=== PATIENT | male | born 1940 | race Caucasian/White ===

== ENCOUNTER 2021-03-07 18:10 | Outpatient (REF) | payer MEDICARE, SELFPAY | END 2021-03-07 18:11 | disposition home or self-care (01) | LOC: HO.LNP 18:10 | PROVIDERS: Visit Provider Nurse Practitioner Family | DX: N39.0 Urinary tract infection, site not specified (principal) | CPT/HCPCS: 87086; 87088 ==

== ENCOUNTER 2021-03-18 13:36 | Outpatient (REF) | payer MEDICARE, SELFPAY ==
[2021-03-18 17:12] LABS: Hematocrit 38.5 % (42-52); Hemoglobin 11.9 g/dl (14.0-18.0); Mean Corpuscular HGB Conc 30.9 g/dl (31.0-36.0); Mean Corpuscular Hemoglobin 30.6 pg (27.0-33.0); Mean Platelet Volume 9.4 fL (9.4-12.4); Platelet Count 243 X10*3/uL (160-400); Red Blood Count 3.89 X10*6/uL (4.60-5.80); Red Cell Distribution Width 14.1 % (11.0-16.0); White Blood Count 6.2 X10*3/uL (4.8-10.8)
[2021-03-18 17:45] LABS: Estimated Average Glucose 166 mg/dL; Hemoglobin A1c % 7.4 %
[2021-03-18 17:47] LABS: Alanine Aminotransferase 11 U/L (0-40); Albumin Level 3.5 g/dL (3.5-5.0); Alkaline Phosphatase 63 U/L (39-117); Anion Gap 16 (12-20); Aspartate Amino Transferase 11 U/L (5-37); Bilirubin Direct 0.2 mg/dL (0.0-0.5); Bilirubin Total 0.6 mg/dL (0.0-1.0); Blood Urea Nitrogen 30 mg/dL (9-16); Calcium 8.7 mg/dL (8.4-10.2); Carbon Dioxide 28 mmol/L (22-29); Chloride 101 mmol/L (96-108); Cholesterol 205 mg/dL; Estimated Glomerular Filt Rate 40; Glucose Random 135 mg/dL (60-115); HDL Cholesterol 50 mg/dL; LDL Cholesterol Calculated 131 mg/dl; Sodium 141 mmol/L (135-145); Triglycerides 121 mg/dL
[2021-03-18 18:06] LABS: Thyroid Stimulating Hormone 1.28 uIU/mL (0.32-4.0)
[2021-03-18 18:30] LABS: Vitamin B12 659 pg/mL (200-900)
[2021-03-25 11:12] LABS: Vitamin D 25-OH, D2 <4 ng/mL; Vitamin D 25-OH, D3 26 ng/mL; Vitamin D 25-OH, Total 26 ng/mL (30-100)
== END 2021-03-18 13:37 | disposition home or self-care (01) ==
LOC: HO.HMGCLDS 13:36
PROVIDERS: PCP Internal Medicine; Visit Provider Internal Medicine
DX: E03.9 Hypothyroidism, unspecified (principal); E11.9 Type 2 diabetes mellitus without complications; I10 Essential (primary) hypertension
CPT/HCPCS: 36415; 80048; 80061; 80076; 82306; 82607; 82746; 83036; 84443; 85027

== ENCOUNTER 2021-05-17 17:24 | Inpatient (IN) | payer MEDICARE, SELFPAY ==
--- NOTE | ~2021-05-17 | US_ITS ---
EXAMINATION: US RETROPERITONEAL LIMITED (RENAL ONLY) CLINICAL INFORMATION: CRISTY. COMPARISON: CT abdomen and pelvis 06/13/2020 TECHNIQUE: Routine retroperitoneal ultrasound was performed. FINDINGS: RIGHT KIDNEY: 11.2 x 5.1 x 5.7 cm (SAG x AP x TRV). The kidney is normal in size, contour, and echogenicity. Renal cortical thickness is normal. No calculi or focal parenchymal lesions. No hydronephrosis. There are several anechoic cysts. The largest cyst measures 1.5 x 1.5 x 1.8 cm. LEFT KIDNEY: 11.1 x 5.5 x 5.5 cm (SAG x AP x TRV). The kidney is normal in size, contour, and echogenicity. Renal cortical thickness is normal. No calculi or focal parenchymal lesions. No hydronephrosis. There are multiple anechoic cysts, the largest measuring 2.8 x 2.0 x 1.7 cm. Incidentally noted is a distal abdominal aortic aneurysm measuring 5.7 x 5.6 cm. US/US renal BI IMPRESSION: Bilateral renal cysts. No echogenic renal calculi. Incidental finding of distal abdominal aortic aneurysm.
[2021-05-17 17:27] VITALS: BP 135/50; PULSE 71; RESP 18; TEMP 36.8; O2SAT 95; BMI 34.4
--- NOTE | 2021-05-17 18:25 | ED_ITS ---
HPI - Male Genitourinary General Chief complaint: Urogenital-Male Stated complaint: UTI Time Seen by Provider: 05/17/21 18:25 Source: patient Mode of arrival: ambulatory Limitations: no limitations History of Present Illness HPI Narrative: patient with history of ESBL Klebsiella in 03/12 in urine treated with Cipro got better , for last 2 weeks complaining of dysuria frequency burning sensation at the UA done on 05/01 for which showed ESBL Klebsiella again patient was given Levaquin comes here was still having the same symptoms. Urine culture report showed resistance to Cipro. Patient denies any fever no nausea no vomiting no chills no abdominal pain no flank pain patient does get UTI almost once a year does not have any indwelling catheter Related Data Home Medications Medication Instructions Recorded Confirmed albuterol sulfate 2 puff INHALATION Q6-8H PRN 05/17/21 05/17/21 alfuzosin 1 tab PO DAILY 05/17/21 05/17/21 apixaban [Eliquis] 1 tab PO BID 05/17/21 05/17/21 clopidogrel 1 tab PO DAILY 05/17/21 05/17/21 diltiazem HCl 1 cap PO DAILY 05/17/21 05/17/21 fluticasone propionate [Flovent 1 puff PO BID 05/17/21 05/17/21 HFA] hydrochlorothiazide 1 tab PO DAILY 05/17/21 05/17/21 metoprolol succinate 1 tab PO DAILY 05/17/21 05/17/21 Allergies Allergy/AdvReac Type Severity Reaction Status Date / Time cephalexin [Keflex] Allergy Unknown diarrhea Verified 04/06/21 16:30 Sulfa (Sulfonamide Allergy Unknown Unknown Verified 04/06/21 16:30 Antibiotics) Review of Systems Review of Systems: Yes all other systems are reviewed and are negative [facility] Past Medical History Medical History Acquired hypothyroidism COPD exacerbation Essential (primary) hypertension Surgical History History of cardiac catheterization History of nasal surgery History of tonsillectomy Family History Family History Father Myocardial infarction Mother Alzheimers disease Social History Social History Alcohol intake: never Patient Tobacco Use Status: Former Tobacco user Cigarettes Per Day: 5 Use of substances other than those prescribed or required for medical reasons: No Advance Directives: No Advance Directives Information Provided: Yes Physical Exam Vital Signs: Vital Signs: Last Vital Signs Temp 98.6 F 05/17/21 22:25 Pulse 66 05/17/21 22:25 Resp 18 05/17/21 22:25 BP 119/59 L 05/17/21 22:25 Pulse Ox 96 05/17/21 22:25 Body Mass Index 34.4 Appearance: Alert. Oriented X3. No acute distress. Eyes: PERRLA, No Nystagmus right eyelid edema ENT: Pharynx normal. Oral Mucosa moist Neck: Normal inspection. Neck supple. CVS: Normal heart rate and rhythm. Pulses normal. Respiratory: No respiratory distress. Equal air entry bilateral, no wheezing/rales/rhonchi Abdomen: Soft and nontender. Bowel sounds are present, no mass palpable, no CVA tenderness Skin: Skin warm and dry. Normal skin color. Normal skin turgor. Extremities: 3+ lower extremity edema. No calf tenderness Neuro: Oriented X 3. No motor deficit. No sensory deficit.No cerebellar signs , cranial nerves II-XII intact MDM - Male Genitourinary MDM Narrative Medical decision making narrative: patient with ESBL UTI will admit patient for IV Invanz . Awaiting for final culture Lab Data Attestation: I reviewed the patient's lab results. Result diagrams: 05/17/21 19:02 05/17/21 19:02 Labs: Lab Results 05/17/21 05/17/21 05/17/21 Range/Units 19:02 19:02 19:02 WBC 9.4 (4.8-10.8) X10*3/uL RBC 3.38 L (4.60-5.80) X10*6/uL Hgb 10.8 L (14.0-18.0) g/dl Hct 33.2 L (42-52) % MCV 98.2 H (80-98) fL MCH 32.0 (27.0-33.0) pg MCHC 32.5 (31.0-36.0) g/dl RDW 14.6 (11.0-16.0) % Plt Count 190 (160-400) X10*3/uL MPV 9.9 (9.4-12.4) fL Immature Gran % (Auto) 0.3 (0.0-0.4) % Neut % (Auto) 67.6 (45-73) % Lymph % (Auto) 17.4 L (20-40) % [place] % (Auto) 9.2 (2-11) % Eos % (Auto) 4.8 H (0-4) % Baso % (Auto) 0.7 (0-2) % Lymph # (Auto) 1.6 (1.2-4.9) X10*3/uL [place] # (Auto) 0.9 (0.1-1.2) X10*3/uL Eos # (Auto) 0.5 H (0.0-0.4) X10*3/uL Baso # (Auto) 0.1 (0.0-0.2) X10*3/uL Abs Immat Gran (auto) 0.03 (0.00-0.03) X10*3/uL Absolute Neuts (auto) 6.4 (2.0-8.3) X10*3/uL Absolute Nucleated RBC 0.000 (0.0-0.012) X10*3/uL Nucleated RBC % (auto) 0.0 (0.0-0.2) /100WBC Sodium 140 (135-145) mmol/L Potassium 4.1 (3.3-5.1) mmol/L Chloride 103 (96-108) mmol/L Carbon Dioxide 29 (22-29) mmol/L Anion Gap 12 (12-20) BUN 58 H D (9-16) mg/dL Creatinine 2.34 H (0.5-1.4) mg/dL Estim Creat Clear Calc 31.1 Estimated GFR 27 Random Glucose 118 H (60-115) mg/dL Lactic Acid 1.2 (0.5-2.0) mmol/L Calcium 9.2 (8.4-10.2) mg/dL B-Natriuretic Peptide (<100) pg/mL COVID-19 ([facility]) (Negative) COVID-19 Clin Com 05/17/21 05/17/21 Range/Units 19:06 20:03 WBC (4.8-10.8) X10*3/uL RBC (4.60-5.80) X10*6/uL Hgb (14.0-18.0) g/dl Hct (42-52) % MCV (80-98) fL MCH (27.0-33.0) pg MCHC (31.0-36.0) g/dl RDW (11.0-16.0) % Plt Count (160-400) X10*3/uL MPV (9.4-12.4) fL Immature Gran % (Auto) (0.0-0.4) % Neut % (Auto) (45-73) % Lymph % (Auto) (20-40) % [place] % (Auto) (2-11) % Eos % (Auto) (0-4) % Baso % (Auto) (0-2) % Lymph # (Auto) (1.2-4.9) X10*3/uL [place] # (Auto) (0.1-1.2) X10*3/uL Eos # (Auto) (0.0-0.4) X10*3/uL Baso # (Auto) (0.0-0.2) X10*3/uL Abs Immat Gran (auto) (0.00-0.03) X10*3/uL Absolute Neuts (auto) (2.0-8.3) X10*3/uL Absolute Nucleated RBC (0.0-0.012) X10*3/uL Nucleated RBC % (auto) (0.0-0.2) /100WBC Sodium (135-145) mmol/L Potassium (3.3-5.1) mmol/L Chloride (96-108) mmol/L Carbon Dioxide (22-29) mmol/L Anion Gap (12-20) BUN (9-16) mg/dL Creatinine (0.5-1.4) mg/dL Estim Creat Clear Calc Estimated GFR Random Glucose (60-115) mg/dL Lactic Acid (0.5-2.0) mmol/L Calcium (8.4-10.2) mg/dL B-Natriuretic Peptide 103 H (<100) pg/mL COVID-19 ([facility]) Negative (Negative) COVID-19 Clin Com See Note Discharge Plan Discharge Clinical Impression: UTI (urinary tract infection) Qualifiers: Urinary tract infection type: acute cystitis Hematuria presence: without he maturia Qualified Code(s): N30.00 - Acute cystitis without hematuria Patient Disposition: Admitted As Inpatient
[2021-05-17 19:09] LABS: MANUAL DIFF FLAG NO
[2021-05-17 19:10] LABS: Basophils Absolute Auto 0.1 X10*3/uL (0.0-0.2); Basophils Percent Auto 0.7 % (0-2); Eosinophils Absolute Auto 0.5 X10*3/uL (0.0-0.4); Eosinophils Percent Auto 4.8 % (0-4); Hematocrit 33.2 % (42-52); Hemoglobin 10.8 g/dl (14.0-18.0); Imm Gran Abs Auto 0.03 X10*3/uL (0.00-0.03); Imm Gran Pct Auto 0.3 % (0.0-0.4); Lymphocytes Absolute Auto 1.6 X10*3/uL (1.2-4.9); Lymphocytes Percent Auto 17.4 % (20-40); Mean Corpuscular HGB Conc 32.5 g/dl (31.0-36.0); Mean Corpuscular Volume 98.2 fL (80-98); Mean Platelet Volume 9.9 fL (9.4-12.4); Monocytes Absolute Auto 0.9 X10*3/uL (0.1-1.2); Monocytes Percent Auto 9.2 % (2-11); Neutrophils Absolute Auto 6.4 X10*3/uL (2.0-8.3); Neutrophils Percent Auto 67.6 % (45-73); Platelet Count 190 X10*3/uL (160-400); Red Blood Count 3.38 X10*6/uL (4.60-5.80); Red Cell Distribution Width 14.6 % (11.0-16.0); White Blood Count 9.4 X10*3/uL (4.8-10.8)
[2021-05-17 19:38] LABS: Lactic Acid 1.2 mmol/L (0.5-2.0)
[2021-05-17 19:40] LABS: Anion Gap 12 (12-20); Blood Urea Nitrogen 58 mg/dL (9-16); Calcium 9.2 mg/dL (8.4-10.2); Carbon Dioxide 29 mmol/L (22-29); Chloride 103 mmol/L (96-108); Creatinine Clr Calc Pharmacy 31.1; Estimated Glomerular Filt Rate 27; Glucose Random 118 mg/dL (60-115); Potassium 4.1 mmol/L (3.3-5.1); Sodium 140 mmol/L (135-145)
[2021-05-17 19:46] LABS: B Type Natriuretic Peptide 103 pg/mL (<100)
[2021-05-17] MEDS: Ertapenem Sodium 1 GM in 0.9 % Sodium Chloride 50 ML IV (20:01)
[2021-05-17 20:05] VITALS: BP 119/47; PULSE 62; RESP 18; TEMP 36.3; O2SAT 96
[2021-05-17] MEDS: Nicotine 14 MG PATCH.TD24 TRANSDERMA (20:09)
[2021-05-17 20:32] LABS: COVID-19 Test Negative (Negative); IDNOW Serial# 9DD0AD1C
[2021-05-17 21:09] VITALS: BP 112/48; PULSE 57; RESP 16; TEMP 36.4; O2SAT 94
[2021-05-17 22:25] VITALS: BP 119/59; PULSE 66; RESP 18; TEMP 37; O2SAT 96
--- NOTE | 2021-05-17 23:02 | PM.IMHP ---
History of Present Illness Date of Service: 05/17/21 Chief Complaint: Dysuria 80-year-old male with a past medical history of hypertension, diabetes, CAD status post stent, paroxysmal AFib on Eliquis, CKD, chronic back pain, COPD, history of PE, abdominal aortic aneurysm , history of prostate cancer status post radiotherapy, history of cystoscopy, history of ESBL UTI -recurrent;presented to the hospital the chief complaint of frequency urgency dysuria. Patient reported that over the past 3 weeks he has been having noted any symptoms; and history of UTI in February; reported that went to the urgent care and was given oral antibiotics, initially Bactrim followed by levofloxacin; with no significant improvement and continued to have the symptoms. Decided to come to the ER for possible IV antibiotics Patient reported that in the past he was given oral ciprofloxacin with improvement. Denies any chest pain palpitations lightheadedness dizziness. Denies any flank pain. Denies any nausea vomiting diarrhea. Review of all other systems is negative except mentioned above ER course: Per ER team patient being treated with ertapenem given prior history of ESBL UTI. On labs also noted to have mild Kris on CKD. [facility] Medical History Acquired hypothyroidism COPD exacerbation Essential (primary) hypertension Family History Father Myocardial infarction Mother Alzheimers disease Surgical History History of cardiac catheterization History of nasal surgery History of tonsillectomy Social History Household Members: Significant Other Housing: House Alcohol intake: never Patient Tobacco Use Status: Former Tobacco user Quit Date: january Cigarettes Per Day: 5 Years Smoked: 60 Use of substances other than those prescribed or required for medical reasons: No Currently Displaying Signs/Symptoms of Drug Intoxication Withdrawal: No Have you been hit, kicked, punched, or otherwise hurt by someone within the past year? If so, by whom?: No Do you feel safe in your current relationship?: Yes Is there a partner from a previous relationship who is making you feel unsafe now?: No Are you made to feel afraid or neglected: No Advance Directives: No Advance Directives Information Provided: Yes Do you have thoughts of harming others: None Do you have a plan to hurt others: No Plan Recently lost weight without trying: No Eating poorly because of decreased appetite: No Nutrition Risks: No Nutritional Risk Poor oral hygiene: No service: No Current occupational status: retired Meds Allergies Allergy/AdvReac Type Severity Reaction Status Date / Time cephalexin [Keflex] Allergy Unknown diarrhea Verified 04/06/21 16:30 Sulfa (Sulfonamide Allergy Unknown Unknown Verified 04/06/21 16:30 Antibiotics) Active Medications: Current Medications Generic Name Dose Route Start Last Admin Trade Name Freq PRN Reason Stop Dose Admin Acetaminophen 650 mg 05/17/21 22:09 Acetaminophen 325 Mg Tablet PO Q6H PRN Pain, Mild (Pain Scale 1-3) Apixaban 5 mg 05/18/21 09:00 Apixaban 5 Mg Tablet PO BID [facility] Clopidogrel Bisulfate 75 mg 05/18/21 09:00 Clopidogrel Bisulfate 75 Mg Tablet PO DAILY [facility] Diltiazem HCl 300 mg 05/18/21 09:00 Diltiazem Hcl Cd 300 Mg Cap.Er.24h PO DAILY [facility] Protocol Insulin Human Lispro 0 unit 05/18/21 07:30 Insulin Lispro 100 Unit/Ml 3 Ml Vial SUBCUT QIDACHS [facility] Protocol Metoprolol Succinate 50 mg 05/18/21 09:00 Metoprolol Succinate Er 50 Mg Tab.Er.24h PO DAILY [facility] Protocol Senna 17.2 mg 05/17/21 22:09 Sennosides 8.6 Mg Tablet PO BEDTIME PRN Constipation Sodium Chloride 3 ml 05/18/21 00:00 0.9 % Sodium Chloride Flush 3 M[facility] Tamsulosin HCl 0.4 mg 05/18/21 09:00 Tamsulosin Hcl 0.4 Mg Capsule PO DAILY [facility] Home Medications Medication Instructions Recorded Confirmed Last Taken Type albuterol sulfate 2 puff INHALATION Q6-8H PRN 05/17/21 05/17/21 05/17/21 History alfuzosin 1 tab PO DAILY 05/17/21 05/17/21 Unknown History apixaban [Eliquis] 1 tab PO BID 05/17/21 05/17/21 Unknown History clopidogrel 1 tab PO DAILY 05/17/21 05/17/21 Unknown History diltiazem HCl 1 cap PO DAILY 05/17/21 05/17/21 Unknown History fluticasone propionate [Flovent 1 puff PO BID 05/17/21 05/17/21 Unknown History HFA] hydrochlorothiazide 1 tab PO DAILY 05/17/21 05/17/21 Unknown History metoprolol succinate 1 tab PO DAILY 05/17/21 05/17/21 Unknown History Physical Exam Vital Signs and Narrative: Vital Signs: Last Vital Signs Temp 98.6 F 05/17/21 22:25 Pulse 66 05/17/21 22:25 Resp 18 05/17/21 22:25 BP 119/59 L 05/17/21 22:25 Pulse Ox 96 05/17/21 22:25 Body Mass Index 34.4 Gen: Appears be in no acute distress HEENT: NCAT, Moist mucosa. Pulmonary: Vesicular breath sounds, fair air entry CVS: Normal S1-S2 Abdomen: BS+, Soft, Nontender ; no CVA tenderness Extremities: Warm well perfused Neuro: Alert and awake. Results Labs CBC and Chem 7: 05/18/21 06:55 05/18/21 09:54 Labs: Laboratory Results - last 24 hr 05/17/21 05/17/21 05/17/21 19:02 19:02 19:02 MCV 98.2 H MCH 32.0 MCHC 32.5 RDW 14.6 Plt Count 190 MPV 9.9 Immature Gran % (Auto) 0.3 Neut % (Auto) 67.6 Lymph % (Auto) 17.4 L [place] % (Auto) 9.2 Eos % (Auto) 4.8 H Baso % (Auto) 0.7 Lymph # (Auto) 1.6 [place] # (Auto) 0.9 Eos # (Auto) 0.5 H Baso # (Auto) 0.1 Abs Immat Gran (auto) 0.03 Absolute Neuts (auto) 6.4 Absolute Nucleated RBC 0.000 Nucleated RBC % (auto) 0.0 Anion Gap 12 Estim Creat Clear Calc 31.1 Estimated GFR 27 Random Glucose 118 H Lactic Acid 1.2 Calcium 9.2 B-Natriuretic Peptide COVID-19 ([facility]) COVID-19 Clin Com 05/17/21 05/17/21 19:06 20:03 MCV MCH MCHC RDW Plt Count MPV Immature Gran % (Auto) Neut % (Auto) Lymph % (Auto) [place] % (Auto) Eos % (Auto) Baso % (Auto) Lymph # (Auto) [place] # (Auto) Eos # (Auto) Baso # (Auto) Abs Immat Gran (auto) Absolute Neuts (auto) Absolute Nucleated RBC Nucleated RBC % (auto) Anion Gap Estim Creat Clear Calc Estimated GFR Random Glucose Lactic Acid Calcium B-Natriuretic Peptide 103 H COVID-19 ([facility]) Negative COVID-19 Clin Com See Note Assessment and Plan (1) Renal insufficiency: Status: Acute 80-year-old male with a past medical history of hypertension, diabetes, CAD status post stent, paroxysmal AFib on Eliquis, CKD, chronic back pain, COPD, history of PE, abdominal aortic aneurysm , history of prostate cancer status post radiotherapy, history of cystoscopy, history of ESBL UTI -recurrent;presented to the hospital the chief complaint of frequency urgency dysuria. noted to have UTI/ Kris on CKD. Admitted for further management. Recurrent UTI: Patient has prior history of ESBL UTI. Continue ertapenem. Id consult for input on recurrent UTI. KRIS on CKD: Gentle IV fluids. Avoid nephrotoxins. Nephrology consult. Diabetes: Insulin sliding scale. Hold home Januvia. COPD: Stable. Nebulizations p.r.n.. History of AFib/PE: Patient on Eliquis. Rate controlled. Continue home diltiazem, Metoprolol. code status: Full code Quality Stroke Does the patient have a stroke diagnosis?: No VTE Prior VTE?: No VTE Risk Level:: Medical - moderate - high VTE Device Contraindication: N/A - Device Ordered VTE Drug Contraindication: N/A - Med Ordered
[2021-05-18] VITALS (8 sets, daily range): BP systolic 137–162; BP diastolic 62–72; PULSE 57–76; RESP 15–18; TEMP 36.4–37; O2SAT 94–98
[2021-05-18] MEDS: 0.9 % Sodium Chloride 1,000 ML 75 ML IVCONT ×2 (00:57→14:13)
[2021-05-18 07:01] LABS: MANUAL DIFF FLAG NO
[2021-05-18 07:03] LABS: Basophils Absolute Auto 0.1 X10*3/uL (0.0-0.2); Basophils Percent Auto 0.8 % (0-2); Eosinophils Absolute Auto 0.6 X10*3/uL (0.0-0.4); Eosinophils Percent Auto 7.2 % (0-4); Hematocrit 35.7 % (42-52); Hemoglobin 11.2 g/dl (14.0-18.0); Imm Gran Abs Auto 0.05 X10*3/uL (0.00-0.03); Imm Gran Pct Auto 0.6 % (0.0-0.4); Lymphocytes Percent Auto 23.3 % (20-40); Mean Corpuscular HGB Conc 31.4 g/dl (31.0-36.0); Mean Corpuscular Hemoglobin 30.6 pg (27.0-33.0); Mean Corpuscular Volume 97.5 fL (80-98); Mean Platelet Volume 9.5 fL (9.4-12.4); Monocytes Absolute Auto 0.9 X10*3/uL (0.1-1.2); Monocytes Percent Auto 10.4 % (2-11); Neutrophils Percent Auto 57.7 % (45-73); Platelet Count 208 X10*3/uL (160-400); Red Blood Count 3.66 X10*6/uL (4.60-5.80); Red Cell Distribution Width 14.4 % (11.0-16.0); White Blood Count 8.7 X10*3/uL (4.8-10.8)
[2021-05-18 07:26] LABS: Anion Gap 14 (12-20); Blood Urea Nitrogen 54 mg/dL (9-16); Calcium 8.9 mg/dL (8.4-10.2); Carbon Dioxide 27 mmol/L (22-29); Chloride 105 mmol/L (96-108); Creatinine Clr Calc Pharmacy 35.1; Estimated Glomerular Filt Rate 31; Glucose Random 109 mg/dL (60-115); Potassium 4.1 mmol/L (3.3-5.1); Sodium 142 mmol/L (135-145)
[2021-05-18 07:40] LABS: Glucose, Whole Blood 111 mg/dL (60-115)
--- NOTE | 2021-05-18 09:25 | P.PNIM_ITS ---
Subjective Subjective Date of Service: 05/18/21 Interval History: seen in follow-up for UTI and KRIS. he reports feeling better today. Review of Systems Gen: no fever Resp: no sob, no cough CV: no chest, no GALEANO, no leg edema GI/: No n/v, no abd pain, No dysuriand no hematuria. Neuro: No confusion Physical Exam Vital Signs: Vital Signs: Last Vital Signs Temp 98.6 F 05/18/21 05:52 Pulse 57 05/18/21 05:52 Resp 15 05/18/21 05:52 BP 119/59 L 05/17/21 22:25 Pulse Ox 96 05/18/21 05:52 Body Mass Index 34.4 Const: Other: General: AO X 3, no acute distress Resp: CTA bilateral CVS: S1,S2,RRR GI: +BS, NT, no distention Skin: No rash Neuro: motor grossly intact Psych: appropriate affect Objective Data Current Medications Generic Name Dose Route Start Last Admin Trade Name Freq PRN Reason Stop Dose Admin Acetaminophen 650 mg 05/17/21 22:09 Acetaminophen 325 Mg Tablet PO Q6H PRN Pain, Mild (Pain Scale 1-3) Albuterol/Ipratropium 3 ml 05/17/21 23:18 Albuterol/Iprat 2.5/0.5mg 3 Ml Ampul.Neb INHALE RQ4H PRN Shortness of Breath/Wheezing Apixaban 5 mg 05/18/21 09:00 Apixaban 5 Mg Tablet PO BID [facility] Clopidogrel Bisulfate 75 mg 05/18/21 09:00 Clopidogrel Bisulfate 75 Mg Tablet PO DAILY [facility] Diltiazem HCl 300 mg 05/18/21 09:00 Diltiazem Hcl Cd 300 Mg Cap.Er.24h PO DAILY [facility] Protocol Sodium Chloride 1,000 mls @ 75 mls/hr 05/17/21 23:30 05/18/21 00:57 Ns IVCONT 75 mls/hr .[id number] [facility] Administration Ertapenem 1 gm/ Sodium 50 mls @ 100 mls/hr 05/18/21 20:00 05/18/21 00:56 Chloride IV Not Given Q24H [facility] Insulin Human Lispro 0 unit 05/18/21 07:30 05/18/21 07:53 Insulin Lispro 100 Unit/Ml 3 Ml Vial SUBCUT Not Given QIDACHS [facility] Protocol Metoprolol Succinate 50 mg 05/18/21 09:00 Metoprolol Succinate Er 50 Mg Tab.Er.24h PO DAILY [facility] Protocol Nicotine 14 mg 05/18/21 09:00 Nicotine 14 Mg Patch.Td24 TRANSDERMA DAILY [facility] Senna 17.2 mg 05/17/21 22:09 Sennosides 8.6 Mg Tablet PO BEDTIME PRN Constipation Sodium Chloride 3 ml 05/18/21 00:00 05/18/21 07:54 0.9 % Sodium Chloride Flush 3 Ml Syringe IVFLUSH Not Given QSHIFT [facility] Tamsulosin HCl 0.4 mg 05/18/21 09:00 Tamsulosin Hcl 0.4 Mg Capsule PO DAILY [facility] Labs CBC & Chem 7: 05/18/21 06:55 05/18/21 06:55 Labs: Laboratory Results - last 24 hr 05/17/21 05/17/21 05/17/21 19:02 19:02 19:02 WBC 9.4 RBC 3.38 L Hgb 10.8 L Hct 33.2 L MCV 98.2 H MCH 32.0 MCHC 32.5 RDW 14.6 Plt Count 190 MPV 9.9 Immature Gran % (Auto) 0.3 Neut % (Auto) 67.6 Lymph % (Auto) 17.4 L [place] % (Auto) 9.2 Eos % (Auto) 4.8 H Baso % (Auto) 0.7 Lymph # (Auto) 1.6 [place] # (Auto) 0.9 Eos # (Auto) 0.5 H Baso # (Auto) 0.1 Abs Immat Gran (auto) 0.03 Absolute Neuts (auto) 6.4 Absolute Nucleated RBC 0.000 Nucleated RBC % (auto) 0.0 Sodium 140 Potassium 4.1 Chloride 103 Carbon Dioxide 29 Anion Gap 12 BUN 58 H D Creatinine 2.34 H Estim Creat Clear Calc 31.1 Estimated GFR 27 POC Glucose Random Glucose 118 H Lactic Acid 1.2 Calcium 9.2 B-Natriuretic Peptide COVID-19 ([facility]) COVID-19 Clin Com 05/17/21 05/17/21 05/18/21 19:06 20:03 06:55 WBC 8.7 RBC 3.66 L Hgb 11.2 L Hct 35.7 L MCV 97.5 MCH 30.6 MCHC 31.4 RDW 14.4 Plt Count 208 MPV 9.5 Immature Gran % (Auto) 0.6 H Neut % (Auto) 57.7 Lymph % (Auto) 23.3 [place] % (Auto) 10.4 Eos % (Auto) 7.2 H Baso % (Auto) 0.8 Lymph # (Auto) 2.0 [place] # (Auto) 0.9 Eos # (Auto) 0.6 H Baso # (Auto) 0.1 Abs Immat Gran (auto) 0.05 H Absolute Neuts (auto) 5.0 Absolute Nucleated RBC 0.000 Nucleated RBC % (auto) 0.0 Sodium Potassium Chloride Carbon Dioxide Anion Gap BUN Creatinine Estim Creat Clear Calc Estimated GFR POC Glucose Random Glucose Lactic Acid Calcium B-Natriuretic Peptide 103 H COVID-19 ([facility]) Negative COVID-19 Clin Com See Note 05/18/21 05/18/21 06:55 07:21 WBC RBC Hgb Hct MCV MCH MCHC RDW Plt Count MPV Immature Gran % (Auto) Neut % (Auto) Lymph % (Auto) [place] % (Auto) Eos % (Auto) Baso % (Auto) Lymph # (Auto) [place] # (Auto) Eos # (Auto) Baso # (Auto) Abs Immat Gran (auto) Absolute Neuts (auto) Absolute Nucleated RBC Nucleated RBC % (auto) Sodium 142 Potassium 4.1 Chloride 105 Carbon Dioxide 27 Anion Gap 14 BUN 54 H Creatinine 2.07 H Estim Creat Clear Calc 35.1 Estimated GFR 31 POC Glucose 111 Random Glucose 109 Lactic Acid Calcium 8.9 B-Natriuretic Peptide COVID-19 ([facility]) COVID-19 Clin Com Quality Stroke Does the patient have a stroke diagnosis?: No VTE Prior VTE?: No VTE Risk Level:: Medical - moderate - high VTE Device Contraindication: N/A - Device Ordered VTE Drug Contraindication: N/A - Med Ordered Assessment and Plan (1) Renal insufficiency: Status: Acute Assessment and Plan: 80-year-old male with a past medical history of hypertension, diabetes, CAD status post stent, paroxysmal AFib on Eliquis, CKD 3, chronic back pain, COPD, history of PE, abdominal aortic aneurysm , history of prostate cancer status post radiotherapy, history of cystoscopy, history of ESBL UTI -recurrent;pre sented to the hospital the chief complaint of frequency urgency dysuria. noted to have UTI/ Kris on CKD. Admitted for further management. Recurrent UTI: Patient has prior history of ESBL UTI. Continue ertapenem. infectious Disease consultation for further recommendation KRIS on CKD 3, baseline creatinine 1.6 Gentle IV fluids. Avoid nephrotoxins. Nephrology consult. Repeat labs tomorrow Diabetes: Insulin sliding scale. Hold home Januvia. COPD: Stable. Nebulizations p.r.n.. History of AFib/PE: Patient on Eliquis, needs be renally adjusted to 2.5 bid. Rate controlled on diltiazem, Metoprolol. code status: Full code (2) UTI (urinary tract infection): Status: Acute
[2021-05-18] MEDS: dilTIAZem HCL CD 300 MG CAP.ER.24H PO (09:45)
[2021-05-18] MEDS: Nicotine 14 MG PATCH.TD24 TRANSDERMA (09:45)
[2021-05-18] MEDS: Metoprolol Succinate ER 50 MG TAB.ER.24H PO (09:46)
[2021-05-18] MEDS: Tamsulosin HCL 0.4 MG CAPSULE PO (09:46)
[2021-05-18] MEDS: Clopidogrel Bisulfate 75 MG TABLET PO (09:46)
[2021-05-18] MEDS: Apixaban 2.5 MG TABLET PO ×2 (09:46→21:28)
[2021-05-18 10:30] LABS: Anion Gap 15 (12-20); Blood Urea Nitrogen 52 mg/dL (9-16); Calcium 8.8 mg/dL (8.4-10.2); Carbon Dioxide 25 mmol/L (22-29); Chloride 106 mmol/L (96-108); Creatinine Clr Calc Pharmacy 35.8; Estimated Glomerular Filt Rate 32; Glucose Random 150 mg/dL (60-115); Potassium 5.1 mmol/L (3.3-5.1); Sodium 141 mmol/L (135-145)
[2021-05-18 11:07] LABS: Glucose, Whole Blood 112 mg/dL (60-115)
--- NOTE | 2021-05-18 13:41 | MHC.CM.PN ---
nurse family day care provider note electronic medical record reviewed along with case discussed with staff nurse , met with patient , patient reported he lives with his partner , he is active and independent in all adls and mobility without the use of any device [facility] he denied any financial burdens in obtaining his medications he completed his second does of the [employer] vacination on 01/22/21 he had s diabetes but does not check his poc , he has hgb-aic checked q 3 months and is is stable . he gomez s copd and a-fib and on eliquis he has no vna /no dme services in the home and does not feel he will need any he has been admitted for uti and has esbl uti,l he will continue with erapeneum discharge plan at this time home no services pcp patient to call for post hospital discharge follow up transportation family
[2021-05-18 16:18] LABS: Glucose, Whole Blood 114 mg/dL (60-115)
[2021-05-18 20:36] LABS: Glucose, Whole Blood 141 mg/dL (60-115)
[2021-05-19] VITALS (8 sets, daily range): BP systolic 134–154; BP diastolic 60–80; PULSE 55–71; RESP 16–19; TEMP 36.4–36.8; O2SAT 94–97
[2021-05-19] MEDS: 0.9 % Sodium Chloride 1,000 ML 75 ML IVCONT ×2 (03:44→14:49)
[2021-05-19 07:41] LABS: Glucose, Whole Blood 108 mg/dL (60-115)
[2021-05-19] MEDS: Clopidogrel Bisulfate 75 MG TABLET PO (09:39)
[2021-05-19] MEDS: Tamsulosin HCL 0.4 MG CAPSULE PO (09:40)
[2021-05-19] MEDS: Metoprolol Succinate ER 50 MG TAB.ER.24H PO (09:40)
[2021-05-19] MEDS: dilTIAZem HCL CD 300 MG CAP.ER.24H PO (09:45)
[2021-05-19] MEDS: Apixaban 2.5 MG TABLET PO ×2 (09:45→20:50)
[2021-05-19] MEDS: Nicotine 14 MG PATCH.TD24 TRANSDERMA (09:46)
--- NOTE | 2021-05-19 09:55 | P.CONNP_ITS ---
History of Present Illness Reason for Consult Consult date: 05/19/21 Chief Complaint Chief complaint: UTI recurrent. says know creat 2.0 for some time Review of Systems Review of Systems Gen: no fever Resp: no sob, no cough CV: no chest, no GALEANO, no leg edema GI/: No n/v, no abd pain, No dysuriand no hematuria. Neuro: No confusion Yes all other systems are reviewed and are negative [facility] Past Medical History Medical History Acquired hypothyroidism COPD exacerbation Essential (primary) hypertension Family History Family History Father Myocardial infarction Mother Alzheimers disease Surgical History Surgical History History of cardiac catheterization History of nasal surgery History of tonsillectomy Social History Social History Household Members: Significant Other Housing: House Alcohol intake: never Patient Tobacco Use Status: Former Tobacco user Quit Date: january Cigarettes Per Day: 5 Years Smoked: 60 Use of substances other than those prescribed or required for medical reasons: No Currently Displaying Signs/Symptoms of Drug Intoxication Withdrawal: No Have you been hit, kicked, punched, or otherwise hurt by someone within the past year? If so, by whom?: No Do you feel safe in your current relationship?: Yes Is there a partner from a previous relationship who is making you feel unsafe now?: No Are you made to feel afraid or neglected: No Advance Directives: No Advance Directives Information Provided: Yes Do you have thoughts of harming others: None Do you have a plan to hurt others: No Plan Recently lost weight without trying: No Eating poorly because of decreased appetite: No Nutrition Risks: No Nutritional Risk Poor oral hygiene: No service: No Current occupational status: retired Meds Allergies Allergy/AdvReac Type Severity Reaction Status Date / Time cephalexin [Keflex] Allergy Unknown diarrhea Verified 04/06/21 16:30 Sulfa (Sulfonamide Allergy Unknown Unknown Verified 04/06/21 16:30 Antibiotics) Active Medications: Current Medications Generic Name Dose Route Start Last Admin Trade Name Freq PRN Reason Stop Dose Admin Acetaminophen 650 mg 05/17/21 22:09 Acetaminophen 325 Mg Tablet PO Q6H PRN Pain, Mild (Pain Scale 1-3) Albuterol/Ipratropium 3 ml 05/17/21 23:18 Albuterol/Iprat 2.5/0.5mg 3 Ml Ampul.Neb INHALE RQ4H PRN Shortness of Breath/Wheezing Apixaban 2.5 mg 05/18/21 09:36 05/19/21 09:45 Apixaban 2.5 Mg Tablet PO 2.5 mg BID PARMJIT Administration Clopidogrel Bisulfate 75 mg 05/18/21 09:00 05/19/21 09:39 Clopidogrel Bisulfate 75 Mg Tablet PO 75 mg DAILY PARMJIT Administration Diltiazem HCl 300 mg 05/18/21 09:00 05/19/21 09:45 Diltiazem Hcl Cd 300 Mg Cap.Er.24h PO 300 mg DAILY PARMJIT Administration Protocol Sodium Chloride 1,000 mls @ 100 mls/hr 05/17/21 23:30 05/19/21 03:44 Ns IVCONT 75 mls/hr .Q10H PARMJIT Administration Meropenem 1 gm/ Sodium 100 mls @ 100 mls/hr 05/18/21 20:15 05/19/21 08:23 Chloride IV Infused Q12H PARMJIT Infusion Insulin Human Lispro 0 unit 05/18/21 07:30 05/19/21 07:20 Insulin Lispro 100 Unit/Ml 3 Ml Vial SUBCUT Not Given QIDACHS [facility] Protocol Metoprolol Succinate 50 mg 05/18/21 09:00 05/19/21 09:40 Metoprolol Succinate Er 50 Mg Tab.Er.24h PO 50 mg DAILY [facility] Administration Protocol Nicotine 14 mg 05/18/21 09:00 05/19/21 09:46 Nicotine 14 Mg Patch.Td24 TRANSDERMA 14 mg DAILY PARMJIT Administration Senna 17.2 mg 05/17/21 22:09 Sennosides 8.6 Mg Tablet PO BEDTIME PRN Constipation Sodium Chloride 3 ml 05/18/21 00:00 05/19/21 07:25 0.9 % Sodium Chloride Flush 3 Ml Syringe IVFLUSH Not Given QSHIFT PARMJIT Tamsulosin HCl 0.4 mg 05/18/21 09:00 05/19/21 09:40 Tamsulosin Hcl 0.4 Mg Capsule PO 0.4 mg DAILY PARMJIT Administration Home Medications Medication Instructions Recorded Confirmed Last Taken Type albuterol sulfate 2 puff INHALATION Q6-8H PRN 05/17/21 05/17/21 05/17/21 History alfuzosin 1 tab PO DAILY 05/17/21 05/17/21 Unknown History apixaban [Eliquis] 1 tab PO BID 05/17/21 05/17/21 Unknown History clopidogrel 1 tab PO DAILY 05/17/21 05/17/21 Unknown History diltiazem HCl 1 cap PO DAILY 05/17/21 05/17/21 Unknown History fluticasone propionate [Flovent 1 puff PO BID 05/17/21 05/17/21 Unknown History HFA] hydrochlorothiazide 1 tab PO DAILY 05/17/21 05/17/21 Unknown History metoprolol succinate 1 tab PO DAILY 05/17/21 05/17/21 Unknown History Physical Exam Vital Signs: Last Vital Signs Temp 97.6 F 05/19/21 07:14 Pulse 68 05/19/21 09:40 Resp 17 05/19/21 07:14 BP 138/70 05/19/21 09:40 Pulse Ox 96 05/19/21 07:14 Body Mass Index 34.4 Const Other: General: AO X 3, no acute distress Resp: CTA bilateral CVS: S1,S2,RRR GI: +BS, NT, no distention Skin: No rash Neuro: motor grossly intact Psych: appropriate affect Results Lab Results Result Diagrams: 05/18/21 06:55 05/18/21 09:54 Lab results: Chemistry 05/17/21 05/18/21 05/18/21 19:02 06:55 09:54 Sodium 140 142 141 Potassium 4.1 4.1 5.1 D Carbon Dioxide 29 27 25 BUN 58 H D 54 H 52 H Creatinine 2.34 H 2.07 H 2.03 H Calcium 9.2 8.9 8.8 Hematology 05/17/21 05/18/21 19:02 06:55 WBC 9.4 8.7 Hgb 10.8 L 11.2 L Plt Count 190 208 Assessment and Plan (1) Renal insufficiency: Status: Acute 80-year-old male with a past medical history of hypertension, diabetes, CAD status post stent, paroxysmal AFib on Eliquis, CKD, chronic back pain, COPD, history of PE, abdominal aortic aneurysm , history of prostate cancer status post radiotherapy, history of cystoscopy, history of ESBL UTI - recurrent;presented to the hospital the chief complaint of frequency urgency dysuria. noted to have UTI/ Kris on CKD. Admitted for further management. Recurrent UTI: Patient has prior history of ESBL UTI. Continue ertapenem. Id consult for input on recurrent UTI. KRIS on CKD: Gentle IV fluids. Avoid nephrotoxins. likely CKD from DM will start workup and f/u as OP Diabetes: Insulin sliding scale. Hold home Januvia. COPD: Stable. Nebulizations p.r.n.. History of AFib/PE: Patient on Eliquis. Rate controlled. Continue home diltiazem, Metoprolol. code status: Full code Procedures Date of Service Date of Service: 05/19/21
--- NOTE | 2021-05-19 10:14 | MHC.CLN ---
CALORIC LEVEL OF DIET DIET=DIABETIC 2000 KCAL. RECOMMEND DIABETIC 2200 KCAL, TO PROVIDE 26.2 KCAL/KG CMW.
[2021-05-19 11:39] LABS: Glucose, Whole Blood 114 mg/dL (60-115)
--- NOTE | 2021-05-19 12:35 | P.CNID_ITS ---
History of Present Illness Data of Consult Service Date: 05/19/21 Requesting physician: Justice Garcia Primary Care Provider: Colton Segura MD [facility] Reason for consult: UTI He presents with three weeks dysuria,urgency and fatigue He had Macrobid,Levaquin and Cipro with no improvement He had urine culture in February ESBL Klebsiella He has CRISTY Review of Systems Review of Systems: Yes all other systems are reviewed and are negative PMFSH Past Medical History Medical History Acquired hypothyroidism COPD exacerbation Essential (primary) hypertension Family History Family History Father Myocardial infarction Mother Alzheimers disease Family history: reviewed and not pertinent Surgical History Surgical History History of cardiac catheterization History of nasal surgery History of tonsillectomy Social History Social History Household Members: Significant Other Housing: House Alcohol intake: never Patient Tobacco Use Status: Former Tobacco user Quit Date: january Cigarettes Per Day: 5 Years Smoked: 60 Use of substances other than those prescribed or required for medical reasons: No Currently Displaying Signs/Symptoms of Drug Intoxication Withdrawal: No Have you been hit, kicked, punched, or otherwise hurt by someone within the past year? If so, by whom?: No Do you feel safe in your current relationship?: Yes Is there a partner from a previous relationship who is making you feel unsafe now?: No Are you made to feel afraid or neglected: No Advance Directives: No Advance Directives Information Provided: Yes Do you have thoughts of harming others: None Do you have a plan to hurt others: No Plan Recently lost weight without trying: No Eating poorly because of decreased appetite: No Nutrition Risks: No Nutritional Risk Poor oral hygiene: No service: No Current occupational status: retired Meds Allergies Allergy/AdvReac Type Severity Reaction Status Date / Time cephalexin [Keflex] Allergy Unknown diarrhea Verified 04/06/21 16:30 Sulfa (Sulfonamide Allergy Unknown Unknown Verified 04/06/21 16:30 Antibiotics) Active Medications: Current Medications Generic Name Dose Route Start Last Admin Trade Name Freq PRN Reason Stop Dose Admin Acetaminophen 650 mg 05/17/21 22:09 Acetaminophen 325 Mg Tablet PO Q6H PRN Pain, Mild (Pain Scale 1-3) Albuterol/Ipratropium 3 ml 05/17/21 23:18 Albuterol/Iprat 2.5/0.5mg 3 Ml Ampul.Neb INHALE RQ4H PRN Shortness of Breath/Wheezing Apixaban 2.5 mg 05/18/21 09:36 05/19/21 09:45 Apixaban 2.5 Mg Tablet PO 2.5 mg BID PARMJIT Administration Clopidogrel Bisulfate 75 mg 05/18/21 09:00 05/19/21 09:39 Clopidogrel Bisulfate 75 Mg Tablet PO 75 mg DAILY PARMJIT Administration Diltiazem HCl 300 mg 05/18/21 09:00 05/19/21 09:45 Diltiazem Hcl Cd 300 Mg Cap.Er.24h PO 300 mg DAILY PARMJIT Administration Protocol Sodium Chloride 1,000 mls @ 75 mls/hr 05/17/21 23:30 05/19/21 03:44 Ns IVCONT 75 mls/hr .[id number] PARMJIT Administration Meropenem 1 gm/ Sodium 100 mls @ 100 mls/hr 05/18/21 20:15 05/19/21 08:23 Chloride IV Infused Q12H PARMJIT Infusion Insulin Human Lispro 0 unit 05/18/21 07:30 05/19/21 11:53 Insulin Lispro 100 Unit/Ml 3 Ml Vial SUBCUT Not Given QIDACHS [facility] Protocol Metoprolol Succinate 50 mg 05/18/21 09:00 05/19/21 09:40 Metoprolol Succinate Er 50 Mg Tab.Er.24h PO 50 mg DAILY PARMJIT Administration Protocol Nicotine 14 mg 05/18/21 09:00 05/19/21 09:46 Nicotine 14 Mg Patch.Td24 TRANSDERMA 14 mg DAILY PARMJIT Administration Senna 17.2 mg 05/17/21 22:09 Sennosides 8.6 Mg Tablet PO BEDTIME PRN Constipation Sodium Chloride 3 ml 05/18/21 00:00 05/19/21 07:25 0.9 % Sodium Chloride Flush 3 Ml Syringe IVFLUSH Not Given QSHIFT PARMJIT Tamsulosin HCl 0.4 mg 05/18/21 09:00 05/19/21 09:40 Tamsulosin Hcl 0.4 Mg Capsule PO 0.4 mg DAILY PARMJIT Administration Home Medications Medication Instructions Recorded Confirmed Last Taken Type albuterol sulfate 2 puff INHALATION Q6-8H PRN 05/17/21 05/17/21 05/17/21 History alfuzosin 1 tab PO DAILY 05/17/21 05/17/21 Unknown History apixaban [Eliquis] 1 tab PO BID 05/17/21 05/17/21 Unknown History clopidogrel 1 tab PO DAILY 05/17/21 05/17/21 Unknown History diltiazem HCl 1 cap PO DAILY 05/17/21 05/17/21 Unknown History fluticasone propionate [Flovent 1 puff PO BID 05/17/21 05/17/21 Unknown History HFA] hydrochlorothiazide 1 tab PO DAILY 05/17/21 05/17/21 Unknown History metoprolol succinate 1 tab PO DAILY 05/17/21 05/17/21 Unknown History Physical Exam Vital Signs: Vital Signs: Last Vital Signs Temp 98.0 F 05/19/21 11:19 Pulse 71 05/19/21 11:19 Resp 19 05/19/21 11:19 BP 154/67 H 05/19/21 11:19 Pulse Ox 96 05/19/21 11:19 Body Mass Index 34.4 Const: General: cooperative HENMT: Head: Yes normal to inspection Mouth: Normal oral and palatal mucosa present Resp: Effort & Inspection: normal respiratory effort Cardio: Rate: regular rate Rhythm: regular rhythm GI: Palpation (GI): Soft to palpation and nontender Skin: General skin exam: no rashes or lesions noted Extrem: General: Yes normal to inspection Results Labs CBC & Chem 7: 05/18/21 06:55 05/18/21 09:54 Microbiology Microbiology Results: Microbiology 05/17/21 19:06 Blood - Venous Blood Culture - Preliminary No growth after 24 hours. 05/17/21 19:02 Blood - Venous Blood Culture - Preliminary No growth after 24 hours. Assessment and Plan (1) UTI (urinary tract infection): Qualifiers: Urinary tract infection type: acute cystitis Hematuria presence: without hematuria Qualified Code(s): N30.00 - Acute cystitis without hematuria Status: Acute He has had ESBL urine See negative blood cultures but no urine results here yet He failed po antibiotics Suggest Merem and then IV Ertapenem for 10 -14 days unless cultures dictate otherwise (rx to Keflex diarrhea) (2) Renal insufficiency: Status: Acute
--- NOTE | 2021-05-19 15:59 | HO.PM.IMPN ---
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 Neck is supple no JVD. CVS regular rate rhythm, Respiratory lungs clear to auscultation, no respiratory distress, no wheeze, no rhonchi. Gastrointestinal abdomen soft, nontender, bowel sounds audible, no guarding , no rigidity. Extremities bilateral edema with skin discoloration due to chronic stasis. Neuro nonfocal psych appropriate affect. Objective Data Current Medications Generic Name Dose Route Start Last Admin Trade Name Freq PRN Reason Stop Dose Admin Acetaminophen 650 mg 05/17/21 22:09 Acetaminophen 325 Mg Tablet PO Q6H PRN Pain, Mild (Pain Scale 1-3) Albuterol/Ipratropium 3 ml 05/17/21 23:18 Albuterol/Iprat 2.5/0.5mg 3 Ml Ampul.Neb INHALE RQ4H PRN Shortness of Breath/Wheezing Apixaban 2.5 mg 05/18/21 09:36 05/19/21 09:45 Apixaban 2.5 Mg Tablet PO 2.5 mg BID PARMJIT Administration Clopidogrel Bisulfate 75 mg 05/18/21 09:00 05/19/21 09:39 Clopidogrel Bisulfate 75 Mg Tablet PO 75 mg DAILY PARMJIT Administration Diltiazem HCl 300 mg 05/18/21 09:00 05/19/21 09:45 Diltiazem Hcl Cd 300 Mg Cap.Er.24h PO 300 mg DAILY PARMJIT Administration Protocol Sodium Chloride 1,000 mls @ 75 mls/hr 05/17/21 23:30 05/19/21 14:49 Ns IVCONT 75 mls/hr .[id number] PARMJIT Administration Meropenem 1 gm/ Sodium 100 mls @ 100 mls/hr 05/18/21 20:15 05/19/21 08:23 Chloride IV Infused Q12H [facility] Infusion Insulin Human Lispro 0 unit 05/18/21 07:30 05/19/21 11:53 Insulin Lispro 100 Unit/Ml 3 Ml Vial SUBCUT Not Given QIDACHS [facility] Protocol Metoprolol Succinate 50 mg 05/18/21 09:00 05/19/21 09:40 Metoprolol Succinate Er 50 Mg Tab.Er.24h PO 50 mg DAILY [facility] Administration Protocol Nicotine 14 mg 05/18/21 09:00 05/19/21 09:46 Nicotine 14 Mg Patch.Td24 TRANSDERMA 14 mg DAILY [facility] Administration Senna 17.2 mg 05/17/21 22:09 Sennosides 8.6 Mg Tablet PO BEDTIME PRN Constipation Sodium Chloride 3 ml 05/18/21 00:00 05/19/21 14:49 0.9 % Sodium Chloride Flush 3 Ml Syringe IVFLUSH Not Given QSHIFT [facility] Tamsulosin HCl 0.4 mg 05/18/21 09:00 05/19/21 09:40 Tamsulosin Hcl 0.4 Mg Capsule PO 0.4 mg DAILY [facility] Administration Labs CBC & Chem 7: 05/18/21 06:55 05/18/21 09:54 Labs: Laboratory Results - last 24 hr 05/18/21 05/18/21 05/19/21 16:13 20:25 07:17 POC Glucose 114 141 H 108 05/19/21 11:21 POC Glucose 114 Microbiology Microbiology Results: Microbiology 05/17/21 19:06 Blood Culture - Preliminary Blood - Venous No growth after 24 hours. 05/17/21 19:02 Blood Culture - Preliminary Blood - Venous No growth after 24 hours. Quality Stroke Does the patient have a stroke diagnosis?: No VTE Prior VTE?: No VTE Risk Level:: Medical - moderate - high VTE Device Contraindication: N/A - Device Ordered VTE Drug Contraindication: N/A - Med Ordered Assessment and Plan (1) UTI (urinary tract infection): Status: Acute (2) Renal insufficiency: Status: Acute (3) Diabetes mellitus: Status: Acute (4) Acquired hypothyroidism: Status: Acute (5) Edema eyelid: Status: Acute (6) Essential (primary) hypertension: Status: Acute Assessment and Plan: 80-year-old male with a past medical history of hypertension, diabetes, CAD status post stent, paroxysmal AFib on Eliquis, CKD 3, chronic back pain, COPD, history of PE, abdominal aortic aneurysm , history of prostate cancer status post radiotherapy, history of cystoscopy, history of ESBL UTI -recurrent;presented to the hospital the chief complaint of frequency urgency dysuria. noted to have UTI/ Kris on CKD. Admitted for further management. Recurrent UTI: Patient has prior history of ESBL UTI in 03/12. Continue meropenem, follow final blood cultures, will send urinalysis and culture case discussed with Dr. Espinoza, she recommend current antibiotic and follow final culture result with further antibiotic adjustment KRIS on CKD 3, baseline creatinine around 2, patient seen by learning and development assistant Dr. De La Cruz, he recommend gentle IV fluids, patient likely has chronic kidney disease due to diabetes follow BMP Avoid nephrotoxins. Diabetes: Insulin sliding scale. Hold home Januvia. COPD: Stable. no acute exacerbation Continue as needed updraft History of AFib/PE: Patient on Eliquis 2.5 bid. Rate controlled on diltiazem, and Metoprolol. code status: Full code
[2021-05-19 16:24] LABS: Glucose, Whole Blood 159 mg/dL (60-115)
[2021-05-19] MEDS: Insulin Lispro 100 UNIT/ML 3 ML VIAL SUBCUT (16:46)
[2021-05-19 17:05] LABS: Appearance Urine HAZY; Color Urine YELLOW; Glucose Urine UA NEG (NEG); Leukocyte Esterase Urine 2+ (NEG); Nitrite Urine NEG (NEG); UACC Culture Trigger YES; Urine Blood TRACE (NEG); Urine Ketones NEG (NEG); Urine Protein 2+ MG/DL (NEG-TRACE)
[2021-05-19 20:26] LABS: Glucose, Whole Blood 139 mg/dL (60-115)
[2021-05-20 04:00] VITALS: BP 145/72; PULSE 73; RESP 20; TEMP 36.4; O2SAT 96
[2021-05-20] MEDS: 0.9 % Sodium Chloride 1,000 ML 75 ML IVCONT (04:10)
[2021-05-20 07:18] VITALS: BP 143/71; PULSE 62; RESP 17; TEMP 36.4; O2SAT 97
[2021-05-20 07:37] LABS: Glucose, Whole Blood 91 mg/dL (60-115)
[2021-05-20] MEDS: dilTIAZem HCL CD 300 MG CAP.ER.24H PO (08:44)
[2021-05-20] MEDS: Tamsulosin HCL 0.4 MG CAPSULE PO (08:44)
[2021-05-20] MEDS: Nicotine 14 MG PATCH.TD24 TRANSDERMA (08:45)
[2021-05-20] MEDS: Apixaban 2.5 MG TABLET PO ×2 (08:45→20:53)
[2021-05-20] MEDS: Metoprolol Succinate ER 50 MG TAB.ER.24H PO (08:45)
[2021-05-20] MEDS: Clopidogrel Bisulfate 75 MG TABLET PO (08:45)
--- NOTE | 2021-05-20 09:35 | PM.PNNEP ---
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, no dizziness CVS no chest pain, no palpitation respiratory has chronic shortness of breath with exertion, no worsening symptoms GI no nausea, no vomiting Physical Exam Vital Signs: Vital Signs: Last Vital Signs Temp 97.5 F 05/20/21 07:18 Pulse 62 05/20/21 07:18 Resp 17 05/20/21 07:18 BP 143/71 H 05/20/21 07:18 Pulse Ox 97 05/20/21 07:18 Body Mass Index 34.4 Const: Other: General: AO X 3, no acute distress Resp: CTA bilateral CVS: S1,S2,RRR GI: +BS, NT, no distention Skin: No rash Neuro: motor grossly intact Psych: appropriate affect General: cooperative HENMT: Head: Yes normal to inspection Mouth: Normal oral and palatal mucosa present Resp: Effort & Inspection: normal respiratory effort Cardio: Rate: regular rate Rhythm: regular rhythm GI: Palpation (GI): Soft to palpation and nontender Skin: General skin exam: no rashes or lesions noted Extrem: General: Yes normal to inspection Objective Data Labs CBC & Chem 7: 05/18/21 06:55 05/18/21 09:54 Labs: Laboratory Results - last 24 hr 05/19/21 05/19/21 05/19/21 11:21 16:18 16:42 POC Glucose 114 159 H Urine Color YELLOW Urine Appearance HAZY Urine pH 6.0 Ur Specific Parnell 1.020 Urine Protein 2+ H Urine Glucose (UA) NEG Urine Ketones NEG Urine Blood TRACE Urine Nitrite NEG Ur Leukocyte Esterase 2+ H Urine RBC 5-9 H Urine WBC 76-150 H Ur Squamous Epith Cells NONE Urine Bacteria NONE 05/19/21 05/20/21 20:21 07:20 POC Glucose 139 H 91 Urine Color Urine Appearance Urine pH Ur Specific Parnell Urine Protein Urine Glucose (UA) Urine Ketones Urine Blood Urine Nitrite Ur Leukocyte Esterase Urine RBC Urine WBC Ur Squamous Epith Cells Urine Bacteria Microbiology Microbiology Results: Microbiology 05/19/21 Unknown Urine clean catch - Clean Catch Midstream Urine Culture - Preliminary No growth to date. 05/17/21 19:06 Blood - Venous Blood Culture - Preliminary No growth after 48 hours. 05/17/21 19:02 Blood - Venous Blood Culture - Preliminary No growth after 48 hours. Assessment & Plan Assessment and plan (1) UTI (urinary tract infection): Status: Acute (2) Renal insufficiency: Status: Acute (3) Diabetes mellitus: Status: Acute (4) Acquired hypothyroidism: Status: Acute (5) Edema eyelid: Status: Acute (6) Essential (primary) hypertension: Status: Acute Assessment and Plan: 80-year-old male with a past medical history of hypertension, diabetes, CAD status post stent, paroxysmal AFib on Eliquis, CKD 3, chronic back pain, COPD, history of PE, abdominal aortic aneurysm , history of prostate cancer status post radiotherapy, history of cystoscopy, history of ESBL UTI -recurrent;presented to the hospital the chief complaint of frequency urgency dysuria. noted to have UTI/ Kris on CKD. Admitted for further management. Recurrent UTI: Patient has prior history of ESBL UTI in 03/12. Continue meropenem, follow final blood cultures, will send urinalysis and culture case discussed with Dr. Espinoza, she recommend current antibiotic and follow final culture result with further antibiotic adjustment KRIS on CKD 3, at baseline creatinine around 2, he should be on an ARB and SGLT2i ordere renal US and urine studies we will f/u as op Avoid nephrotoxins. Diabetes: Insulin sliding scale. Hold home Januvia. COPD: Stable. no acute exacerbation Continue as needed updraft History of AFib/PE: Patient on Eliquis 2.5 bid. Rate controlled on diltiazem, and Metoprolol. code status: Full code Time Spent With Patient Time: Total time spent is greater than 50% in coordination of care (as documented) at patient's floor/unit and/or counseling patient: Procedures Date of Service Date of Service: 05/20/21 Progress Note: Quality Stroke Does the patient have a stroke diagnosis?: No
[2021-05-20 10:44] LABS: Creatinine Urine 44.98 mg/dL; Microalbum/Creatinine Ratio Ur 1100.4 ug/mg cr
[2021-05-20 10:45] LABS: Iron 69 mcg/dL (45-160); Percent Iron Saturation 28 % (15-50); Total Iron Binding Capacity 249 mcg/dL (228-428); Unsaturated Iron Binding 180 ug/dL
[2021-05-20 11:01] VITALS: BP 157/75; PULSE 68; RESP 17; TEMP 36.4; O2SAT 96
[2021-05-20 11:04] LABS: Ferritin 153 ng/mL (20-250)
[2021-05-20 11:23] LABS: Glucose, Whole Blood 102 mg/dL (60-115)
--- NOTE | 2021-05-20 11:28 | MHC.CM.PN ---
ref. made to hvna and bioscripts for 10 days of iv ertapenum via midline. expect dc in next 1-2 days. cm to cont. to follow.
--- NOTE | 2021-05-20 12:50 | HO.PM.IMPN ---
Subjective Subjective Date of Service: 05/20/21 Interval History: patient is sitting comfortably offers no acute complaints , urine is clear, no urinary urgency, or frequency. 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 Neck is supple no JVD. CVS regular rate rhythm, Respiratory lungs clear to auscultation, no respiratory distress, no wheeze, no rhonchi. Gastrointestinal abdomen soft, nontender, bowel sounds audible, no guarding , no rigidity. Extremities bilateral edema with skin discoloration due to chronic stasis. Neuro nonfocal psych appropriate affect. Objective Data Current Medications Generic Name Dose Route Start Last Admin Trade Name Freq PRN Reason Stop Dose Admin Acetaminophen 650 mg 05/17/21 22:09 Acetaminophen 325 Mg Tablet PO Q6H PRN Pain, Mild (Pain Scale 1-3) Albuterol/Ipratropium 3 ml 05/17/21 23:18 Albuterol/Iprat 2.5/0.5mg 3 Ml Ampul.Neb INHALE RQ4H PRN Shortness of Breath/Wheezing Apixaban 2.5 mg 05/18/21 09:36 05/20/21 08:45 Apixaban 2.5 Mg Tablet PO 2.5 mg BID PARMJIT Administration Clopidogrel Bisulfate 75 mg 05/18/21 09:00 05/20/21 08:45 Clopidogrel Bisulfate 75 Mg Tablet PO 75 mg DAILY PARMJIT Administration Diltiazem HCl 300 mg 05/18/21 09:00 05/20/21 08:44 Diltiazem Hcl Cd 300 Mg Cap.Er.24h PO 300 mg DAILY PARMJIT Administration Protocol Sodium Chloride 1,000 mls @ 75 mls/hr 05/17/21 23:30 05/20/21 04:10 Ns IVCONT 75 mls/hr .[id number] PARMJIT Administration Meropenem 1 gm/ Sodium 100 mls @ 100 mls/hr 05/18/21 20:15 05/20/21 08:38 Chloride IV Infused Q12H [facility] Infusion Insulin Human Lispro 0 unit 05/18/21 07:30 05/20/21 11:28 Insulin Lispro 100 Unit/Ml 3 Ml Vial SUBCUT Not Given QIDACHS [facility] Protocol Metoprolol Succinate 50 mg 05/18/21 09:00 05/20/21 08:45 Metoprolol Succinate Er 50 Mg Tab.Er.24h PO 50 mg DAILY [facility] Administration Protocol Nicotine 14 mg 05/18/21 09:00 05/20/21 08:45 Nicotine 14 Mg Patch.Td24 TRANSDERMA 14 mg DAILY [facility] Administration Senna 17.2 mg 05/17/21 22:09 Sennosides 8.6 Mg Tablet PO BEDTIME PRN Constipation Sodium Chloride 3 ml 05/18/21 00:00 05/20/21 07:28 0.9 % Sodium Chloride Flush 3 Ml Syringe IVFLUSH Not Given QSHIFT [facility] Tamsulosin HCl 0.4 mg 05/18/21 09:00 05/20/21 08:44 Tamsulosin Hcl 0.4 Mg Capsule PO 0.4 mg DAILY [facility] Administration Labs CBC & Chem 7: 05/18/21 06:55 05/18/21 09:54 Labs: Laboratory Results - last 24 hr 05/19/21 05/19/21 05/19/21 16:18 16:42 20:21 POC Glucose 159 H 139 H Iron TIBC % Saturation Unsat Iron Binding Ferritin Urine Color YELLOW Urine Appearance HAZY Urine pH 6.0 Ur Specific [place] 1.020 Urine Protein 2+ H Urine Glucose (UA) NEG Urine Ketones NEG Urine Blood TRACE Urine Nitrite NEG Ur Leukocyte Esterase 2+ H Urine RBC 5-9 H Urine WBC 76-150 H Ur Squamous Epith Cells NONE Urine Bacteria NONE Urine Creatinine Urine Microalbumin Microalb/Creat Ratio 05/20/21 05/20/21 05/20/21 07:20 09:56 09:58 POC Glucose 91 Iron 69 TIBC 249 % Saturation 28 Unsat Iron Binding 180 Ferritin 153 Urine Color Urine Appearance Urine pH Ur Specific [place] Urine Protein Urine Glucose (UA) Urine Ketones Urine Blood Urine Nitrite Ur Leukocyte Esterase Urine RBC Urine WBC Ur Squamous Epith Cells Urine Bacteria Urine Creatinine 44.98 Urine Microalbumin 495.0 Microalb/Creat Ratio 1100.4 05/20/21 11:04 POC Glucose 102 Iron TIBC % Saturation Unsat Iron Binding Ferritin Urine Color Urine Appearance Urine pH Ur Specific [place] Urine Protein Urine Glucose (UA) Urine Ketones Urine Blood Urine Nitrite Ur Leukocyte Esterase Urine RBC Urine WBC Ur Squamous Epith Cells Urine Bacteria Urine Creatinine Urine Microalbumin Microalb/Creat Ratio Microbiology Microbiology Results: Microbiology 05/19/21 Unknown Urine Culture - Preliminary Urine clean catch - Clean Catch Midstream No growth to date. 05/17/21 19:06 Blood Culture - Preliminary Blood - Venous No growth after 48 hours. 05/17/21 19:02 Blood Culture - Preliminary Blood - Venous No growth after 48 hours. Quality Stroke Does the patient have a stroke diagnosis?: No VTE Prior VTE?: No VTE Risk Level:: Medical - moderate - high VTE Device Contraindication: N/A - Device Ordered VTE Drug Contraindication: N/A - Med Ordered Assessment and Plan (1) Renal insufficiency: Status: Acute (2) UTI (urinary tract infection): Status: Acute (3) Diabetes mellitus: Status: Acute (4) Acquired hypothyroidism: Status: Acute (5) Edema eyelid: Status: Acute (6) Essential (primary) hypertension: Status: Acute Assessment and Plan: 80-year-old male with a past medical history of hypertension, diabetes, CAD status post stent, paroxysmal AFib on Eliquis, CKD 3, chronic back pain, COPD, history of PE, abdominal aortic aneurysm , history of prostate cancer status post radiotherapy, history of cystoscopy, history of ESBL UTI -recurrent;presented to the hospital the chief complaint of frequency urgency dysuria. noted to have UTI/ Kris on CKD. Admitted for further management. Recurrent UTI: Patient has prior history of ESBL UTI in 03/12, and another bout of recent UTI with Klebsiella last month. Continue meropenem, blood cultures x2 negative, urine culture showed no growth,case discussed with Dr. Espinoza, she recommend 10-14 days of IV ertapenem,will place midline for IV antibiotic treatment and possible discharge in next 24h. KRIS on CKD 3, baseline creatinine around 2, patient seen by physician coding specialist Dr. De La Cruz, renal ultrasound and urine studies sent, he recommend ARB and SGLT2i he will follow patient as out patient will DC IV fluid, patient likely has chronic kidney disease due to diabetes follow BMP,Avoid nephrotoxins. Diabetes: blood sugars stable, continue Insulin sliding scale resume home Januvia upon discharge. COPD: Stable. no acute exacerbation Continue as needed updraft History of AFib/PE: Patient on Eliquis 2.5 bid. Rate controlled on diltiazem, and Metoprolol. code status: Full code
--- NOTE | 2021-05-20 15:00 | MHC.CM.PN ---
ref. made to [facility] and [facility] for 10 days of iv ertapenum via midline. expect dc in next 1-2 days. cm to cont. to follow. pt has been accepted by both, pt's co-pay for medications will be $369.13 per wk which [facility] is requesting a prepayment. midline to be placed soon. cm to cont. to follow.
[2021-05-20 15:27] VITALS: BP 139/62; PULSE 64; RESP 15; TEMP 36.3; O2SAT 95
[2021-05-20 16:39] LABS: Glucose, Whole Blood 118 mg/dL (60-115)
[2021-05-20 19:14] VITALS: BP 150/64; PULSE 69; RESP 15; TEMP 36.5; O2SAT 95
[2021-05-20 20:42] LABS: Glucose, Whole Blood 147 mg/dL (60-115)
[2021-05-20] MEDS: 0.9 % Sodium Chloride Flush 3 ML SYRINGE IVFLUSH (20:54)
[2021-05-20 21:08] LABS: CDiff Gene PCR NEGATIVE (Negative)
[2021-05-20 23:41] VITALS: PULSE 67; RESP 18; TEMP 37; O2SAT 98
[2021-05-21 03:52] VITALS: BP 151/72; PULSE 69; RESP 18; TEMP 36.7; O2SAT 98
[2021-05-21] MEDS: 0.9 % Sodium Chloride Flush 3 ML SYRINGE IVFLUSH (07:07)
[2021-05-21 07:11] VITALS: BP 164/83; PULSE 72; RESP 17; TEMP 36.4; O2SAT 95
[2021-05-21 07:34] LABS: Glucose, Whole Blood 99 mg/dL (60-115)
[2021-05-21 07:53] LABS: Anion Gap 11 (12-20); Blood Urea Nitrogen 34 mg/dL (9-16); Calcium 8.5 mg/dL (8.4-10.2); Carbon Dioxide 27 mmol/L (22-29); Chloride 106 mmol/L (96-108); Creatinine Clr Calc Pharmacy 62.7; Estimated Glomerular Filt Rate > 60; Glucose Random 114 mg/dL (60-115); Sodium 140 mmol/L (135-145)
[2021-05-21] MEDS: Tamsulosin HCL 0.4 MG CAPSULE PO (08:16)
[2021-05-21] MEDS: Apixaban 2.5 MG TABLET PO (08:16)
[2021-05-21] MEDS: Metoprolol Succinate ER 50 MG TAB.ER.24H PO (08:16)
[2021-05-21] MEDS: Clopidogrel Bisulfate 75 MG TABLET PO (08:16)
[2021-05-21] MEDS: dilTIAZem HCL CD 300 MG CAP.ER.24H PO (08:16)
[2021-05-21] MEDS: Nicotine 14 MG PATCH.TD24 TRANSDERMA (08:17)
--- NOTE | 2021-05-21 10:21 | P.PNNP_ITS ---
Subjective Subjective Date of Service: 05/21/21 Interval history: patient is sitting comfortably offers no acute complaints , urine is clear, no urinary urgency, or frequency. 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, no dizziness CVS no chest pain, no palpitation respiratory has chronic shortness of breath with exertion, no worsening symptoms GI no nausea, no vomiting Physical Exam Vital Signs: Vital Signs: Last Vital Signs Temp 97.6 F 05/21/21 07:11 Pulse 72 05/21/21 07:11 Resp 17 05/21/21 07:11 BP 164/83 H 05/21/21 07:11 Pulse Ox 95 05/21/21 07:11 Body Mass Index 34.4 Const: Other: General: AO X 3, no acute distress Resp: CTA bilateral CVS: S1,S2,RRR GI: +BS, NT, no distention Skin: No rash Neuro: motor grossly intact Psych: appropriate affect General: cooperative HENMT: Head: Yes normal to inspection Mouth: Normal oral and palatal mucosa present Resp: Effort & Inspection: normal respiratory effort Cardio: Rate: regular rate Rhythm: regular rhythm GI: Palpation (GI): Soft to palpation and nontender Skin: General skin exam: no rashes or lesions noted Extrem: General: Yes normal to inspection Objective Data Labs CBC & Chem 7: 05/18/21 06:55 05/21/21 06:46 Labs: Laboratory Results - last 24 hr 05/20/21 05/20/21 05/20/21 09:56 09:58 11:04 Sodium Potassium Chloride Carbon Dioxide Anion Gap BUN Creatinine Estim Creat Clear Calc Estimated GFR POC Glucose 102 Random Glucose Calcium Iron 69 TIBC 249 % Saturation 28 Unsat Iron Binding 180 Ferritin 153 Urine Creatinine 44.98 Urine Microalbumin 495.0 Microalb/Creat Ratio 1100.4 C. difficile Tox B Gene 05/20/21 05/20/21 05/20/21 16:28 20:10 20:33 Sodium Potassium Chloride Carbon Dioxide Anion Gap BUN Creatinine Estim Creat Clear Calc Estimated GFR POC Glucose 118 H 147 H Random Glucose Calcium Iron TIBC % Saturation Unsat Iron Binding Ferritin Urine Creatinine Urine Microalbumin Microalb/Creat Ratio C. difficile Tox B Gene NEGATIVE 05/21/21 05/21/21 06:46 07:07 Sodium 140 Potassium 4.0 D Chloride 106 Carbon Dioxide 27 Anion Gap 11 L BUN 34 H Creatinine 1.16 Estim Creat Clear Calc 62.7 Estimated GFR > 60 POC Glucose 99 Random Glucose 114 Calcium 8.5 Iron TIBC % Saturation Unsat Iron Binding Ferritin Urine Creatinine Urine Microalbumin Microalb/Creat Ratio C. difficile Tox B Gene Microbiology Microbiology Results: Microbiology 05/19/21 Unknown Urine clean catch - Clean Catch Midstream Urine Culture - Final No growth. 05/17/21 19:06 Blood - Venous Blood Culture - Preliminary No growth after 48 hours. 05/17/21 19:02 Blood - Venous Blood Culture - Preliminary No growth after 48 hours. Assessment & Plan Assessment and plan (1) Renal insufficiency: Status: Acute (2) UTI (urinary tract infection): Status: Acute (3) Diabetes mellitus: Status: Acute (4) Acquired hypothyroidism: Status: Acute (5) Edema eyelid: Status: Acute (6) Essential (primary) hypertension: Status: Acute Assessment and Plan: 80-year-old male with a past medical history of hypertension, diabetes, CAD status post stent, paroxysmal AFib on Eliquis, CKD 3, chronic back pain, COPD, history of PE, abdominal aortic aneurysm , history of prostate cancer status post radiotherapy, history of cystoscopy, history of ESBL UTI - recurrent;presented to the hospital the chief complaint of frequency urgency dysuria. noted to have UTI/ Kris on CKD. Admitted for further management. Recurrent UTI: Patient has prior history of ESBL UTI in 03/12, and another bout o f recent UTI with Klebsiella last month. Continue meropenem, blood cultures x2 negative, urine culture showed no growth,case discussed with Dr. Espinoza, she recommend 10-14 days of IV ertapenem,will place midline for IV antibiotic treatment and possible discharge in next 24h. KRIS on CKD 3, baseline creatinine around 2, renal ultrasound Bilateral renal cysts.No echogenic renal calculi. Incidental finding of distal abdominal aortic aneurysmt, recommend ARB and SGLT2i I will follow patient as out patient 1 gram of albuminuria follow BMP,Avoid nephrotoxins. Diabetes: blood sugars stable, continue Insulin sliding scale resume home Januvia upon discharge. COPD: Stable. no acute exacerbation Continue as needed updraft History of AFib/PE: Patient on Eliquis 2.5 bid. Rate controlled on diltiazem, and Metoprolol. code status: Full code Time Spent With Patient Time: Total time spent is greater than 50% in coordination of care (as documented) at patient's floor/unit and/or counseling patient: Procedures Date of Service Date of Service: 05/21/21 Progress Note: Quality Stroke Does the patient have a stroke diagnosis?: No
[2021-05-21 11:54] VITALS: BP 153/75; PULSE 74; RESP 17; TEMP 36.9; O2SAT 97
--- NOTE | 2021-05-21 11:56 | HO.MIDLINE_ITS ---
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 Using ultrasound guidance, CEPHALIC vein access was obtained IN SINGLE ATTEMPT BY THIS RN. A SINGLE LUMEN, NON-PASV, (20G x 8CM) MIDLINE was positioned. The procedure was performed in S-272. Ultrasound was used to document vein patency and for needle entry. A formal ultrasound picture was recorded. Vascular Computer Help Desk Representative has released the line for use and it is currently dressed with a StatLock, Tegaderm, and CHG disc. Verification has been perform ed for blood return and line patency. Arm Circumference: 33.5 CM Equipment: [employer] POWERGLIDE PRO MIDLINE Catheter Type: SINGLE LUMEN, NON-PASV, (20G x 8CM) Lot #: [id number]
[2021-05-21 12:30] LABS: Glucose, Whole Blood 106 mg/dL (60-115)
--- NOTE | 2021-05-21 12:50 | MHC.CM.PN ---
PT HAD MIDLINE INSERTION, TEACH W/MARIBELL FROM [facility] AND DID WELL, PT DISCHARGING TODAY AFTER FIRST DOSE OF ERTAPENEM W/[facility], [facility], PT TO CALL FRIEND FOR TRANSPORTATION.
[2021-05-21] MEDS: Ertapenem Sodium 1 GM in 0.9 % Sodium Chloride 50 ML IV (13:31)
--- NOTE | 2021-05-21 13:41 | PC.NURSE ---
Skin assessment completed today. Edema and hemosiderin staining to BLE found. No other skin issues found. Skin dry and intact.
--- NOTE | 2021-05-23 15:56 | PM.DS ---
DS: Providers Provider Date of Service: 05/21/21 Date of admission: 05/17/21 22:09 Primary care physician: Colton Segura MD Consults: 05/17/21 18:48 Consult to Infectious Diseases Routine Consulting Provider: Ramonita Espinoza Reason for consultation: ESBL Has provider been notified: Yes 05/17/21 23:18 Consult to Nephrology Routine Consulting Provider: Herson Wilkinson Reason for consultation: CRISTY on CKD 05/17/21 23:33 Consult to Infectious Diseases Routine Consulting Provider: Ramonita Espinoza Reason for consultation: esbl uti 05/21/21 12:58 Consult to Infectious Diseases Routine Consulting Provider: Ramonita Espinoza Reason for consultation: ertapenem DS: Diagnosis Discharge Diagnosis (1) Renal insufficiency: Status: Acute (2) UTI (urinary tract infection): Status: Acute (3) Diabetes mellitus: Status: Acute (4) Acquired hypothyroidism: Status: Acute (5) Edema eyelid: Status: Acute (6) Essential (primary) hypertension: Status: Acute DS: Medications Discharge Medications Home Medications: Home Medications Medication Instructions Recorded Confirmed Flovent HFA 1 puff PO BID 05/17/21 05/17/21 albuterol sulfate 2 puff INHALATION Q6-8H PRN 05/17/21 05/17/21 alfuzosin 1 tab PO DAILY 05/17/21 05/17/21 clopidogrel 1 tab PO DAILY 05/17/21 05/17/21 diltiazem HCl 1 cap PO DAILY 05/17/21 05/17/21 hydrochlorothiazide 1 tab PO DAILY 05/17/21 05/17/21 metoprolol succinate 1 tab PO DAILY 05/17/21 05/17/21 Previous Rx's Medication Instructions Recorded apixaban [Eliquis] 2.5 mg PO BID #60 tab 05/21/21 ertapenem 1 g IV DAILY #10 ea 05/21/21 nicotine 14 mg TRANSDERMAL DAILY #28 ea 05/21/21 DS: Summary Hospital Course Hospital Course: history of presenting illness Chief Complaint: Dysuria 80-year-old male with a past medical history of hypertension, diabetes, CAD status post stent, paroxysmal AFib on Eliquis, CKD, chronic back pain, COPD, history of PE, abdominal aortic aneurysm , history of prostate cancer status post radiotherapy, history of cystoscopy, history of ESBL UTI -recurrent;presented to the hospital the chief complaint of frequency urgency dysuria. Patient reported that over the past 3 weeks he has been having noted any symptoms; and history of UTI in February; reported that went to the urgent care and was given oral antibiotics, initially Bactrim followed by levofloxacin; with no significant improvement and continued to have the symptoms. Decided to come to the ER for possible IV antibiotics Patient reported that in the past he was given oral ciprofloxacin with improvement. Denies any chest pain palpitations lightheadedness dizziness. Denies any flank pain. Denies any nausea vomiting diarrhea. Review of all other systems is negative except mentioned above hospital course 80-year-old male with a past medical history of hypertension, diabetes, CAD status post stent, paroxysmal AFib on Eliquis, CKD 3, chronic back pain, COPD, history of PE, abdominal aortic aneurysm , history of prostate cancer status post radiotherapy, history of cystoscopy, history of ESBL UTI -recurrent;presented to the hospital the chief complaint of frequency,urgency and dysuria. noted to have UTI/ Cristy on CKD. Admitted for further management. Recurrent UTI, due to prior history of ESBL UTI in 03/12, and another bout of recent UTI with Klebsiella last month patient was treated with iv meropenem, blood cultures x2 returned negative, urine culture showed no growth,case discussed with Dr. Espinoza, she recommend 10-14 days of IV ertapenem, therefore midline placed and patient is being discharged home on 10 more dose of IV ertapenem, recommend to follow BMP and LFTs in 1 week. CRISTY on CKD 3, related to diabetic nephropathy, baseline creatinine around 2, renal ultrasound showed no obstruction, patient treated with IV fluid renal function improved, patient seen by equipment operator/laborer Dr. De La Cruz, he recommend outpatient follow-up. Diabetes: blood sugars stable, continue home medications COPD no acute COPD exacerbation noted. History of AFib/PE: Patient on Eliquis 2.5 bid, Rate controlled Recommend to continue diltiazem, and Metoprolol. Time Spent with Patient Time attestation: Total time spent providing and/or coordinating discharge services: Discharge coordination time: Greater than 30 minutes Quality: Stroke Does the patient have a stroke diagnosis?: No Physical Exam Vital Signs: Vital Signs: Last Vital Signs Temp 98.4 F 05/21/21 11:54 Pulse 74 05/21/21 11:54 Resp 17 05/21/21 11:54 BP 153/75 H 05/21/21 11:54 Pulse Ox 97 05/21/21 11:54 Body Mass Index 34.4 General sitting comfortably in no acute distress, talking in full sentences. right eye significant edema of upper eyelid chronic due to generalized edema. Neck no JVD. CVS regular rate rhythm, Respiratory lungs clear to auscultation, no respiratory distress, no wheeze, no rhonchi. Gastrointestinal abdomen soft, nontender, bowel sounds audible, no guarding , no rigidity. Extremities bilateral edema with skin discoloration due to chronic stasis, no change from baseline. Neuro nonfocal psych appropriate affect. DS: Data Data Completed and Pending Completed studies during hospitalization [Text1]: Procedures Insertion of Infusion Device into Right Basilic Vein, Percutaneous Approach (05/17/21) Discharge Plan Discharge Patient Disposition: Home Health Service Discharge Diagnosis: ESBL positive UTI acute on chronic kidney disease Referrals: [facility] [Other] - 1 Day (PHARMACY FOR IV ERTAPENEM ) [facility] [Outside] - 1 Day (MANAGEMENT OF IV ABX) Colton Segura MD [Primary Care Provider] - 1 Week Discharge Medications: New Eliquis 2.5 mg Tablet 2.5 mg PO BID Qty: 60 RF: 0 nicotine 14 mg/24 hr Patch 24 Hour 14 mg transdermal DAILY Qty: 28 RF: 0 ertapenem 1 gram recon soln 1 g IV DAILY Qty: 10 RF: 0 Continued metoprolol succinate 50 mg tablet extended release 24 hr 1 tab PO DAILY RF: 0 diltiazem HCl 300 mg capsule,extended release 24 hr 1 cap PO DAILY RF: 0 clopidogrel 75 mg tablet 1 tab PO DAILY RF: 0 hydrochlorothiazide 25 mg tablet 1 tab PO DAILY RF: 0 albuterol sulfate 90 mcg/actuation HFA aerosol inhaler 2 puff inhalation Q6-8H PRN (Reason: Shortness Of Breath Or Wheezing) RF: 0 Flovent HFA 110 mcg/actuation HFA aerosol inhaler 1 puff PO BID RF: 0 alfuzosin 10 mg tablet extended release 24 hr 1 tab PO DAILY RF: 0 Discontinued Eliquis 5 mg tablet 1 tab PO BID RF: 0 Discharge Orders: Discharge Order (Routine); Ordered 05/21/21 Ordered By: Justice Garcia Diet: advance to usual diet Activity on Discharge: As tolerated Stand Alone Forms: Patient Portal Discharge page Care Plan Goals: your going home for 10 more days of IV antibiotic Ertapenem Health Concerns: recurrent UTIs, chronic kidney disease have close outpatient follow-up with PCP and Nephrology Plan of Treatment: outpatient follow-up with PCP in 1 week Assessment: as above Discharge Date/Time: 05/21/21 16:50
[2021-05-23 23:02] LABS: Kappa Light Chain, Free Serum 45.3 mg/L (3.3-19.4); Kappa/Lambda Lt Ch Free Ratio 2.19 (0.26-1.65); Lambda Light Chain, Free Serum 20.7 mg/L (5.7-26.3)
== END 2021-05-21 16:50 | disposition home health service (06) | DRG 690 ==
LOC: HO.ED 21:14 → HO.EDOVER 22:26 → HO.S3 05-18 09:36
PROVIDERS: Internal Medicine; Internal Medicine Nephrology; Admitting Provider Hospitalist; Emergency Provider Internal Medicine; PCP Internal Medicine; Visit Provider Hospitalist
DX: N39.0 Urinary tract infection, site not specified (principal); N17.9 Acute kidney failure, unspecified; I48.91 Unspecified atrial fibrillation; N28.9 Disorder of kidney and ureter, unspecified; E03.9 Hypothyroidism, unspecified; E11.22 Type 2 diabetes mellitus with diabetic chronic kidney disease; I12.9 Hypertensive chronic kidney disease with stage 1 through stage 4 chronic kidney disease, or unspecified chronic kidney disease; N18.30 Chronic kidney disease, stage 3 unspecified; I25.10 Atherosclerotic heart disease of native coronary artery without angina pectoris; Z20.822 Contact with and (suspected) exposure to COVID-19; Z95.1 Presence of aortocoronary bypass graft; Z87.891 Personal history of nicotine dependence; Z87.440 Personal history of urinary (tract) infections; Z88.2 Allergy status to sulfonamides; Z79.01 Long term (current) use of anticoagulants; Z79.02 Long term (current) use of antithrombotics/antiplatelets; Z79.899 Other long term (current) drug therapy
CPT/HCPCS: 36410; 36415; 76775; 80048; 81001; 81003; 82043; 82728; 82947; 83520; 83540; 83605; 83880; 85025; 87040; 87086; 87493; 87635; 99285; J1335; J2185

== ENCOUNTER 2021-05-28 14:44 | Outpatient (REF) | payer MEDICARE, SELFPAY ==
[2021-05-28 15:36] LABS: Alanine Aminotransferase 7 U/L (0-40); Albumin Level 3.7 g/dL (3.5-5.0); Alkaline Phosphatase 52 U/L (39-117); Anion Gap 14 (12-20); Aspartate Amino Transferase 12 U/L (5-37); Bilirubin Direct 0.2 mg/dL (0.0-0.5); Bilirubin Total 0.5 mg/dL (0.0-1.0); Blood Urea Nitrogen 37 mg/dL (9-16); Carbon Dioxide 28 mmol/L (22-29); Chloride 106 mmol/L (96-108); Estimated Glomerular Filt Rate 41; Glucose Random 121 mg/dL (60-115); Potassium 4.1 mmol/L (3.3-5.1); Sodium 144 mmol/L (135-145); Total Protein 6.4 g/dL (6.5-8.0)
== END 2021-05-28 14:45 | disposition home or self-care (01) ==
LOC: HO.HVNA 14:44
PROVIDERS: Visit Provider Internal Medicine
DX: B99.9 Unspecified infectious disease (principal)
CPT/HCPCS: 36415; 80048; 80076

== ENCOUNTER 2021-12-26 16:14 | Inpatient (IN) | payer MEDICARE, SELFPAY ==
[2021-12-26] VITALS (7 sets, daily range): BP systolic 110–125; BP diastolic 36–53; PULSE 50–64; RESP 16–22; TEMP 36.7–37.1; O2SAT 72–99; BMI 34.4
--- NOTE | ~2021-12-26 | XR_ITS ---
EXAMINATION: XR CHEST CLINICAL INFORMATION: Chest tube placement. COMPARISON: Chest x-ray of 12/26/[address] of 06/13/2020. TECHNIQUE: Frontal view of the chest was obtained. FINDINGS: An endotracheal tube is in place, terminating approximately 5.9 cm above the timo. An enteric tube courses below the diaphragm, the tip is external to the oanag-ic-wado. Multiple cardiac leads and wires project over the chest. A small tubing is noted projecting over the right lower lateral chest wall and right lung. There is no evidence of bilateral chest tubes, recommend clinical correlation. No visible pneumothorax. Increased haziness in the right lower lung zone likely reflect layering pleural effusion and associated airspace disease. Haziness at the left lung base. No evidence of changes of overt pulmonary edema. Cardiomediastinal silhouette is unchanged with cardiomegaly. Probable mild interstitial prominence. XR/XR chest 1V IMPRESSION: 1. An endotracheal tube terminates 5.9 cm above the timo. 2. A narrow caliber tubing is noted projecting over the right lower chest which likely represents a tubing external to the patient, recommend clinical correlation. Otherwise no evidence of bilateral chest tubes. No visible pneumothorax. 3. Increasing haziness in the right lower lung zone is probably related to airspace disease and layering effusion. Haziness at the left lung base. Probable mild interstitial edema. The findings were discussed with the MARIALUISA Melissa on 12/27/2021 at 8:20 PM.
--- NOTE | ~2021-12-26 | CT_ITS ---
EXAMINATION: CT CHEST WITHOUT CONTRAST CLINICAL INFORMATION: Intubated. COMPARISON: Most recent prior CT of the chest done on 06/13/2020. Most recent prior chest radiograph done on 12/27/2021. TECHNIQUE: Multidetector volumetric CT imaging of the chest was done. Axial MIP volume rendering provided. Sagittal and coronal reformatted images were obtained. This CT examination was performed using dose optimization techniques as appropriate, variously including the following: *Automated exposure control *Adjustment of mA and/or kV according to patient size (this includes techniques or standardized protocols for targeted exams where dose is matched to indication/reason for exam; i.e. extremities or head) *Use of iterative reconstruction technique DLP: 563 mGy-cm FINDINGS: PATCH FINISHER: Bibasilar airspace disease and small left-sided pleural effusions are present. The right IJ central line and tracheostomy tube and NG tube are in good positions. The tip of the NG tube however is located in the region of the fundus. LUNGS: Previously described multiple sub-5 mm lung nodules at both upper and left lower lobes are not reproduced in the current study likely related to motion related artifacts and interval development of dense airspace consolidation involving left lower lobe and also right lower lobe likely secondary to compressive atelectasis from bilateral small simple appearing pleural effusions. There is a endotracheal tube present, with its tip seen approximately 5 cm above the level of the timo. NG tube is also noted. The distal part of the tube is looped within the stomach and its tip is seen projecting in the region of the fundus. MEDIASTINUM: The heart size is within normal limits. Significant atherosclerotic disease is present within the aorta and is branches including coronary artery calcifications. The tip of the right IJ central line is seen at the distal SVC. The tip of the NG tube is below the level of the diaphragm as described above. PLEURA: Small volume bilateral simple appearing pleural effusions are noted. No evidence of any pleural-based mass or pleural thickening. AXILLA: Unremarkable. UPPER ABDOMEN: Small volume free fluid is noted around the right lobe of the liver. There is no evidence of any adrenal mass. OSSEOUS STRUCTURES: No suspicious focal lesion. CT/CT chest wo con IMPRESSION: 1. Small volume bilateral simple appearing pleural effusions are noted with bibasilar airspace disease presumably representing compressive atelectasis with or without superimposed infiltrate. 2. Previously documented, clinically known multiple bilateral sub-5 mm lung nodules seen within both upper lobes and the left lower lobe are not reproduced likely related to motion related artifacts as well as interval development of dense airspace consolidation involving left lower lobe and to a lesser extent right lower lobe. Fleischner guidelines were followed.
--- NOTE | ~2021-12-26 | XR_ITS ---
EXAMINATION: XR CHEST CLINICAL INFORMATION: Confirm line placement COMPARISON: Chest radiograph 1 hour ago TECHNIQUE: Frontal view of the chest was obtained. FINDINGS: A new right jugular line is present with its tip in the distal SVC. No pneumothorax. No other interval change. XR/XR chest 1V IMPRESSION: New right IJ line with tip in distal SVC without complication.
--- NOTE | ~2021-12-26 | XR_ITS ---
EXAMINATION: XR CHEST CLINICAL INFORMATION: Shortness of breath COMPARISON: CT chest 06/13/2020. Chest x-ray 02/13/2014 TECHNIQUE: 2 views of the chest were obtained. FINDINGS: Heart size enlarged. There is mild central pulmonary vascular prominence. No overt pulmonary edema. Small bilateral pleural effusions. XR/XR chest 2V IMPRESSION: Unremarkable examination.
--- NOTE | ~2021-12-26 | XR_ITS ---
EXAMINATION: XR CHEST CLINICAL INFORMATION: Respiratory failure COMPARISON: Chest 12/26/2021 120 intravenously TECHNIQUE: Frontal view of the chest was obtained. FINDINGS: The lungs are well-expanded and clear of acute pneumonic process. The heart size and pulmonary vascularity is normal. The endotracheal tube tip is 5 cm above the timo. Tip off Enteric tube is below the diaphragm. No gross bony abnormality seen. XR/XR chest 1V IMPRESSION: Mild cardiomegaly. No acute process seen. The lungs are expanded and clear. New endotracheal tube and enteric tube are in satisfactory position.
--- NOTE | 2021-12-26 16:51 | ECG_ITS ---
Test Reason : SOB Blood Pressure : / mmHG Vent. Rate : 059 BPM Atrial Rate : 000 BPM P-R Int : 000 ms QRS Dur : 136 ms QT Int : 410 ms P-R-T Axes : 000 267 013 degrees QTc Int : 405 ms Possibly junctional rhythm Possible Anterolateral infarct , age undetermined Abnormal ECG When compared with ECG of 26-MAR-2010 11:15, Rhythm change Referred By: Kiley Alas Electronically Signed By:OCTAVIO FLORES
--- NOTE | 2021-12-26 16:52 | ED_ITS ---
HPI - SOB/Dyspnea General Chief Complaint: Dyspnea Stated Complaint: UTI Time Seen by Provider: 12/26/21 16:30 Source: patient Mode of arrival: wheelchair Limitations: no limitations History of Present Illness HPI Narrative: 81-year-old male with history of chronic kidney disease, longstanding smoking history, COPD, AFib on Eliquis, coronary artery disease, diabetes, hypothyroidism, chronic UTI here with reports of shortness of breath over the last 3-4 months. Patient also reports bilateral lower extremity swelling, and cough. No fevers, chills or associated chest pain. Patient tells me he did not a primary care doctor as he was establishing a new one and saw mai ELAM last week for the 1st time. He was noted to be hypoxic in the office and it was recommended he go to the emergency department for further evaluation but he declines this. He was also noted to have urinary tract infection and a prescription for Macrobid was given to the patient but he tells me he did not start this medication as he felt it was unnecessary Patient tells me he is also had right eyelid swelling for greater than 6 months. He tells me he has seen his card clothier and his workup has been negative. He tells me that they feel that it is fluid related. He denies any vision changes, pain in the eye, drainage from the eye. He tells me that the swelling is the same for him with no change. Related Data Home Medications Medication Instructions Recorded Confirmed clopidogrel 75 mg tablet 1 tab PO DAILY 05/17/21 12/26/21 carvedilol 6.25 mg tablet 6.25 mg PO BID 12/24/21 12/26/21 diltiazem HCl 420 mg capsule,24 420 mg PO BEDTIME 12/24/21 12/26/21 hr,extended release (Tiadylt ER) empagliflozin 25 mg tablet 25 mg PO DAILY 12/24/21 12/26/21 (Jardiance) albuterol sulfate 90 mcg/actuation 2 puff INHALATION Q6H 12/26/21 12/26/21 aerosol inhaler Previous Rx's Medication Instructions Recorded alfuzosin 10 mg tablet,extended 10 mg PO DAILY #90 tab 06/06/21 release 24 hr hydrochlorothiazide 25 mg tablet 25 mg PO QAM #90 tab 08/27/21 apixaban 2.5 mg tablet (Eliquis) 2.5 mg PO BID #60 tab 12/18/21 Allergies Allergy/AdvReac Type Severity Reaction Status Date / Time cephalexin [Keflex] Allergy Unknown diarrhea Verified 12/24/21 16:10 Sulfa (Sulfonamide Allergy Unknown Unknown Verified 12/24/21 16:10 Antibiotics) prednisone AdvReac Severe dementia Verified 12/24/21 16:10 Review of Systems Verdana 4l Review of Systems: Yes all other systems are reviewed and Verdana 4d are negative Verdana 4l Constitutional: Verdana 4d Constitutional: Verdana 4d Verdana 4d Reports no additional constitutional complaints, Denies body ache(s), Denies chills, Denies fever(s), Denies headache(s) and Denies weakness Verdana 4l Eyes: Verdana 4d Verdana 4d Eyes: Verdana 4d Reports no additional eye complaints and Denies change in vision Verdana 4l ENT: Verdana 4d Reports system reviewed and no additional complaints, except as documented, Denies dizziness, Denies headache(s), Denies nasal congestion, Denies nasal discharge and Denies neck pain Verdana 4l Cardiovascular: Verdana 4d Cardiovascular: Verdana 4d Verdana 4d Reports no additional cardiovascular complaints, Denies chest pain, Reports leg edema and Reports dyspnea Verdana 4l Respiratory: Verdana 4d Verdana 4d Respiratory: Verdana 4d Reports no additional respiratory complaints, Reports cough and Reports dyspnea Verdana 4l Gastrointestinal: Verdana 4d Gastrointestinal: Verdana 4d Verdana 4d Reports no additional gastrointestinal complaints, Denies abdominal pain, Denies diarrhea, Denies nausea and Denies vomiting Verdana 4l Genitourinary: Verdana 4d Verdana 4d Genitourinary: Verdana 4d Denies oliguria, Denies scrotal swelling, Denies urinary frequency, Denies urinary hesitancy, Denies urinary incontinence and Denies urinary urgency Verdana 4l Musculoskeletal: Verdana 4d Musculoskeletal: Verdana 4d Verdana 4d Reports no additional musculoskeletal complaints, Denies back pain, Denies arthralgias, Denies joint swelling, Denies neck pain, Denies numbness and Denies tingling Verdana 4l Integumentary/Breasts: Verdana 4d Skin/Breast: Verdana 4d Verdana 4d Reports system reviewed and no additional complaints, except as docu and Denies rash Verdana 4l Neurologic: Verdana 4d Reports system reviewed and no additional complaints, except as documented, Denies Abnormal speech present, Denies dizziness, Denies headache(s), Denies numbness, Denies tingling and Denies weakness PMFSH Past Medical History Attestation statement: The following information was validated with the patient. Source: old records reviewed and nursing notes reviewed Medical History Abdominal aortic aneurysm Acquired hypothyroidism COPD exacerbation Diabetes mellitus Edema eyelid Essential (primary) hypertension Paroxysmal atrial fibrillation Presence of stent in coronary artery in patient with coronary artery disease Renal insufficiency Surgical History History of cardiac catheterization History of nasal surgery History of tonsillectomy Family History Family History Father Myocardial infarction Mother Alzheimers disease Social History Social History Household Members: Significant Other Housing: House Alcohol intake: current Alcohol intake frequency: does not drink Patient Tobacco Use Status: Former Tobacco user Tobacco use type: Cigarette Cigarettes Per Day: 4 Years Smoked: 60 Smoked in Last 30 Days: No e-Cigarette/Vaping Use: Never Used Use of substances other than those prescribed or required for medical reasons: No Advance Directives: No Advance Directives Information Provided: No service: No Current occupational status: retired Physical Exam Verdana 4l Vital Signs: Verdana 4d Verdana 4d Vital Signs: Verdana 4d Verdana 4Bd Last Vital Signs Verdana 4d Chimney Builder Brick New 4d Chimney Builder Brick New 4d Temp 98.7 F 12/26/21 20:00 Chimney Builder Brick New 4d Pulse 54 12/26/21 20:00 Chimney Builder Brick New 4d Resp 18 12/26/21 20:00 BP 111/53 L 12/26/21 20:00 Pulse Ox 99 12/26/21 20:00 BMI result Body Mass Index 34.4 Const: General: cooperative, healthy appearing, comfortable and no acute distress Orientation/consciousness: patient oriented x3 Limitations: no limitations HENMT: Head: Yes normal to inspection Ears: hearing grossly normal bilaterally and TM's normal bilaterally General nose exam: Normal external nose present Face and sinus: Yes normal facial exam Mouth: Normal oral and palatal mucosa present Throat: Yes posterior oropharynx normal, Yes tonsils normal and Yes uvula midline Eyes: Other: Swelling of the right upper eyelid-EOM intact, PERRLA General: appearance normal, both eyes and all related structures Pupils: Equal, round and reactive pupils present Neck: Neck: Yes normal visual inspection, Yes full ROM, Yes no lymphadenopathy and Yes JVD Chest: Chest palpation & inspection: normal inspection of the chest Resp: Other: Crackles in the bases bilaterally Mild tachypnea with speaking Cardio: Rate: regular rate Rhythm: regular rhythm Peripheral pulses: Peripheral pulses 2+ throughout GI: Inspection: Yes normal to inspection Palpation (GI): Soft to palpation and nontender Auscultation: normal bowel sounds Back/Spine/Pelvis: Thoracic/Lumbar Spine: thoracic and lumbar spine normal to inspection Skin: General skin exam: no rashes or lesions noted Neuro: General: patient oriented x3, no focal motor deficits and normal sensation to monofilament Cranial nerves: Yes Equal, round and reactive pupils present Cognition (Neuro): normal cognition Speech: No Abnormal speech present Gait exam (Neuro): Normal gait present Motor exam (neuro): 5/5 motor strength present throughout Extrem: General: Yes normal to inspection, Yes no calf tenderness and Yes edema (Bilateral pedal edema extending over the knees 2+. No erythema) Course Course Course Narrative: 81-year-old male with history of chronic kidney disease, longstanding smoking history, COPD, AFib on Eliquis, coronary artery disease, diabetes, hypothyroidism, chronic UTI here with reports of progressive shortness of breath over the last few months with lower extremity edema and cough. On arrival the patient's room air saturation is 72%. The patient has crackles throughout. He has mild tachypnea. He has 2+ pitting edema extending over the thighs. He is unsure if he has had any weight gain. He does take hydrochlorothiazide 25 mg daily. Will check labs, EKG, chest x-ray, COVID screen and UA Concern for CHF, worsening renal function 2100-review labs which show acute on chronic kidney injury with a creatinine of 2.11 (last available to review 05/28/21 1.64), elevated BNP 369, indeterminate troponin 43.1. No chest pain or EKG changes. Plan for repeat troponin. Chest x-ray shows mild central pulmonary vascular prominence with no overt edema with small bilateral pleural effusions. UA is pending. Patient's oxygen saturation has improved to low 90s on 3 L of oxygen. Clinically he appears to be in fluid overload. Will give 40 mg of IV Lasix. Will need admission. Spoke to hospitalist Dr Garcia who accepted admissiom. MDM - SOB/Dyspnea MDM Narrative Medical decision making narrative: Low concern for PE as the patient is anticoagulated on Eliquis and has been compliant with his medications. He denies any missed doses of medication Differential Diagnosis Differential diagnosis: Likely acute exacerbation of chronic obstructive airways disease, congestive heart failure, pneumonia and pulmonary embolism Medical Records Attestation: I reviewed the patient's medical records. Lab Data Attestation: I reviewed the patient's lab results. Result diagrams: 12/26/21 16:57 12/26/21 16:57 Labs: Lab Results 12/26/21 12/26/21 12/26/21 Range/Units 16:57 16:57 16:57 WBC 7.8 (4.8-10.8) X10*3/uL RBC 4.09 L (4.60-5.80) X10*6/uL Hgb 11.6 L (14.0-18.0) g/dl Hct 38.7 L (42.0-52.0) % MCV 94.6 (80.0-98.0) fL MCH 28.4 (27.0-33.0) pg MCHC 30.0 L (31.0-36.0) g/dl RDW 15.7 (11.0-16.0) % Plt Count 247 (160-400) X10*3/uL MPV 10.0 (9.4-12.4) fL Immature Gran % (Auto) 0.6 H (0.0-0.4) % Neut % (Auto) 70.5 (45-73) % Lymph % (Auto) 15.4 L (20-40) % [place] % (Auto) 10.5 (2-11) % Eos % (Auto) 2.4 (0-4) % Baso % (Auto) 0.6 (0-2) % Lymph # (Auto) 1.2 (1.2-4.9) X10*3/uL [place] # (Auto) 0.8 (0.1-1.2) X10*3/uL Eos # (Auto) 0.2 (0.0-0.4) X10*3/uL Baso # (Auto) 0.1 (0.0-0.2) X10*3/uL Abs Immat Gran (auto) 0.05 H (0.00-0.03) X10*3/uL Absolute Neuts (auto) 5.5 (2.0-8.3) x10*3/uL Absolute Nucleated RBC 0.000 (0.0-0.012) X10*3/uL Nucleated RBC % (auto) 0.0 (0.0-0.2) /100WBC PT 14.6 H (9.9-13.0) SEC INR 1.3 H (0.9-1.1) VBG pH (7.32-7.43) VBG pCO2 mmHg VBG pO2 mmHg VBG HCO3 (22-26) mmol/L VBG O2 Saturation % VBG Base Excess mmol/L Sodium 141 (135-145) mmol/L Potassium 4.0 (3.3-5.1) mmol/L Chloride 98 (96-108) mmol/L Carbon Dioxide 33 H (22-29) mmol/L Anion Gap 14 (12-20) BUN 51 H (9-16) mg/dL Creatinine 2.11 H (0.5-1.4) mg/dL Estim Creat Clear Calc 33.9 Estimated GFR 30 Random Glucose 177 H D (60-115) mg/dL Lactic Acid (0.5-2.0) mmol/L Calcium 9.0 (8.4-10.2) mg/dL Magnesium 2.0 (1.6-2.6) mg/dL Total Bilirubin 0.4 (0.0-1.0) mg/dL Direct Bilirubin 0.2 (0.0-0.5) mg/dL AST 11 (5-37) U/L ALT 6 (0-40) U/L Alkaline Phosphatase 63 D (39-117) U/L Troponin I High Sens (<3.5-35.0) ng/L B-Natriuretic Peptide (<100) pg/mL Total Protein 6.1 L (6.5-8.0) g/dL Albumin 3.5 (3.5-5.0) g/dL COVID-19 (MARCK) (Negative) COVID-19 Clin Com 12/26/21 12/26/21 12/26/21 Range/Units 16:57 17:02 17:52 WBC (4.8-10.8) X10*3/uL RBC (4.60-5.80) X10*6/uL Hgb (14.0-18.0) g/dl Hct (42.0-52.0) % MCV (80.0-98.0) fL MCH (27.0-33.0) pg MCHC (31.0-36.0) g/dl RDW (11.0-16.0) % Plt Count (160-400) X10*3/uL MPV (9.4-12.4) fL Immature Gran % (Auto) (0.0-0.4) % Neut % (Auto) (45-73) % Lymph % (Auto) (20-40) % [place] % (Auto) (2-11) % Eos % (Auto) (0-4) % Baso % (Auto) (0-2) % Lymph # (Auto) (1.2-4.9) X10*3/uL [place] # (Auto) (0.1-1.2) X10*3/uL Eos # (Auto) (0.0-0.4) X10*3/uL Baso # (Auto) (0.0-0.2) X10*3/uL Abs Immat Gran (auto) (0.00-0.03) X10*3/uL Absolute Neuts (auto) (2.0-8.3) x10*3/uL Absolute Nucleated RBC (0.0-0.012) X10*3/uL Nucleated RBC % (auto) (0.0-0.2) /100WBC PT (9.9-13.0) SEC INR (0.9-1.1) VBG pH 7.37 (7.32-7.43) VBG pCO2 65 mmHg VBG pO2 110 mmHg VBG HCO3 38 H (22-26) mmol/L VBG O2 Saturation 99.0 % VBG Base Excess 10.7 mmol/L Sodium (135-145) mmol/L Potassium (3.3-5.1) mmol/L Chloride (96-108) mmol/L Carbon Dioxide (22-29) mmol/L Anion Gap (12-20) BUN (9-16) mg/dL Creatinine (0.5-1.4) mg/dL Estim Creat Clear Calc Estimated GFR Random Glucose (60-115) mg/dL Lactic Acid 1.0 (0.5-2.0) mmol/L Calcium (8.4-10.2) mg/dL Magnesium (1.6-2.6) mg/dL Total Bilirubin (0.0-1.0) mg/dL Direct Bilirubin (0.0-0.5) mg/dL AST (5-37) U/L ALT (0-40) U/L Alkaline Phosphatase (39-117) U/L Troponin I High Sens 43.1 H (<3.5-35.0) ng/L B-Natriuretic Peptide 369 H (<100) pg/mL Total Protein (6.5-8.0) g/dL Albumin (3.5-5.0) g/dL COVID-19 (MARCK) (Negative) COVID-19 Clin Com 12/26/21 12/26/21 Range/Units 18:34 20:29 WBC (4.8-10.8) X10*3/uL RBC (4.60-5.80) X10*6/uL Hgb (14.0-18.0) g/dl Hct (42.0-52.0) % MCV (80.0-98.0) fL MCH (27.0-33.0) pg MCHC (31.0-36.0) g/dl RDW (11.0-16.0) % Plt Count (160-400) X10*3/uL MPV (9.4-12.4) fL Immature Gran % (Auto) (0.0-0.4) % Neut % (Auto) (45-73) % Lymph % (Auto) (20-40) % [place] % (Auto) (2-11) % Eos % (Auto) (0-4) % Baso % (Auto) (0-2) % Lymph # (Auto) (1.2-4.9) X10*3/uL [place] # (Auto) (0.1-1.2) X10*3/uL Eos # (Auto) (0.0-0.4) X10*3/uL Baso # (Auto) (0.0-0.2) X10*3/uL Abs Immat Gran (auto) (0.00-0.03) X10*3/uL Absolute Neuts (auto) (2.0-8.3) x10*3/uL Absolute Nucleated RBC (0.0-0.012) X10*3/uL Nucleated RBC % (auto) (0.0-0.2) /100WBC PT (9.9-13.0) SEC INR (0.9-1.1) VBG pH (7.32-7.43) VBG pCO2 mmHg VBG pO2 mmHg VBG HCO3 (22-26) mmol/L VBG O2 Saturation % VBG Base Excess mmol/L Sodium (135-145) mmol/L Potassium (3.3-5.1) mmol/L Chloride (96-108) mmol/L Carbon Dioxide (22-29) mmol/L Anion Gap (12-20) BUN (9-16) mg/dL Creatinine (0.5-1.4) mg/dL Estim Creat Clear Calc Estimated GFR Random Glucose (60-115) mg/dL Lactic Acid (0.5-2.0) mmol/L Calcium (8.4-10.2) mg/dL Magnesium (1.6-2.6) mg/dL Total Bilirubin (0.0-1.0) mg/dL Direct Bilirubin (0.0-0.5) mg/dL AST (5-37) U/L ALT (0-40) U/L Alkaline Phosphatase (39-117) U/L Troponin I High Sens 42.8 H (<3.5-35.0) ng/L B-Natriuretic Peptide (<100) pg/mL Total Protein (6.5-8.0) g/dL Albumin (3.5-5.0) g/dL COVID-19 (MARCK) Negative (Negative) COVID-19 Clin Com See Note Imaging Data Chest x-ray: Attestation: I personally reviewed and interpreted this imaging study as follows: Radiologist's impression: [place] [id number] [facility] [place] [address] XRay Report Signed Patient: Felix Syed MR#: [id number] : 1940 Acct:[id number] Age/Sex: 81 / M ADM Date: 12/26/21 Loc: [facility].ED Attending Dr: Ordering Physician: Kiley Alas NP Date of Service: 12/26/21 Procedure(s): XR chest 2V Accession Number(s): [id number] cc: Kiley Alas NP~ EXAMINATION: XR CHEST CLINICAL INFORMATION: Shortness of breath COMPARISON: CT chest 06/13/2020. Chest x-ray 02/13/2014 TECHNIQUE: 2 views of the chest were obtained. FINDINGS: Heart size enlarged. There is mild central pulmonary vascular prominence. No overt pulmonary edema. Small bilateral pleural effusions. XR/XR chest 2V IMPRESSION: Unremarkable examination. ECG Data Attestation: I personally reviewed and interpreted this ECG as follows: ECG interpretation date: 12/26/21 ECG interpretation time: 17:15 Interpretation: Junctional rhythm with a rate of 59 Discharge Plan Discharge Clinical Impression: Hypoxia, Elevated brain natriuretic peptide (BNP) level, Elevated troponin, CRISTY (acute kidney injury) Patient Disposition: Admitted As Inpatient
[2021-12-26 17:03] LABS: MANUAL DIFF FLAG NO
[2021-12-26 17:07] LABS: VBG Base Excess 10.7 mmol/L; VBG HCO3 38 mmol/L (22-26); VBG pCO2 65 mmHg; VBG pH 7.37 (7.32-7.43); VBG pO2 110 mmHg
[2021-12-26 17:17] LABS: Venous Blood Gas Refer to POC result
[2021-12-26 17:33] LABS: INTERNATIONAL NORM RATIO 1.3 (0.9-1.1); Prothrombin Time 14.6 SEC (9.9-13.0)
[2021-12-26 17:39] LABS: B Type Natriuretic Peptide 369 pg/mL (<100); Troponin-I High Sensitivity 43.1 ng/L (<3.5-35.0)
[2021-12-26 17:47] LABS: Basophils Absolute Auto 0.1 X10*3/uL (0.0-0.2); Basophils Percent Auto 0.6 % (0-2); Eosinophils Absolute Auto 0.2 X10*3/uL (0.0-0.4); Eosinophils Percent Auto 2.4 % (0-4); Hematocrit 38.7 % (42.0-52.0); Hemoglobin 11.6 g/dl (14.0-18.0); Imm Gran Abs Auto 0.05 X10*3/uL (0.00-0.03); Imm Gran Pct Auto 0.6 % (0.0-0.4); Lymphocytes Absolute Auto 1.2 X10*3/uL (1.2-4.9); Lymphocytes Percent Auto 15.4 % (20-40); Mean Corpuscular Hemoglobin 28.4 pg (27.0-33.0); Mean Corpuscular Volume 94.6 fL (80.0-98.0); Monocytes Absolute Auto 0.8 X10*3/uL (0.1-1.2); Monocytes Percent Auto 10.5 % (2-11); Neutrophils Absolute Auto 5.5 x10*3/uL (2.0-8.3); Neutrophils Percent Auto 70.5 % (45-73); Platelet Count 247 X10*3/uL (160-400); Red Blood Count 4.09 X10*6/uL (4.60-5.80); Red Cell Distribution Width 15.7 % (11.0-16.0); White Blood Count 7.8 X10*3/uL (4.8-10.8)
[2021-12-26 17:49] LABS: Alanine Aminotransferase 6 U/L (0-40); Albumin Level 3.5 g/dL (3.5-5.0); Alkaline Phosphatase 63 U/L (39-117); Anion Gap 14 (12-20); Aspartate Amino Transferase 11 U/L (5-37); Bilirubin Direct 0.2 mg/dL (0.0-0.5); Bilirubin Total 0.4 mg/dL (0.0-1.0); Blood Urea Nitrogen 51 mg/dL (9-16); Carbon Dioxide 33 mmol/L (22-29); Chloride 98 mmol/L (96-108); Creatinine Clr Calc Pharmacy 33.9; Estimated Glomerular Filt Rate 30; Glucose Random 177 mg/dL (60-115); Sodium 141 mmol/L (135-145); Total Protein 6.1 g/dL (6.5-8.0)
[2021-12-26 18:56] LABS: COVID-19 Test Negative (Negative); IDNOW Serial# 9DD0AD1C
--- NOTE | 2021-12-26 19:56 | PHA.MEDREC ---
Pharmacy Consult ? Medication Reconciliation Pharmacy has completed the medication reconciliation. Patient had many med changes in the last few months. He takes eliquis and plavix. Patient is NOT ON A RESCUE INHALER. He was prescribed flovent but never took it. He takes albuterol scheduled >8 puffs/day and reports palpitations Thanks Kalin
[2021-12-26] MEDS: Furosemide 40 MG/4 ML VIAL IVPUSH (20:33)
[2021-12-26 20:55] LABS: Troponin-I High Sensitivity 42.8 ng/L (<3.5-35.0)
--- NOTE | 2021-12-26 22:26 | P.HPHOSP_ITS ---
History of Present Illness Date of Service: 12/26/21 Chief Complaint: SOB 81-year-old male with a past medical history of hypertension, hyperlipidemia, diabetes, CAD, CHF, COPD, AFib on Eliquis, hypothyroidism, History of ESBL UTI; presented to the hospital today with a chief complaint of shortness of breath and generalized weakness. Patient reported that he has been having shortness of breath over the past 2 months; worsened over the past 2 weeks; had severe dyspnea on exertion, also mentioned he has significantly decreased excised tolerance and final shortness of breath with minimal exertion. Samy also complains of orthopnea. Denies any cough or sputum production. Complains of dysuria. Denies any nausea vomiting or diarrhea. Also mentioned that he has noticed his legs are more swollen than his baseline and increased redness noted on the right leg compared to his baseline. Denies any falls or trauma. Denies any numbness tingling or focal weakness. patient mentioned that he recently went to his PCP's office about a week ago and he was given Macrobid-reports he has not taken the Macrobid. Also mentioned that at the time he was noted to be low on oxygen and suggested to go to the ER he denied any went home to take care of some activities at home. Denies any chest pain or palpitations. Review of all other systems is negative except mentioned above ER course: Per ER team patient noted to have no significant pedal edema to 2+, crackles on the lung exam, chest x-ray showed pulmonary congestion as well as a small pleural effusions; noted to have mildly elevated proBNP, JVD. Concern for acute CHF. Patient was given IV Lasix. Also noted to have a creatinine of 2.1. ER team mentioned that patient on presentation noted to be saturating in 71% with improvement in oxygenation to mid 90s on 2 L of oxygen. Patient was not in respiratory distress. [facility] Medical History Abdominal aortic aneurysm Acquired hypothyroidism COPD exacerbation Diabetes mellitus Edema eyelid Essential (primary) hypertension Paroxysmal atrial fibrillation Presence of stent in coronary artery in patient with coronary artery disease Renal insufficiency Family History Father Myocardial infarction Mother Alzheimers disease Pertinent family history: as Mentioned above Surgical History History of cardiac catheterization History of nasal surgery History of tonsillectomy Social History Household Members: Significant Other Housing: House Alcohol intake: current Alcohol intake frequency: does not drink Patient Tobacco Use Status: Former Tobacco user Tobacco use type: Cigarette Cigarettes Per Day: 4 Years Smoked: 60 Smoked in Last 30 Days: No e-Cigarette/Vaping Use: Never Used Use of substances other than those prescribed or required for medical reasons: No Advance Directives: No Advance Directives Information Provided: No service: No Current occupational status: retired Meds Allergies Allergy/AdvReac Type Severity Reaction Status Date / Time cephalexin [Keflex] Allergy Unknown diarrhea Verified 12/24/21 16:10 Sulfa (Sulfonamide Allergy Unknown Unknown Verified 12/24/21 16:10 Antibiotics) prednisone AdvReac Severe dementia Verified 12/24/21 16:10 Active Medications: Current Medications Acetaminophen (Acetaminophen 325 Mg Tablet) 650 mg PO Q6H PRN PRN Reason: Pain, Mild (Pain Scale 1-3) Albuterol Sulfate (Albuterol Sulfate 90 Mcg 8 Gm Inhaler) 2 puff INHALE Q6H [facility] Apixaban (Apixaban 2.5 Mg Tablet) 2.5 mg PO BID PARMJIT Carvedilol (Carvedilol 6.25 Mg Tablet) 6.25 mg PO BID [facility]; Protocol Clopidogrel Bisulfate (Clopidogrel Bisulfate 75 Mg Tablet) 75 mg PO DAILY [facility] Furosemide (Furosemide 40 Mg/4 Ml Vial) 40 mg IVPUSH DAILY [facility]; Protocol Ertapenem 1 gm/ Sodium (Chloride) 50 mls @ 100 mls/hr IV ONCE ONE Stop: 12/26/21 22:50 Melatonin (Melatonin 3 Mg Tablet) 6 mg PO BEDTIME PRN PRN Reason: Insomnia Morphine Sulfate (Morphine Sulfate 4 Mg/Ml Cartridge) 1 mg IVPUSH Q4H PRN; Protocol PRN Reason: Pain, SOB Non-Formulary Medication (Alfuzosin) 10 mg PO DAILY [facility] Non-Formulary Medication (Diltiazem Hcl [Tiadylt Er]) 420 mg PO BEDTIME [facility] Pharmacy Consult (Consult Rx Perform Med Rec) 1 each MISCELLANE ONCE PRN PRN Reason: Consult order Senna (Sennosides 8.6 Mg Tablet) 17.2 mg PO BEDTIME PRN PRN Reason: Constipation Sodium Chloride (0.9 % Sodium Chloride Flush 3 Ml Syringe) 3 ml IVFLUSH QSHIFT [facility] Home Medications Medication Instructions Recorded Confirmed Last Taken Type clopidogrel 75 mg 1 tab PO DAILY 05/17/21 12/26/21 12/26/21 History tablet carvedilol 6.25 6.25 mg PO BID 12/24/21 12/26/21 12/26/21 History mg tablet diltiazem HCl 420 420 mg PO 12/24/21 12/26/21 12/25/21 History mg capsule,24 BEDTIME hr,extended release (Tiadylt ER) empagliflozin 25 25 mg PO DAILY 12/24/21 12/26/21 12/26/21 History mg tablet (Jardiance) albuterol sulfate 2 puff 12/26/21 12/26/21 12/26/21 History 90 mcg/actuation INHALATION Q6H aerosol inhaler Physical Exam Verdana 4l Vital Signs and Narrative: Verdana 4d Verdana 4d Vital Signs: Verdana 4d Verdana 4Bd Last Vital Signs Verdana 4d Recoil Spring Winder New 4d Recoil Spring Winder New 4d Temp 98.1 F 12/26/21 21:51 Recoil Spring Winder New 4d Pulse 54 12/26/21 21:51 Recoil Spring Winder New 4d Resp 16 12/26/21 21:51 BP 118/53 L 12/26/21 21:51 Pulse Ox 99 12/26/21 21:51 BMI result Body Mass Index 34.4 Gen: Appears be in no acute distress HEENT: NCAT, Moist mucosa. right eyelid swollen; patient reports chronic unchanged. Pulmonary: Slightly diminished breath sounds at the bases. CVS: Normal S1-S2 Abdomen: BS+, Soft, Nontender Extremities: Warm well perfused . 3+ pitting; right leg is, warm tender erythematous - lower 2/3 of the like. Has small open wound with serosanguineous discharge. Neuro: Alert and awake. Results Labs CBC and Chem 7: 12/26/21 16:57 12/26/21 16:57 Labs: Laboratory Results - last 24 hr 12/26/21 12/26/21 12/26/21 16:57 16:57 16:57 MCV 94.6 MCH 28.4 MCHC 30.0 L RDW 15.7 Plt Count 247 MPV 10.0 Immature Gran % (Auto) 0.6 H Neut % (Auto) 70.5 Lymph % (Auto) 15.4 L [place] % (Auto) 10.5 Eos % (Auto) 2.4 Baso % (Auto) 0.6 Lymph # (Auto) 1.2 [place] # (Auto) 0.8 Eos # (Auto) 0.2 Baso # (Auto) 0.1 Abs Immat Gran (auto) 0.05 H Absolute Neuts (auto) 5.5 Absolute Nucleated RBC 0.000 Nucleated RBC % (auto) 0.0 PT 14.6 H INR 1.3 H VBG pH VBG pCO2 VBG pO2 VBG HCO3 VBG O2 Saturation VBG Base Excess Anion Gap 14 Estim Creat Clear Calc 33.9 Estimated GFR 30 Random Glucose 177 H D Lactic Acid Calcium 9.0 Magnesium 2.0 Total Bilirubin 0.4 Direct Bilirubin 0.2 AST 11 ALT 6 Alkaline Phosphatase 63 D B-Natriuretic Peptide Total Protein 6.1 L Albumin 3.5 COVID-19 ([facility]) [employer] 12/26/21 12/26/21 12/26/21 16:57 17:02 17:52 MCV MCH MCHC RDW Plt Count MPV Immature Gran % (Auto) Neut % (Auto) Lymph % (Auto) [place] % (Auto) Eos % (Auto) Baso % (Auto) Lymph # (Auto) [place] # (Auto) Eos # (Auto) Baso # (Auto) Abs Immat Gran (auto) Absolute Neuts (auto) Absolute Nucleated RBC Nucleated RBC % (auto) PT INR VBG pH 7.37 VBG pCO2 65 VBG pO2 110 VBG HCO3 38 H VBG O2 Saturation 99.0 VBG Base Excess 10.7 Anion Gap Estim Creat Clear Calc Estimated GFR Random Glucose Lactic Acid 1.0 Calcium Magnesium Total Bilirubin Direct Bilirubin AST ALT Alkaline Phosphatase B-Natriuretic Peptide 369 H Total Protein Albumin COVID-19 ([facility]) [employer] 12/26/21 12/26/21 18:34 Unknown MCV MCH MCHC RDW Plt Count MPV Immature Gran % (Auto) Neut % (Auto) Lymph % (Auto) [place] % (Auto) Eos % (Auto) Baso % (Auto) Lymph # (Auto) [place] # (Auto) Eos # (Auto) Baso # (Auto) Abs Immat Gran (auto) Absolute Neuts (auto) Absolute Nucleated RBC Nucleated RBC % (auto) PT INR VBG pH VBG pCO2 VBG pO2 VBG HCO3 VBG O2 Saturation VBG Base Excess Anion Gap Estim Creat Clear Calc Estimated GFR Random Glucose Lactic Acid Calcium Magnesium Total Bilirubin Direct Bilirubin AST ALT Alkaline Phosphatase B-Natriuretic Peptide Total Protein Albumin COVID-19 ([facility]) Negative Cancelled COVID-19 Clin Com See Note Cancelled Imaging Radiologist's Impressions: Impressions Chest X-Ray 12/26/21 18:10 IMPRESSION: Unremarkable examination. Assessment and Plan (1) CHF (congestive heart failure): Status: Acute (2) Cellulitis: Status: Acute (3) Hypoxia: Status: Acute (4) Edema eyelid: Qualifiers: Laterality: right Qualified Code(s): H02.843 - Edema of right eye, unspecified eyelid Status: Acute (5) Renal insufficiency: Status: Acute Plan 81-year-old male with a past medical history of hypertension, hyperlipidemia, diabetes, CAD, CHF, COPD, AFib on Eliquis, hypothyroidism, History of ESBL UTI; presented to the hospital today with a chief complaint of shortness of breath and generalized weakness. Noted to be in acute CHF exacerbation. Admitted for further management. Acute hypoxic respiratory failure: In the setting of CHF. Patient being diu resed. Patient on presentation was saturating in low 70s on room air. Placed on 2 L of supplemental oxygen with improvement in oxygenation to 90s. Acute CHF exacerbation: Patient noted to have peripheral edema, JVD, crackles on lung exam, elevated proBNP. Patient not on Lasix at home. He only takes hydrochlorothiazide. Will start the patient on Lasix 40 mg daily. Daily weights and I's and O's Echocardiogram Monitor on telemetry Cardiology consult Continue home carvedilol UTI: Patient does report dysuria. UA pending. Has prior history of ESBL UTI. Empirically give 1 dose of ertapenem. Follow-up urinalysis and cultures. Right leg cellulitis: On antibiotics as mentioned above. CRISTY on CKD: Patient baseline creatinine around 1.6. On presentation creatinine is 2.1. Avoid nephrotoxins. Nephrology consult. Monitor renal function while diuresing. History of AFib: Rate controlled. Continue home diltiazem, Eliquis. History of diabetes: Insulin sliding scale History of COPD: DuoNeb standing and p.r.n.. Patient lung sounds are slightly diminished. History of Right eyelid swelling: Reports chronic. Mentions he has seen Ophthalmology as outpatient. Denies any new complaints. DVT prophylaxis: Patient on Eliquis Code status: Full code Quality Stroke Does the patient have a stroke diagnosis?: No VTE Prior VTE?: No VTE Risk Level:: Medical - moderate - high VTE Device Contraindication: Treatment Not Indicated VTE Drug Contraindication: N/A - Med Ordered
[2021-12-26] MEDS: Ertapenem Sodium 1 GM in 0.9 % Sodium Chloride 50 ML IV (22:42)
--- NOTE | 2021-12-26 22:48 | PC.NURSE ---
Patient complaining about not getting a bed and stated that the hospital shouldn't pull the same shit that they did the last time I was here and kept me in this ER. I spoke with the charge nurse about sending patient to overflow. She agreed and patient is going to overflow once antibiotics are done.
[2021-12-26 23:03] LABS: Appearance Urine HAZY; Color Urine YELLOW; Glucose Urine UA 500 MG/DL (NEG); Leukocyte Esterase Urine 1+ (NEG); Nitrite Urine NEG (NEG); Specific Gravity - Urine >= 1.030 (1.005-1.025); UACC Culture Trigger YES; Urine Blood 1+ (NEG); Urine Ketones NEG (NEG); Urine Protein 1+ MG/DL (NEG-TRACE)
[2021-12-26 23:19] LABS: Bacteria Urine 4+ /LPF; Mucus Urine TRACE /LPF
[2021-12-26 23:20] LABS: Granular Casts Urine 0-2 /LPF; WBC Clumps Urine NOTED
[2021-12-26] MEDS: 0.9 % Sodium Chloride Flush 3 ML SYRINGE IVFLUSH (23:51)
[2021-12-27] VITALS (21 sets, daily range): BP systolic 85–156; BP diastolic 30–65; PULSE 54–72; RESP 10–21; TEMP 34–37.2; O2SAT 15–100
[2021-12-27 06:15] LABS: Glucose, Whole Blood 169 mg/dL (60-115)
[2021-12-27 08:22] LABS: MANUAL DIFF FLAG NO
[2021-12-27 08:25] LABS: Basophils Absolute Auto 0.1 X10*3/uL (0.0-0.2); Basophils Percent Auto 0.7 % (0-2); Eosinophils Absolute Auto 0.2 X10*3/uL (0.0-0.4); Eosinophils Percent Auto 2.7 % (0-4); Hematocrit 41.2 % (42.0-52.0); Hemoglobin 11.9 g/dl (14.0-18.0); Imm Gran Abs Auto 0.05 X10*3/uL (0.00-0.03); Imm Gran Pct Auto 0.6 % (0.0-0.4); Lymphocytes Absolute Auto 1.3 X10*3/uL (1.2-4.9); Lymphocytes Percent Auto 15.5 % (20-40); Mean Corpuscular HGB Conc 28.9 g/dl (31.0-36.0); Mean Corpuscular Hemoglobin 28.1 pg (27.0-33.0); Mean Corpuscular Volume 97.4 fL (80.0-98.0); Mean Platelet Volume 9.5 fL (9.4-12.4); Monocytes Percent Auto 11.9 % (2-11); Neutrophils Absolute Auto 5.6 x10*3/uL (2.0-8.3); Neutrophils Percent Auto 68.6 % (45-73); Platelet Count 211 X10*3/uL (160-400); Red Blood Count 4.23 X10*6/uL (4.60-5.80); Red Cell Distribution Width 15.9 % (11.0-16.0); White Blood Count 8.1 X10*3/uL (4.8-10.8)
[2021-12-27] MEDS: dilTIAZem HCL CD 300 MG CAP.ER.24H PO (08:35)
[2021-12-27] MEDS: Insulin Lispro 100 UNIT/ML 3 ML VIAL SUBCUT (08:35)
[2021-12-27] MEDS: Tamsulosin HCL 0.4 MG CAPSULE PO (08:35)
[2021-12-27] MEDS: 0.9 % Sodium Chloride Flush 3 ML SYRINGE IVFLUSH ×2 (08:36→17:19)
[2021-12-27] MEDS: Clopidogrel Bisulfate 75 MG TABLET PO (08:36)
[2021-12-27] MEDS: Furosemide 40 MG/4 ML VIAL IVPUSH (08:36)
[2021-12-27] MEDS: Apixaban 2.5 MG TABLET PO (08:36)
[2021-12-27] MEDS: dilTIAZem HCL CD 120 MG CAP.ER.DEG PO (08:36)
[2021-12-27 08:52] LABS: Anion Gap 12 (12-20); Blood Urea Nitrogen 50 mg/dL (9-16); Calcium 8.9 mg/dL (8.4-10.2); Carbon Dioxide 35 mmol/L (22-29); Chloride 99 mmol/L (96-108); Creatinine Clr Calc Pharmacy 34.9; Estimated Glomerular Filt Rate 31; Glucose Random 160 mg/dL (60-115); Potassium 3.7 mmol/L (3.3-5.1); Sodium 142 mmol/L (135-145)
--- NOTE | 2021-12-27 08:52 | PC.NURSE ---
Pt sleeping, opens eyes breifly to name, oriented to person and place only. Pt unable to stay awake long enough for PO medication. Pt boosted in bed, BLE edema, +4 minimal pitting with tightness and redness bilaterally. Pt stopped responding to name, responsive to sternal rub only. made aware, VSS at this time. Will continue to monitor.
--- NOTE | 2021-12-27 10:40 | P.CONCA_ITS ---
History of Present Illness History of Present Illness Date of Service: 12/27/21 Chief complaint: acute CHF exacerbation Narrative: This is a cardiology consultation regarding congestive heart failure. Patient seems extremely sleepy and not able to give much of information at all. A ques tioning numerous times and he is not able to answer. Per RN, he has been this way. Per H and P, he has a history of hypertension, hyperlipidemia, diabetes, CAD, CHF, COPD, atrial fibrillation and multiple medical comorbidities. Increasing shortness of breath for the last 2 weeks or so. Legs have been much more swollen than the baseline. Subsequently, referred to the ER to be evaluated. No further information is available pertinent to cardiac. Review of Systems Verdana 4l Review of Systems: Verdana 4d Unable to obtain as patient Verdana 4d is sleepy Verdana 4d [facility] Past Medical History Medical History Abdominal aortic aneurysm Acquired hypothyroidism COPD exacerbation Diabetes mellitus Edema eyelid Essential (primary) hypertension Paroxysmal atrial fibrillation Presence of stent in coronary artery in patient with coronary artery disease Renal insufficiency Family History Family History Father Myocardial infarction Mother Alzheimers disease Surgical History Surgical History History of cardiac catheterization History of nasal surgery History of tonsillectomy Social History Social History Household Members: Significant Other Housing: House Alcohol intake: current Alcohol intake frequency: does not drink Patient Tobacco Use Status: Former Tobacco user Tobacco use type: Cigarette Cigarettes Per Day: 4 Years Smoked: 60 Smoked in Last 30 Days: No e-Cigarette/Vaping Use: Never Used Use of substances other than those prescribed or required for medical reasons: No Advance Directives: No Advance Directives Information Provided: No service: No Current occupational status: retired Meds Allergies Allergy/AdvReac Type Severity Reaction Status Date / Time cephalexin [Keflex] Allergy Unknown diarrhea Verified 12/24/21 16:10 Sulfa (Sulfonamide Allergy Unknown Unknown Verified 12/24/21 16:10 Antibiotics) prednisone AdvReac Severe dementia Verified 12/24/21 16:10 Active Medications: Current Medications Acetaminophen (Acetaminophen 325 Mg Tablet) 650 mg PO Q6H PRN PRN Reason: Pain, Mild (Pain Scale 1-3) Albuterol Sulfate (Albuterol Sulfate 90 Mcg 8 Gm Inhaler) 2 puff INHALE RQ6H [facility] Last Admin: 12/27/21 05:50 Dose: Not Given Documented by: Apixaban (Apixaban 2.5 Mg Tablet) 2.5 mg PO BID [facility] Last Admin: 12/27/21 08:36 Dose: 2.5 mg Documented by: Carvedilol (Carvedilol 6.25 Mg Tablet) 6.25 mg PO BID [facility]; Protocol Last Admin: 12/27/21 10:07 Dose: Not Given Documented by: Clopidogrel Bisulfate (Clopidogrel Bisulfate 75 Mg Tablet) 75 mg PO DAILY [facility] Last Admin: 12/27/21 08:36 Dose: 75 mg Documented by: Dextrose (Dextrose 50 % 25 Gm/50 Ml Syringe) 25 gm IVPUSH Q15M PRN; Protocol PRN Reason: per Hypoglycemia Standing Ord. Diltiazem HCl (Diltiazem Hcl Cd 300 Mg Cap.Er.24h) 300 mg PO DAILY [facility] Last Admin: 12/27/21 08:35 Dose: 300 mg Documented by: Diltiazem HCl (Diltiazem Hcl Cd 120 Mg Cap.Er.Deg) 120 mg PO DAILY [facility] Last Admin: 12/27/21 08:36 Dose: 120 mg Documented by: Furosemide (Furosemide 40 Mg/4 Ml Vial) 40 mg IVPUSH DAILY [facility]; Protocol Last Admin: 12/27/21 08:36 Dose: 40 mg Documented by: Glucose (Glucose Gel 15 Gm Gel..Gram.) 15 gm PO Q15M PRN; Protocol PRN Reason: per Hypoglycemia Standing Ord. Insulin Human Lispro (Insulin Lispro 100 Unit/Ml 3 Ml Vial) 0 unit SUBCUT QIDACHS [facility]; Protocol Last Admin: 12/27/21 08:35 Dose: 2 unit Documented by: Melatonin (Melatonin 3 Mg Tablet) 6 mg PO BEDTIME PRN PRN Reason: Insomnia Morphine Sulfate (Morphine Sulfate 4 Mg/Ml Cartridge) 1 mg IVPUSH Q4H PRN; Protocol PRN Reason: Pain, SOB Pharmacy Consult (Consult Rx Perform Med Rec) 1 each MISCELLANE ONCE PRN PRN Reason: Consult order Senna (Sennosides 8.6 Mg Tablet) 17.2 mg PO BEDTIME PRN PRN Reason: Constipation Sodium Chloride (0.9 % Sodium Chloride Flush 3 Ml Syringe) 3 ml IVFLUSH QSHIFT [facility] Last Admin: 12/27/21 08:36 Dose: 3 ml Documented by: Tamsulosin HCl (Tamsulosin Hcl 0.4 Mg Capsule) 0.4 mg PO DAILY [facility] Last Admin: 12/27/21 08:35 Dose: 0.4 mg Documented by: Home Medications Medication Instructions Recorded Confirmed Last Taken Type clopidogrel 75 mg 1 tab PO DAILY 05/17/21 12/26/21 12/26/21 History tablet carvedilol 6.25 6.25 mg PO BID 12/24/21 12/26/21 12/26/21 History mg tablet diltiazem HCl 420 420 mg PO 12/24/21 12/26/21 12/25/21 History mg capsule,24 BEDTIME hr,extended release (Tiadylt ER) empagliflozin 25 25 mg PO DAILY 12/24/21 12/26/21 12/26/21 History mg tablet (Jardiance) albuterol sulfate 2 puff 12/26/21 12/26/21 12/26/21 History 90 mcg/actuation INHALATION Q6H aerosol inhaler Physical Exam Verdana 4l Vital Signs: Verdana 4d Verdana 4d Vital Signs: Verdana 4d Verdana 4Bd Last Vital Signs Verdana 4d Bonderizer Operator New 4d Bonderizer Operator New 4d Temp 98.8 F 12/27/21 06:29 Bonderizer Operator New 4d Pulse 56 12/27/21 08:36 Bonderizer Operator New 4d Resp 17 12/27/21 06:29 BP 113/53 L 12/27/21 08:36 Pulse Ox 99 12/27/21 06:29 BMI result Body Mass Index 34.4 Const: Other: sleepy, not answering questions General: lethargic Orientation/consciousness: lethargic HENMT: Other: Unremarkable Neck: Neck: Yes normal visual inspection Chest: Chest palpation & inspection: normal inspection of the chest Resp: Other: bilateral coarse breath sounds Cardio: Other: unable to listed to heart sounds due to coarse breath sounds and patient unable to follow commands GI: Palpation (GI): Soft to palpation Back/Spine/Pelvis: Other: unremarkable Skin: Lesions: other Neuro: General: other Extrem: Other: 3-4+edema bilateral Psych: Mental Status: other Objective Labs and Meds Result diagrams: 12/27/21 08:05 12/27/21 08:05 Lab results: Laboratory Results - last 24 hr 12/26/21 12/26/21 12/26/21 16:57 16:57 16:57 WBC 7.8 RBC 4.09 L Hgb 11.6 L Hct 38.7 L MCV 94.6 MCH 28.4 MCHC 30.0 L RDW 15.7 Plt Count 247 MPV 10.0 Immature Gran % (Auto) 0.6 H Neut % (Auto) 70.5 Lymph % (Auto) 15.4 L [place] % (Auto) 10.5 Eos % (Auto) 2.4 Baso % (Auto) 0.6 Lymph # (Auto) 1.2 [place] # (Auto) 0.8 Eos # (Auto) 0.2 Baso # (Auto) 0.1 Abs Immat Gran (auto) 0.05 H Absolute Neuts (auto) 5.5 Absolute Nucleated RBC 0.000 Nucleated RBC % (auto) 0.0 PT 14.6 H INR 1.3 H VBG pH VBG pCO2 VBG pO2 VBG HCO3 VBG O2 Saturation VBG Base Excess Sodium 141 Potassium 4.0 Chloride 98 Carbon Dioxide 33 H Anion Gap 14 BUN 51 H Creatinine 2.11 H Estim Creat Clear Calc 33.9 Estimated GFR 30 POC Glucose Random Glucose 177 H D Lactic Acid Calcium 9.0 Magnesium 2.0 Total Bilirubin 0.4 Direct Bilirubin 0.2 AST 11 ALT 6 Alkaline Phosphatase 63 D Troponin I High Sens B-Natriuretic Peptide Total Protein 6.1 L Albumin 3.5 Urine Color Urine Appearance Urine pH Ur Specific [place] Urine Protein Urine Glucose (UA) Urine Ketones Urine Blood Urine Nitrite Ur Leukocyte Esterase Urine RBC Urine WBC Urine WBC Clumps Ur Squamous Epith Cells Urine Bacteria Granular Casts Urine Mucus COVID-19 ([facility]) COVID-19 Clin Com 12/26/21 12/26/21 12/26/21 16:57 17:02 17:52 WBC RBC Hgb Hct MCV MCH MCHC RDW Plt Count MPV Immature Gran % (Auto) Neut % (Auto) Lymph % (Auto) [place] % (Auto) Eos % (Auto) Baso % (Auto) Lymph # (Auto) [place] # (Auto) Eos # (Auto) Baso # (Auto) Abs Immat Gran (auto) Absolute Neuts (auto) Absolute Nucleated RBC Nucleated RBC % (auto) PT INR VBG pH 7.37 VBG pCO2 65 VBG pO2 110 VBG HCO3 38 H VBG O2 Saturation 99.0 VBG Base Excess 10.7 Sodium Potassium Chloride Carbon Dioxide Anion Gap BUN Creatinine Estim Creat Clear Calc Estimated GFR POC Glucose Random Glucose Lactic Acid 1.0 Calcium Magnesium Total Bilirubin Direct Bilirubin AST ALT Alkaline Phosphatase Troponin I High Sens 43.1 H B-Natriuretic Peptide 369 H Total Protein Albumin Urine Color Urine Appearance Urine pH Ur Specific [place] Urine Protein Urine Glucose (UA) Urine Ketones Urine Blood Urine Nitrite Ur Leukocyte Esterase Urine RBC Urine WBC Urine WBC Clumps Ur Squamous Epith Cells Urine Bacteria Granular Casts Urine Mucus COVID-19 ([facility]) COVID-19 [facility] 12/26/21 12/26/21 12/26/21 18:34 20:29 22:45 WBC RBC Hgb Hct MCV MCH MCHC RDW Plt Count MPV Immature Gran % (Auto) Neut % (Auto) Lymph % (Auto) [place] % (Auto) Eos % (Auto) Baso % (Auto) Lymph # (Auto) [place] # (Auto) Eos # (Auto) Baso # (Auto) Abs Immat Gran (auto) Absolute Neuts (auto) Absolute Nucleated RBC Nucleated RBC % (auto) PT INR VBG pH VBG pCO2 VBG pO2 VBG HCO3 VBG O2 Saturation VBG Base Excess Sodium Potassium Chloride Carbon Dioxide Anion Gap BUN Creatinine Estim Creat Clear Calc Estimated GFR POC Glucose Random Glucose Lactic Acid Calcium Magnesium Total Bilirubin Direct Bilirubin AST ALT Alkaline Phosphatase Troponin I High Sens 42.8 H B-Natriuretic Peptide Total Protein Albumin Urine Color YELLOW Urine Appearance HAZY Urine pH 5.0 Ur Specific [place] >= 1.030 H Urine Protein 1+ H Urine Glucose (UA) 500 H Urine Ketones NEG Urine Blood 1+ H Urine Nitrite NEG Ur Leukocyte Esterase 1+ H Urine RBC 1-4 Urine WBC 10-14 H Urine WBC Clumps NOTED Ur Squamous Epith Cells NONE Urine Bacteria 4+ Granular Casts 0-2 Urine Mucus TRACE COVID-19 ([facility]) Negative COVID-19 Clin Com See Note 12/26/21 12/27/21 12/27/21 Unknown 06:05 08:05 WBC 8.1 RBC 4.23 L Hgb 11.9 L Hct 41.2 L MCV 97.4 MCH 28.1 MCHC 28.9 L RDW 15.9 Plt Count 211 MPV 9.5 Immature Gran % (Auto) 0.6 H Neut % (Auto) 68.6 Lymph % (Auto) 15.5 L [place] % (Auto) 11.9 H Eos % (Auto) 2.7 Baso % (Auto) 0.7 Lymph # (Auto) 1.3 [place] # (Auto) 1.0 Eos # (Auto) 0.2 Baso # (Auto) 0.1 Abs Immat Gran (auto) 0.05 H Absolute Neuts (auto) 5.6 Absolute Nucleated RBC 0.000 Nucleated RBC % (auto) 0.0 PT INR VBG pH VBG pCO2 VBG pO2 VBG HCO3 VBG O2 Saturation VBG Base Excess Sodium Potassium Chloride Carbon Dioxide Anion Gap BUN Creatinine Estim Creat Clear Calc Estimated GFR POC Glucose 169 H Random Glucose Lactic Acid Calcium Magnesium Total Bilirubin Direct Bilirubin AST ALT Alkaline Phosphatase Troponin I High Sens B-Natriuretic Peptide Total Protein Albumin Urine Color Urine Appearance Urine pH Ur Specific [place] Urine Protein Urine Glucose (UA) Urine Ketones Urine Blood Urine Nitrite Ur Leukocyte Esterase Urine RBC Urine WBC Urine WBC Clumps Ur Squamous Epith Cells Urine Bacteria Granular Casts Urine Mucus COVID-19 ([facility]) Cancelled COVID-19 Clin Com Cancelled 12/27/21 08:05 WBC RBC Hgb Hct MCV MCH MCHC RDW Plt Count MPV Immature Gran % (Auto) Neut % (Auto) Lymph % (Auto) [place] % (Auto) Eos % (Auto) Baso % (Auto) Lymph # (Auto) [place] # (Auto) Eos # (Auto) Baso # (Auto) Abs Immat Gran (auto) Absolute Neuts (auto) Absolute Nucleated RBC Nucleated RBC % (auto) PT INR VBG pH VBG pCO2 VBG pO2 VBG HCO3 VBG O2 Saturation VBG Base Excess Sodium 142 Potassium 3.7 Chloride 99 Carbon Dioxide 35 H Anion Gap 12 BUN 50 H Creatinine 2.05 H Estim Creat Clear Calc 34.9 Estimated GFR 31 POC Glucose Random Glucose 160 H Lactic Acid Calcium 8.9 Magnesium Total Bilirubin Direct Bilirubin AST ALT Alkaline Phosphatase Troponin I High Sens B-Natriuretic Peptide Total Protein Albumin Urine Color Urine Appearance Urine pH Ur Specific [place] Urine Protein Urine Glucose (UA) Urine Ketones Urine Blood Urine Nitrite Ur Leukocyte Esterase Urine RBC Urine WBC Urine WBC Clumps Ur Squamous Epith Cells Urine Bacteria Granular Casts Urine Mucus COVID-19 ([facility]) COVID-19 Clin Com ECG Interpretation: Telemetry-monitored in ICU, sinus 60/Min. EKG on admission- junctional rhythm at 59/Min as there are no discernible P waves. As the rhythm is regular, less l ikely to be atrial fibrillation. Nonspecific interventricular conduction defect. Imaging Radiologist's impression: Impressions Chest X-Ray 12/26/21 18:10 IMPRESSION: Unremarkable examination. Assessment and Plan (1) Acute congestive heart failure: Status: Acute (2) Paroxysmal atrial fibrillation: Status: Acute (3) COPD (chronic obstructive pulmonary disease): Qualifiers: COPD type: emphysema Emphysema type: unspecified Qualified Code(s): J43.9 - Emphysema, unspecified Status: Acute (4) Acute respiratory failure: Status: Acute Plan Chest x-ray reported with mild central pulmonary vascular prominence but no overt edema. Small bilateral pleural effusions. EKG on admission possibly junctional rhythm but currently in sinus rhythm. Stable blood pressure. Labs with creatinine of 2.05. BUN is 50. High sensitivity troponins are 43 and 42. Cardiac BNP is 369. Last year, it was 103. Overall, possible acute heart failure. Unknown cardiac function and he has an echocardiogram for further assessment. He also has chronic kidney disease and that may play a role. Currently on IV diuretics and agree with the same. With regard to rate control medications, he is on diltiazem 420 mg which seems to be a fairly high dose. Also on carvedilol 6.25 b.i.d.. We could possibly stop the carvedilol and also cut back on the diltiazem dosing due to rhythm abnormalities. Will follow up with you. Procedures Date of Service Date of Service: 12/27/21
--- NOTE | 2021-12-27 11:51 | P.PNIM_ITS ---
Subjective Subjective Date of Service: 12/28/21 Interval History: patient is somnolent but easily arousable, feels better , denies chest pain, no palpitation, unable to obtain detailed review of system due to somnolence. Review of Systems Review of Systems: Yes Unobtainable due to mental status Physical Exam Verdana 4l Vital Signs: Verdana 4d Verdana 4d Vital Signs: Verdana 4d Verdana 4Bd Last Vital Signs Verdana 4d [employer] Machine Assembler New 4d [employer] Machine Assembler New 4d Temp 98.8 F 12/27/21 06:29 [employer] Machine Assembler New 4d Pulse 56 12/27/21 08:36 [employer] Machine [employer]sembler New 4d Resp 17 12/27/21 06:29 BP 113/53 L 12/27/21 08:36 Pulse Ox 99 12/27/21 06:29 BMI result Body Mass Index 34.4 Const: Other: General? somnolen t but arousable, n o distress. right upper lid signific antly swollen, no redness no drainag e Neck + JVD. CVS? regular rate rhyt hm, Respiratory wanda ngs coarse breath sound, no respira tory distress Kristian rointestinal abdom en soft, nontender , bowel sounds aud ible, no guarding , no rigidity. Ext remities? bilatera l nonpitting edema with skin discolo ration due to test skein winder shila stasis. mild h yperemia right low er extremity, nont juan c no open woun ds Neuro nonfocal, moving all 4 extr emities, speech cl ear psych appropri ate affect. Objective Data Active Medications Acetaminophen (Acetaminophen 325 Mg Tablet) 650 mg PO Q6H PRN PRN Reason: Pain, Mild (Pain Scale 1-3) Albuterol Sulfate (Albuterol Sulfate 90 Mcg 8 Gm Inhaler) 2 puff INHALE RQ6H [facility] Last Admin: 12/27/21 05:50 Dose: Not Given Documented by: PRAVIN Non-Admin Reason: Patient Asleep Apixaban (Apixaban 2.5 Mg Tablet) 2.5 mg PO BID [facility] Last Admin: 12/27/21 08:36 Dose: 2.5 mg Documented by: KARLIE Carvedilol (Carvedilol 6.25 Mg Tablet) 6.25 mg PO BID [facility]; Protocol Last Admin: 12/27/21 10:07 Dose: Not Given Documented by: GRAHAM-RAMFABIO Non-Admin Reason: Patient Condition Contraindication Clopidogrel Bisulfate (Clopidogrel Bisulfate 75 Mg Tablet) 75 mg PO DAILY [facility] Last Admin: 12/27/21 08:36 Dose: 75 mg Documented by: GRAHAM-RAMFABIO Dextrose (Dextrose 50 % 25 Gm/50 Ml Syringe) 25 gm IVPUSH Q15M PRN; Protocol PRN Reason: per Hypoglycemia Standing Ord. Diltiazem HCl (Diltiazem Hcl Cd 300 Mg Cap.Er.24h) 300 mg PO DAILY [facility] Last Admin: 12/27/21 08:35 Dose: 300 mg Documented by: GRAHAM-RAMSK Diltiazem HCl (Diltiazem Hcl Cd 120 Mg Cap.Er.Deg) 120 mg PO DAILY [facility] Last Admin: 12/27/21 08:36 Dose: 120 mg Documented by: GRAHAM-ELDER Furosemide (Furosemide 40 Mg/4 Ml Vial) 40 mg IVPUSH DAILY [facility]; Protocol Last Admin: 12/27/21 08:36 Dose: 40 mg Documented by: GRAHAM-ELDER Glucose (Glucose Gel 15 Gm Gel..Gram.) 15 gm PO Q15M PRN; Protocol PRN Reason: per Hypoglycemia Standing Ord. Insulin Human Lispro (Insulin Lispro 100 Unit/Ml 3 Ml Vial) 0 unit SUBCUT QIDACHS [facility]; Protocol Last Admin: 12/27/21 08:35 Dose: 2 unit Documented by: GRAHAM-ELDER Melatonin (Melatonin 3 Mg Tablet) 6 mg PO BEDTIME PRN PRN Reason: Insomnia Morphine Sulfate (Morphine Sulfate 4 Mg/Ml Cartridge) 1 mg IVPUSH Q4H PRN; Pro tocol PRN Reason: Pain, SOB Pharmacy Consult (Consult Rx Perform Med Rec) 1 each MISCELLANE ONCE PRN PRN Reason: Consult order Senna (Sennosides 8.6 Mg Tablet) 17.2 mg PO BEDTIME PRN PRN Reason: Constipation Sodium Chloride (0.9 % Sodium Chloride Flush 3 Ml Syringe) 3 ml IVFLUSH QSHIFT [facility] Last Admin: 12/27/21 08:36 Dose: 3 ml Documented by: GRAHAM-ELDER Tamsulosin HCl (Tamsulosin Hcl 0.4 Mg Capsule) 0.4 mg PO DAILY [facility] Last Admin: 12/27/21 08:35 Dose: 0.4 mg Documented by: KARLIE Labs CBC & Chem 7: 12/28/21 05:30 12/28/21 05:30 Labs: Laboratory Results - last 24 hr 12/26/21 12/26/21 12/26/21 16:57 16:57 16:57 MCV 94.6 MCH 28.4 MCHC 30.0 L RDW 15.7 Plt Count 247 MPV 10.0 Immature Gran % (Auto) 0.6 H Neut % (Auto) 70.5 Lymph % (Auto) 15.4 L Tyrrell % (Auto) 10.5 Eos % (Auto) 2.4 Baso % (Auto) 0.6 Lymph # (Auto) 1.2 Tyrrell # (Auto) 0.8 Eos # (Auto) 0.2 Baso # (Auto) 0.1 Abs Immat Gran (auto) 0.05 H Absolute Neuts (auto) 5.5 Absolute Nucleated RBC 0.000 Nucleated RBC % (auto) 0.0 PT 14.6 H INR 1.3 H VBG pH VBG pCO2 VBG pO2 VBG HCO3 VBG O2 Saturation VBG Base Excess Anion Gap 14 Estim Creat Clear Calc 33.9 Estimated GFR 30 POC Glucose Random Glucose 177 H D Lactic Acid Calcium 9.0 Magnesium 2.0 Total Bilirubin 0.4 Direct Bilirubin 0.2 AST 11 ALT 6 Alkaline Phosphatase 63 D B-Natriuretic Peptide Total Protein 6.1 L Albumin 3.5 Urine Color Urine Appearance Urine pH Ur Specific [place] Urine Protein Urine Glucose (UA) Urine Ketones Urine Blood Urine Nitrite Ur Leukocyte Esterase Urine RBC Urine WBC Urine WBC Clumps Ur Squamous Epith Cells Urine Bacteria Granular Casts Urine Mucus COVID-19 ([facility]) COVID-19 Clin Com 12/26/21 12/26/21 12/26/21 16:57 17:02 17:52 MCV MCH MCHC RDW Plt Count MPV Immature Gran % (Auto) Neut % (Auto) Lymph % (Auto) Tyrrell % (Auto) Eos % (Auto) Baso % (Auto) Lymph # (Auto) Tyrrell # (Auto) Eos # (Auto) Baso # (Auto) Abs Immat Gran (auto) Absolute Neuts (auto) Absolute Nucleated RBC Nucleated RBC % (auto) PT INR VBG pH 7.37 VBG pCO2 65 VBG pO2 110 VBG HCO3 38 H VBG O2 Saturation 99.0 VBG Base Excess 10.7 Anion Gap Estim Creat Clear Calc Estimated GFR POC Glucose Random Glucose Lactic Acid 1.0 Calcium Magnesium Total Bilirubin Direct Bilirubin AST ALT Alkaline Phosphatase B-Natriuretic Peptide 369 H Total Protein Albumin Urine Color Urine Appearance Urine pH Ur Specific [place] Urine Protein Urine Glucose (UA) Urine Ketones Urine Blood Urine Nitrite Ur Leukocyte Esterase Urine RBC Urine WBC Urine WBC Clumps Ur Squamous Epith Cells Urine Bacteria Granular Casts Urine Mucus COVID-19 ([facility]) COVID-19 Clin Com 12/26/21 12/26/21 12/26/21 18:34 22:45 Unknown MCV MCH MCHC RDW Plt Count MPV Immature Gran % (Auto) Neut % (Auto) Lymph % (Auto) Tyrrell % (Auto) Eos % (Auto) Baso % (Auto) Lymph # (Auto) Tyrrell # (Auto) Eos # (Auto) Baso # (Auto) Abs Immat Gran (auto) Absolute Neuts (auto) Absolute Nucleated RBC Nucleated RBC % (auto) PT INR VBG pH VBG pCO2 VBG pO2 VBG HCO3 VBG O2 Saturation VBG Base Excess Anion Gap Estim Creat Clear Calc Estimated GFR POC Glucose Random Glucose Lactic Acid Calcium Magnesium Total Bilirubin Direct Bilirubin AST ALT Alkaline Phosphatase B-Natriuretic Peptide Total Protein Albumin Urine Color YELLOW Urine Appearance HAZY Urine pH 5.0 Ur Specific [place] >= 1.030 H Urine Protein 1+ H Urine Glucose (UA) 500 H Urine Ketones NEG Urine Blood 1+ H Urine Nitrite NEG Ur Leukocyte Esterase 1+ H Urine RBC 1-4 Urine WBC 10-14 H Urine WBC Clumps NOTED Ur Squamous Epith Cells NONE Urine Bacteria 4+ Granular Casts 0-2 Urine Mucus TRACE COVID-19 ([facility]) Negative Cancelled COVID-19 Clin Com See Note Cancelled 12/27/21 12/27/21 12/27/21 06:05 08:05 08:05 MCV 97.4 MCH 28.1 MCHC 28.9 L RDW 15.9 Plt Count 211 MPV 9.5 Immature Gran % (Auto) 0.6 H Neut % (Auto) 68.6 Lymph % (Auto) 15.5 L Tyrrell % (Auto) 11.9 H Eos % (Auto) 2.7 Baso % (Auto) 0.7 Lymph # (Auto) 1.3 Tyrrell # (Auto) 1.0 Eos # (Auto) 0.2 Baso # (Auto) 0.1 Abs Immat Gran (auto) 0.05 H Absolute Neuts (auto) 5.6 Absolute Nucleated RBC 0.000 Nucleated RBC % (auto) 0.0 PT INR VBG pH VBG pCO2 VBG pO2 VBG HCO3 VBG O2 Saturation VBG Base Excess Anion Gap 12 Estim Creat Clear Calc 34.9 Estimated GFR 31 POC Glucose 169 H Random Glucose 160 H Lactic Acid Calcium 8.9 Magnesium Total Bilirubin Direct Bilirubin AST ALT Alkaline Phosphatase B-Natriuretic Peptide Total Protein Albumin Urine Color Urine Appearance Urine pH Ur Specific [place] Urine Protein Urine Glucose (UA) Urine Ketones Urine Blood Urine Nitrite Ur Leukocyte Esterase Urine RBC Urine WBC Urine WBC Clumps Ur Squamous Epith Cells Urine Bacteria Granular Casts Urine Mucus COVID-19 ([facility]) COVID-19 Clin Com Microbiology Microbiology Results: Microbiology 12/26/21 Unknown Urine Culture - Preliminary Urine clean catch - Urine ty top Culture too young to evaluate. Assessment and Plan (1) Acute congestive heart failure: Status: Acute (2) Hypoxia: Status: Acute (3) Cellulitis: Status: Acute (4) Elevated brain natriuretic peptide (BNP) level: Status: Acute (5) CKD (chronic kidney disease) stage 3, GFR 30-59 ml/min: Status: Acute (6) COPD (chronic obstructive pulmonary disease): Status: Acute Plan 81-year-old male with a past medical history of hypertension, hyperlipidemia, diabetes, CAD, CHF, COPD, AFib on Eliquis, hypothyroidism, History of ESBL UTI; presented to the hospital today with a chief complaint of shortness of breath and generalized weakness Of 2 months duration worsened over past 2 weeks, complaining of dyspnea on exertion, orthopnea, denies chest pain, palpitation, no cough or sputum production seen by PCP 1 week ago noted to have hypoxemia and was suggested to go to the emergency room.? Acute hypoxic respiratory failure due to CHF with preserved EF Patient on presentation was saturating in low 70s on room air, now in 90s no distress, continue oxygenation and wean as tolerated patient not on home oxygen.? Somnolent easily arousable,answering appropriately follow clinical course closely Acute CHF exacerbation with preserved EF: on arrival noted to have peripheral edema, JVD bibasilar crackles and elevated pro BNP, flat troponins, feeling better, continue IV Lasix ? seen by Cardiology they recommend to stop Coreg and decrease dose of diltiazem due to rhythm abnormalities continue tele monitor,Daily weights and I's and O's obtain echocardiogram follow BNP and BMP Monitor on telemetry UTI:? Patient does report dysuria.UA showed 10-14 WBC and 4+ bacteria 1+ leukocyte Estrace,has prior history of ESBL UTI s/p 1 dose of ertapenem,will place on iv meropenem 1gm q12h Follow-up urine and blood cultures. await ID input Right leg cellulitis:? On antibiotics as mentioned above,will cover.. CRISTY on CKD:? Patient baseline creatinine around 1.6.? On presentation creatinine is 2.1, monitor renal function while being diuresed,Avoid nephrotoxins.? Nephrology consult.? History of AFib:? Rate controlled.? Continue home diltiazem,dose reduced due to junctional rythm,cont. Eliquis. History of diabetes:?bs stable cont. Insulin sliding scale History of COPD:? no acute exacerbation continue DuoNeb standing and p.r.n. Chronic Right eyelid swelling: being followed Ophthalmology as outpatient,du to edema, offers no new complaints. DVT prophylaxis:? on Eliquis Code status: Full code Quality Stroke Does the patient have a stroke diagnosis?: No VTE Prior VTE?: No VTE Risk Level:: Medical - moderate - high VTE Device Contraindication: Treatment Not Indicated VTE Drug Contraindication: N/A - Med Ordered
[2021-12-27 11:55] LABS: Glucose, Whole Blood 122 mg/dL (60-115)
--- NOTE | 2021-12-27 12:22 | PC.NURSE ---
Pt remains sleeping at this time, NAD, call bennett within reach. Will continue to monitor.
--- NOTE | 2021-12-27 15:24 | PM.EVENT ---
Event Note Date of Service: 12/27/21 Event Note: Pt seen and examined Full consult to follow Continue IV diuresis Cr is better F/u renal function Thx Dr. Bennett
--- NOTE | 2021-12-27 17:12 | PC.NURSE ---
Lozano placed in pt, pt had no response to insertion. Desat to 79% on 3L NC, placed on 15L non rebreather. Dr. Merrill at bedside. ED made aware of pt condition.
[2021-12-27 17:20] LABS: Glucose, Whole Blood 160 mg/dL (60-115)
[2021-12-27 17:22] LABS: ABG Base Excess 6.6 mmol/L; ABG HCO3 43 mmol/L (22-26); ABG pCO2 151 mmHg (32-45); ABG pH 7.06 (7.35-7.45); ABG pO2 144 mmHg (83-108)
--- NOTE | 2021-12-27 17:48 | PM.EVENT ---
Event Note Date of Service: 12/27/21 Event Note: Admitted overnight for heart failure. Evaluated patient for progressive unresponsiveness, hypoxia, decreasing BP. Patient is completely unresponsive, Vitals: RRR, lungs rales. Neuro unresponsive, has no gag, no response to sternal rub. ABG ph 7.01, CO2 151.. Asked ED to intubate and Dr. Bowens has intubated. Repeat BMP, BNP,, start Lasix gtt. CXR post intubation shows a left sieded Pneumothorax--unlclear cause. Discussed with Dr. Taylor re ICU admission. Time spent 45 minutes
[2021-12-27] MEDS: Furosemide 200 MG in 0.9 % Sodium Chloride 80 ML IVCONT (18:11)
[2021-12-27] MEDS: Morphine Sulfate 4 MG/ML CARTRIDGE 3 MG IVPUSH (18:20)
[2021-12-27 18:28] LABS: VBG HCO3 41 mmol/L (22-26); VBG pCO2 100 mmHg; VBG pH 7.21 (7.32-7.43); VBG pO2 83 mmHg
[2021-12-27 18:40] LABS: Anion Gap 12 (12-20); Blood Urea Nitrogen 48 mg/dL (9-16); Calcium 8.8 mg/dL (8.4-10.2); Carbon Dioxide 37 mmol/L (22-29); Chloride 98 mmol/L (96-108); Creatinine Clr Calc Pharmacy 33.4; Estimated Glomerular Filt Rate 30; Glucose Random 190 mg/dL (60-115); Potassium 4.4 mmol/L (3.3-5.1); Sodium 143 mmol/L (135-145)
--- NOTE | 2021-12-27 18:45 | PC.NURSE ---
Critical care documentation: 1734: 20 etomidate given 1735: 100 succ given 1737: intubated w/8.0 26@ the lip 134/50 70 97% 1741: OG tube inserted by Dr. Bowens 1744: 104/45 62 98% 1752: 4mg versed given 1756: 106/49 54 100% 1801: Report to Osk[facility] in ED, pt transported by Joycelyn VALENTE.
[2021-12-27 18:46] LABS: B Type Natriuretic Peptide 563 pg/mL (<100)
[2021-12-27] MEDS: Rocuronium Bromide 50 MG/5 ML VIAL 40 MG IVPUSH ×2 (18:58→19:45)
[2021-12-27] MEDS: propofoL 1,000 MG/100 ML VIAL 13.06 MG IVCONT (18:59)
--- NOTE | 2021-12-27 19:14 | PC.NURSE ---
Pt arrived from ED overflow at 1815 s/p emergent intubation by Dr. GUSTAFSON, Pt hypercapnic off sedation unarousable by sternal rub, previous RN states pt recieved 5mg versed on the way over. 20 distal left forearm IV lasix infusig at 5mg/hr, norepi startedat 0.05 titrated up to 0.07 on new right 20 IV distal right hand. #8 ET tube 26cm lip AC RATE 20 [id number] PEEP 0 2/2 suspected pneumothorax, MD at bedside with pt now. Report given to night RN. BEd locked and in lowest position, semi fowlers.
[2021-12-27] MEDS: fentaNYL citrate/PF 100 MCG/2 ML VIAL 50 MCG IVPUSH ×2 (19:25→19:30)
[2021-12-27 19:54] LABS: Venous Blood Gas Refer to POC result
[2021-12-27 20:38] LABS: VBG Base Excess 10.2 mmol/L; VBG HCO3 38 mmol/L (22-26); VBG pCO2 67 mmHg; VBG pH 7.36 (7.32-7.43); VBG pO2 52 mmHg
--- NOTE | 2021-12-27 20:39 | W.PM.CCHP ---
Procedures Date of Service Date of Service: 12/27/21 <Mayra eD PA-C - Last Filed: 12/27/21 22:28> Central Line Placement Right IJ: Central Line Comments: venous access needed <Mayra De PA-C - Last Filed: 12/27/21 22:28> Consent for Procedure: Emergent-no informed consent obtained <Mayra De PA-C - Last Filed: 12/27/21 22:28> Time out performed: Yes <Mayra De PA-C - Last Filed: 12/27/21 22:28> Sterile Technique Used: Yes <Mayra De PA-C - Last Filed: 12/27/21 22:28> Patient placed on monitor/pulse ox: Yes <Mayra De PA-C - Last Filed: 12/27/21 22:28> MD prep: mask and gown <CHARLEY Carrion Last Filed: 12/27/21 22:28> Central line prep: Chlorhexidine scrub and sterile drapes applied <Mayra De PA-C - Last Filed: 12/27/21 22:28> Ultrasound used for placement: Yes <CHARLEY Carrion Last Filed: 12/27/21 22:28> Central line lumen inserted: triple <Mayra De PA-C - Last Filed: 12/27/21 22:28> Post procedure: sutured in place, good blood return, all ports aspirated, flushed, capped and sterile dressing applied <CHARLEY Carrion Last Filed: 12/27/21 22:28> Post procedure x-ray: tip of catheter in good position and no pneumothorax seen <CHARLEY Carrion Last Filed: 12/27/21 22:28> Patient tolerated procedure: well and no complications <CHARLEY Carrion Last Filed: 12/27/21 22:28> Complications: none <CHARLEY Carrion Last Filed: 12/27/21 22:28>
--- NOTE | 2021-12-27 21:08 | P.PNCC_ITS ---
Subjective Subjective Date of Service: 12/27/21 <Mayra De PA-C - Last Filed: 12/28/21 03:29> Critical Care Time (minutes): 60 <Mayra De PA-C - Last Filed: 12/28/21 03:29> Comment: The pt is an 81-year-old male with a past med hx of HTN, HLD, DM2, CAD, CHF, COPD, afib on eliquis, hypothyroidism and hx of ESBL UTI admitted to this hospital on December 26 after he came in complaining of shortness of breath worse with exertion and generalized weakness over the last 2 months. He was satting at 71% on RA which went up to 90% on 2L. Vital signs were otherwise stable. He also had complaints of dysuria. In the ED, the patient was noted to have 3+ pitting pedal edema, crackels and JVD. chest x-ray showed pulmonary congestion and small pleural effusions. Labs revealed elevated BNP, UA was positive for infection. He was admitted for acute hypoxic respiratory failure, CHF, UTI, CRISTY on CKD3. He was started on Lasix and antibiotics. Renal consult appreciated. While in the ED overflow area earlier today, the patient was progressively becoming unresponsive and hypoxic. ABG showed a pH of 7.01 and pCO2 of 151, a decision was made to intubate the patient which was performed by the ED doctor. Patient was placed on a Lasix gtt. Patient will be brought to the ICU for further care <Mayra De PA-C - Last Filed: 12/28/21 03:29> Physical Exam Verdana 4l Vital Signs: Verdana 4d Verdana 4d Vital Signs: Verdana 4d Verdana 4Bd Last Vital Signs Verdana 4d Mud Cleaner Operator New 4d Mud Cleaner Operator New 4d Temp 99.0 F 12/27/21 18:55 Mud Cleaner Operator New 4d Pulse 60 12/27/21 20:42 Mud Cleaner Operator New 4d Resp 20 12/27/21 20:42 BP 116/53 L 12/27/21 20:42 Pulse Ox 90 L 12/27/21 20:42 BMI result Body Mass Index 34.4 <CHARLEY Carrion Last Filed: 12/28/21 03:29> Const: Other: intubated and sedated <Mayra De PA-C - Last Filed: 12/28/21 03:29> Nutritional Appearance: obese <Mayra De PA-C - Last Filed: 12/28/21 03:29> HENMT: Head: Yes normal to inspection, Yes No palpable skull fracture present, Yes normocephalic and Yes atraumatic <LORENZO CarrionC - Last Filed: 12/28/21 03:29> General nose exam: Normal external nose present <Mayra De PA-C - Last Filed: 12/28/21 03:29> Eyes: Eyelids: Yes eyelid abnormality ( right eyelid edema) <LORENZO Carrion - Last Filed: 12/28/21 03:29> EOM: EOMs intact bilaterally <Mayra De PA-C - Last Filed: 12/28/21 03:29> Neck: Neck: Yes normal visual inspection, Yes full ROM, Yes trachea midline and Yes supple <Mayra De PA-C - Last Filed: 12/28/21 03:29> Resp: Effort & Inspection: normal respiratory effort <Mayra De PA-C - Last Filed: 12/28/21 03:29> Auscultation: wheezes scattered wheezes and throughout and diminished lung sounds diffuse <Mayra De PA-C - Last Filed: 12/28/21 03:29> Cardio: Rate: regular rate <Mayra De PA-C - Last Filed: 12/28/21 03:29> Rhythm: regular rhythm <Mayra De PA-C - Last Filed: 12/28/21 03:29> Heart sounds: normal S1 and S2 <Mayra De PA-C - Last Filed: 12/28/21 03:29> GI: Inspection: Yes obesity and Yes other (umbilical hernia) <Mayra De PA-C - Last Filed: 12/28/21 03:29> Palpation (GI): Soft to palpation and nontender <CHARLEY Carrion L ast Filed: 12/28/21 03:29> Extrem: Right lower extremity: edema (lower leg) Details: pitting and 3+ <Mayra De PA-C - Last Filed: 12/28/21 03:29> Left lower extremity: edema (lower leg) Details: pitting and 3+ and foot Details: vascular exam Details: posterior tibial pulse present and coolness (cool) Location: of the entire foot <Mayra De PA-C - Last Filed: 12/28/21 03:29> Objective Data Labs CBC & Chem 7: : 12/28/21 05:30 12/28/21 05:30 <Mayra De PA-C - Last Filed: 12/28/21 03:29> Labs: Laboratory Results - last 24 hr 12/26/21 12/26/21 12/27/21 22:45 Unknown 06:05 WBC RBC Hgb Hct MCV MCH MCHC RDW Plt Count MPV Immature Gran % (Auto) Neut % (Auto) Lymph % (Auto) Phillips % (Auto) Eos % (Auto) Baso % (Auto) Lymph # (Auto) Phillips # (Auto) Eos # (Auto) Baso # (Auto) Abs Immat Gran (auto) Absolute Neuts (auto) Absolute Nucleated RBC Nucleated RBC % (auto) O2 Saturation ABG pH at Pt Temp ABG pCO2 at Pt Temp ABG pO2 at Pt Temp ABG HCO3 ABG Base Excess (Actual) VBG pH VBG pCO2 VBG pO2 VBG HCO3 VBG O2 Saturation VBG Base Excess Sodium Potassium Chloride Carbon Dioxide Anion Gap BUN Creatinine Estim Creat Clear Calc Estimated GFR POC Glucose 169 H Random Glucose Calcium B-Natriuretic Peptide Urine Color YELLOW Urine Appearance HAZY Urine pH 5.0 Ur Specific [place] >= 1.030 H Urine Protein 1+ H Urine Glucose (UA) 500 H Urine Ketones NEG Urine Blood 1+ H Urine Nitrite NEG Ur Leukocyte Esterase 1+ H Urine RBC 1-4 Urine WBC 10-14 H Urine WBC Clumps NOTED Ur Squamous Epith Cells NONE Urine Bacteria 4+ Granular Casts 0-2 Urine Mucus TRACE COVID-19 ([facility]) Cancelled COVID-19 Clin Com Cancelled 12/27/21 12/27/21 12/27/21 08:05 08:05 11:47 WBC 8.1 RBC 4.23 L Hgb 11.9 L Hct 41.2 L MCV 97.4 MCH 28.1 MCHC 28.9 L RDW 15.9 Plt Count 211 MPV 9.5 Immature Gran % (Auto) 0.6 H Neut % (Auto) 68.6 Lymph % (Auto) 15.5 L Phillips % (Auto) 11.9 H Eos % (Auto) 2.7 Baso % (Auto) 0.7 Lymph # (Auto) 1.3 Phillips # (Auto) 1.0 Eos # (Auto) 0.2 Baso # (Auto) 0.1 Abs Immat Gran (auto) 0.05 H Absolute Neuts (auto) 5.6 Absolute Nucleated RBC 0.000 Nucleated RBC % (auto) 0.0 O2 Saturation ABG pH at Pt Temp ABG pCO2 at Pt Temp ABG pO2 at Pt Temp ABG HCO3 ABG Base Excess (Actual) VBG pH VBG pCO2 VBG pO2 VBG HCO3 VBG O2 Saturation VBG Base Excess Sodium 142 Potassium 3.7 Chloride 99 Carbon Dioxide 35 H Anion Gap 12 BUN 50 H Creatinine 2.05 H Estim Creat Clear Calc 34.9 Estimated GFR 31 POC Glucose 122 H Random Glucose 160 H Calcium 8.9 B-Natriuretic Peptide Urine Color Urine Appearance Urine pH Ur Specific [place] Urine Protein Urine Glucose (UA) Urine Ketones Urine Blood Urine Nitrite Ur Leukocyte Esterase Urine RBC Urine WBC Urine WBC Clumps Ur Squamous Epith Cells Urine Bacteria Granular Casts Urine Mucus COVID-19 ([facility]) COVID-19 Clin Com 12/27/21 12/27/21 12/27/21 17:15 17:15 18:13 WBC RBC Hgb Hct MCV MCH MCHC RDW Plt Count MPV Immature Gran % (Auto) Neut % (Auto) Lymph % (Auto) Phillips % (Auto) Eos % (Auto) Baso % (Auto) Lymph # (Auto) Phillips # (Auto) Eos # (Auto) Baso # (Auto) Abs Immat Gran (auto) Absolute Neuts (auto) Absolute Nucleated RBC Nucleated RBC % (auto) O2 Saturation 99.0 ABG pH at Pt Temp 7.06 L* ABG pCO2 at Pt Temp 151 H* ABG pO2 at Pt Temp 144 H ABG HCO3 43 H ABG Base Excess (Actual) 6.6 VBG pH VBG pCO2 VBG pO2 VBG HCO3 VBG O2 Saturation VBG Base Excess Sodium 143 Potassium 4.4 Chloride 98 Carbon Dioxide 37 H Anion Gap 12 BUN 48 H Creatinine 2.14 H Estim Creat Clear Calc 33.4 Estimated GFR 30 POC Glucose 160 H Random Glucose 190 H Calcium 8.8 B-Natriuretic Peptide Urine Color Urine Appearance Urine pH Ur Specific [place] Urine Protein Urine Glucose (UA) Urine Ketones Urine Blood Urine Nitrite Ur Leukocyte Esterase Urine RBC Urine WBC Urine WBC Clumps Ur Squamous Epith Cells Urine Bacteria Granular Casts Urine Mucus COVID-19 ([facility]) COVID-19 Clin Com 12/27/21 12/27/21 12/27/21 18:13 18:18 20:31 WBC RBC Hgb Hct MCV MCH MCHC RDW Plt Count MPV Immature Gran % (Auto) Neut % (Auto) Lymph % (Auto) Phillips % (Auto) Eos % (Auto) Baso % (Auto) Lymph # (Auto) Phillips # (Auto) Eos # (Auto) Baso # (Auto) Abs Immat Gran (auto) Absolute Neuts (auto) Absolute Nucleated RBC Nucleated RBC % (auto) O2 Saturation ABG pH at Pt Temp ABG pCO2 at Pt Temp ABG pO2 at Pt Temp ABG HCO3 ABG Base Excess (Actual) VBG pH 7.21 L 7.36 VBG pCO2 100 67 VBG pO2 83 52 VBG HCO3 41 H 38 H VBG O2 Saturation 96.0 86.0 VBG Base Excess 9.0 10.2 Sodium Potassium Chloride Carbon Dioxide Anion Gap BUN Creatinine Estim Creat Clear Calc Estimated GFR POC Glucose Random Glucose Calcium B-Natriuretic Peptide 563 H Urine Color Urine Appearance Urine pH Ur Specific [place] Urine Protein Urine Glucose (UA) Urine Ketones Urine Blood Urine Nitrite Ur Leukocyte Esterase Urine RBC Urine WBC Urine WBC Clumps Ur Squamous Epith Cells Urine Bacteria Granular Casts Urine Mucus COVID-19 ([facility]) COVID-19 Clin Com <Mayra De PA-C - Last Filed: 12/28/21 03:29> Microbiology Microbiology Results: Microbiology 12/26/21 17:37 Blood - Venous Blood Culture - Preliminary No growth after 24 hours. 12/26/21 16:56 Blood - Venous Blood Culture - Preliminary No growth after 24 hours. 12/26/21 Unknown Urine clean catch - Urine ty top Urine Culture - Preliminary Culture too young to evaluate. <Mayra De PA-C - Last Filed: 12/28/21 03:29> Progress Note: A&P Assessment and plan (1) Elevated troponin: Status: Acute <Mayra De PA-C - Last Filed: 12/28/21 03:29> Assessment and Plan: likely 2/2 CKD stage 3. <Mayra De PA-C - Last Filed: 12/28/21 03:29> (2) Acute renal failure superimposed on stage 3 chronic kidney disease: Status: Acute <Mayra De PA-C - Last Filed: 12/28/21 03:29> Assessment and Plan: on lasix gtt, baseline serum cr around 1.6.? On presentation creatinine is 2.1, monitor renal function while being diuresed, avoid nephrotoxins.? Nephrology consult appreciated.? <Mayra De PA-C - Last Filed: 12/28/21 03:29> (3) Paroxysmal atrial fibrillation: Status: Acute <Mayra De PA-C - Last Filed: 12/28/21 03:29> Assessment and Plan: on diltiazem and Eliquis, will hold diltiazem for [address] Taylor. <Mayra De PA-C - Last Filed: 12/28/21 03:29> (4) Abdominal aortic aneurysm: Status: Acute <Mayra De PA-C - Last Filed: 12/28/21 03:29> Assessment and Plan: Noted on renal US 05/20/2021: distal abdominal aortic aneurysm measuring 5.7 x 5.6 cm <Mayra De PA-C - Last Filed: 12/28/21 03:29> (5) Presence of stent in coronary artery in patient with coronary artery disease: Status: Acute <Mayra De PA-C - Last Filed: 12/28/21 03:29> Assessment and Plan: on plavix <Mayra De PA-C - Last Filed: 12/28/21 03:29> (6) Edema eyelid: Status: Acute <Mayra De PA-C - Last Filed: 12/28/21 03:29> Assessment and Plan: followed by outpt silver steward <Mayra De PA-C - Last Filed: 12/28/21 03:29> (7) Diabetes mellitus: Status: Acute <Mayra De PA-C - Last Filed: 12/28/21 03:29> Assessment and Plan: ISS and POC's <Mayra De PA-C - Last Filed: 12/28/21 03:29> (8) Acquired hypothyroidism: Status: Acute <Mayra De PA-C - Last Filed: 12/28/21 03:29> Assessment and Plan: PCP notes says to continue Synthroid but no Synthroid is on his medication list, will check thyroid levels <Mayra De PA-C - Last Filed: 12/28/21 03:29> (9) UTI (urinary tract infection): Status: Acute <Mayra De PA-C - Last Filed: 12/28/21 03:29> Assessment and Plan: history of ESBL UTI, currently on meropenem Q12h <Mayra De PA-C - Last Filed: 12/28/21 03:29> (10) Elevated brain natriuretic peptide (BNP) level: Status: Acute <Mayra eD PA-C - Last Filed: 12/28/21 03:29> Assessment and Plan: on lasix gtt, monitor <Mayra De PA-C - Last Filed: 12/28/21 03:29> (11) Smoker: Status: Acute <Mayra De PA-C - Last Filed: 12/28/21 03:29> Assessment and Plan: nicotine patch ordered <Mayra De PA-C - Last Filed: 12/28/21 03:29> (12) Acute on chronic respiratory failure with hypoxia and hypercapnia: Status: Acute <Mayra De PA-C - Last Filed: 12/28/21 03:29> Assessment and Plan: intubated, sedated, on DuoNeb and albuterol nebulizer treatments as well as steroids <Mayra De PA-C - Last Filed: 12/28/21 03:29> (13) Acute congestive heart failure: Status: Acute <Mayra De PA-C - Last Filed: 12/28/21 03:29> Assessment and Plan: on lasix gtt, monitor CVP <Mayra De PA-C - Last Filed: 12/28/21 03:29> Plan patient is intubated and sedated, will remain in ICU for monitoring of above <Mayra De PA-C - Last Filed: 12/28/21 03:29> Quality Stroke Does the patient have a stroke diagnosis?: No <Mayra De PA-C - Last Filed: 12/28/21 03:29> VTE Prior VTE?: No <Mayra De PA-C - Last Filed: 12/28/21 03:29> VTE Risk Level:: Medical - moderate - high <Mayra De PA-C - Last Filed: 12/28/21 03:29> VTE Device Contraindication: Treatment Not Indicated <Mayra De PA-C - Last Filed: 12/28/21 03:29> VTE Drug Contraindication: N/A - Med Ordered <Mayra De PA-C - Last Filed: 12/28/21 03:29> Critical Care Time Critical Care Time (minutes): 90 <Mayra De PA-C - Last Filed: 12/28/21 03:29>
[2021-12-27] MEDS: propofoL 1,000 MG/100 ML VIAL 26.13 MG IVCONT (21:56)
[2021-12-27 22:10] LABS: Venous Blood Gas Refer to POC result
--- NOTE | 2021-12-27 23:27 | P.CNID_ITS ---
History of Present Illness Data of Consult Service Date: 12/27/21 Requesting physician: Justice Garcia Primary Care Provider: Anton Perla PA-C [facility] Reason for consult: shortness of breath He presents with shortness of breath and was found to be hypoxia He was vented mechanically He has no sputum production. Review of Systems Review of Systems: Yes all other systems are reviewed and are negative [facility] Past Medical History Medical History (Updated 04/02/22 @ 07:51 by Anton Perla PA-C) Abdominal aortic aneurysm Acquired hypothyroidism Cellulitis CHF (congestive heart failure) CKD (chronic kidney disease) stage 3, GFR 30-59 ml/min COPD (chronic obstructive pulmonary disease) Diabetes mellitus Edema eyelid Essential (primary) hypertension Paroxysmal atrial fibrillation Presence of stent in coronary artery in patient with coronary artery disease Renal insufficiency Smoker UTI (urinary tract infection) Family History Family History Father Myocardial infarction Mother Alzheimers disease Family history: reviewed and not pertinent Surgical History Surgical History H/O neck surgery History of cardiac catheterization History of nasal surgery History of tonsillectomy Social History Social History Household Members: Significant Other Housing: House Alcohol intake: current Alcohol intake frequency: does not drink Patient Tobacco Use Status: Former Tobacco user Tobacco use type: Cigarette Cigarettes Per Day: 4 Years Smoked: 60 e-Cigarette/Vaping Use: Never Used Advance Directives Date on File: 12/27/21 service: No Current occupational status: retired Meds Allergies Allergy/AdvReac Type Severity Reaction Status Date / Time cephalexin [Keflex] Allergy Unknown diarrhea Verified 03/31/22 15:20 Sulfa (Sulfonamide Allergy Unknown Unknown Verified 03/31/22 15:20 Antibiotics) prednisone AdvReac Severe dementia Verified 03/31/22 15:20 Active Medications: Current Medications Acetaminophen (Acetaminophen 325 Mg Tablet) 650 mg PO Q6H PRN PRN Reason: Pain, Mild (Pain Scale 1-3) Albuterol Sulfate (Albuterol Sulfate (0.083%) 2.5 Mg/3 Ml Vial.Neb) 2.5 mg INHALE Q2H PRN PRN Reason: Wheezing Albuterol/Ipratropium (Albuterol/Iprat 2.5/0.5mg 3 Ml Ampul.Neb) 3 ml INHALE RQ4H [facility] Apixaban (Apixaban 2.5 Mg Tablet) 2.5 mg PO BID [facility] Last Admin: 12/27/21 22:24 Dose: Not Given Documented by: Clopidogrel Bisulfate (Clopidogrel Bisulfate 75 Mg Tablet) 75 mg PO DAILY [facility] Last Admin: 12/27/21 08:36 Dose: 75 mg Documented by: Dextrose (Dextrose 50 % 25 Gm/50 Ml Syringe) 25 gm IVPUSH Q15M PRN; Protocol PRN Reason: per Hypoglycemia Standing Ord. Diltiazem HCl (Diltiazem Hcl Cd 300 Mg Cap.Er.24h) 300 mg PO DAILY [facility] Last Admin: 12/27/21 08:35 Dose: 300 mg Documented by: Glucose (Glucose Gel 15 Gm Gel..Gram.) 15 gm PO Q15M PRN; Protocol PRN Reason: per Hypoglycemia Standing Ord. Meropenem 1 gm/ Sodium (Chloride) 100 mls @ 200 mls/hr IV Q12H [facility] Last Infusion: 12/27/21 15:30 Dose: Infused Documented by: Furosemide 200 mg/ Sodium (Chloride) 100 mls @ 2.5 mls/hr IVCONT .Q24H [facility] Last Admin: 12/27/21 18:11 Dose: 5 mg/hr, 2.5 mls/hr Documented by: Norepinephrine Bitartrate (Levophed) 8 mg in 250 mls @ 0 mls/hr IVCONT .Q0M [facility]; Protocol Last Admin: 12/27/21 18:21 Dose: 0.05 mcg/kg/min, 10.21 mls/hr Documented by: Propofol (Diprivan) 1,000 mg in 100 mls @ 0 mls/hr IVCONT .Q0M [facility]; Protocol Last Admin: 12/27/21 21:56 Dose: 40 mcg/kg/min, 26.13 mls/hr Documented by: Insulin Human Lispro (Insulin Lispro 100 Unit/Ml 3 Ml Vial) 0 unit SUBCUT Q IDACHS [facility]; Protocol Last Admin: 12/27/21 23:16 Dose: Not Given Documented by: Melatonin (Melatonin 3 Mg Tablet) 6 mg PO BEDTIME PRN PRN Reason: Insomnia Methylprednisolone Sodium Succinate (Methylprednisolone Sod Succ 40 Mg/Ml Vial) 40 mg IVPUSH Q8H [facility] Nicotine (Nicotine 14 Mg Patch.Td24) 14 mg TRANSDERMA DAILY [facility] Nystatin (Nystatin Powder 15 Gm Bottle) 1 appl TOPICAL TID PARMJIT; Protocol Pharmacy Consult (Consult Rx Perform Med Rec) 1 each MISCELLANE ONCE PRN PRN Reason: Consult order Senna (Sennosides 8.6 Mg Tablet) 17.2 mg PO BEDTIME PRN PRN Reason: Constipation Sodium Chloride (0.9 % Sodium Chloride Flush 3 Ml Syringe) 3 ml IVFLUSH QSHIFT [facility] Last Admin: 12/27/21 17:19 Dose: 3 ml Documented by: Tamsulosin HCl (Tamsulosin Hcl 0.4 Mg Capsule) 0.4 mg PO DAILY [facility] Last Admin: 12/27/21 08:35 Dose: 0.4 mg Documented by: Home Medications Medication Instructions Recorded Confirmed Last Taken Type empagliflozin 25 mg tablet 25 mg PO DAILY 12/24/21 03/31/22 12/26/21 History (Jardiance) clopidogrel 75 mg tablet 75 mg PO DAILY 02/23/22 03/31/22 Unknown History Physical Exam Vital Signs: Vital Signs: Last Vital Signs Temp 96.1 F L 12/27/21 23:00 Pulse 66 12/27/21 23:00 Resp 15 12/27/21 23:00 BP 123/56 L 12/27/21 23:00 Pulse Ox 92 12/27/21 23:00 BMI result Body Mass Index 34.4 Const: General: cooperative HENMT: Head: Yes normal to inspection Mouth: Normal oral and palatal mucosa present Resp: Effort & Inspection: normal respiratory effort Cardio: Rate: regular rate Rhythm: regular rhythm GI: Palpation (GI): Soft to palpation and nontender Extrem: Other: chronically red swollen legs,venous stasis Results Labs CBC & Chem 7: 01/02/22 07:03 01/02/22 07:03 Labs: Short CBC 12/27/21 Range/Units 08:05 WBC 8.1 (4.8-10.8) X10*3/uL Hgb 11.9 L (14.0-18.0) g/dl Hct 41.2 L (42.0-52.0) % Plt Count 211 (160-400) X10*3/uL BMP 12/27/21 12/27/21 08:05 18:13 Sodium 142 143 Potassium 3.7 4.4 Chloride 99 98 Carbon Dioxide 35 H 37 H BUN 50 H 48 H Creatinine 2.05 H 2.14 H Calcium 8.9 8.8 Microbiology Microbiology Results: Microbiology 12/26/21 17:37 Blood - Venous Blood Culture - Preliminary No growth after 24 hours. 12/26/21 16:56 Blood - Venous Blood Culture - Preliminary No growth after 24 hours. 12/26/21 Unknown Urine clean catch - Urine ty top Urine Culture - Preliminary Culture too young to evaluate. Assessment and Plan (1) Acute on chronic respiratory failure with hypoxia and hypercapnia: Status: Resolved He may have aspiration He may have possible ESBL organism (2) Acute renal failure superimposed on stage 3 chronic kidney disease: Status: Resolved Plan Merem cover ESBL organism possible 10 days Await cultures He is in ICU now and being assessed by Construction Services Technician?cardiac issues Add Doxycycline or Zmax atypical coverage
[2021-12-27 23:31] LABS: Glucose, Whole Blood 150 mg/dL (60-115)
[2021-12-27] MEDS: Albuterol/Iprat 2.5/0.5MG 3 ML AMPUL.NEB INHALE (23:41)
[2021-12-28] VITALS (39 sets, daily range): BP systolic 84–153; BP diastolic 41–71; PULSE 68–836; RESP 13–25; TEMP 33.2–37.2; O2SAT 90–98; BMI 34.4
[2021-12-28] MEDS: methylPREDNISolone Sod Succ 40 MG/ML VIAL IVPUSH ×4 (01:24→21:40)
[2021-12-28] MEDS: 0.9 % Sodium Chloride Flush 3 ML SYRINGE IVFLUSH ×4 (01:30→21:40)
[2021-12-28] MEDS: propofoL 1,000 MG/100 ML VIAL 26.13 MG IVCONT ×5 (01:39→16:55)
--- NOTE | 2021-12-28 03:52 | PC.NURSE ---
Assumed care of pt at 1900. S/P intubation. Sedated with Fentanyl, Propofol and then rocuronium for vent control. Levophed drip at 0.07 mcg/kg/min for BP. Lasix drip at 5 mg/hr. U/O good, 150-300 ml/hr. Central line placed RIJ by provider. Pt tolerated procedure well. Complete bedbath given. Monitor shows NSR, 70's, no ectopy. Afebrile.
[2021-12-28] MEDS: Albuterol/Iprat 2.5/0.5MG 3 ML AMPUL.NEB INHALE ×5 (04:07→20:25)
[2021-12-28 05:38] LABS: VBG Base Excess 15.1 mmol/L; VBG HCO3 41 mmol/L (22-26); VBG pCO2 57 mmHg; VBG pH 7.47 (7.32-7.43); VBG pO2 52 mmHg
[2021-12-28 05:40] LABS: Venous Blood Gas Refer to POC result
[2021-12-28] MEDS: Pantoprazole Sodium 40 MG/10 ML VIAL IVPUSH (05:48)
[2021-12-28 05:49] LABS: Glucose, Whole Blood 109 mg/dL (60-115)
[2021-12-28 06:13] LABS: Basophils Percent Auto 0.3 % (0-2); Eosinophils Percent Auto 0.1 % (0-4); Hematocrit 40.8 % (42.0-52.0); Hemoglobin 12.3 g/dl (14.0-18.0); Imm Gran Abs Auto 0.04 X10*3/uL (0.00-0.03); Imm Gran Pct Auto 0.4 % (0.0-0.4); Lymphocytes Absolute Auto 0.4 X10*3/uL (1.2-4.9); Lymphocytes Percent Auto 4.6 % (20-40); MANUAL DIFF FLAG SCAN; Mean Corpuscular HGB Conc 30.1 g/dl (31.0-36.0); Mean Corpuscular Hemoglobin 28.3 pg (27.0-33.0); Mean Corpuscular Volume 93.8 fL (80.0-98.0); Monocytes Absolute Auto 0.1 X10*3/uL (0.1-1.2); Monocytes Percent Auto 1.4 % (2-11); Neutrophils Absolute Auto 8.5 x10*3/uL (2.0-8.3); Neutrophils Percent Auto 93.2 % (45-73); Platelet Count 273 X10*3/uL (160-400); Red Blood Count 4.35 X10*6/uL (4.60-5.80); Red Cell Distribution Width 15.4 % (11.0-16.0); SCAN SMEAR FLAG 1; White Blood Count 9.1 X10*3/uL (4.8-10.8)
[2021-12-28 06:35] LABS: B Type Natriuretic Peptide 466 pg/mL (<100)
[2021-12-28 06:43] LABS: Alanine Aminotransferase 7 U/L (0-40); Albumin Level 3.4 g/dL (3.5-5.0); Alkaline Phosphatase 62 U/L (39-117); Aspartate Amino Transferase 10 U/L (5-37); Bilirubin Direct 0.4 mg/dL (0.0-0.5); Bilirubin Total 0.9 mg/dL (0.0-1.0); Calcium 9.2 mg/dL (8.4-10.2); Magnesium 1.8 mg/dL (1.6-2.6); Phosphorus 3.2 mg/dL (2.7-4.5); Total Protein 6.1 g/dL (6.5-8.0)
[2021-12-28 06:45] LABS: SLIDE REVIEW VERIFIED
[2021-12-28 06:48] LABS: Anion Gap 18 (12-20); Blood Urea Nitrogen 46 mg/dL (9-16); Calcium 9.1 mg/dL (8.4-10.2); Carbon Dioxide 35 mmol/L (22-29); Chloride 94 mmol/L (96-108); Creatinine Clr Calc Pharmacy 38.8; Estimated Glomerular Filt Rate 35; Glucose Random 157 mg/dL (60-115); Potassium 3.2 mmol/L (3.3-5.1); Sodium 144 mmol/L (135-145)
[2021-12-28 07:04] LABS: TSH reflex Free T4 0.59 uIU/mL (0.32-4.0)
[2021-12-28] MEDS: Chlorhexidine Gluc Oral Rinse 15 ML MOUTHWASH BUCCAL ×3 (07:24→21:40)
[2021-12-28] MEDS: Nystatin Powder 15 GM BOTTLE 1 APPL TOPICAL ×3 (07:24→21:46)
[2021-12-28] MEDS: Nicotine 14 MG PATCH.TD24 TRANSDERMA (07:24)
[2021-12-28] MEDS: Tamsulosin HCL 0.4 MG CAPSULE PO (07:25)
--- NOTE | 2021-12-28 11:35 | P.CONCC_ITS ---
History of Present Illness Data of Consult Service Date: 12/27/21 Requesting physician: [facility] Primary Care Provider: CHARLEY Hu Reason for consult: Altered mental status and acute/chronic hypercarbic respiratory failure 81-year-old male clearly with chronic hypercarbic respiratory failure and recurrent ESBL urinary tract infections who was noted to become progressively more lethargic and then unarousable and had a markedly elevated pCO2 of 150 profoundly acidotic it pH 7.06 and he required urgent intubation and initially thought to have a pneumothorax and I reviewed returned to see him in relation to that it appeared to be a skin fold we repeated the the x-ray and after repositioning and there was no evidence of pneumothorax and we proceeded with central line placement for measurement of CVP as an endpoint for diuresis because apparently he also had marked peripheral edema probably ascites as well but certainly both lower extremities and a and the clearly reflecting right heart failure in 0 he also had significant neck vein distension and on bedside echo that I it done he had if anything a hyperdynamic left ventricle of normal size no primary valve or pericardial disease but he definitely had some right ventricular dysfunction but and marked dilatation of the right atrium with significant tricuspid insufficiency probably reflecting chronic his chronic lung disease which might be a previously undiagnosed sleep apnea an element of obesity/hypoventilation and a core COPD which is apparent on his CT scan Background history of ischemic heart disease treated no evidence again of acute infarct and he also has chronic stage III renal failure and clearly there is an acute on chronic worsening of that as well and I am sure that because of predomi nant right heart failure Review of Systems Verdana 4l Review of Systems: Yes Unobtainable due to mental status Verdana 4d PMFSH Past Medical History Medical History Abdominal aortic aneurysm Acquired hypothyroidism Diabetes mellitus Edema eyelid Essential (primary) hypertension Paroxysmal atrial fibrillation Presence of stent in coronary artery in patient with coronary artery disease Renal insufficiency Family History Family History Father Myocardial infarction Mother Alzheimers disease Family history: reviewed and not pertinent Surgical History Surgical History History of cardiac catheterization History of nasal surgery History of tonsillectomy Social History Social History Household Members: Significant Other Housing: House Alcohol intake: current Alcohol intake frequency: does not drink Patient Tobacco Use Status: Former Tobacco user Tobacco use type: Cigarette Cigarettes Per Day: 4 Years Smoked: 60 e-Cigarette/Vaping Use: Never Used Advance Directives Date on File: 12/27/21 service: No Current occupational status: retired Meds Allergies Allergy/AdvReac Type Severity Reaction Status Date / Time cephalexin [Keflex] Allergy Unknown diarrhea Verified 12/24/21 16:10 Sulfa (Sulfonamide Allergy Unknown Unknown Verified 12/24/21 16:10 Antibiotics) prednisone AdvReac Severe dementia Verified 12/24/21 16:10 Active Medications: Current Medications Acetaminophen (Acetaminophen 325 Mg Tablet) 650 mg PO Q6H PRN PRN Reason: Pain, Mild (Pain Scale 1-3) Albuterol Sulfate (Albuterol Sulfate (0.083%) 2.5 Mg/3 Ml Vial.Neb) 2.5 mg INHALE Q2H PRN PRN Reason: Wheezing Albuterol/Ipratropium (Albuterol/Iprat 2.5/0.5mg 3 Ml Ampul.Neb) 3 ml INHALE RQ4H [facility] Last Admin: 12/28/21 07:48 Dose: 3 ml Documented by: Apixaban (Apixaban 2.5 Mg Tablet) 2.5 mg PO BID [facility] Last Admin: 12/27/21 22:24 Dose: Not Given Documented by: Chlorhexidine Gluconate (Chlorhexidine Gluc Oral Rinse 15 Ml Mouthwash) 15 ml BUCCAL TID [facility] Last Admin: 12/28/21 07:24 Dose: 15 ml Documented by: Clopidogrel Bisulfate (Clopidogrel Bisulfate 75 Mg Tablet) 75 mg PO DAILY [facility] Last Admin: 12/27/21 08:36 Dose: 75 mg Documented by: Dextrose (Dextrose 50 % 25 Gm/50 Ml Syringe) 25 gm IVPUSH Q15M PRN; Protocol PRN Reason: per Hypoglycemia Standing Ord. Glucose (Glucose Gel 15 Gm Gel..Gram.) 15 gm PO Q15M PRN; Protocol PRN Reason: per Hypoglycemia Standing Ord. Meropenem 1 gm/ Sodium (Chloride) 100 mls @ 200 mls/hr IV Q12H [facility] Last Infusion: 12/28/21 03:47 Dose: Infused Documented by: Furosemide 200 mg/ Sodium (Chloride) 100 mls @ 2.5 mls/hr IVCONT .Q24H [facility] Last Infusion: 12/28/21 07:30 Dose: 0 mg/hr, 0 mls/hr Documented by: Norepinephrine Bitartrate (Levophed) 8 mg in 250 mls @ 0 mls/hr IVCONT .Q0M [facility]; Protocol Last Titration: 12/28/21 07:46 Dose: 0.05 mcg/kg/min, 10.21 mls/hr Documented by: Propofol (Diprivan) 1,000 mg in 100 mls @ 0 mls/hr IVCONT .Q0M [facility]; Protocol Last Admin: 12/28/21 09:00 Dose: 40 mcg/kg/min, 26.13 mls/hr Documented by: Insulin Human Lispro (Insulin Lispro 100 Unit/Ml 3 Ml Vial) 0 unit SUBCUT QIDACHS [facility]; Protocol Last Admin: 12/28/21 07:17 Dose: Not Given Documented by: Melatonin (Melatonin 3 Mg Tablet) 6 mg PO BEDTIME PRN PRN Reason: Insomnia Methylprednisolone Sodium Succinate (Methylprednisolone Sod Succ 40 Mg/Ml Vial) 40 mg IVPUSH Q8H [facility] Last Admin: 12/28/21 07:24 Dose: 40 mg Documented by: Nicotine (Nicotine 14 Mg Patch.Td24) 14 mg TRANSDERMA DAILY [facility] Last Admin: 12/28/21 07:24 Dose: 14 mg Documented by: Nystatin (Nystatin Powder 15 Gm Bottle) 1 appl TOPICAL TID [facility]; Protocol Last Admin: 12/28/21 07:24 Dose: 1 appl Documented by: Pantoprazole Sodium (Pantoprazole Sodium 40 Mg/10 Ml Vial) 40 mg IVPUSH DAILY@0630 [facility] Last Admin: 12/28/21 05:48 Dose: 40 mg Documented by: Pharmacy Consult (Consult Rx Perform Med Rec) 1 each MISCELLANE ONCE PRN PRN Reason: Consult order Senna (Sennosides 8.6 Mg Tablet) 17.2 mg PO BEDTIME PRN PRN Reason: Constipation Sodium Chloride (0.9 % Sodium Chloride Flush 3 Ml Syringe) 3 ml IVFLUSH QSHIFT [facility] Last Admin: 12/28/21 07:24 Dose: 3 ml Documented by: Tamsulosin HCl (Tamsulosin Hcl 0.4 Mg Capsule) 0.4 mg PO DAILY [facility] Last Admin: 12/28/21 07:25 Dose: 0.4 mg Documented by: Home Medications Medication Instructions Recorded Confirmed Last Taken Type clopidogrel 75 mg 1 tab PO DAILY 05/17/21 12/26/21 12/26/21 History tablet carvedilol 6.25 6.25 mg PO BID 12/24/21 12/26/21 12/26/21 History mg tablet diltiazem HCl 420 420 mg PO 12/24/21 12/26/21 12/25/21 History mg capsule,24 BEDTIME hr,extended release (Tiadylt ER) empagliflozin 25 25 mg PO DAILY 12/24/21 12/26/21 12/26/21 History mg tablet (Jardiance) albuterol sulfate 2 puff 12/26/21 12/26/21 12/26/21 History 90 mcg/actuation INHALATION Q6H aerosol inhaler Physical Exam Verdana 4l Vital Signs: Verdana 4d Verdana 4d Vital Signs: Verdana 4d Verdana 4Bd Last Vital Signs Verdana 4d Property Damage Claims Adjustor New 4d Property Damage Claims Adjustor New 4d Temp 97.7 F 12/28/21 11:00 Property Damage Claims Adjustor New 4d Pulse 78 12/28/21 11:00 Property Damage Claims Adjustor New 4d Resp 20 12/28/21 11:00 BP 128/48 L 12/28/21 11:00 Pulse Ox 95 12/28/21 11:00 BMI result Body Mass Index 34.4 Vitals are much improved with pressures of 130/50 and being weaned off of his Levophed support Normal sinus rhythm at rate 82 and oxygen saturation is 95% Morbidly obese with severe chronic bilateral peripheral edema no cellulitis but some stasis dermatitis Cardiac exam was done by echo with normal LV function but clear-cut a right atrial dilatation severe tricuspid regurgitation and right ventricular dysfunction Lungs with some degree of diaphragmatic effort and bilateral wheezing Results Labs CBC & Chem 7: 12/28/21 05:30 12/28/21 05:30 Labs: Short CBC 12/26/21 12/27/21 12/27/21 Range/Units 16:57 08:05 18:13 WBC (4.8-10.8) X10*3/uL Hgb (14.0-18.0) g/dl Hct (42.0-52.0) % Plt Count (160-400) X10*3/uL BUN 51 H 50 H 48 H (9-16) mg/dL Creatinine 2.11 H 2.05 H 2.14 H (0.5-1.4) mg/dL 12/28/21 Range/Units 05:30 WBC 9.1 (4.8-10.8) X10*3/uL Hgb 12.3 L (14.0-18.0) g/dl Hct 40.8 L (42.0-52.0) % Plt Count 273 D (160-400) X10*3/uL BUN (9-16) mg/dL Creatinine (0.5-1.4) mg/dL BMP 12/27/21 12/28/21 12/28/21 18:13 05:30 05:30 Sodium 143 144 Potassium 4.4 3.2 L D Chloride 98 94 L Carbon Dioxide 37 H 35 H BUN 48 H 46 H Creatinine 2.14 H 1.84 H Calcium 8.8 9.1 9.2 Liver Function 12/28/21 Range/Units 05:30 Total Bilirubin 0.9 (0.0-1.0) mg/dL Direct Bilirubin 0.4 (0.0-0.5) mg/dL AST 10 (5-37) U/L ALT 7 (0-40) U/L Alkaline Phosphatase 62 (39-117) U/L Albumin 3.4 L (3.5-5.0) g/dL Microbiology Microbiology Results: Microbiology 12/26/21 Unknown Urine clean catch - Urine ty top Urine Culture - Final 12/26/21 17:37 Blood - Venous Blood Culture - Preliminary No growth after 24 hours. 12/26/21 16:56 Blood - Venous Blood Culture - Preliminary No growth after 24 hours. Assessment and Plan (1) Acute on chronic respiratory failure with hypoxia and hypercapnia: Status: Acute (2) Acute renal failure superimposed on stage 3 chronic kidney disease: Status: Acute (3) Acute congestive heart failure: Status: Acute (4) Hypoxia: Status: Acute (5) Cellulitis: Status: Acute (6) CHF (congestive heart failure): Status: Acute (7) Elevated brain natriuretic peptide (BNP) level: Status: Acute (8) Elevated troponin: Status: Acute (9) CKD (chronic kidney disease) stage 3, GFR 30-59 ml/min: Status: Acute (10) Smoker: Status: Acute (11) COPD (chronic obstructive pulmonary disease): Qualifiers: COPD type: emphysema Emphysema type: unspecified Qualified Code(s): J43.9 - Emphysema, unspecified Status: Acute (12) Presence of stent in coronary artery in patient with coronary artery disease: Status: Acute (13) Abdominal aortic aneurysm: Status: Acute (14) Paroxysmal atrial fibrillation: Status: Acute (15) Diabetes mellitus: Qualifiers: Diabetes mellitus type: type 2 Diabetes mellitus usp insulin use: unspecified usp insulin use status Diabetes mellitus complication status: without complication Qualified Code(s): E11.9 - Type 2 diabetes mellitus without complications Status: Acute (16) Renal insufficiency: Status: Acute (17) Acquired hypothyroidism: Status: Acute (18) UTI (urinary tract infection): Qualifiers: Urinary tract infection type: acute cystitis Hematuria presence: without hematuria Qualified Code(s): N30.00 - Acute cystitis without hematuria Status: Acute (19) H/O neck surgery: Status: Chronic Plan So this gentleman has clear-cut chronic CO2 retention at a significant level probably between 60 and 70 possibly contribute to course by his COPD possible obesity/hypoventilation and may be undiagnosed sleep apnea the tipping point here could easily have been a septic manifestation of his recurring ESBL urinary tract infection and if he does have predominant right heart failure and of words in cor pulmonale with an acute on chronic exacerbation creating the peripheral edema and also has and what seems to be an exacerbation of some of his airway disease I do not think left heart failure here played a role and he is on based on previous sensitivities of his Klebsiella meropenem right now because it is only responsive to ertapenem or meropenem and will treat his airway and to diurese some and try to bring him back to aid and normal effective arterial volume and then possibly begin weaning his sedation and then the ventilator
[2021-12-28 12:06] LABS: Glucose, Whole Blood 178 mg/dL (60-115)
[2021-12-28] MEDS: Insulin Lispro 100 UNIT/ML 3 ML VIAL SUBCUT ×2 (12:15→17:54)
--- NOTE | 2021-12-28 12:54 | P.PNNP_ITS ---
Subjective Subjective Date of Service: 12/28/21 Interval history: patient is now in the ICU Intubated CO2 narcosis Good diuresis -3.5 Liter s . Physical Exam Verdana 4l Vital Signs: Verdana 4d Verdana 4d Vital Signs: Verdana 4d Verdana 4Bd Last Vital Signs Verdana 4d Library Technician New 4d Library Technician New 4d Temp 97.9 F 12/28/21 12:00 Library Technician New 4d Pulse 80 12/28/21 12:00 Library Technician New 4d Resp 20 12/28/21 12:00 BP 118/43 L 12/28/21 12:00 Pulse Ox 94 12/28/21 12:00 BMI result Body Mass Index 34.4 Vitals are much improved Normal sinus rhythm at rate 82 and oxygen saturation is 95% Morbidly obese with severe chronic bilateral peripheral edema Lungs with some degree of diaphragmatic effort and bilateral wheezing CVS S1S2 + Murmur+ Abd : Obese Objective Data Labs CBC & Chem 7: 12/28/21 05:30 12/28/21 05:30 Labs: Laboratory Results - last 24 hr 12/27/21 12/27/21 12/27/21 17:15 17:15 18:13 WBC RBC Hgb Hct MCV MCH MCHC RDW Plt Count MPV Immature Gran % (Auto) Neut % (Auto) Lymph % (Auto) Day % (Auto) Eos % (Auto) Baso % (Auto) Lymph # (Auto) Day # (Auto) Eos # (Auto) Baso # (Auto) Abs Immat Gran (auto) Absolute Neuts (auto) Absolute Nucleated RBC Nucleated RBC % (auto) Smear Tech's Comments O2 Saturation 99.0 ABG pH at Pt Temp 7.06 L* ABG pCO2 at Pt Temp 151 H* ABG pO2 at Pt Temp 144 H ABG HCO3 43 H ABG Base Excess (Actual) 6.6 VBG pH VBG pCO2 VBG pO2 VBG HCO3 VBG O2 Saturation VBG Base Excess Sodium 143 Potassium 4.4 Chloride 98 Carbon Dioxide 37 H Anion Gap 12 BUN 48 H Creatinine 2.14 H Estim Creat Clear Calc 33.4 Estimated GFR 30 POC Glucose 160 H Random Glucose 190 H Calcium 8.8 Phosphorus Magnesium Total Bilirubin Direct Bilirubin AST ALT Alkaline Phosphatase B-Natriuretic Peptide Total Protein Albumin TSH 12/27/21 12/27/21 12/27/21 18:13 18:18 20:31 WBC RBC Hgb Hct MCV MCH MCHC RDW Plt Count MPV Immature Gran % (Auto) Neut % (Auto) Lymph % (Auto) Day % (Auto) Eos % (Auto) Baso % (Auto) Lymph # (Auto) Day # (Auto) Eos # (Auto) Baso # (Auto) Abs Immat Gran (auto) Absolute Neuts (auto) Absolute Nucleated RBC Nucleated RBC % (auto) Smear Tech's Comments O2 Saturation ABG pH at Pt Temp ABG pCO2 at Pt Temp ABG pO2 at Pt Temp ABG HCO3 ABG Base Excess (Actual) VBG pH 7.21 L 7.36 VBG pCO2 100 67 VBG pO2 83 52 VBG HCO3 41 H 38 H VBG O2 Saturation 96.0 86.0 VBG Base Excess 9.0 10.2 Sodium Potassium Chloride Carbon Dioxide Anion Gap BUN Creatinine Estim Creat Clear Calc Estimated GFR POC Glucose Random Glucose Calcium Phosphorus Magnesium Total Bilirubin Direct Bilirubin AST ALT Alkaline Phosphatase B-Natriuretic Peptide 563 H Total Protein Albumin [facility] 12/27/21 12/28/21 12/28/21 23:12 05:30 05:30 WBC RBC Hgb Hct MCV MCH MCHC RDW Plt Count MPV Immature Gran % (Auto) Neut % (Auto) Lymph % (Auto) Day % (Auto) Eos % (Auto) Baso % (Auto) Lymph # (Auto) Day # (Auto) Eos # (Auto) Baso # (Auto) Abs Immat Gran (auto) Absolute Neuts (auto) Absolute Nucleated RBC Nucleated RBC % (auto) Smear Tech's Comments O2 Saturation ABG pH at Pt Temp ABG pCO2 at Pt Temp ABG pO2 at Pt Temp ABG HCO3 ABG Base Excess (Actual) VBG pH VBG pCO2 VBG pO2 VBG HCO3 VBG O2 Saturation VBG Base Excess Sodium 144 Potassium 3.2 L D Chloride 94 L Carbon Dioxide 35 H Anion Gap 18 BUN 46 H Creatinine 1.84 H Estim Creat Clear Calc 38.8 Estimated GFR 35 POC Glucose 150 H Random Glucose 157 H Calcium 9.1 Phosphorus Magnesium Total Bilirubin Direct Bilirubin AST ALT Alkaline Phosphatase B-Natriuretic Peptide 466 H Total Protein Albumin [facility] 12/28/21 12/28/21 12/28/21 05:30 05:30 05:30 WBC 9.1 RBC 4.35 L Hgb 12.3 L Hct 40.8 L MCV 93.8 MCH 28.3 MCHC 30.1 L RDW 15.4 Plt Count 273 D MPV 10.0 Immature Gran % (Auto) 0.4 Neut % (Auto) 93.2 H Lymph % (Auto) 4.6 L Day % (Auto) 1.4 L Eos % (Auto) 0.1 Baso % (Auto) 0.3 Lymph # (Auto) 0.4 L Day # (Auto) 0.1 Eos # (Auto) 0.0 Baso # (Auto) 0.0 Abs Immat Gran (auto) 0.04 H Absolute Neuts (auto) 8.5 H Absolute Nucleated RBC 0.000 Nucleated RBC % (auto) 0.0 Smear Tech's Comments VERIFIED O2 Saturation ABG pH at Pt Temp ABG pCO2 at Pt Temp ABG pO2 at Pt Temp ABG HCO3 ABG Base Excess (Actual) VBG pH VBG pCO2 VBG pO2 VBG HCO3 VBG O2 Saturation VBG Base Excess Sodium Potassium Chloride Carbon Dioxide Anion Gap BUN Creatinine Estim Creat Clear Calc Estimated GFR POC Glucose 109 Random Glucose Calcium 9.2 Phosphorus 3.2 Magnesium 1.8 Total Bilirubin 0.9 Direct Bilirubin 0.4 AST 10 ALT 7 Alkaline Phosphatase 62 B-Natriuretic Peptide Total Protein 6.1 L Albumin 3.4 L TSH 0.59 12/28/21 12/28/21 05:31 12:03 WBC RBC Hgb Hct MCV MCH MCHC RDW Plt Count MPV Immature Gran % (Auto) Neut % (Auto) Lymph % (Auto) Day % (Auto) Eos % (Auto) Baso % (Auto) Lymph # (Auto) Day # (Auto) Eos # (Auto) Baso # (Auto) Abs Immat Gran (auto) Absolute Neuts (auto) Absolute Nucleated RBC Nucleated RBC % (auto) Smear Tech's Comments O2 Saturation ABG pH at Pt Temp ABG pCO2 at Pt Temp ABG pO2 at Pt Temp ABG HCO3 ABG Base Excess (Actual) VBG pH 7.47 H VBG pCO2 57 VBG pO2 52 VBG HCO3 41 H VBG O2 Saturation 86.0 VBG Base Excess 15.1 Sodium Potassium Chloride Carbon Dioxide Anion Gap BUN Creatinine Estim Creat Clear Calc Estimated GFR POC Glucose 178 H Random Glucose Calcium Phosphorus Magnesium Total Bilirubin Direct Bilirubin AST ALT Alkaline Phosphatase B-Natriuretic Peptide Total Protein Albumin TSH Microbiology Microbiology Results: Microbiology 12/26/21 Unknown Urine clean catch - Urine yt top Urine Culture - Final 12/26/21 17:37 Blood - Venous Blood Culture - Preliminary No growth after 24 hours. 12/26/21 16:56 Blood - Venous Blood Culture - Preliminary No growth after 24 hours. Procedures Date of Service Date of Service: 12/28/21 Assessment & Plan Assessment and plan (1) Acute renal failure superimposed on stage 3 chronic kidney disease: Status: Acute (2) Acute on chronic respiratory failure with hypoxia and hypercapnia: Status: Acute Assessment and Plan: 80-year-old male with a past medical history of hypertension, diabetes, CAD status post stent, paroxysmal AFib on Eliquis, CKD 3, chronic back pain, COPD, history of PE, abdominal aortic aneurysm , history of prostate cancer status post radiotherapy, history of cystoscopy, history of ESBL UTI - recurrent;presented to the hospital the chief complaint of frequency urgency dysuria. SOB 1. CRISTY - in the setting of CHF/ renal hypoperfusion / Sepsis- Cr is better 2. CKD 3 at baseline 3. Recurrent UTI: Patient has prior history of ESBL UTI in 03/12, and another bout of recent UTI with Klebsiella last month. 4. Resp Failute - Hypoxmic/ Hypercarbic - COPD 5. H/o PE/ AFIB Cardio pul support as per ICU Diuretics as per ICU team Continue? meropenem Renal ultrasound Bilateral renal cysts.No echogenic renal calculi follow BMP,Avoid nephrotoxins. Patient on Eliquis 2.5 bid.? Rate controlled on? diltiazem, and? Metoprolol. (3) Hypoxia: Status: Acute (4) CHF (congestive heart failure): Status: Acute Time Spent With Patient Time: Total time spent is greater than 50% in coordination of care (as documented) at patient's floor/unit and/or counseling patient: Progress Note: Quality Stroke Does the patient have a stroke diagnosis?: No
--- NOTE | 2021-12-28 15:58 | MHC.CM.PN ---
Patient is currently intubated/vented in ICU. No family present. Attempted to speak to patient's HCPJozef via telephone at [phone]. Left voicemail explaining IMM and requesting return telephone call to discuss patient. HCP verified to be on file. Patient received 2 Pfizer vaccines. IMM sent via certified mail. Until patient's baseline case management assessment can be completed, discharge plan is not known at this time. Continue to monitor for d/c needs.
[2021-12-28 17:49] LABS: Glucose, Whole Blood 168 mg/dL (60-115)
[2021-12-28] MEDS: propofoL 1,000 MG/100 ML VIAL 32.66 MG IVCONT (19:10)
[2021-12-28] MEDS: Apixaban 2.5 MG TABLET PO (21:40)
[2021-12-28] MEDS: propofoL 1,000 MG/100 ML VIAL 16.33 MG IVCONT (21:45)
[2021-12-28] MEDS: Midazolam HCl/PF 2 MG/2 ML VIAL 4 MG IVPUSH (22:00)
[2021-12-28 22:18] LABS: Anion Gap 16 (12-20); Blood Urea Nitrogen 48 mg/dL (9-16); Calcium 8.9 mg/dL (8.4-10.2); Carbon Dioxide 38 mmol/L (22-29); Chloride 94 mmol/L (96-108); Creatinine Clr Calc Pharmacy 38.2; Estimated Glomerular Filt Rate 35; Glucose Random 206 mg/dL (60-115); Potassium 2.8 mmol/L (3.3-5.1); Sodium 145 mmol/L (135-145)
[2021-12-28] MEDS: fentaNYL citrate/PF 100 MCG/2 ML VIAL 50 MCG IVPUSH (23:09)
[2021-12-28 23:57] LABS: Glucose, Whole Blood 191 mg/dL (60-115)
[2021-12-29] VITALS (38 sets, daily range): BP systolic 106–150; BP diastolic 41–97; PULSE 78–97; RESP 13–24; TEMP 33–37.2; O2SAT 92–95; BMI 33.3
--- NOTE | 2021-12-29 | EEG_ITS ---
This is a 16-channel portable EEG performed in ICU. The patient was reported unresponsive and propofol was turned off. Background EEG rhythm was low amplitude, mixed theta to delta range with no obvious asymmetry or paroxysmal tendency. No sharp waves or spikes were noted. Cardiac lead did not reveal any significant abnormality. Not much artifacts were noted. IMPRESSION: Severe generalized slowing with no evidence of seizure disorder. MD DAMARIS Reis/DEREJE / [id number]
[2021-12-29] MEDS: Albuterol/Iprat 2.5/0.5MG 3 ML AMPUL.NEB INHALE ×7 (00:34→23:53)
[2021-12-29] MEDS: Potassium Chloride/H20 40 MEQ/100 ML PIGGYBACK 50 MEQ IV (00:38)
[2021-12-29] MEDS: Insulin Lispro 100 UNIT/ML 3 ML VIAL SUBCUT ×3 (00:38→18:02)
[2021-12-29] MEDS: propofoL 1,000 MG/100 ML VIAL 26.13 MG IVCONT ×2 (02:07→05:47)
[2021-12-29] MEDS: Midazolam HCl/PF 2 MG/2 ML VIAL 4 MG IVPUSH ×2 (03:05→04:45)
--- NOTE | 2021-12-29 03:51 | PC.NURSE ---
Addendum entered by Star Larson RN 12/29/21 04:45: tremulous activity recurred about 04:15 for 2 minutes. PA was called in to see activity again, this time involving bilateral arms and shoulders and torso. another 4 mg IV versed given in consideration of possible seizure activity, and new orders for keppra. Original Note: Assumed care from AMBROSIO Diggs, at 19:00. Patient initially on 50 doserate of propofol, was occasionally tremulous. Turned off propofol at 21:39 to assess neurological status, and patient was able to follow commands with all four extremities, also nodded and shook head to answer simple questions. Patient was soon looked uncomfortable and propofol was restarted at 25 doserate. Shortly afterwards, patient was indicating that he needed to be less awake, and his propofol was titrated up. He also indicated to PA that he was in pain in his back, and was evidently agitated. Patient was given 4 mg IV versed, and also was given 50 mcg of IV fentanyl, with good effect, and propofol was later titrated back down to 40. Patient was ventilating well through the night on this sedation, but was noted to also be tremulous repeatedly, with trembling in his arms, legs, and shoulder. When he was awake, he endorsed that he was cold, and blankets were given, and the shivering did seem to stop temporarily, but recurred again, and PA was at bedside assessing and wrote for a second dose of 4 mg versed, which was given for concern of possible seizure activity, administered with good effect. Patient continues with #8 ETT 25 cm at the lip, AC/VC+ settings Rt 20; TV 400; Peep 5; FiO2 40%; Te around 7.6; Patient SpO2 in 90's. LS clear with dim bases. minimal inline secretions are pink-tinged. On telemetry, patient is in sinus rhythm with a 1st degree AVBlock and a BBB, and somewhat frequent PVCs. He was on a low doserate of levophed 0.01; repeated attempts to titrate off with low BP resulting; off as of now. Patient with valenzuela outputs 50-75 cc/hour pale yellow urine. No BM. No TF. dark brown bileous solution residual in OGT. Skin with reddened blanchable buttocks and brawny discolored skin to BLE with +4 pitting edema to feet and legs. Lasix off per PA and discontinued. afebrile.
[2021-12-29 05:15] LABS: VBG Base Excess 20.5 mmol/L; VBG HCO3 45 mmol/L (22-26); VBG pCO2 51 mmHg; VBG pH 7.55 (7.32-7.43); VBG pO2 50 mmHg
[2021-12-29 05:23] LABS: Venous Blood Gas Refer to POC result
[2021-12-29 05:42] LABS: Basophils Percent Auto 0.1 % (0-2); Hematocrit 36.3 % (42.0-52.0); Hemoglobin 11.2 g/dl (14.0-18.0); Imm Gran Abs Auto 0.06 X10*3/uL (0.00-0.03); Imm Gran Pct Auto 0.6 % (0.0-0.4); Lymphocytes Absolute Auto 0.5 X10*3/uL (1.2-4.9); Lymphocytes Percent Auto 4.2 % (20-40); MANUAL DIFF FLAG SCAN; Mean Corpuscular HGB Conc 30.9 g/dl (31.0-36.0); Mean Corpuscular Hemoglobin 27.9 pg (27.0-33.0); Mean Corpuscular Volume 90.5 fL (80.0-98.0); Mean Platelet Volume 9.8 fL (9.4-12.4); Monocytes Absolute Auto 0.3 X10*3/uL (0.1-1.2); Monocytes Percent Auto 2.4 % (2-11); Neutrophils Percent Auto 92.7 % (45-73); Platelet Count 266 X10*3/uL (160-400); Red Blood Count 4.01 X10*6/uL (4.60-5.80); Red Cell Distribution Width 15.6 % (11.0-16.0); SCAN SMEAR FLAG 1; White Blood Count 10.8 X10*3/uL (4.8-10.8)
[2021-12-29] MEDS: levETIRAcetam in NaCl (iso-os) 1,000 MG/100 ML PIGGYBACK 400 MG IV (05:45)
[2021-12-29] MEDS: Pantoprazole Sodium 40 MG/10 ML VIAL IVPUSH (05:47)
[2021-12-29] MEDS: methylPREDNISolone Sod Succ 40 MG/ML VIAL IVPUSH (05:47)
[2021-12-29 06:11] LABS: Alanine Aminotransferase 6 U/L (0-40); Alkaline Phosphatase 51 U/L (39-117); Anion Gap 15 (12-20); Aspartate Amino Transferase 9 U/L (5-37); Bilirubin Direct 0.3 mg/dL (0.0-0.5); Bilirubin Total 0.6 mg/dL (0.0-1.0); Blood Urea Nitrogen 49 mg/dL (9-16); Calcium 8.7 mg/dL (8.4-10.2); Carbon Dioxide 38 mmol/L (22-29); Chloride 94 mmol/L (96-108); Creatinine Clr Calc Pharmacy 39.3; Estimated Glomerular Filt Rate 37; Glucose Random 214 mg/dL (60-115); Magnesium 1.7 mg/dL (1.6-2.6); Sodium 144 mmol/L (135-145); Total Protein 5.3 g/dL (6.5-8.0)
[2021-12-29 06:14] LABS: SLIDE REVIEW VERIFIED
[2021-12-29 06:20] LABS: Glucose, Whole Blood 215 mg/dL (60-115)
[2021-12-29] MEDS: Potassium Chloride Packet 20 MEQ PACKET 40 MEQ PO (06:36)
[2021-12-29] MEDS: 0.9 % Sodium Chloride Flush 3 ML SYRINGE IVFLUSH ×2 (07:36→13:11)
[2021-12-29] MEDS: Apixaban 2.5 MG TABLET PO ×2 (08:19→20:38)
[2021-12-29] MEDS: Tamsulosin HCL 0.4 MG CAPSULE PO (08:19)
[2021-12-29] MEDS: Clopidogrel Bisulfate 75 MG TABLET PO (08:19)
[2021-12-29] MEDS: Chlorhexidine Gluc Oral Rinse 15 ML MOUTHWASH BUCCAL ×3 (08:20→20:38)
[2021-12-29] MEDS: Nicotine 14 MG PATCH.TD24 TRANSDERMA (08:20)
--- NOTE | 2021-12-29 08:42 | P.CDIC_ITS ---
CDI Concurrent Query Documentation Clarification: PHYSICIAN'S DOCUMENTATION REQUEST Date of Query: 12/29/21 0842 Patient Name: Felix Syed Admit Date: 12/26/21 Dear Doctor, A review of the medical record indicates additional documentation may be needed. Please review below and update the documentation accordingly. Clinical Indicators: Documentation on progress note dated 12/28/21 included the diagnosis of sepsis. The patient's infectious clinical indicators include: Verdana 4Bd Risk Factors/Clinical Indicators/Treatments Bernice olivia MD progress note of 12/27/21: Event: completely unresponsive, hypoxia, decreased BP Intubated and placed on ventilator, transfer to ICU Per ICU note 12/28/21: the tipping point here could easily have been a septic manifestation of his infection recurring ESBL urinary tract Blood culture negative Urine culture pending Recognized standard criteria for this condition and other infectious definitions includes: Verdana 4Bd Verdana 4d Verdana 4Bd Sepsis Verdana 4d Systemic manifestations of infection, with 2 or more SIRS criteria which include: Fever > 100.4?F or hypothermia < 96.8?F Leukocytosis ? WBC > 12,000 or leukopenia, WBC < 4,000, or > 10% bands Tachycardia- > 90 beats/minute TachypneaTachypnea- RR > 20 breaths/minute or PaCO2 < 32mmHg Source: Merck Manual 2013 Documentation should include the known or suspected organism, and the underlying infection, such as UTI or pneumonia Severe Sepsis Sepsis with associated acute organ dysfunction, such as renal or respiratory failure Documentation should indicate the association between the sepsis and the organ dysfunction SepticSeptic Shock Severe sepsis with associated with circulatory failure, evidenced by hypotension and hypoperfusion Based on the above information and the recognized standard for sepsis, could you please clarify in the Progress Notes if this diagnoses is still accurate and reflective of the patient's condition to ensure quality of the medical record. * Sepsis is/was present and is a clinical diagnosis based on ICU note of 12/28/21 (please include this additional support in the medical record) * After study, Sepsis has been ruled out * Other (please specify) * Unable to determine Use of terms such as suspected, likely, concern for, or probable (associated with a specific diagnosis that is being evaluated, monitored, or treated as if it exists) are acceptable and can be coded in the inpatient setting, when documented at the time of discharge. Thank you, Sonia Adams RN Extension: [phone] Please use your independent medical judgment in providing your response. THIS QUERY IS PART OF THE PERMANENT MEDICAL RECORD Provider Response: Other ( no evidence of sepsis) Other Diagnosis: no evidence of sepsis
--- NOTE | 2021-12-29 08:54 | P.CDIC_ITS ---
CDI Concurrent Query Documentation Clarification: PHYSICIAN'S DOCUMENTATION REQUEST Date of Query: 12/29/21 0854 Patient Name: Felix Syed Admit Date: 12/26/21 Dear Doctor, A review of the medical record indicates additional documentation may be needed. Please review below and update the documentation accordingly. Clinical Indicators: The following information is noted in the medical record: Verdana 4Bd Risk Factors/Clinical Indicators/Treatments Verdana 4d Per MD Event note of 12/27/21: progressive unresponsiveness, hypoxia, decreasing BP. Patient is completely unresponsive, Neuro unresponsive, has no gag, no response to sternal rub. Based on the above, could you clarify in the Progress Notes which, if any of the following, best reflects the patient's level of consciousness? * Unconscious * Comatose * Persistent vegetative state * Transient level of awareness * Other (please specify) * Unable to determine Use of terms such as suspected, likely, concern for, or probable (associated with a specific diagnosis that is being evaluated, monitored, or treated as if it exists) are acceptable and can be coded in the inpatient setting, when documented at the time of discharge. Thank you, Sonia Adasm RN Extension: [phone] Please use your independent medical judgment in providing your response. THIS QUERY IS PART OF THE PERMANENT MEDICAL RECORD Provider Response: Other ( acute metabolic encephalopathy secondary to CO2 narcosis) Other Diagnosis: acute metabolic encephalopathy secondary to CO2 narcosis
[2021-12-29] MEDS: Potassium Chloride Packet 20 MEQ PACKET 60 MEQ PO (10:00)
[2021-12-29] MEDS: Ammonium Lactate 12 % Cream 140 GM TUBE 1 APPL TOPICAL (10:00)
[2021-12-29] MEDS: Nystatin Powder 15 GM BOTTLE 1 APPL TOPICAL ×3 (10:01→20:37)
--- NOTE | 2021-12-29 10:07 | PM.PNCARD ---
Subjective Subjective Date of Service: 12/29/21 Interval history: Sedated and vented. On antibiotics. Physical Exam Vital Signs: Last Vital Signs Temp 98.2 F 12/29/21 09:00 Pulse 89 12/29/21 09:00 Resp 18 12/29/21 09:00 BP 121/54 L 12/29/21 09:00 Pulse Ox 93 12/29/21 09:00 BMI result Body Mass Index 33.3 GENERAL APPEARANCE: Sedated and ventilated. NECK: no obvious jugular venous distention. SKIN: no suspicious lesions, warm and dry. HEART: no murmurs. LUNGS: clear to auscultation anteriorly.. ABDOMEN: soft, nontender. EXTREMITIES: no edema. PERIPHERAL PULSES: equal. Objective Labs and Meds Result diagrams: 12/29/21 05:09 12/29/21 05:09 Lab results: Laboratory Results - last 24 hr 12/28/21 12/28/21 12/28/21 12:03 17:47 21:50 WBC RBC Hgb Hct MCV MCH MCHC RDW Plt Count MPV Immature Gran % (Auto) Neut % (Auto) Lymph % (Auto) Fallon % (Auto) Eos % (Auto) Baso % (Auto) Lymph # (Auto) Fallon # (Auto) Eos # (Auto) Baso # (Auto) Abs Immat Gran (auto) Absolute Neuts (auto) Absolute Nucleated RBC Nucleated RBC % (auto) Smear Tech's Comments VBG pH VBG pCO2 VBG pO2 VBG HCO3 VBG O2 Saturation VBG Base Excess Sodium 145 Potassium 2.8 L Chloride 94 L Carbon Dioxide 38 H Anion Gap 16 BUN 48 H Creatinine 1.87 H Estim Creat Clear Calc 38.2 Estimated GFR 35 POC Glucose 178 H 168 H Random Glucose 206 H Calcium 8.9 Phosphorus Magnesium Total Bilirubin Direct Bilirubin AST ALT Alkaline Phosphatase Total Protein Albumin 12/28/21 12/29/21 12/29/21 23:53 05:08 05:09 WBC 10.8 RBC 4.01 L Hgb 11.2 L Hct 36.3 L MCV 90.5 MCH 27.9 MCHC 30.9 L RDW 15.6 Plt Count 266 MPV 9.8 Immature Gran % (Auto) 0.6 H Neut % (Auto) 92.7 H Lymph % (Auto) 4.2 L Fallon % (Auto) 2.4 Eos % (Auto) 0.0 Baso % (Auto) 0.1 Lymph # (Auto) 0.5 L Fallon # (Auto) 0.3 Eos # (Auto) 0.0 Baso # (Auto) 0.0 Abs Immat Gran (auto) 0.06 H Absolute Neuts (auto) 10.0 H Absolute Nucleated RBC 0.000 Nucleated RBC % (auto) 0.0 Smear Tech's Comments VERIFIED VBG pH 7.55 H VBG pCO2 51 VBG pO2 50 VBG HCO3 45 H VBG O2 Saturation 83.0 VBG Base Excess 20.5 Sodium Potassium Chloride Carbon Dioxide Anion Gap BUN Creatinine Estim Creat Clear Calc Estimated GFR POC Glucose 191 H Random Glucose Calcium Phosphorus Magnesium Total Bilirubin Direct Bilirubin AST ALT Alkaline Phosphatase Total Protein Albumin 12/29/21 12/29/21 05:09 05:39 WBC RBC Hgb Hct MCV MCH MCHC RDW Plt Count MPV Immature Gran % (Auto) Neut % (Auto) Lymph % (Auto) Fallon % (Auto) Eos % (Auto) Baso % (Auto) Lymph # (Auto) Fallon # (Auto) Eos # (Auto) Baso # (Auto) Abs Immat Gran (auto) Absolute Neuts (auto) Absolute Nucleated RBC Nucleated RBC % (auto) Smear Tech's Comments VBG pH VBG pCO2 VBG pO2 VBG HCO3 VBG O2 Saturation VBG Base Excess Sodium 144 Potassium 3.0 L Chloride 94 L Carbon Dioxide 38 H Anion Gap 15 BUN 49 H Creatinine 1.79 H Estim Creat Clear Calc 39.3 Estimated GFR 37 POC Glucose 215 H Random Glucose 214 H Calcium 8.7 Phosphorus 3.0 Magnesium 1.7 Total Bilirubin 0.6 Direct Bilirubin 0.3 AST 9 ALT 6 Alkaline Phosphatase 51 Total Protein 5.3 L Albumin 3.0 L Imaging Radiologist's impression: Impressions Chest CT 12/28/21 10:15 IMPRESSION: 1. Small volume bilateral simple appearing pleural effusions are noted with bibasilar airspace disease presumably representing compressive atelectasis with or without superimposed infiltrate. 2. Previously documented, clinically known multiple bilateral sub-5 mm lung nodules seen within both upper lobes and the left lower lobe are not reproduced likely related to motion related artifacts as well as interval development of dense airspace consolidation involving left lower lobe and to a lesser extent right lower lobe. Fleischner guidelines were followed. Progress Note: A&P Assessment and plan (1) Acute on chronic respiratory failure with hypoxia and hypercapnia: Status: Acute Plan 81-year-old gentleman who is presenting for hypercapnic respiratory failure and is currently intubated. He has bilateral small pleural effusions. Overall presentation seems like related to his COPD. He has bilateral infiltrates on the chest CT scan. He has background of ESBL and has been on meropenem. Clinically no obvious JVD right now. Potassium is low and will need repletion. Does not need aggressive diuretic therapy right now. Thank you for allowing me to participate in the care of your patient. Please feel free to contact me if you have any questions. Fall Risk Details Current Medications: Current Medications Acetaminophen (Acetaminophen 325 Mg Tablet) 650 mg PO Q6H PRN PRN Reason: Pain, Mild (Pain Scale 1-3) Acetazolamide (Acetazolamide Sodium 500 Mg Vial) 250 mg IVPUSH BID [facility] Stop: 12/31/21 21:01 Albuterol Sulfate (Albuterol Sulfate (0.083%) 2.5 Mg/3 Ml Vial.Neb) 2.5 mg INHALE Q2H PRN PRN Reason: Wheezing Albuterol/Ipratropium (Albuterol/Iprat 2.5/0.5mg 3 Ml Ampul.Neb) 3 ml INHALE RQ4H [facility] Last Admin: 12/29/21 08:24 Dose: 3 ml Documented by: Apixaban (Apixaban 2.5 Mg Tablet) 2.5 mg PO BID [facility] Last Admin: 12/29/21 08:19 Dose: 2.5 mg Documented by: Chlorhexidine Gluconate (Chlorhexidine Gluc Oral Rinse 15 Ml Mouthwash) 15 ml BUCCAL TID [facility] Last Admin: 12/29/21 08:20 Dose: 15 ml Documented by: Clopidogrel Bisulfate (Clopidogrel Bisulfate 75 Mg Tablet) 75 mg PO DAILY [facility] Last Admin: 12/29/21 08:19 Dose: 75 mg Documented by: Dextrose (Dextrose 50 % 25 Gm/50 Ml Syringe) 25 gm IVPUSH Q15M PRN; Protocol PRN Reason: per Hypoglycemia Standing Ord. Glucose (Glucose Gel 15 Gm Gel..Gram.) 15 gm PO Q15M PRN; Protocol PRN Reason: per Hypoglycemia Standing Ord. Meropenem 1 gm/ Sodium (Chloride) 100 mls @ 200 mls/hr IV Q12H [facility] Last Infusion: 12/29/21 02:08 Dose: Infused Documented by: Norepinephrine Bitartrate (Levophed) 8 mg in 250 mls @ 0 mls/hr IVCONT .Q0M [facility]; Protocol Last Titration: 12/29/21 04:00 Dose: 0 mcg/kg/min, 0 mls/hr Documented by: Propofol (Diprivan) 1,000 mg in 100 mls @ 0 mls/hr IVCONT .Q0M [facility]; Protocol Last Titration: 12/29/21 06:38 Dose: 30 mcg/kg/min, 19.6 mls/hr Documented by: Levetiracetam (Keppra) 1,000 mg in 100 mls @ 400 mls/hr IV Q12H [facility] Last Infusion: 12/29/21 06:38 Dose: Infused Documented by: Insulin Human Lispro (Insulin Lispro 100 Unit/Ml 3 Ml Vial) 0 unit SUBCUT Q6H [facility]; Protocol Last Admin: 12/29/21 05:47 Dose: 4 unit Documented by: Lactic Acid (Ammonium Lactate 12 % Cream 140 Gm Tube) 1 appl TOPICAL DAILY [facility]; Protocol Last Admin: 12/29/21 10:00 Dose: 1 appl Documented by: Melatonin (Melatonin 3 Mg Tablet) 6 mg PO BEDTIME PRN PRN Reason: Insomnia Nicotine (Nicotine 14 Mg Patch.Td24) 14 mg TRANSDERMA DAILY [facility] Last Admin: 12/29/21 08:20 Dose: 14 mg Documented by: Nystatin (Nystatin Powder 15 Gm Bottle) 1 appl TOPICAL TID [facility]; Protocol Last Admin: 12/29/21 10:01 Dose: 1 appl Documented by: Pantoprazole Sodium (Pantoprazole Sodium 40 Mg/10 Ml Vial) 40 mg IVPUSH DAILY@0630 [facility] Last Admin: 12/29/21 05:47 Dose: 40 mg Documented by: Pharmacy Consult (Consult Rx Perform Med Rec) 1 each MISCELLANE ONCE PRN PRN Reason: Consult order Senna (Sennosides 8.6 Mg Tablet) 17.2 mg PO BEDTIME PRN PRN Reason: Constipation Sodium Chloride (0.9 % Sodium Chloride Flush 3 Ml Syringe) 3 ml IVFLUSH QSHIFT [facility] Last Admin: 12/29/21 07:36 Dose: 3 ml Documented by: Tamsulosin HCl (Tamsulosin Hcl 0.4 Mg Capsule) 0.4 mg PO DAILY [facility] Last Admin: 12/29/21 08:19 Dose: 0.4 mg Documented by: Time Spent With Patient Time: Total time spent is greater than 50% in coordination of care (as documented) at patient's floor/unit and/or counseling patient: Time with patient: 15 - 24 minutes Progress Note: Quality Stroke Does the patient have a stroke diagnosis?: No Procedures Date of Service Date of Service: 12/29/21
--- NOTE | 2021-12-29 10:16 | MHC.CLN ---
RE: CONSULT PT IS INTUBATED AND SEDATED PT WITH INCREASED NUTRITION RISK R/T FRAGILE SKIN PT IS CURRENTLY NPO PLAN FOR EXTUBATION TODAY PER MD IF TF NEEDED; RECOMMEND PROMOTE AT MAX GOAL OF 60ML/HR TO PROVIDE 1440KCALS (1957KCALS WITH SEDATION; 23KCALS/KG), 90G PROTEIN (1.0G/KG), 1208CC FREE WATER FROM FORMULA SEE ALSO CLINICAL NUTRITION ASSESSMENT
[2021-12-29] MEDS: propofoL 1,000 MG/100 ML VIAL 19.6 MG IVCONT ×3 (10:17→22:01)
--- NOTE | 2021-12-29 10:30 | CA_ITS ---
Transthoracic Echocardiogram Patient (Last, First, Middle): Felix Syed J Gender: Male Date of : 1940 Age: 81 Procedure Date: 12/29/2021 Procedure Type: Transthoracic Echocardiogram Location: ICU Height: 177.8 cm Weight: 104.78 kg BSA: 2.22 m2 Heart Rate: bpm BP: 129 / 70 mmHg Clinical Science Consultant: Referring MD: Jose Garcia MD Symptoms: CHF Study Quality: Fair ECG Rhythm: Sinus Conclusions: - Normal left ventricular size and systolic function. There is moderately increased left ventricular wall thickness. The visually estimated ejection fraction is between 60-65%. - Normal right ventricular cavity size and systolic function. - The left atrium is severely dilated. - There is mild aortic valve stenosis. - There is mild dilatation of the ascending aorta. Findings Left Ventricle Normal left ventricular size and systolic function. There is moderately increased left ventricular wall thickness. The visually estimated ejection fraction is between 60-65%. There is no evidence of regional wall motion abnormalities. Abnormal diastolic function is noted. Spectral Doppler is indicative of an impaired relaxation filling pattern. E/E prime ratio is between 8 and 15 consistent with indeterminate filling pressures. Right Ventricle Normal right ventricular cavity size and systolic function. Atria The left atrium is severely dilated. Aortic Valve There is moderate calcification of the aortic valve. There is mild thickening of the aortic valve. There is mild aortic valve stenosis. The peak aortic velocity is 2.17 m/s. The aortic valve area is 2.53 cm2. There is no aortic valve regurgitation. Mitral Valve Normal mitral valve structure and function. There is no mitral valve regurgitation. There is no mitral valve stenosis. Pulmonic Valve The pulmonic valve is likely normal. Tricuspid Valve Normal tricuspid valve structure and function. There is trace tricuspid valve regurgitation. Normal right atrial pressure. There is no evidence of pulmonary hypertension. Great Vessels There is mild dilatation of the ascending aorta. The visualized portions of the pulmonary artery and branches are normal. Venous The inferior vena cava is normal in size and collapses greater than 50% with inspiration. Pericardium/Pleural There is no evidence of pericardial effusion. Prior Study Comparison Changes noted compared to prior study dated: 02/21/2019. Mild , severely dilated LA. Measurements 2D Linear Measurements IVSd: 1.48 0.6-0.9/0.6-1.0 cm LVIDd: 3.89 3.9-5.3/4.2-5.9 cm LVIDd Index: 1.75 2.4-3.2/2.2-3.1 cm/m2 LVIDs: 2.34 2.0-3.6 cm LVPWd: 1.32 0.7-1.1 cm Ao Root: 3.60 2.1-3.5 cm LA Diam: 4.10 2.7-3.8/3.0-4.0 cm LAIDs Index: 1.85 1.5-2.3 cm/m2 LV Mass: 250.18 67-162/88-224 g LV Mass Index: 112.69 43-95/49-115 g/m2 LVOT Diam: 2.20 3.0+(-)1.3 cm Mitral Valve MV Pk E: 0.92 MV PK A: 1.22 MV Decel Time: 151.00 E/A: 0.80 E'Lateral: 6.85 E'Medial: 6.53 E/E' Med: 14.10 E/E' Lat: 13.40 PHT: 44.00 MVA PHT: 5.00 Decel [place]: 6.12 Aortic Valve AoV Pk Eugene: 2.17 AoV Mn Eugene: 1.35 AoV VTI: 0.41 AoV Pk Grad: 19.00 Aov Mn Grad: 9.00 KAMILLE Cont.VTI: 2.53 LVOT LVOT Pk Eugene: 1.52 LVOT Mn Eugene: 1.08 LVOT VTI: 0.28 LVOT Pk Grad: 9.00 LVOT Mn Grad: 5.00 LVOT Diam: 2.20 LVOT Area: 3.80 Diastolic Function MV Pk E: 0.92 MV Pk A: 1.22 E/A: 0.80 E'Medial: 6.53 E/E' Med: 14.10 E' Laterial: 6.85 E/E' Lat: 13.40 Tricuspid Valve TR Pk Eugene: 2.43 TR Pk Grad: 24.00 Great Vessels Aorta Ao Root-2D: 3.60 2.0-3.7 cm Ao Asc: 3.70 2.1-3.4 cm Pulmonary Valve PV Pk Eugene: 1.03 Peak PV Grad: 4.00 Updated in Other Vendor System with Status of Final Guero Poe MD electronically signed on 12/29/2021 6:28:13 PM with status of Final
[2021-12-29] MEDS: acetaZOLAMIDE sodium 500 MG VIAL 250 MG IVPUSH ×2 (10:40→20:38)
--- NOTE | 2021-12-29 11:15 | P.PNNP_ITS ---
Subjective Subjective Date of Service: 12/29/21 Interval history: Seen and examined,events noted . Physical Exam Verdana 4l Vital Signs: Verdana 4d Verdana 4d Vital Signs: Verdana 4d Verdana 4Bd Last Vital Signs Verdana 4d Molded Rubber Goods Cutter New 4d Molded Rubber Goods Cutter New 4d Temp 98.4 F 12/29/21 11:00 Molded Rubber Goods Cutter New 4d Pulse 87 12/29/21 11:00 Molded Rubber Goods Cutter New 4d Resp 18 12/29/21 11:00 BP 117/52 L 12/29/21 11:00 Pulse Ox 93 12/29/21 11:00 BMI result Body Mass Index 33.3 Const: Other: intubated and sedated General: cooperative, healthy appearing, comfortable, no acute distress and lethargic Nutritional Appearance: obese Orientation/consciousness: patient oriented x3 and lethargic Limitations: no limitations HENMT: Other: Unremarkable Head: Yes normal to inspection, Yes No palpable skull fracture present, Yes normocephalic and Yes atraumatic Ears: hearing grossly normal bilaterally and TM's normal bilaterally General nose exam: Normal external nose present Face and sinus: Yes normal facial exam Mouth: Normal oral and palatal mucosa present Throat: Yes posterior oropharynx normal, Yes tonsils normal and Yes uvula midline Eyes: Other: Swelling of the right upper eyelid-EOM intact, PERRLA General: appearance normal, both eyes and all related structures Eyelids: Yes eyelid abnormality ( right eyelid edema) Pupils: Equal, round and reactive pupils present EOM: EOMs intact bilaterally Neck: Neck: Yes normal visual inspection, Yes full ROM, Yes no lymphadenopathy, Yes trachea midline, Yes supple and Yes JVD Chest: Chest palpation & inspection: normal inspection of the chest Resp: Other: bilateral coarse breath sounds Effort & Inspection: normal respiratory effort Auscultation: clear to auscultation bilaterally, wheezes scattered wheezes and throughout and diminished lung sounds diffuse Cardio: Other: unable to listed to heart sounds due to coarse breath sounds and patient unable to follow commands Jugular venous distension: other Palpation: normal PMI Rate: regular rate Rhythm: regular rhythm Heart sounds: S1 normal heart sound present, S2 normal heart sound present, no gallops, no murmurs, no rubs and normal S1 and S2 Peripheral pulses: Peripheral pulses 2+ throughout GI: Inspection: Yes normal to inspection, Yes obesity and Yes other (umbilical hernia) Palpation (GI): Soft to palpation and nontender Auscultation: normal bowel sounds Back/Spine/Pelvis: Other: unremarkable Thoracic/Lumbar Spine: thoracic and lumbar spine normal to inspection Skin: General skin exam: no rashes or lesions noted Lesions: other Neuro: General: patient oriented x3, no focal motor deficits, normal sensation to monofilament and other Cranial nerves: Yes Equal, round and reactive pupils present Cognition (Neuro): normal cognition Speech: No Abnormal speech present Gait exam (Neuro): Normal gait present Motor exam (neuro): 5/5 motor strength present throughout Extrem: Other: chronically red swollen legs,venous stasis General: Yes normal to inspection, Yes no calf tenderness, Yes edema (Bilateral pedal edema extending over the knees 2+. No erythema) and Yes other Right lower extremity: edema (lower leg) Details: pitting and 3+ Left lower extremity: edema (lower leg) Details: pitting and 3+ and foot Details: vascular exam Details: posterior tibial pulse p resent and coolness (cool) Location: of the entire foot Psych: Mental Status: other Objective Data Labs CBC & Chem 7: 12/29/21 05:09 12/29/21 05:09 Labs: Laboratory Results - last 24 hr 12/28/21 12/28/21 12/28/21 12:03 17:47 21:50 WBC RBC Hgb Hct MCV MCH MCHC RDW Plt Count MPV Immature Gran % (Auto) Neut % (Auto) Lymph % (Auto) [place] % (Auto) Eos % (Auto) Baso % (Auto) Lymph # (Auto) [place] # (Auto) Eos # (Auto) Baso # (Auto) Abs Immat Gran (auto) Absolute Neuts (auto) Absolute Nucleated RBC Nucleated RBC % (auto) Smear Tech's Comments VBG pH VBG pCO2 VBG pO2 VBG HCO3 VBG O2 Saturation VBG Base Excess Sodium 145 Potassium 2.8 L Chloride 94 L Carbon Dioxide 38 H Anion Gap 16 BUN 48 H Creatinine 1.87 H Estim Creat Clear Calc 38.2 Estimated GFR 35 POC Glucose 178 H 168 H Random Glucose 206 H Calcium 8.9 Phosphorus Magnesium Total Bilirubin Direct Bilirubin AST ALT Alkaline Phosphatase Total Protein Albumin 12/28/21 12/29/21 12/29/21 23:53 05:08 05:09 WBC 10.8 RBC 4.01 L Hgb 11.2 L Hct 36.3 L MCV 90.5 MCH 27.9 MCHC 30.9 L RDW 15.6 Plt Count 266 MPV 9.8 Immature Gran % (Auto) 0.6 H Neut % (Auto) 92.7 H Lymph % (Auto) 4.2 L [place] % (Auto) 2.4 Eos % (Auto) 0.0 Baso % (Auto) 0.1 Lymph # (Auto) 0.5 L [place] # (Auto) 0.3 Eos # (Auto) 0.0 Baso # (Auto) 0.0 Abs Immat Gran (auto) 0.06 H Absolute Neuts (auto) 10.0 H Absolute Nucleated RBC 0.000 Nucleated RBC % (auto) 0.0 Smear Tech's Comments VERIFIED VBG pH 7.55 H VBG pCO2 51 VBG pO2 50 VBG HCO3 45 H VBG O2 Saturation 83.0 VBG Base Excess 20.5 Sodium Potassium Chloride Carbon Dioxide Anion Gap BUN Creatinine Estim Creat Clear Calc Estimated GFR POC Glucose 191 H Random Glucose Calcium Phosphorus Magnesium Total Bilirubin Direct Bilirubin AST ALT Alkaline Phosphatase Total Protein Albumin 12/29/21 12/29/21 05:09 05:39 WBC RBC Hgb Hct MCV MCH MCHC RDW Plt Count MPV Immature Gran % (Auto) Neut % (Auto) Lymph % (Auto) [place] % (Auto) Eos % (Auto) Baso % (Auto) Lymph # (Auto) [place] # (Auto) Eos # (Auto) Baso # (Auto) Abs Immat Gran (auto) Absolute Neuts (auto) Absolute Nucleated RBC Nucleated RBC % (auto) Smear Tech's Comments VBG pH VBG pCO2 VBG pO2 VBG HCO3 VBG O2 Saturation VBG Base Excess Sodium 144 Potassium 3.0 L Chloride 94 L Carbon Dioxide 38 H Anion Gap 15 BUN 49 H Creatinine 1.79 H Estim Creat Clear Calc 39.3 Estimated GFR 37 POC Glucose 215 H Random Glucose 214 H Calcium 8.7 Phosphorus 3.0 Magnesium 1.7 Total Bilirubin 0.6 Direct Bilirubin 0.3 AST 9 ALT 6 Alkaline Phosphatase 51 Total Protein 5.3 L Albumin 3.0 L Microbiology Microbiology Results: Microbiology 12/26/21 17:37 Blood - Venous Blood Culture - Preliminary No growth after 48 hours. 12/26/21 16:56 Blood - Venous Blood Culture - Preliminary No growth after 48 hours. 12/26/21 Unknown Urine clean catch - Urine ty top Urine Culture - Final Procedures Date of Service Date of Service: 12/29/21 Assessment & Plan Assessment and plan (1) Acute renal failure superimposed on stage 3 chronic kidney disease: Status: Acute (2) Acute on chronic respiratory failure with hypoxia and hypercapnia: Status: Acute Assessment and Plan: 80-year-old male with a past medical history of hypertension, diabetes, CAD status post stent, paroxysmal AFib on Eliquis, CKD 3, chronic back pain, COPD, history of PE, abdominal aortic aneurysm , history of prostate cancer status post radiotherapy, history of cystoscopy, history of ESBL UTI - recurrent;presented to the hospital the chief complaint of frequency urgency dysuria. SOB 1. CRISTY - in the setting of CHF/ renal hypoperfusion / Sepsis- Cr back to bsl 2. CKD 3: SCr 1.5--2.0 3. Recurrent UTI: Patient has prior history of ESBL UTI in 03/12, and another bout of recent UTI with Klebsiella last month. 4. Resp Failute - Hypoxmic/ Hypercarbic - COPD 5. H/o PE/ AFIB 6. Metabolic Alk: geting diamox--ques remains what is target for HCO3 7. Hypervol: getting diuresis REC: agree with iv diamoix --? target HCO3 30 range; replace K; avoid Toxins; cont diuresis (3) Hypoxia: Status: Acute (4) CHF (congestive heart failure): Status: Acute Time Spent With Patient Time: Total time spent is greater than 50% in coordination of care (as documented) at patient's floor/unit and/or counseling patient: Progress Note: Quality Stroke Does the patient have a stroke diagnosis?: No
[2021-12-29 12:14] LABS: Glucose, Whole Blood 187 mg/dL (60-115)
[2021-12-29 12:18] LABS: Anion Gap 12 (12-20); Blood Urea Nitrogen 50 mg/dL (9-16); Calcium 8.8 mg/dL (8.4-10.2); Carbon Dioxide 41 mmol/L (22-29); Chloride 95 mmol/L (96-108); Estimated Glomerular Filt Rate 36; Glucose Random 225 mg/dL (60-115); Potassium 3.3 mmol/L (3.3-5.1); Sodium 145 mmol/L (135-145)
--- NOTE | 2021-12-29 12:51 | CONS_ITS ---
DATE OF SERVICE: 12/27/2021 REASON FOR CONSULTATION: Consult requested by the medical team to evaluate and help in management of patient with renal insufficiency. HISTORY OF PRESENT ILLNESS: The patient is an 81-year-old male with past medical history of longstanding hypertension, hyperlipidemia, type 2 diabetes mellitus, chronic kidney disease at baseline, who presents to the hospital with complaints of shortness of breath and generalized weakness. The patient is presently in the bed and is sleepy and is not giving any history. He goes back to sleep when asked him questions. He has been having shortness of breath for the last 2 months, worsening over the last 2 weeks. He had decreased exercise tolerance. He also had some orthopnea. He denies any cough or sputum. There was no dysuria. He denies any nausea or vomiting. He had increased redness over the legs. There was no fall or trauma. He recently went to his PCP office and was given Macrobid, but he was not taking it. He was advised to go into the ER, but he did not come into the ER when he saw the PCP. The patient was evaluated in the ER and patient had 2+ edema and crackles in his lower extremities and pulmonary congestion based on examination. He has had elevated JVD and a proBNP. He was initiated on IV Lasix. Renal consult has been requested. His creatinine level is elevated. REVIEW OF SYSTEMS: As noted above. Other system review negative. PAST MEDICAL HISTORY: History of abdominal aortic aneurysm, acquired hypothyroidism, COPD with exacerbation. Type 2 diabetes mellitus. History of hypertension, paroxysmal atrial fibrillation, eyelid edema, history of CKD at baseline, coronary artery disease. FAMILY HISTORY: Father and had a coronary event. Mother had Alzheimer disease and his . PAST SURGICAL HISTORY: Includes cardiac catheterization, nasal surgery, and tonsillectomy. PERSONAL AND SOCIAL HISTORY: Patient apparently continues to drink, is a former smoker. ALLERGIES: PATIENT HAS ALLERGIES TO CEPHALEXIN, SULFA, AND PREDNISONE. MEDICATION: At home include Plavix, carvedilol, diltiazem, Jardiance, and albuterol. PHYSICAL EXAMINATION: GENERAL: Patient is resting in the bed, sleepy but arousable, not giving much history. VITAL SIGNS: Blood pressure is 113/53, pulse 56, afebrile. HEENT: Shows pupils equal bilaterally to light. There is a right-sided upper lid edema. NECK: Supple. There was positive JVD. CARDIOVASCULAR SYSTEM: S1, S2 without rub. RESPIRATORY SYSTEM: Mildly decreased in bases, bilaterally crepitation. ABDOMEN: Obese, soft. Bowel sounds normal. EXTREMITIES: Showed significant chronic changes with 3+ edema bilaterally extending up to his thighs. NEURO: Difficult to perform. LABORATORY DATA: Labs done today. Sodium 142, potassium 3.7, chloride 99, CO2 35, BUN 50, creatinine 2.05. Last hemoglobin level was 7.9, hematocrit 41, WBC is 8.1, platelets 211. IMPRESSION: 81-year-old male with: 1. Acute kidney injury. Acute kidney injury of the patient likely secondary to renal hypoperfusion in the setting of congestive heart failure. I do not see any significant nephrotoxic agents on his medication list. We need to rule out obstruction in this patient. At this juncture, I do not think patient has acute GN/interstitial disease. 2. Chronic kidney disease stage 3 at baseline. Baseline creatinine around 1.6 in the setting of longstanding hypertension, diabetes, likely due to hypertensive/diabetic renal disease. 3. Acute congestive heart failure exacerbation. 4. Acute hypoxemic respiratory failure in the setting of congestive heart failure. RECOMMENDATION: At this juncture, I recommend placing the patient on a strict 2 g sodium diet. I recommend strict input output charts. I advised the ER nursing staff to do a bladder scan and if he has increased postvoid, he needs to have a Lozano catheter. Echocardiogram and medical management of CHF as per medical team. I would avoid using REJI inhibitor or angiotensin receptor charmaine at this juncture. I recommend following urinalysis and culture on this patient. I agree with IV Lasix as ordered, and we will continue to follow the patient closely. Thank you for allowing me to participate in medical management of patient. MD YAIMA Castro/DEREJE / [id number]
--- NOTE | 2021-12-29 14:16 | P.PNCC_ITS ---
Subjective Subjective Date of Service: 12/29/21 Interval History: 81-year-old gentleman with underlying history of chronic diastolic congestive failure, CAD, COPD diabetes mellitus, CKD, paroxysmal AFib admitted on 12/26/2021 with progressive dyspnea over 3-4 months and treated for CHF and COPD exacerbation. Hospital course complicated by acute hypercapnic respiratory failure, likely secondary to hyperoxia, requiring intubation, ventilatory support, and transfer to ICU on 12/27/2021. patient has been treated with diuretics with significant improvement in his FiO2 requirements and hypercarbia. no events overnight. Critical Care Time (minutes): 45 Physical Exam Verdana 4l Vital Signs: Verdana 4d Verdana 4d Vital Signs: Verdana 4d Verdana 4Bd Last Vital Signs Verdana 4d Bilingual Sales Assistant New 4d Bilingual Sales Assistant New 4d Temp 98.8 F 12/29/21 14:00 Bilingual Sales Assistant New 4d Pulse 96 12/29/21 14:00 Bilingual Sales Assistant New 4d Resp 24 H 12/29/21 14:00 BP 140/64 H 12/29/21 14:00 Pulse Ox 92 12/29/21 14:00 BMI result Body Mass Index 33.3 Const: General: no acute distress and other ( Sedated on the vent, poor arousal with sedation vacation) Eyes: Sclerae: sclerae normal EOM: EOMs intact bilaterally Neck: Neck: Yes no lymphadenopathy, Yes trachea midline and Yes supple Resp: Auscultation: crackles ( bibasilar) Cardio: Rate: regular rate Rhythm: regular rhythm Heart sounds: no gallops, no murmurs and no rubs GI: Palpation (GI): Soft to palpation and Other GI palpation findings present ( Nontender) Auscultation: normal bowel sounds Extrem: General: No clubbing, No cyanosis and Yes pedal edema ( 2+ bilateral) Objective Data Labs CBC & Chem 7: 12/29/21 05:09 12/29/21 11:46 Labs: Laboratory Results - last 24 hr 12/28/21 12/28/21 12/28/21 17:47 21:50 23:53 WBC RBC Hgb Hct MCV MCH MCHC RDW Plt Count MPV Immature Gran % (Auto) Neut % (Auto) Lymph % (Auto) [place] % (Auto) Eos % (Auto) Baso % (Auto) Lymph # (Auto) [place] # (Auto) Eos # (Auto) Baso # (Auto) Abs Immat Gran (auto) Absolute Neuts (auto) Absolute Nucleated RBC Nucleated RBC % (auto) Smear Tech's Comments VBG pH VBG pCO2 VBG pO2 VBG HCO3 VBG O2 Saturation VBG Base Excess Sodium 145 Potassium 2.8 L Chloride 94 L Carbon Dioxide 38 H Anion Gap 16 BUN 48 H Creatinine 1.87 H Estim Creat Clear Calc 38.2 Estimated GFR 35 POC Glucose 168 H 191 H Random Glucose 206 H Calcium 8.9 Phosphorus Magnesium Total Bilirubin Direct Bilirubin AST ALT Alkaline Phosphatase Total Protein Albumin 12/29/21 12/29/21 12/29/21 05:08 05:09 05:09 WBC 10.8 RBC 4.01 L Hgb 11.2 L Hct 36.3 L MCV 90.5 MCH 27.9 MCHC 30.9 L RDW 15.6 Plt Count 266 MPV 9.8 Immature Gran % (Auto) 0.6 H Neut % (Auto) 92.7 H Lymph % (Auto) 4.2 L [place] % (Auto) 2.4 Eos % (Auto) 0.0 Baso % (Auto) 0.1 Lymph # (Auto) 0.5 L [place] # (Auto) 0.3 Eos # (Auto) 0.0 Baso # (Auto) 0.0 Abs Immat Gran (auto) 0.06 H Absolute Neuts (auto) 10.0 H Absolute Nucleated RBC 0.000 Nucleated RBC % (auto) 0.0 Smear Tech's Comments VERIFIED VBG pH 7.55 H VBG pCO2 51 VBG pO2 50 VBG HCO3 45 H VBG O2 Saturation 83.0 VBG Base Excess 20.5 Sodium 144 Potassium 3.0 L Chloride 94 L Carbon Dioxide 38 H Anion Gap 15 BUN 49 H Creatinine 1.79 H Estim Creat Clear Calc 39.3 Estimated GFR 37 POC Glucose Random Glucose 214 H Calcium 8.7 Phosphorus 3.0 Magnesium 1.7 Total Bilirubin 0.6 Direct Bilirubin 0.3 AST 9 ALT 6 Alkaline Phosphatase 51 Total Protein 5.3 L Albumin 3.0 L 12/29/21 12/29/21 12/29/21 05:39 11:46 12:09 WBC RBC Hgb Hct MCV MCH MCHC RDW Plt Count MPV Immature Gran % (Auto) Neut % (Auto) Lymph % (Auto) [place] % (Auto) Eos % (Auto) Baso % (Auto) Lymph # (Auto) [place] # (Auto) Eos # (Auto) Baso # (Auto) Abs Immat Gran (auto) Absolute Neuts (auto) Absolute Nucleated RBC Nucleated RBC % (auto) Smear Tech's Comments VBG pH VBG pCO2 VBG pO2 VBG HCO3 VBG O2 Saturation VBG Base Excess Sodium 145 Potassium 3.3 Chloride 95 L Carbon Dioxide 41 H* Anion Gap 12 BUN 50 H Creatinine 1.80 H Estim Creat Clear Calc 39.0 Estimated GFR 36 POC Glucose 215 H 187 H Random Glucose 225 H Calcium 8.8 Phosphorus Magnesium Total Bilirubin Direct Bilirubin AST ALT Alkaline Phosphatase Total Protein Albumin Microbiology Microbiology Results: Microbiology 12/26/21 17:37 Blood - Venous Blood Culture - Preliminary No growth after 48 hours. 12/26/21 16:56 Blood - Venous Blood Culture - Preliminary No growth after 48 hours. 12/26/21 Unknown Urine clean catch - Urine ty top Urine Culture - Final Progress Note: A&P Assessment and plan (1) Acute on chronic respiratory failure with hypoxia and hypercapnia: Status: Acute (2) Acute renal failure superimposed on stage 3 chronic kidney disease: Status: Acute (3) Acute congestive heart failure: Status: Acute (4) COPD (chronic obstructive pulmonary disease): Status: Acute (5) Paroxysmal atrial fibrillation: Status: Acute (6) Diabetes mellitus: Status: Acute (7) Acute metabolic encephalopathy: Status: Acute Plan Assessment: 81-year-old gentleman with underlying CHF, COPD, CAD, AFib admitted with dyspnea secondary to exacerbation of underlying CHF and COPD further complicated by acute hypercapnic respiratory failure requiring intubation and ventilatory support. Plan: Neuro: Acute metabolic encephalopathy secondary to CO2 narcosis, improving with ventilatory support. Cardiac: Acute on chronic diastolic congestive heart failure. Improving with diuresis. 2D echocardiogram is pending. Underlying paroxysmal AFib. Continue on anticoagulation. Pulmonary: Acute hypoxic and hypercapnic respiratory failure requiring ventilatory support. Continue to titrate off as tolerated. Underlying COPD. Renal: Acute on chronic renal failure improving with diuresis. Non oliguric. Continue to monitor renal indices and urine output. Endo: No acute issues. Underlying diabetes mellitus. GI: No acute issues. ID: No acute issues Heme/Onc: No acute issues. Psych: No acute issues. Miscellaneous: No acute issues. Prophylaxis: Apixaban, ppi Diet: Tube feeds Critical care time spent: 45 minutes Quality Stroke Does the patient have a stroke diagnosis?: No VTE Prior VTE?: No VTE Risk Level:: Medical - moderate - high VTE Device Contraindication: Treatment Not Indicated VTE Drug Contraindication: N/A - Med Ordered
[2021-12-29] MEDS: Furosemide 200 MG in 0.9 % Sodium Chloride 80 ML IVCONT (16:56)
[2021-12-29 18:02] LABS: Glucose, Whole Blood 213 mg/dL (60-115)
--- NOTE | 2021-12-29 18:39 | PC.NURSE ---
SEDATION VACATION STARTED AT BEGINNING OF EEG AT 1145. ENDED AT 1403. PATIENT WOULD PARTIALLY OPEN EYES. SHAKE HEAD NO FOR PAIN, BUT COULD NOT FOLLOW COMMANDS. PATIENT OCCASIONALLY TREMULOUS. MD BEDSIDE TO EVALUATE FINDINGS. DOPPLAR USED FOR BILATERAL PEDAL PULSES. RIGHT = FAINT, LEFT = WNL. +3 - +4 EDEMA - LASIX GTT STARTED AT 1657. SEE EMAR. Q2HR REPO, TOTAL BATH, PREVALON MATTRESS, WEDGES, PILLOWS AND HEELBOS USED. HCP SILVIA UPDATED BY THIS RN.
[2021-12-29 22:45] LABS: Glucose, Whole Blood 191 mg/dL (60-115)
[2021-12-30] VITALS (31 sets, daily range): BP systolic 112–137; BP diastolic 52–69; PULSE 80–101; RESP 12–24; TEMP 33–37.5; O2SAT 88–96; BMI 33.3
[2021-12-30] MEDS: 0.9 % Sodium Chloride Flush 3 ML SYRINGE IVFLUSH ×3 (00:15→14:54)
[2021-12-30] MEDS: propofoL 1,000 MG/100 ML VIAL 19.6 MG IVCONT ×2 (03:24→08:21)
[2021-12-30] MEDS: Albuterol/Iprat 2.5/0.5MG 3 ML AMPUL.NEB INHALE ×6 (04:19→23:56)
[2021-12-30 05:21] LABS: MANUAL DIFF FLAG NO
[2021-12-30 05:22] LABS: Basophils Percent Auto 0.1 % (0-2); Eosinophils Percent Auto 0.1 % (0-4); Hematocrit 37.9 % (42.0-52.0); Hemoglobin 11.5 g/dl (14.0-18.0); Imm Gran Abs Auto 0.05 X10*3/uL (0.00-0.03); Imm Gran Pct Auto 0.4 % (0.0-0.4); Lymphocytes Absolute Auto 0.8 X10*3/uL (1.2-4.9); Lymphocytes Percent Auto 5.9 % (20-40); Mean Corpuscular HGB Conc 30.3 g/dl (31.0-36.0); Mean Corpuscular Hemoglobin 28.1 pg (27.0-33.0); Mean Corpuscular Volume 92.7 fL (80.0-98.0); Mean Platelet Volume 9.5 fL (9.4-12.4); Monocytes Absolute Auto 0.9 X10*3/uL (0.1-1.2); Neutrophils Absolute Auto 12.4 x10*3/uL (2.0-8.3); Neutrophils Percent Auto 87.5 % (45-73); Platelet Count 254 X10*3/uL (160-400); Red Blood Count 4.09 X10*6/uL (4.60-5.80); Red Cell Distribution Width 15.9 % (11.0-16.0); White Blood Count 14.1 X10*3/uL (4.8-10.8)
[2021-12-30 05:25] LABS: VBG Base Excess 21.5 mmol/L; VBG HCO3 47 mmol/L (22-26); VBG pCO2 58 mmHg; VBG pH 7.52 (7.32-7.43); VBG pO2 79 mmHg
[2021-12-30 05:27] LABS: Venous Blood Gas Refer to POC result
[2021-12-30 05:35] LABS: Glucose, Whole Blood 197 mg/dL (60-115)
[2021-12-30 05:44] LABS: Albumin Level 3.2 g/dL (3.5-5.0); Anion Gap 14 (12-20); Blood Urea Nitrogen 55 mg/dL (9-16); Calcium 8.8 mg/dL (8.4-10.2); Carbon Dioxide 41 mmol/L (22-29); Chloride 93 mmol/L (96-108); Creatinine Clr Calc Pharmacy 40.2; Estimated Glomerular Filt Rate 38; Glucose Random 213 mg/dL (60-115); Magnesium 1.8 mg/dL (1.6-2.6); Phosphorus 3.9 mg/dL (2.7-4.5); Potassium 3.6 mmol/L (3.3-5.1); Sodium 144 mmol/L (135-145)
[2021-12-30] MEDS: Pantoprazole Sodium 40 MG/10 ML VIAL IVPUSH (06:26)
[2021-12-30] MEDS: Nicotine 14 MG PATCH.TD24 TRANSDERMA (08:23)
[2021-12-30] MEDS: Potassium Chloride/H20 40 MEQ/100 ML PIGGYBACK 100 MEQ IV (08:23)
[2021-12-30] MEDS: Chlorhexidine Gluc Oral Rinse 15 ML MOUTHWASH BUCCAL (08:23)
[2021-12-30] MEDS: Magnesium Sulfate/H2O 2 GM/50 ML PIGGYBACK IV (08:24)
[2021-12-30] MEDS: Albumin Human 25 % 100 ML IV ×3 (08:24→20:32)
[2021-12-30] MEDS: acetaZOLAMIDE sodium 500 MG VIAL 250 MG IVPUSH ×2 (08:25→20:33)
[2021-12-30] MEDS: Tamsulosin HCL 0.4 MG CAPSULE PO (08:27)
[2021-12-30] MEDS: Clopidogrel Bisulfate 75 MG TABLET PO (08:27)
[2021-12-30] MEDS: Apixaban 2.5 MG TABLET PO ×2 (08:27→20:34)
[2021-12-30] MEDS: Nystatin Powder 15 GM BOTTLE 1 APPL TOPICAL ×3 (08:28→20:35)
[2021-12-30] MEDS: Ammonium Lactate 12 % Cream 140 GM TUBE 1 APPL TOPICAL (08:28)
[2021-12-30] MEDS: Furosemide 200 MG in 0.9 % Sodium Chloride 80 ML IVCONT (09:36)
--- NOTE | 2021-12-30 11:10 | PC.NURSE ---
sedation vacation initiated, weaned and off prop at 1100, follows commands squeezes hands bilaterally, moves feet up and down to command, shakes head yes/ no, PSV started 5/5 FiO2 45% Vt 220 Ve 6L/min RR 22-25 SaO2 88-92%, ETCO2 41, MD aware. Will continue to monitor. Bed locked and in lowest position.
[2021-12-30 12:37] LABS: Glucose, Whole Blood 159 mg/dL (60-115)
--- NOTE | 2021-12-30 12:45 | P.PNCC_ITS ---
Subjective Subjective Date of Service: 12/30/21 Interval History: 81-year-old gentleman with underlying history of chronic diastolic congestive failure, CAD, COPD diabetes mellitus, CKD, paroxysmal AFib admitted on 12/26/2021 with progressive dyspnea over 3-4 months and treated for CHF and COPD exacerbation. Hospital course complicated by acute hypercapnic respiratory failure, likely secondary to hyperoxia, requiring intubation, ventilatory support, and transfer to ICU on 12/27/2021. Patient has been treated with diuretics with significant improvement in his FiO2 requirements and hypercarbia. No events overnight. Critical Care Time (minutes): 45 Physical Exam Vital Signs: Vital Signs: Last Vital Signs Temp 99.5 F 12/30/21 12:00 Pulse 95 12/30/21 12:00 Resp 21 H 12/30/21 12:00 BP 115/59 L 12/30/21 12:00 Pulse Ox 94 12/30/21 12:00 BMI result Body Mass Index 33.3 Const: General: no acute distress and other ( sedated on the vent) Eyes: Sclerae: sclerae normal EOM: EOMs intact bilaterally Neck: Neck: Yes no lymphadenopathy, Yes trachea midline and Yes supple Resp: Effort & Inspection: normal respiratory effort and no respiratory distress Auscultation: crackles ( bibasilar) Cardio: Rate: regular rate Rhythm: regular rhythm Heart sounds: no gallops, no murmurs and no rubs GI: Palpation (GI): Soft to palpation and Other GI palpation findings present ( Nontender) Auscultation: normal bowel sounds Extrem: General: No clubbing, No cyanosis and Yes pedal edema ( 2+ bilateral) Objective Data Labs CBC & Chem 7: 12/30/21 05:10 12/30/21 05:10 Labs: Laboratory Results - last 24 hr 12/29/21 12/29/21 12/30/21 17:53 22:37 05:10 WBC 14.1 H RBC 4.09 L Hgb 11.5 L Hct 37.9 L MCV 92.7 MCH 28.1 MCHC 30.3 L RDW 15.9 Plt Count 254 MPV 9.5 Immature Gran % (Auto) 0.4 Neut % (Auto) 87.5 H Lymph % (Auto) 5.9 L [place] % (Auto) 6.0 Eos % (Auto) 0.1 Baso % (Auto) 0.1 Lymph # (Auto) 0.8 L [place] # (Auto) 0.9 Eos # (Auto) 0.0 Baso # (Auto) 0.0 Abs Immat Gran (auto) 0.05 H Absolute Neuts (auto) 12.4 H Absolute Nucleated RBC 0.000 Nucleated RBC % (auto) 0.0 VBG pH VBG pCO2 VBG pO2 VBG HCO3 VBG O2 Saturation VBG Base Excess Sodium Potassium Chloride Carbon Dioxide Anion Gap BUN Creatinine Estim Creat Clear Calc Estimated GFR POC Glucose 213 H 191 H Random Glucose Calcium Phosphorus Magnesium Albumin 12/30/21 12/30/21 12/30/21 05:10 05:18 05:26 WBC RBC Hgb Hct MCV MCH MCHC RDW Plt Count MPV Immature Gran % (Auto) Neut % (Auto) Lymph % (Auto) [place] % (Auto) Eos % (Auto) Baso % (Auto) Lymph # (Auto) [place] # (Auto) Eos # (Auto) Baso # (Auto) Abs Immat Gran (auto) Absolute Neuts (auto) Absolute Nucleated RBC Nucleated RBC % (auto) VBG pH 7.52 H VBG pCO2 58 VBG pO2 79 VBG HCO3 47 H VBG O2 Saturation 96.0 VBG Base Excess 21.5 Sodium 144 Potassium 3.6 Chloride 93 L Carbon Dioxide 41 H* Anion Gap 14 BUN 55 H Creatinine 1.75 H Estim Creat Clear Calc 40.2 Estimated GFR 38 POC Glucose 197 H Random Glucose 213 H Calcium 8.8 Phosphorus 3.9 Magnesium 1.8 Albumin 3.2 L 12/30/21 12:05 WBC RBC Hgb Hct MCV MCH MCHC RDW Plt Count MPV Immature Gran % (Auto) Neut % (Auto) Lymph % (Auto) [place] % (Auto) Eos % (Auto) Baso % (Auto) Lymph # (Auto) [place] # (Auto) Eos # (Auto) Baso # (Auto) Abs Immat Gran (auto) Absolute Neuts (auto) Absolute Nucleated RBC Nucleated RBC % (auto) VBG pH VBG pCO2 VBG pO2 VBG HCO3 VBG O2 Saturation VBG Base Excess Sodium Potassium Chloride Carbon Dioxide Anion Gap BUN Creatinine Estim Creat Clear Calc Estimated GFR POC Glucose 159 H Random Glucose Calcium Phosphorus Magnesium Albumin Microbiology Microbiology Results: Microbiology 12/28/21 22:21 Urine Catheterized - Lozano Catheter Urine Culture - Final No growth. 12/26/21 17:37 Blood - Venous Blood Culture - Preliminary No growth after 48 hours. 12/26/21 16:56 Blood - Venous Blood Culture - Preliminary No growth after 48 hours. 12/26/21 Unknown Urine clean catch - Urine ty top Urine Culture - Final Progress Note: A&P Assessment and plan (1) Acute metabolic encephalopathy: Status: Acute (2) Acute on chronic respiratory failure with hypoxia and hypercapnia: Status: Acute (3) Acute renal failure superimposed on stage 3 chronic kidney disease: Status: Acute (4) Acute congestive heart failure: Status: Acute (5) Diabetes mellitus: Status: Acute (6) Paroxysmal atrial fibrillation: Status: Acute (7) COPD (chronic obstructive pulmonary disease): Status: Acute Plan Assessment: 81-year-old gentleman with underlying CHF, COPD, CAD, AFib admitted with dyspnea secondary to exacerbation of underlying CHF and COPD further compli cated by acute hypercapnic respiratory failure requiring intubation and ventilatory support. Plan: Neuro: Acute metabolic encephalopathy secondary to CO2 narcosis, improving with ventilatory support. Cardiac: Acute on chronic diastolic congestive heart failure. Improving with diuresis. 2D echocardiogram with redemonstration of diastolic dysfunction. Underlying paroxysmal AFib. Continue on anticoagulation. Pulmonary: Acute hypoxic and hypercapnic respiratory failure requiring ventilat ory support. Continue to titrate off as tolerated. Underlying COPD. Renal: Acute on chronic renal failure improving with diuresis. Non oliguric. Continue to monitor renal indices and urine output. Endo: No acute issues. Underlying diabetes mellitus. GI: No acute issues. ID: No acute issues Heme/Onc: No acute issues. Psych: No acute issues. Miscellaneous: No acute issues. Prophylaxis: Apixaban, ppi Diet: Tube feeds Critical care time spent: 45 minutes Quality Stroke Does the patient have a stroke diagnosis?: No VTE Prior VTE?: No VTE Risk Level:: Medical - moderate - high VTE Device Contraindication: Treatment Not Indicated VTE Drug Contraindication: N/A - Med Ordered
[2021-12-30] MEDS: Insulin Lispro 100 UNIT/ML 3 ML VIAL SUBCUT (13:24)
[2021-12-30 14:08] LABS: Venous Blood Gas Refer to POC result
[2021-12-30 14:09] LABS: VBG Base Excess 23.4 mmol/L; VBG HCO3 52 mmol/L (22-26); VBG pCO2 80 mmHg; VBG pH 7.42 (7.32-7.43); VBG pO2 62 mmHg
--- NOTE | 2021-12-30 15:06 | PC.NURSE ---
Skin assessment completed today. Patient has a blister to left posterior thigh. Covered with gauze and Tegaderm. Redness to bilateral buttocks-barrier cream applied.
--- NOTE | 2021-12-30 16:20 | MHC.CM.PN ---
Pt continues in ICU: responding to diuresis: L/M for pt's HCP/Friend, Jozef to discuss d/c planning and options. Awaiting call back. CM to follow
[2021-12-30 17:55] LABS: Glucose, Whole Blood 130 mg/dL (60-115)
--- NOTE | 2021-12-30 18:31 | P.PNNP_ITS ---
Subjective Subjective Date of Service: 12/30/21 Interval history: Seen and examined, events noted Physical Exam Vital Signs: Vital Signs: Last Vital Signs Temp 99.5 F 12/30/21 12:00 Pulse 89 12/30/21 18:00 Resp 15 12/30/21 18:00 BP 124/62 12/30/21 18:00 Pulse Ox 96 12/30/21 18:00 BMI result Body Mass Index 33.3 Const: Other: intubated and sedated General: cooperative, healthy appearing, comfortable, no acute distress and lethargic Nutritional Appearance: obese Orientation/consciousness: patient oriented x3 and lethargic Limitations: no limitations HENMT: Other: Unremarkable Head: Yes normal to inspection, Yes No palpable skull fracture present, Yes normocephalic and Yes atraumatic Ears: hearing grossly normal bilaterally and TM's normal bilaterally General nose exam: Normal external nose present Face and sinus: Yes normal facial exam Mouth: Normal oral and palatal mucosa present Throat: Yes posterior oropharynx normal, Yes tonsils normal and Yes uvula midline Eyes: Other: Swelling of the right upper eyelid-EOM intact, PERRLA General: appearance normal, both eyes and all related structures Eyelids: Yes eyelid abnormality ( right eyelid edema) Pupils: Equal, round and reactive pupils present EOM: EOMs intact bilaterally Neck: Neck: Yes normal visual inspection, Yes full ROM, Yes no lymphadenopathy, Yes trachea midline, Yes supple and Yes JVD Chest: Chest palpation & inspection: normal inspection of the chest Resp: Other: bilateral coarse breath sounds Effort & Inspection: normal respiratory effort Auscultation: clear to auscultation bilaterally, wheezes scattered wheezes and throughout and diminished lung sounds diffuse Cardio: Other: unable to listed to heart sounds due to coarse breath sounds and patient unable to follow commands Jugular venous distension: other Palpation: normal PMI Rate: regular rate Rhythm: regular rhythm Heart sounds: S1 normal heart sound present, S2 normal heart sound present, no gallops, no murmurs, no rubs and normal S1 and S2 Peripheral pulses: Peripheral pulses 2+ throughout GI: Inspection: Yes normal to inspection, Yes obesity and Yes other (umbilical hernia) Palpation (GI): Soft to palpation and nontender Auscultation: normal bowel sounds Back/Spine/Pelvis: Other: unremarkable Thoracic/Lumbar Spine: thoracic and lumbar spine normal to inspection Skin: General skin exam: no rashes or lesions noted Lesions: other Neuro: General: patient oriented x3, no focal motor deficits, normal sensation to monofilament and other Cranial nerves: Yes Equal, round and reactive pupils present Cognition (Neuro): normal cognition Speech: No Abnormal speech present Gait exam (Neuro): Normal gait present Motor exam (neuro): 5/5 motor strength present throughout Extrem: Other: chronically red swollen legs,venous stasis General: Yes normal to inspection, Yes no calf tenderness, Yes edema (Bilateral pedal edema extending over the knees 2+. No erythema) and Yes other Right lower extremity: edema (lower leg) Details: pitting and 3+ Left lower extremity: edema (lower leg) Details: pitting and 3+ and foot Details: vascular exam Details: posterior tibial pulse present and coolness (cool) Location: of the entire foot Psych: Mental Status: other Objective Data Labs CBC & Chem 7: 12/30/21 05:10 12/30/21 05:10 Labs: Laboratory Results - last 24 hr 12/29/21 12/30/21 12/30/21 22:37 05:10 05:10 WBC 14.1 H RBC 4.09 L Hgb 11.5 L Hct 37.9 L MCV 92.7 MCH 28.1 MCHC 30.3 L RDW 15.9 Plt Count 254 MPV 9.5 Immature Gran % (Auto) 0.4 Neut % (Auto) 87.5 H Lymph % (Auto) 5.9 L [place] % (Auto) 6.0 Eos % (Auto) 0.1 Baso % (Auto) 0.1 Lymph # (Auto) 0.8 L [place] # (Auto) 0.9 Eos # (Auto) 0.0 Baso # (Auto) 0.0 Abs Immat Gran (auto) 0.05 H Absolute Neuts (auto) 12.4 H Absolute Nucleated RBC 0.000 Nucleated RBC % (auto) 0.0 VBG pH VBG pCO2 VBG pO2 VBG HCO3 VBG O2 Saturation VBG Base Excess Sodium 144 Potassium 3.6 Chloride 93 L Carbon Dioxide 41 H* Anion Gap 14 BUN 55 H Creatinine 1.75 H Estim Creat Clear Calc 40.2 Estimated GFR 38 POC Glucose 191 H Random Glucose 213 H Calcium 8.8 Phosphorus 3.9 Magnesium 1.8 Albumin 3.2 L 12/30/21 12/30/21 12/30/21 05:18 05:26 12:05 WBC RBC Hgb Hct MCV MCH MCHC RDW Plt Count MPV Immature Gran % (Auto) Neut % (Auto) Lymph % (Auto) [place] % (Auto) Eos % (Auto) Baso % (Auto) Lymph # (Auto) [place] # (Auto) Eos # (Auto) Baso # (Auto) Abs Immat Gran (auto) Absolute Neuts (auto) Absolute Nucleated RBC Nucleated RBC % (auto) VBG pH 7.52 H VBG pCO2 58 VBG pO2 79 VBG HCO3 47 H VBG O2 Saturation 96.0 VBG Base Excess 21.5 Sodium Potassium Chloride Carbon Dioxide Anion Gap BUN Creatinine Estim Creat Clear Calc Estimated GFR POC Glucose 197 H 159 H Random Glucose Calcium Phosphorus Magnesium Albumin 12/30/21 12/30/21 14:00 17:44 WBC RBC Hgb Hct MCV MCH MCHC RDW Plt Count MPV Immature Gran % (Auto) Neut % (Auto) Lymph % (Auto) [place] % (Auto) Eos % (Auto) Baso % (Auto) Lymph # (Auto) [place] # (Auto) Eos # (Auto) Baso # (Auto) Abs Immat Gran (auto) Absolute Neuts (auto) Absolute Nucleated RBC Nucleated RBC % (auto) VBG pH 7.42 VBG pCO2 80 VBG pO2 62 VBG HCO3 52 H VBG O2 Saturation 86.0 VBG Base Excess 23.4 Sodium Potassium Chloride Carbon Dioxide Anion Gap BUN Creatinine Estim Creat Clear Calc Estimated GFR POC Glucose 130 H Random Glucose Calcium Phosphorus Magnesium Albumin Microbiology Microbiology Results: Microbiology 12/28/21 22:21 Urine Catheterized - Lozano Catheter Urine Culture - Final No growth. 12/26/21 17:37 Blood - Venous Blood Culture - Preliminary No growth after 48 hours. 12/26/21 16:56 Blood - Venous Blood Culture - Preliminary No growth after 48 hours. 12/26/21 Unknown Urine clean catch - Urine ty top Urine Culture - Final Procedures Date of Service Date of Service: 12/30/21 Assessment & Plan Assessment and plan (1) Acute renal failure superimposed on stage 3 chronic kidney disease: Status: Acute (2) Acute on chronic respiratory failure with hypoxia and hypercapnia: Status: Acute Assessment and Plan: 80-year-old male with a past medical history of hypertension, diabetes, CAD status post stent, paroxysmal AFib on Eliquis, CKD 3, chronic back pain, COPD, history of PE, abdominal aortic aneurysm , history of prostate cancer status post radiotherapy, history of cystoscopy, history of ESBL UTI - recurrent;presented to the hospital the chief complaint of frequency urgency dysuria. SOB 1. CRISTY - in the setting of CHF/ renal hypoperfusion / Sepsis- Cr back to bsl 2. CKD 3: SCr 1.5--2.0 3. Recurrent UTI: Patient has prior history of ESBL UTI in 03/12, and another bout of recent UTI with Klebsiella last month. 4. Resp Failute - Hypoxmic/ Hypercarbic - COPD 5. H/o PE/ AFIB 6. Metabolic Alk: HCO3 remains 41 despite geting diamox 250---ques remains what is target for HCO3 7. Hypervol: getting diuresis REC: agree with iv diamoix but incr to 500 q8; --? target HCO3 30 range (3) Hypoxia: Status: Acute (4) CHF (congestive heart failure): Status: Acute Time Spent With Patient Time: Total time spent is greater than 50% in coordination of care (as documented) at patient's floor/unit and/or counseling patient: Progress Note: Quality Stroke Does the patient have a stroke diagnosis?: No
[2021-12-30 19:15] LABS: Glucose, Whole Blood 139 mg/dL (60-115)
[2021-12-30 23:36] LABS: Glucose, Whole Blood 145 mg/dL (60-115)
[2021-12-31] VITALS (19 sets, daily range): BP systolic 104–149; BP diastolic 45–80; PULSE 73–96; RESP 12–24; TEMP 36.9–37.6; O2SAT 87–94; BMI 32.7
[2021-12-31] MEDS: Furosemide 200 MG in 0.9 % Sodium Chloride 80 ML IVCONT (00:36)
[2021-12-31] MEDS: Albumin Human 25 % 100 ML IV (03:37)
[2021-12-31 05:31] LABS: Glucose, Whole Blood 124 mg/dL (60-115)
[2021-12-31 06:00] LABS: VBG Base Excess 27.4 mmol/L; VBG HCO3 57 mmol/L (22-26); VBG pCO2 84 mmHg; VBG pH 7.44 (7.32-7.43); VBG pO2 54 mmHg
[2021-12-31 06:19] LABS: MANUAL DIFF FLAG NO
[2021-12-31 06:28] LABS: Basophils Percent Auto 0.1 % (0-2); Eosinophils Percent Auto 0.3 % (0-4); Hematocrit 38.9 % (42.0-52.0); Hemoglobin 11.1 g/dl (14.0-18.0); Imm Gran Abs Auto 0.03 X10*3/uL (0.00-0.03); Imm Gran Pct Auto 0.3 % (0.0-0.4); Lymphocytes Absolute Auto 1.6 X10*3/uL (1.2-4.9); Lymphocytes Percent Auto 14.6 % (20-40); Mean Corpuscular HGB Conc 28.5 g/dl (31.0-36.0); Mean Corpuscular Hemoglobin 27.5 pg (27.0-33.0); Mean Corpuscular Volume 96.3 fL (80.0-98.0); Mean Platelet Volume 10.1 fL (9.4-12.4); Monocytes Percent Auto 9.3 % (2-11); Neutrophils Absolute Auto 8.3 x10*3/uL (2.0-8.3); Neutrophils Percent Auto 75.4 % (45-73); Platelet Count 230 X10*3/uL (160-400); Red Blood Count 4.04 X10*6/uL (4.60-5.80); Red Cell Distribution Width 15.9 % (11.0-16.0)
[2021-12-31 07:17] LABS: Anion Gap 17 (12-20); Blood Urea Nitrogen 57 mg/dL (9-16); Calcium 9.1 mg/dL (8.4-10.2); Carbon Dioxide 42 mmol/L (22-29); Chloride 93 mmol/L (96-108); Creatinine Clr Calc Pharmacy 38.9; Estimated Glomerular Filt Rate 37; Glucose Random 123 mg/dL (60-115); Phosphorus 4.3 mg/dL (2.7-4.5); Potassium 3.7 mmol/L (3.3-5.1); Sodium 148 mmol/L (135-145)
[2021-12-31] MEDS: Tamsulosin HCL 0.4 MG CAPSULE PO (08:15)
[2021-12-31] MEDS: Nicotine 14 MG PATCH.TD24 TRANSDERMA (08:16)
[2021-12-31] MEDS: Clopidogrel Bisulfate 75 MG TABLET PO (08:16)
[2021-12-31] MEDS: Apixaban 2.5 MG TABLET PO ×2 (08:16→20:23)
[2021-12-31] MEDS: acetaZOLAMIDE sodium 500 MG VIAL 250 MG IVPUSH ×2 (08:16→20:23)
[2021-12-31] MEDS: 0.9 % Sodium Chloride Flush 3 ML SYRINGE IVFLUSH ×2 (08:16→20:23)
[2021-12-31] MEDS: Nystatin Powder 15 GM BOTTLE 1 APPL TOPICAL (08:18)
[2021-12-31] MEDS: Ammonium Lactate 12 % Cream 140 GM TUBE 1 APPL TOPICAL (08:18)
[2021-12-31] MEDS: Albuterol/Iprat 2.5/0.5MG 3 ML AMPUL.NEB INHALE ×3 (08:54→19:34)
[2021-12-31] MEDS: Furosemide 40 MG/4 ML VIAL IVPUSH (09:49)
--- NOTE | 2021-12-31 11:30 | P.PNNP_ITS ---
Subjective Subjective Date of Service: 12/31/21 Interval history: Seen and examined, events noted Physical Exam Vital Signs: Vital Signs: Last Vital Signs Temp 99.7 F 12/31/21 08:00 Pulse 75 12/31/21 11:00 Resp 15 12/31/21 11:00 BP 141/66 H 12/31/21 11:00 Pulse Ox 94 12/31/21 11:00 BMI result Body Mass Index 32.7 Const: Other: intubated and sedated General: cooperative, healthy appearing, comfortable, no acute distress and lethargic Nutritional Appearance: obese Orientation/consciousness: patient oriented x3 and lethargic Limitations: no limitations HENMT: Other: Unremarkable Head: Yes normal to inspection, Yes No palpable skull fracture present, Yes normocephalic and Yes atraumatic Ears: hearing grossly normal bilaterally and TM's normal bilaterally General nose exam: Normal external nose present Face and sinus: Yes normal facial exam Mouth: Normal oral and palatal mucosa present Throat: Yes posterior oropharynx normal, Yes tonsils normal and Yes uvula midline Eyes: Other: Swelling of the right upper eyelid-EOM intact, PERRLA General: appearance normal, both eyes and all related structures Eyelids: Yes eyelid abnormality ( right eyelid edema) Pupils: Equal, round and reactive pupils present EOM: EOMs intact bilaterally Neck: Neck: Yes normal visual inspection, Yes full ROM, Yes no lymphadenopathy, Yes trachea midline, Yes supple and Yes JVD Chest: Chest palpation & inspection: normal inspection of the chest Resp: Other: bilateral coarse breath sounds Effort & Inspection: normal respiratory effort Auscultation: clear to auscultation bilaterally, wheezes scattered wheezes and throughout and diminished lung sounds diffuse Cardio: Other: unable to listed to heart sounds due to coarse breath sounds and patient unable to follow commands Jugular venous distension: other Palpation: normal PMI Rate: regular rate Rhythm: regular rhythm Heart sounds: S1 normal heart sound present, S2 normal heart sound present, no gallops, no murmurs, no rubs and normal S1 and S2 Peripheral pulses: Peripheral pulses 2+ throughout GI: Inspection: Yes normal to inspection, Yes obesity and Yes other (umbilical hernia) Palpation (GI): Soft to palpation and nontender Auscultation: normal bowel sounds Back/Spine/Pelvis: Other: unremarkable Thoracic/Lumbar Spine: thoracic and lumbar spine normal to inspection Skin: General skin exam: no rashes or lesions noted Lesions: other Neuro: General: patient oriented x3, no focal motor deficits, normal sensation to monofilament and other Cranial nerves: Yes Equal, round and reactive pupils present Cognition (Neuro): normal cognition Speech: No Abnormal speech present Gait exam (Neuro): Normal gait present Motor exam (neuro): 5/5 motor strength present throughout Extrem: Other: chronically red swollen legs,venous stasis General: Yes normal to inspection, Yes no calf tenderness, Yes edema (Bilateral pedal edema extending over the knees 2+. No erythema) and Yes other Right lower extremity: edema (lower leg) Details: pitting and 3+ Left lower extremity: edema (lower leg) Details: pitting and 3+ and foot Details: vascular exam Details: posterior tibial pulse present and coolness (cool) Location: of the entire foot Psych: Mental Status: other Objective Data Labs CBC & Chem 7: 12/31/21 05:50 12/31/21 05:50 Labs: Laboratory Results - last 24 hr 12/30/21 12/30/21 12/30/21 12:05 14:00 17:44 WBC RBC Hgb Hct MCV MCH MCHC RDW Plt Count MPV Immature Gran % (Auto) Neut % (Auto) Lymph % (Auto) [place] % (Auto) Eos % (Auto) Baso % (Auto) Lymph # (Auto) [place] # (Auto) Eos # (Auto) Baso # (Auto) Abs Immat Gran (auto) Absolute Neuts (auto) Absolute Nucleated RBC Nucleated RBC % (auto) VBG pH 7.42 VBG pCO2 80 VBG pO2 62 VBG HCO3 52 H VBG O2 Saturation 86.0 VBG Base Excess 23.4 Sodium Potassium Chloride Carbon Dioxide Anion Gap BUN Creatinine Estim Creat Clear Calc Estimated GFR POC Glucose 159 H 130 H Random Glucose Calcium Phosphorus Magnesium Albumin 12/30/21 12/30/21 12/31/21 19:09 23:27 05:15 WBC RBC Hgb Hct MCV MCH MCHC RDW Plt Count MPV Immature Gran % (Auto) Neut % (Auto) Lymph % (Auto) [place] % (Auto) Eos % (Auto) Baso % (Auto) Lymph # (Auto) [place] # (Auto) Eos # (Auto) Baso # (Auto) Abs Immat Gran (auto) Absolute Neuts (auto) Absolute Nucleated RBC Nucleated RBC % (auto) VBG pH VBG pCO2 VBG pO2 VBG HCO3 VBG O2 Saturation VBG Base Excess Sodium Potassium Chloride Carbon Dioxide Anion Gap BUN Creatinine Estim Creat Clear Calc Estimated GFR POC Glucose 139 H 145 H 124 H Random Glucose Calcium Phosphorus Magnesium Albumin 12/31/21 12/31/21 12/31/21 05:50 05:50 05:52 WBC 11.0 H RBC 4.04 L Hgb 11.1 L Hct 38.9 L MCV 96.3 MCH 27.5 MCHC 28.5 L RDW 15.9 Plt Count 230 MPV 10.1 Immature Gran % (Auto) 0.3 Neut % (Auto) 75.4 H Lymph % (Auto) 14.6 L [place] % (Auto) 9.3 Eos % (Auto) 0.3 Baso % (Auto) 0.1 Lymph # (Auto) 1.6 [place] # (Auto) 1.0 Eos # (Auto) 0.0 Baso # (Auto) 0.0 Abs Immat Gran (auto) 0.03 Absolute Neuts (auto) 8.3 Absolute Nucleated RBC 0.000 Nucleated RBC % (auto) 0.0 VBG pH 7.44 H VBG pCO2 84 VBG pO2 54 VBG HCO3 57 H VBG O2 Saturation 83.0 VBG Base Excess 27.4 Sodium 148 H Potassium 3.7 Chloride 93 L Carbon Dioxide 42 H* Anion Gap 17 BUN 57 H Creatinine 1.79 H Estim Creat Clear Calc 38.9 Estimated GFR 37 POC Glucose Random Glucose 123 H D Calcium 9.1 Phosphorus 4.3 Magnesium 2.0 Albumin 4.0 D Microbiology Microbiology Results: Microbiology 12/28/21 22:21 Urine Catheterized - Lozano Catheter Urine Culture - Final No growth. 12/26/21 17:37 Blood - Venous Blood Culture - Preliminary No growth after 48 hours. 12/26/21 16:56 Blood - Venous Blood Culture - Preliminary No growth after 48 hours. 12/26/21 Unknown Urine clean catch - Urine ty top Urine Culture - Final Procedures Date of Service Date of Service: 12/31/21 Assessment & Plan Assessment and plan (1) Acute renal failure superimposed on stage 3 chronic kidney disease: Status: Acute (2) Acute on chronic respiratory failure with hypoxia and hypercapnia: Status: Acute Assessment and Plan: 80-year-old male with a past medical history of hypertension, diabetes, CAD status post stent, paroxysmal AFib on Eliquis, CKD 3, chronic back pain, COPD, h istory of PE, abdominal aortic aneurysm , history of prostate cancer status post radiotherapy, history of cystoscopy, history of ESBL UTI -recurrent;presented to the hospital the chief complaint of frequency urgency dysuria. SOB 1. CRISTY - in the setting of CHF/ renal hypoperfusion / Sepsis- Cr back to bsl 2. CKD 3: SCr 1.5--2.0 3. Recurrent UTI: Patient has prior history of ESBL UTI in 03/12, and another bout of recent UTI with Klebsiella last month. 4. Resp Failute - Hypoxmic/ Hypercarbic - COPD 5. H/o PE/ AFIB 6. Metabolic Alk: VBG cont to demo elevated HCO3; HCO3 remains 42 despite geting diamox 250---ques remains what is target for HCO3 7. Hypervol: getting diuresis REC: agree with iv diamoix but incr to 500 q8; --? target HCO3 30 range (3) Hypoxia: Status: Acute (4) CHF (congestive heart failure): Status: Acute Time Spent With Patient Time: Total time spent is greater than 50% in coordination of care (as documented) at patient's floor/unit and/or counseling patient: Progress Note: Quality Stroke Does the patient have a stroke diagnosis?: No
--- NOTE | 2021-12-31 11:32 | MHC.CLN ---
F/U PT EXTUBATED 12/30 PT CURRENTLY NPO WHEN DIET TO ADVANCE, RECOMMEND 2000DM 2GM NA DIET MONITOR PO CLOSELY
[2021-12-31 11:56] LABS: Venous Blood Gas Refer to POC result
[2021-12-31 12:23] LABS: Glucose, Whole Blood 146 mg/dL (60-115)
--- NOTE | 2021-12-31 13:08 | MHC.CM.PN ---
Addendum entered by Chel Forrest 12/31/21 15:00: Received call back from pt's HCP/significant other, Jozef. Per Jozef, pt has been residing at home without services. He uses a cane at baseline and recently has been requiring extensive assistance to complete ADL's. In addition, Jozef states pt requires more cueing and reminders. Pt has been Vaxed x2: no booster. Discussed pt's deconditioning: Jozef is requesting a referral to [facility] for STR. Will place referral Original Note: Attempted to see pt prior to his transfer to [facility] [place]: pt sleeping: call placed to Jozef BLACKMON at the cell number listed: VM left for assistance with d/c plan
--- NOTE | 2021-12-31 13:31 | P.PNCC_ITS ---
Subjective Subjective Date of Service: 12/31/21 Interval History: 81-year-old gentleman with underlying history of chronic diastolic congestive failure, CAD, COPD diabetes mellitus, CKD, paroxysmal AFib admitted on 12/26/2021 with progressive dyspnea over 3-4 months and treated for CHF and COPD exacerbation. Hospital course complicated by acute hypercapnic respiratory failure, likely secondary to hyperoxia, requiring intubation, ventilatory support, and transfer to ICU on 12/27/2021. Patient has been treated with diuretics with significant improvement in his FiO2 requirements and hypercarbia. Extubated 12/30/2021. No events overnight. Critical Care Time (minutes): 0 Physical Exam Vital Signs: Vital Signs: Last Vital Signs Temp 99.7 F 12/31/21 08:00 Pulse 75 12/31/21 11:00 Resp 15 12/31/21 11:00 BP 141/66 H 12/31/21 11:00 Pulse Ox 94 12/31/21 11:00 BMI result Body Mass Index 32.7 Const: General: no acute distress, alert and awake Neck: Neck: Yes no lymphadenopathy, Yes trachea midline and Yes supple Resp: Effort & Inspection: normal respiratory effort and no respiratory distress Auscultation: clear to auscultation bilaterally Cardio: Rate: regular rate Rhythm: abnormal rhythm irregularly irregular Heart sounds: no gallops, no murmurs and no rubs GI: Palpation (GI): Soft to palpation and Other GI palpation findings present ( Nontender) Auscultation: normal bowel sounds Extrem: General: No clubbing, No cyanosis and Yes pedal edema ( 1+ bilateral) Objective Data Labs CBC & Chem 7: 12/31/21 05:50 12/31/21 05:50 Labs: Laboratory Results - last 24 hr 12/30/21 12/30/21 12/30/21 14:00 17:44 19:09 WBC RBC Hgb Hct MCV MCH MCHC RDW Plt Count MPV Immature Gran % (Auto) Neut % (Auto) Lymph % (Auto) [place] % (Auto) Eos % (Auto) Baso % (Auto) Lymph # (Auto) [place] # (Auto) Eos # (Auto) Baso # (Auto) Abs Immat Gran (auto) Absolute Neuts (auto) Absolute Nucleated RBC Nucleated RBC % (auto) VBG pH 7.42 VBG pCO2 80 VBG pO2 62 VBG HCO3 52 H VBG O2 Saturation 86.0 VBG Base Excess 23.4 Sodium Potassium Chloride Carbon Dioxide Anion Gap BUN Creatinine Estim Creat Clear Calc Estimated GFR POC Glucose 130 H 139 H Random Glucose Calcium Phosphorus Magnesium Albumin 12/30/21 12/31/21 12/31/21 23:27 05:15 05:50 WBC 11.0 H RBC 4.04 L Hgb 11.1 L Hct 38.9 L MCV 96.3 MCH 27.5 MCHC 28.5 L RDW 15.9 Plt Count 230 MPV 10.1 Immature Gran % (Auto) 0.3 Neut % (Auto) 75.4 H Lymph % (Auto) 14.6 L [place] % (Auto) 9.3 Eos % (Auto) 0.3 Baso % (Auto) 0.1 Lymph # (Auto) 1.6 [place] # (Auto) 1.0 Eos # (Auto) 0.0 Baso # (Auto) 0.0 Abs Immat Gran (auto) 0.03 Absolute Neuts (auto) 8.3 Absolute Nucleated RBC 0.000 Nucleated RBC % (auto) 0.0 VBG pH VBG pCO2 VBG pO2 VBG HCO3 VBG O2 Saturation VBG Base Excess Sodium Potassium Chloride Carbon Dioxide Anion Gap BUN Creatinine Estim Creat Clear Calc Estimated GFR POC Glucose 145 H 124 H Random Glucose Calcium Phosphorus Magnesium Albumin 12/31/21 12/31/21 12/31/21 05:50 05:52 12:11 WBC RBC Hgb Hct MCV MCH MCHC RDW Plt Count MPV Immature Gran % (Auto) Neut % (Auto) Lymph % (Auto) [place] % (Auto) Eos % (Auto) Baso % (Auto) Lymph # (Auto) [place] # (Auto) Eos # (Auto) Baso # (Auto) Abs Immat Gran (auto) Absolute Neuts (auto) Absolute Nucleated RBC Nucleated RBC % (auto) VBG pH 7.44 H VBG pCO2 84 VBG pO2 54 VBG HCO3 57 H VBG O2 Saturation 83.0 VBG Base Excess 27.4 Sodium 148 H Potassium 3.7 Chloride 93 L Carbon Dioxide 42 H* Anion Gap 17 BUN 57 H Creatinine 1.79 H Estim Creat Clear Calc 38.9 Estimated GFR 37 POC Glucose 146 H Random Glucose 123 H D Calcium 9.1 Phosphorus 4.3 Magnesium 2.0 Albumin 4.0 D Microbiology Microbiology Results: Microbiology 12/28/21 22:21 Urine Catheterized - Lozano Catheter Urine Culture - Final No growth. 12/26/21 17:37 Blood - Venous Blood Culture - Preliminary No growth after 48 hours. 12/26/21 16:56 Blood - Venous Blood Culture - Preliminary No growth after 48 hours. 12/26/21 Unknown Urine clean catch - Urine ty top Urine Culture - Final Progress Note: A&P Assessment and plan (1) Acute metabolic encephalopathy: Status: Acute (2) Acute on chronic respiratory failure with hypoxia and hypercapnia: Status: Acute (3) Acute renal failure superimposed on stage 3 chronic kidney disease: Status: Acute (4) Acute congestive heart failure: Status: Acute (5) COPD (chronic obstructive pulmonary disease): Status: Acute (6) Paroxysmal atrial fibrillation: Status: Acute Plan Assessment: 81-year-old gentleman with underlying CHF, COPD, CAD, AFib admitted with dyspnea secondary to exacerbation of underlying CHF and COPD further complicated by acute hypercapnic respiratory failure requiring intubation and ventilatory support. Plan: Neuro: Acute metabolic encephalopathy secondary to CO2 narcosis, resolved with ventilatory support. Cardiac: Acute on chronic diastolic congestive heart failure. Improving with diuresis. 2D echocardiogram with redemonstration of diastolic dysfunction. Underlying paroxysmal AFib. Continue on anticoagulation. Pulmonary: Acute hypoxic and hypercapnic respiratory failure requiring ventilatory support. Extubated 12/30/2021. maintain O2 sat of 88-92%, no higher than 93%. Renal: Acute on chronic renal failure improving with diuresis. Non oliguric. Continue to monitor renal indices and urine output. Endo: No acute issues. Underlying diabetes mellitus. GI: No acute issues. ID: No acute issues Heme/Onc: No acute issues. Psych: No acute issues. Miscellaneous: No acute issues. Prophylaxis: Apixaban, ppi Diet: Pending swallow study Quality Stroke Does the patient have a stroke diagnosis?: No VTE Prior VTE?: No VTE Risk Level:: Medical - moderate - high VTE Device Contraindication: Treatment Not Indicated VTE Drug Contraindication: N/A - Med Ordered
[2021-12-31 14:04] LABS: Anion Gap 14 (12-20); Carbon Dioxide 47 mmol/L (22-29); Chloride 92 mmol/L (96-108); Creatinine Clr Calc Pharmacy 38.9; Estimated Glomerular Filt Rate 37; Glucose Random 162 mg/dL (60-115); Potassium 3.4 mmol/L (3.3-5.1)
[2021-12-31 15:15] LABS: Blood Urea Nitrogen 60 mg/dL (9-16); Calcium 9.7 mg/dL (8.4-10.2); Sodium 150 mmol/L (135-145)
[2021-12-31] MEDS: Dextrose 5 % 1,000 ML 80 ML IVCONT (15:39)
--- NOTE | 2021-12-31 16:55 | MHC.SL.SWA ---
Speech Pathologist Impression: Risk of Aspiration Risk of Aspiration Due to: History of Pneumonia Hx of Recent Extubation Dysphasia Diet Status: Upgrade Liquid Consistency and Strategies for Safe Swallow: Liquid Intake Recommendation: Thin Liquid Intake Strategies: Small Sips No Straws Solid Food Consistency: Dietary Recommendations: Regular Additional Modifications to Solid Foods: No clinical signs of aspiration at bedside with PO trials. Recommend REGULAR solids and THIN liquids, pills WHOLE in LIQUID or PUREE. Risk factors include recent extubation and apparent prior history of dysphagia- Recommend aspiration precautions and additional SEVERITY OF ILLNESS COORDINATOR f/u. Oral Medication Intake: Whole with Puree Compensatory Strategies and Precautions to be Taken for Safe Swallow: Sitting Upright (90 deg) No Straw Small Bites and Sips Alternate Liquids/Solids Rate of Ingestion Change Supervision While Eating and Drinking for Safe Swallow: Total Supervision (1:1) Swallowing Recommended Treatments: Compens. Strategy Educat. Recommendation for Speech: Inpatient Speech Therapy Comment: 1 f/u Frequency/Duration: Date Range for Service Req: Timeline to reassess: Deputy Probation Officer Clinican/Clinical Fellow: No Supervisory Statement: I have reviewed and agree with the student/clinical fellow's documentation: N/A Speech Language Pathologist: Hannah Vann M.A., CCC-SEVERITY OF ILLNESS COORDINATOR
[2021-12-31 17:50] LABS: Glucose, Whole Blood 158 mg/dL (60-115)
[2021-12-31] MEDS: Insulin Lispro 100 UNIT/ML 3 ML VIAL SUBCUT ×2 (18:03→23:56)
[2021-12-31] MEDS: Melatonin 3 MG TABLET 6 MG PO (21:47)
[2021-12-31 21:53] LABS: Anion Gap 11 (12-20); Blood Urea Nitrogen 58 mg/dL (9-16); Calcium 8.9 mg/dL (8.4-10.2); Carbon Dioxide 47 mmol/L (22-29); Chloride 89 mmol/L (96-108); Creatinine Clr Calc Pharmacy 39.8; Estimated Glomerular Filt Rate 38; Glucose Random 184 mg/dL (60-115); Potassium 3.1 mmol/L (3.3-5.1); Sodium 144 mmol/L (135-145)
[2021-12-31 23:55] LABS: Glucose, Whole Blood 168 mg/dL (60-115)
[2022-01-01] VITALS (7 sets, daily range): BP systolic 107–129; BP diastolic 52–67; PULSE 75–95; RESP 18–20; TEMP 36.4–37.4; O2SAT 90–96
[2022-01-01] MEDS: Dextrose 5 % 1,000 ML 80 ML IVCONT (02:44)
[2022-01-01 05:43] LABS: Glucose, Whole Blood 181 mg/dL (60-115)
[2022-01-01] MEDS: Insulin Lispro 100 UNIT/ML 3 ML VIAL SUBCUT ×3 (06:21→20:09)
[2022-01-01 06:50] LABS: MANUAL DIFF FLAG NO
[2022-01-01 06:57] LABS: VBG Base Excess 22.5 mmol/L; VBG HCO3 48 mmol/L (22-26); VBG pCO2 55 mmHg; VBG pH 7.55 (7.32-7.43); VBG pO2 140 mmHg
[2022-01-01 06:58] LABS: Basophils Percent Auto 0.2 % (0-2); Eosinophils Absolute Auto 0.3 X10*3/uL (0.0-0.4); Eosinophils Percent Auto 2.6 % (0-4); Hematocrit 41.3 % (42.0-52.0); Hemoglobin 12.4 g/dl (14.0-18.0); Imm Gran Abs Auto 0.05 X10*3/uL (0.00-0.03); Imm Gran Pct Auto 0.4 % (0.0-0.4); Lymphocytes Absolute Auto 1.4 X10*3/uL (1.2-4.9); Lymphocytes Percent Auto 11.9 % (20-40); Mean Corpuscular Hemoglobin 27.7 pg (27.0-33.0); Mean Corpuscular Volume 92.2 fL (80.0-98.0); Mean Platelet Volume 10.3 fL (9.4-12.4); Monocytes Absolute Auto 0.9 X10*3/uL (0.1-1.2); Monocytes Percent Auto 7.8 % (2-11); Neutrophils Absolute Auto 9.3 x10*3/uL (2.0-8.3); Neutrophils Percent Auto 77.1 % (45-73); Platelet Count 210 X10*3/uL (160-400); Red Blood Count 4.48 X10*6/uL (4.60-5.80); Red Cell Distribution Width 15.8 % (11.0-16.0); White Blood Count 12.1 X10*3/uL (4.8-10.8)
[2022-01-01 07:09] LABS: Venous Blood Gas Refer to POC result
[2022-01-01 07:37] LABS: Albumin Level 3.7 g/dL (3.5-5.0); Anion Gap 14 (12-20); Blood Urea Nitrogen 57 mg/dL (9-16); Carbon Dioxide 41 mmol/L (22-29); Chloride 89 mmol/L (96-108); Creatinine Clr Calc Pharmacy 44.1; Estimated Glomerular Filt Rate 42; Glucose Random 174 mg/dL (60-115); Magnesium 1.7 mg/dL (1.6-2.6); Sodium 141 mmol/L (135-145)
[2022-01-01] MEDS: Clopidogrel Bisulfate 75 MG TABLET PO (09:10)
[2022-01-01] MEDS: Benzonatate 100 MG CAPSULE PO ×3 (09:10→20:07)
[2022-01-01] MEDS: Furosemide 40 MG TABLET PO (09:10)
[2022-01-01] MEDS: Potassium Chloride ER 20 MEQ TAB.ER.PRT 40 MEQ PO (09:10)
[2022-01-01] MEDS: Apixaban 2.5 MG TABLET PO ×2 (09:11→20:07)
[2022-01-01] MEDS: 0.9 % Sodium Chloride Flush 3 ML SYRINGE IVFLUSH ×3 (09:11→20:09)
[2022-01-01] MEDS: Tamsulosin HCL 0.4 MG CAPSULE PO (09:11)
[2022-01-01] MEDS: Nicotine 14 MG PATCH.TD24 TRANSDERMA (09:11)
[2022-01-01] MEDS: Nystatin Powder 15 GM BOTTLE 1 APPL TOPICAL ×3 (09:18→20:13)
[2022-01-01] MEDS: Ammonium Lactate 12 % Cream 140 GM TUBE 1 APPL TOPICAL (09:18)
--- NOTE | 2022-01-01 11:09 | HO.PM.IMPN ---
Subjective Subjective Date of Service: 01/01/22 Interval History: the patient was seen and evaluated this morning Laying in bed, feels less dry than yesterday Complaining of coughing but shortness of breath improved Denies any fever, chills or chest pain No reported other overnight events. Systemic review: No fever, chills or weakness No chest pain, palpitation Reporting coughing but shortness of breath improved No abdominal pain, nausea or vomiting Have a Lozano in place No any rash or wounds Physical Exam Vital Signs: Vital Signs: Last Vital Signs Temp 97.9 F 01/01/22 07:27 Pulse 76 01/01/22 10:36 Resp 18 01/01/22 07:27 BP 116/64 01/01/22 10:36 Pulse Ox 90 L 01/01/22 10:36 BMI result Body Mass Index 32.7 Const: Other: Constitutional : Alert, oriented, not in distress Neck : Normal inspection, Supple Cardiovascular : RRR, S1 S2, trace bilateral lower extremity edema Respiratory : Fares bilateral air entry, basal very fine crackles, no wheezes or rhonchi, on oxygen supplement Gastrointestinal: soft, lax, Normal bowel sounds, Non tender Skin : Warm, Dry, chronic stasis dermatitis Neurological : Alert & oriented x3, No focal deficit Objective Data Active Medications Acetaminophen (Acetaminophen 325 Mg Tablet) 650 mg PO Q6H PRN PRN Reason: Pain, Mild (Pain Scale 1-3) Albuterol Sulfate (Albuterol Sulfate (0.083%) 2.5 Mg/3 Ml Vial.Neb) 2.5 mg INHALE Q2H PRN PRN Reason: Wheezing Albuterol/Ipratropium (Albuterol/Iprat 2.5/0.5mg 3 Ml Ampul.Neb) 3 ml INHALE RQ4H [facility] Last Admin: 01/01/22 11:07 Dose: Not Given Documented by: JERRY Non-Admin Reason: Patient Refused Apixaban (Apixaban 2.5 Mg Tablet) 2.5 mg PO BID [facility] Last Admin: 01/01/22 09:11 Dose: 2.5 mg Documented by: NGUYỄN Benzonatate (Benzonatate 100 Mg Capsule) 100 mg PO TID [facility] Last Admin: 01/01/22 09:10 Dose: 100 mg Documented by: NGUYỄN Clopidogrel Bisulfate (Clopidogrel Bisulfate 75 Mg Tablet) 75 mg PO DAILY [facility] Last Admin: 01/01/22 09:10 Dose: 75 mg Documented by: NGUYỄN Dextrose (Dextrose 50 % 25 Gm/50 Ml Syringe) 25 gm IVPUSH Q15M PRN; Protocol PRN Reason: per Hypoglycemia Standing Ord. Furosemide (Furosemide 40 Mg Tablet) 40 mg PO DAILY [facility]; Protocol Last Admin: 01/01/22 09:10 Dose: 40 mg Documented by: NGUYỄN Glucose (Glucose Gel 15 Gm Gel..Gram.) 15 gm PO Q15M PRN; Protocol PRN Reason: per Hypoglycemia Standing Ord. Insulin Human Lispro (Insulin Lispro 100 Unit/Ml 3 Ml Vial) 0 unit SUBCUT Q6H [facility]; Protocol Last Admin: 01/01/22 06:21 Dose: 2 unit Documented by: DESHAWN Lactic Acid (Ammonium Lactate 12 % Cream 140 Gm Tube) 1 appl TOPICAL DAILY [facility]; Protocol Last Admin: 01/01/22 09:18 Dose: 1 appl Documented by: NGUYỄN Melatonin (Melatonin 3 Mg Tablet) 6 mg PO BEDTIME PRN PRN Reason: Insomnia Last Admin: 12/31/21 21:47 Dose: 6 mg Documented by: DESHAWN Nicotine (Nicotine 14 Mg Patch.Td24) 14 mg TRANSDERMA DAILY [facility] Last Admin: 01/01/22 09:11 Dose: 14 mg Documented by: NGUYỄN Nystatin (Nystatin Powder 15 Gm Bottle) 1 appl TOPICAL TID [facility]; Protocol Last Admin: 01/01/22 09:18 Dose: 1 appl Documented by: NGUYỄN Pharmacy Consult (Consult Rx Perform Med Rec) 1 each MISCELLANE ONCE PRN PRN Reason: Consult order Senna (Sennosides 8.6 Mg Tablet) 17.2 mg PO BEDTIME PRN PRN Reason: Constipation Sodium Chloride (0.9 % Sodium Chloride Flush 3 Ml Syringe) 3 ml IVFLUSH QSHIFT [facility] Last Admin: 01/01/22 09:11 Dose: 3 ml Documented by: NGUYỄN Tamsulosin HCl (Tamsulosin Hcl 0.4 Mg Capsule) 0.4 mg PO DAILY [facility] Last Admin: 01/01/22 09:11 Dose: 0.4 mg Documented by: NGUYỄN Labs CBC & Chem 7: 01/01/22 06:42 01/01/22 06:42 Labs: Laboratory Results - last 24 hr 12/31/21 12/31/21 12/31/21 12:11 13:28 17:47 MCV MCH MCHC RDW Plt Count MPV Immature Gran % (Auto) Neut % (Auto) Lymph % (Auto) [place] % (Auto) Eos % (Auto) Baso % (Auto) Lymph # (Auto) [place] # (Auto) Eos # (Auto) Baso # (Auto) Abs Immat Gran (auto) Absolute Neuts (auto) Absolute Nucleated RBC Nucleated RBC % (auto) VBG pH VBG pCO2 VBG pO2 VBG HCO3 VBG O2 Saturation VBG Base Excess Anion Gap 14 Estim Creat Clear Calc 38.9 Estimated GFR 37 POC Glucose 146 H 158 H Random Glucose 162 H Calcium 9.7 D Phosphorus Magnesium Albumin 12/31/21 12/31/21 01/01/22 21:07 23:51 05:39 MCV MCH MCHC RDW Plt Count MPV Immature Gran % (Auto) Neut % (Auto) Lymph % (Auto) [place] % (Auto) Eos % (Auto) Baso % (Auto) Lymph # (Auto) [place] # (Auto) Eos # (Auto) Baso # (Auto) Abs Immat Gran (auto) Absolute Neuts (auto) Absolute Nucleated RBC Nucleated RBC % (auto) VBG pH VBG pCO2 VBG pO2 VBG HCO3 VBG O2 Saturation VBG Base Excess Anion Gap 11 L Estim Creat Clear Calc 39.8 Estimated GFR 38 POC Glucose 168 H 181 H Random Glucose 184 H Calcium 8.9 D Phosphorus Magnesium Albumin 01/01/22 01/01/22 01/01/22 06:42 06:42 06:42 MCV 92.2 MCH 27.7 MCHC 30.0 L RDW 15.8 Plt Count 210 MPV 10.3 Immature Gran % (Auto) 0.4 Neut % (Auto) 77.1 H Lymph % (Auto) 11.9 L [place] % (Auto) 7.8 Eos % (Auto) 2.6 Baso % (Auto) 0.2 Lymph # (Auto) 1.4 [place] # (Auto) 0.9 Eos # (Auto) 0.3 Baso # (Auto) 0.0 Abs Immat Gran (auto) 0.05 H Absolute Neuts (auto) 9.3 H Absolute Nucleated RBC 0.000 Nucleated RBC % (auto) 0.0 VBG pH VBG pCO2 VBG pO2 VBG HCO3 VBG O2 Saturation VBG Base Excess Anion Gap Cancelled 14 Estim Creat Clear Calc Cancelled 44.1 Estimated GFR Cancelled 42 POC Glucose Random Glucose Cancelled 174 H Calcium Cancelled 9.0 Phosphorus 3.0 Magnesium 1.7 Albumin 3.7 01/01/22 06:51 MCV MCH MCHC RDW Plt Count MPV Immature Gran % (Auto) Neut % (Auto) Lymph % (Auto) [place] % (Auto) Eos % (Auto) Baso % (Auto) Lymph # (Auto) [place] # (Auto) Eos # (Auto) Baso # (Auto) Abs Immat Gran (auto) Absolute Neuts (auto) Absolute Nucleated RBC Nucleated RBC % (auto) VBG pH 7.55 H VBG pCO2 55 VBG pO2 140 VBG HCO3 48 H VBG O2 Saturation 99.0 VBG Base Excess 22.5 Anion Gap Estim Creat Clear Calc Estimated GFR POC Glucose Random Glucose Calcium Phosphorus Magnesium Albumin Microbiology Microbiology Results: Microbiology 12/26/21 17:37 Blood Culture - Final Blood - Venous No growth after 5 days. 12/26/21 16:56 Blood Culture - Final Blood - Venous No growth after 5 days. Assessment and Plan (1) Acute renal failure superimposed on stage 3 chronic kidney disease: Status: Acute (2) Acute congestive heart failure: Status: Acute (3) Acute on chronic respiratory failure with hypoxia and hypercapnia: Status: Acute (4) Hypokalemia: Status: Acute Plan An 81 years old male with PMH of diastolic CHF, CAD, COPD, CKD stage 3, AFib, dm among others who presented to the hospital with worsening shortness of breath found to be in respiratory failure requiring intubation and ventilatory support in ICU between December 27 and . Acute hypoxic hypercapnic respiratory failure Secondary to acute on chronic diastolic CHF exacerbation Still requiring oxygen supplement Wean down as tolerated Echo showed evidence of diastolic dysfunction Change Lasix to p.o. Monitor intake and output Goal of saturation 90-94% only not above Hypernatremia Sodium went up to 150 Secondary to diuresis Responded to D 5 W as is brought down to 141 DC IVF and monitor BMP Metabolic encephalopathy Secondary to CO2 narcosis, resolved now Paroxysmal atrial fibrillation Rate controlled continue anticoagulation Acute on chronic renal failure stage 3 Secondary to extra diuresis Improving seems back to baseline around 1.5-1.9 Monitor intake and output Physical deconditioning Likely secondary to intubation and prolonged stay to do physical therapy evaluation Hypokalemia Potassium of 3 Replacement given, follow BMP DVT PPX Eliquis Quality Stroke Does the patient have a stroke diagnosis?: No VTE Prior VTE?: No VTE Risk Level:: Medical - moderate - high VTE Device Contraindication: Treatment Not Indicated VTE Drug Contraindication: N/A - Med Ordered
[2022-01-01 11:19] LABS: Glucose, Whole Blood 208 mg/dL (60-115)
--- NOTE | 2022-01-01 11:23 | MHC.SL.SWA ---
Speech Pathologist Impression: Risk of Aspiration Risk of Aspiration Due to: History of Pneumonia Hx of Recent Extubation Dysphasia Diet Status: Upgrade Liquid Consistency and Strategies for Safe Swallow: Liquid Intake Recommendation: Thin Liquid Intake Strategies: Small Sips No Straws Solid Food Consistency: Dietary Recommendations: Regular Additional Modifications to Solid Foods: No clinical signs of aspiration at bedside with PO trials. Recommend REGULAR solids and THIN liquids, pills WHOLE in LIQUID or PUREE. Risk factors include recent extubation and apparent prior history of dysphagia- Recommend aspiration precautions and additional LICENSED PHYSICAL THERAPY ASSISTANT f/u. Oral Medication Intake: Whole with Puree Compensatory Strategies and Precautions to be Taken for Safe Swallow: Sitting Upright (90 deg) No Straw Small Bites and Sips Alternate Liquids/Solids Rate of Ingestion Change Supervision While Eating and Drinking for Safe Swallow: Total Supervision (1:1) Foods to Avoid: Swallowing Recommended Treatments: Compens. Strategy Educat. Recommendation for Speech: Inpatient Speech Therapy Comment: Pt was sitting in chair attempting to work on lap top computer at on set of treatment session. Pt reported that he had breakfast, but ate only a little as it was unpleasant (very dry pancakes and dry and cold eggs). However her reported no difficulty w/swallowing of foods or liquids, and reported that meals yesterday had been fine. Pt reported the only difficulty he has had was with one very large pill which he had difficulty swallowing and chose to partially dissolve it in his mouth before swallowing. Pt was observed taking cup sips of juice, w/ normal oral phase and swallow noted, no clinical s/s aspiration. Pt appears to be at baseline w/ no difficulties noted with swallowing. Recommend continue on current diet consistencies (REGULAR w/ THIN Liquid, Pills WHOLE with Liquid), and D/C Speech at this time. Frequency/Duration: Date Range for Service Req: Timeline to reassess: Industrial Spray Painter Clinican/Clinical Fellow: No Supervisory Statement: I have reviewed and agree with the student/clinical fellow's documentation: N/A Speech Language Pathologist: Tosha Rubin M.A., CCC-LICENSED PHYSICAL THERAPY ASSISTANT
--- NOTE | 2022-01-01 16:30 | PC.NURSE ---
Lozano catheeter removed per . Marilee catheter in place. Pt dtv between [id number]
[2022-01-01 17:37] LABS: Glucose, Whole Blood 151 mg/dL (60-115)
[2022-01-01 19:53] LABS: Glucose, Whole Blood 193 mg/dL (60-115)
[2022-01-01] MEDS: Melatonin 3 MG TABLET 6 MG PO (20:05)
--- NOTE | 2022-01-01 21:45 | P.PNNP_ITS ---
Subjective Subjective Date of Service: 01/01/22 Interval history: Seen and examined,evnts noted Physical Exam Vital Signs: Vital Signs: Last Vital Signs Temp 97.6 F 01/01/22 19:11 Pulse 95 01/01/22 19:11 Resp 20 01/01/22 19:11 BP 129/61 01/01/22 19:11 Pulse Ox 96 01/01/22 19:11 BMI result Body Mass Index 32.7 Const: Other: intubated and sedated General: cooperative, healthy appearing, comfortable, no acute distress and lethargic Nutritional Appearance: obese Orientation/consciousness: patient oriented x3 and lethargic Limitations: no limitations HENMT: Other: Unremarkable Head: Yes normal to inspection, Yes No palpable skull fracture present, Yes normocephalic and Yes atraumatic Ears: hearing grossly normal bilaterally and TM's normal bilaterally General nose exam: Normal external nose present Face and sinus: Yes normal facial exam Mouth: Normal oral and palatal mucosa present Throat: Yes posterior oropharynx normal, Yes tonsils normal and Yes uvula midline Eyes: Other: Swelling of the right upper eyelid-EOM intact, PERRLA General: appearance normal, both eyes and all related structures Eyelids: Yes eyelid abnormality ( right eyelid edema) Pupils: Equal, round and reactive pupils present EOM: EOMs intact bilaterally Neck: Neck: Yes normal visual inspection, Yes full ROM, Yes no lymphadenopathy, Yes trachea midline, Yes supple and Yes JVD Chest: Chest palpation & inspection: normal inspection of the chest Resp: Other: bilateral coarse breath sounds Effort & Inspection: normal respiratory effort Auscultation: clear to auscultation bilaterally, wheezes scattered wheezes and throughout and diminished lung sounds diffuse Cardio: Other: unable to listed to heart sounds due to coarse breath sounds and patient unable to follow commands Jugular venous distension: other Palpation: normal PMI Rate: regular rate Rhythm: regular rhythm Heart sounds: S1 normal heart sound present, S2 normal heart sound present, no gallops, no murmurs, no rubs and normal S1 and S2 Peripheral pulses: Peripheral pulses 2+ throughout GI: Inspection: Yes normal to inspection, Yes obesity and Yes other (umbilical hernia) Palpation (GI): Soft to palpation and nontender Auscultation: normal bowel sounds Back/Spine/Pelvis: Other: unremarkable Thoracic/Lumbar Spine: thoracic and lumbar spine normal to inspection Skin: General skin exam: no rashes or lesions noted Lesions: other Neuro: General: patient oriented x3, no focal motor deficits, normal sensation to monofilament and other Cranial nerves: Yes Equal, round and reactive pupils present Cognition (Neuro): normal cognition Speech: No Abnormal speech present Gait exam (Neuro): Normal gait present Motor exam (neuro): 5/5 motor strength present throughout Extrem: Other: chronically red swollen legs,venous stasis General: Yes normal to inspection, Yes no calf tenderness, Yes edema (Bilateral pedal edema extending over the knees 2+. No erythema) and Yes other Right lower extremity: edema (lower leg) Details: pitting and 3+ Left lower extremity: edema (lower leg) Details: pitting and 3+ and foot Details: vascular exam Details: posterior tibial pulse present and coolness (cool) Location: of the entire foot Psych: Mental Status: other Objective Data Labs CBC & Chem 7: 01/01/22 06:42 01/01/22 06:42 Labs: Laboratory Results - last 24 hr 12/31/21 12/31/21 01/01/22 21:07 23:51 05:39 WBC RBC Hgb Hct MCV MCH MCHC RDW Plt Count MPV Immature Gran % (Auto) Neut % (Auto) Lymph % (Auto) Banks % (Auto) Eos % (Auto) Baso % (Auto) Lymph # (Auto) Banks # (Auto) Eos # (Auto) Baso # (Auto) Abs Immat Gran (auto) Absolute Neuts (auto) Absolute Nucleated RBC Nucleated RBC % (auto) VBG pH VBG pCO2 VBG pO2 VBG HCO3 VBG O2 Saturation VBG Base Excess Sodium 144 Potassium 3.1 L Chloride 89 L Carbon Dioxide 47 H* Anion Gap 11 L BUN 58 H Creatinine 1.75 H Estim Creat Clear Calc 39.8 Estimated GFR 38 POC Glucose 168 H 181 H Random Glucose 184 H Calcium 8.9 D Phosphorus Magnesium Albumin 01/01/22 01/01/22 01/01/22 06:42 06:42 06:42 WBC 12.1 H RBC 4.48 L Hgb 12.4 L Hct 41.3 L MCV 92.2 MCH 27.7 MCHC 30.0 L RDW 15.8 Plt Count 210 MPV 10.3 Immature Gran % (Auto) 0.4 Neut % (Auto) 77.1 H Lymph % (Auto) 11.9 L Banks % (Auto) 7.8 Eos % (Auto) 2.6 Baso % (Auto) 0.2 Lymph # (Auto) 1.4 Banks # (Auto) 0.9 Eos # (Auto) 0.3 Baso # (Auto) 0.0 Abs Immat Gran (auto) 0.05 H Absolute Neuts (auto) 9.3 H Absolute Nucleated RBC 0.000 Nucleated RBC % (auto) 0.0 VBG pH VBG pCO2 VBG pO2 VBG HCO3 VBG O2 Saturation VBG Base Excess Sodium Cancelled 141 Potassium Cancelled 3.0 L Chloride Cancelled 89 L Carbon Dioxide Cancelled 41 H* Anion Gap Cancelled 14 BUN Cancelled 57 H Creatinine Cancelled 1.58 H Estim Creat Clear Calc Cancelled 44.1 Estimated GFR Cancelled 42 POC Glucose Random Glucose Cancelled 174 H Calcium Cancelled 9.0 Phosphorus 3.0 Magnesium 1.7 Albumin 3.7 01/01/22 01/01/22 01/01/22 06:51 11:13 17:34 WBC RBC Hgb Hct MCV MCH MCHC RDW Plt Count MPV Immature Gran % (Auto) Neut % (Auto) Lymph % (Auto) Banks % (Auto) Eos % (Auto) Baso % (Auto) Lymph # (Auto) Banks # (Auto) Eos # (Auto) Baso # (Auto) Abs Immat Gran (auto) Absolute Neuts (auto) Absolute Nucleated RBC Nucleated RBC % (auto) VBG pH 7.55 H VBG pCO2 55 VBG pO2 140 VBG HCO3 48 H VBG O2 Saturation 99.0 VBG Base Excess 22.5 Sodium Potassium Chloride Carbon Dioxide Anion Gap BUN Creatinine Estim Creat Clear Calc Estimated GFR POC Glucose 208 H 151 H Random Glucose Calcium Phosphorus Magnesium Albumin 01/01/22 19:49 WBC RBC Hgb Hct MCV MCH MCHC RDW Plt Count MPV Immature Gran % (Auto) Neut % (Auto) Lymph % (Auto) Banks % (Auto) Eos % (Auto) Baso % (Auto) Lymph # (Auto) Banks # (Auto) Eos # (Auto) Baso # (Auto) Abs Immat Gran (auto) Absolute Neuts (auto) Absolute Nucleated RBC Nucleated RBC % (auto) VBG pH VBG pCO2 VBG pO2 VBG HCO3 VBG O2 Saturation VBG Base Excess Sodium Potassium Chloride Carbon Dioxide Anion Gap BUN Creatinine Estim Creat Clear Calc Estimated GFR POC Glucose 193 H Random Glucose Calcium Phosphorus Magnesium Albumin Microbiology Microbiology Results: Microbiology 12/26/21 17:37 Blood - Venous Blood Culture - Final No growth after 5 days. 12/26/21 16:56 Blood - Venous Blood Culture - Final No growth after 5 days. 12/28/21 22:21 Urine Catheterized - Lozano Catheter Urine Culture - Final No growth. 12/26/21 Unknown Urine clean catch - Urine ty top Urine Culture - Final Procedures Date of Service Date of Service: 01/01/22 Assessment & Plan Assessment and plan (1) Acute renal failure superimposed on stage 3 chronic kidney disease: Status: Acute (2) Acute on chronic respiratory failure with hypoxia and hypercapnia: Status: Acute Assessment and Plan: 80-year-old male with a past medical history of hypertension, diabetes, CAD status post stent, paroxysmal AFib on Eliquis, CKD 3, chronic back pain, COPD, history of PE, abdominal aortic aneurysm , history of prostate cancer status post radiotherapy, history of cystoscopy, history of ESBL UTI - recurrent;presented to the hospital the chief complaint of frequency urgency dysuria. SOB 1. CRISTY - in the setting of CHF/ renal hypoperfusion / Sepsis- Cr back to bsl 2. CKD 3: SCr 1.5--2.0 3. Recurrent UTI: Patient has prior history of ESBL UTI in 03/12, and another bout of recent UTI with Klebsiella last month. 4. Resp Failute - Hypoxmic/ Hypercarbic - COPD 5. H/o PE/ AFIB 6. Metabolic Alk: VBG cont to demo elevated HCO3; HCO3 remains 42 despite geting diamox 250---ques remains what is target for HCO3 7. Hypervol: getting diuresis REC: acont iv diamoix;replace K, ? target HCO3 30 range (3) Hypoxia: Status: Acute (4) CHF (congestive heart failure): Status: Acute Time Spent With Patient Time: Total time spent is greater than 50% in coordination of care (as documented) at patient's floor/unit and/or counseling patient: Progress Note: Quality Stroke Does the patient have a stroke diagnosis?: No
--- NOTE | 2022-01-02 01:47 | PC.NURSE ---
[place] Cath dry. pt unable tovoid. Bladder scanned for 512cc. Dr Dangelo notified. Straight cathed for 500cc. Urinal at bedside.
[2022-01-02 03:58] VITALS: BP 133/59; PULSE 71; RESP 18; TEMP 36.8; O2SAT 94
[2022-01-02 07:17] LABS: Hematocrit 44.9 % (42.0-52.0); Hemoglobin 13.5 g/dl (14.0-18.0); Mean Corpuscular HGB Conc 30.1 g/dl (31.0-36.0); Mean Corpuscular Hemoglobin 27.8 pg (27.0-33.0); Mean Corpuscular Volume 92.4 fL (80.0-98.0); Mean Platelet Volume 10.6 fL (9.4-12.4); Platelet Count 163 X10*3/uL (160-400); Red Blood Count 4.86 X10*6/uL (4.60-5.80); Red Cell Distribution Width 15.7 % (11.0-16.0); White Blood Count 10.8 X10*3/uL (4.8-10.8)
[2022-01-02 07:29] VITALS: BP 120/69; PULSE 78; RESP 18; TEMP 37.2; O2SAT 95
[2022-01-02 07:35] LABS: Anion Gap 15 (12-20); Blood Urea Nitrogen 60 mg/dL (9-16); Carbon Dioxide 37 mmol/L (22-29); Chloride 92 mmol/L (96-108); Creatinine Clr Calc Pharmacy 42.2; Estimated Glomerular Filt Rate 40; Glucose Random 168 mg/dL (60-115); Sodium 140 mmol/L (135-145)
[2022-01-02] MEDS: Benzonatate 100 MG CAPSULE PO (08:32)
[2022-01-02] MEDS: Clopidogrel Bisulfate 75 MG TABLET PO (08:32)
[2022-01-02] MEDS: Nicotine 14 MG PATCH.TD24 TRANSDERMA (08:32)
[2022-01-02] MEDS: Furosemide 40 MG TABLET PO (08:32)
[2022-01-02] MEDS: Apixaban 2.5 MG TABLET PO (08:32)
[2022-01-02] MEDS: Tamsulosin HCL 0.4 MG CAPSULE PO (08:32)
[2022-01-02] MEDS: 0.9 % Sodium Chloride Flush 3 ML SYRINGE IVFLUSH (08:33)
[2022-01-02] MEDS: Nystatin Powder 15 GM BOTTLE 1 APPL TOPICAL (08:33)
[2022-01-02] MEDS: Insulin Lispro 100 UNIT/ML 3 ML VIAL SUBCUT ×2 (08:33→12:27)
[2022-01-02] MEDS: Ammonium Lactate 12 % Cream 140 GM TUBE 1 APPL TOPICAL (08:33)
--- NOTE | 2022-01-02 09:24 | MHC.CM.PN ---
Male 81 DX HF DP STR. Spoke with Jozef Canela [address] [place] [address]. An update has been sent to the facility. Patient will transport via BLS when discharged.
[2022-01-02 11:34] VITALS: BP 113/68; PULSE 82; RESP 18; TEMP 36.4; O2SAT 94
[2022-01-02 11:41] LABS: Glucose, Whole Blood 196 mg/dL (60-115)
--- NOTE | 2022-01-02 13:02 | HO.PM.IMPN ---
Subjective Subjective Date of Service: 01/02/22 Interval History: the patient was seen and evaluated this morning Laying in bed, feels comfortable overall Cough improved Denies any fever, chills or chest pain No reported other overnight events. Systemic review: No fever, chills or weakness No chest pain, palpitation Reporting coughing has improved No abdominal pain, nausea or vomiting Have a Lozano in place No any rash or wounds Physical Exam Vital Signs: Vital Signs: Last Vital Signs Temp 97.6 F 01/02/22 11:34 Pulse 82 01/02/22 11:34 Resp 18 01/02/22 11:34 BP 113/68 01/02/22 11:34 Pulse Ox 94 01/02/22 11:34 BMI result Body Mass Index 32.7 Const: Other: Constitutional : Alert, oriented, not in distress Neck : Normal inspection, Supple Cardiovascular : RRR, S1 S2, trace bilateral lower extremity edema Respiratory : Fares bilateral air entry, basal very fine crackles, no wheezes or rhonchi, on oxygen supplement Gastrointestinal: soft, lax, Normal bowel sounds, Non tender Skin : Warm, Dry, chronic stasis dermatitis Neurological : Alert & oriented x3, No focal deficit Objective Data Active Medications Acetaminophen (Acetaminophen 325 Mg Tablet) 650 mg PO Q6H PRN PRN Reason: Pain, Mild (Pain Scale 1-3) Albuterol Sulfate (Albuterol Sulfate (0.083%) 2.5 Mg/3 Ml Vial.Neb) 2.5 mg INHALE Q2H PRN PRN Reason: Wheezing Albuterol/Ipratropium (Albuterol/Iprat 2.5/0.5mg 3 Ml Ampul.Neb) 3 ml INHALE RQ4H [facility] Last Admin: 01/02/22 11:12 Dose: Not Given Documented by: ELSIE Non-Admin Reason: Patient Refused Apixaban (Apixaban 2.5 Mg Tablet) 2.5 mg PO BID [facility] Last Admin: 01/02/22 08:32 Dose: 2.5 mg Documented by: NGUYỄN Benzonatate (Benzonatate 100 Mg Capsule) 100 mg PO TID [facility] Last Admin: 01/02/22 08:32 Dose: 100 mg Documented by: NGUYỄN Clopidogrel Bisulfate (Clopidogrel Bisulfate 75 Mg Tablet) 75 mg PO DAILY [facility] Last Admin: 01/02/22 08:32 Dose: 75 mg Documented by: NGUYỄN Dextrose (Dextrose 50 % 25 Gm/50 Ml Syringe) 25 gm IVPUSH Q15M PRN; Protocol PRN Reason: per Hypoglycemia Standing Ord. Furosemide (Furosemide 40 Mg Tablet) 40 mg PO DAILY [facility]; Protocol Last Admin: 01/02/22 08:32 Dose: 40 mg Documented by: NGUYỄN Glucose (Glucose Gel 15 Gm Gel..Gram.) 15 gm PO Q15M PRN; Protocol PRN Reason: per Hypoglycemia Standing Ord. Insulin Human Lispro (Insulin Lispro 100 Unit/Ml 3 Ml Vial) 0 unit SUBCUT QIDACHS [facility]; Protocol Last Admin: 01/02/22 12:27 Dose: 2 unit Documented by: NGUYỄN Lactic Acid (Ammonium Lactate 12 % Cream 140 Gm Tube) 1 appl TOPICAL DAILY [facility]; Protocol Last Admin: 01/02/22 08:33 Dose: 1 appl Documented by: NGUYỄN Melatonin (Melatonin 3 Mg Tablet) 6 mg PO BEDTIME PRN PRN Reason: Insomnia Last Admin: 01/01/22 20:05 Dose: 6 mg Documented by: DESHAWN Nicotine (Nicotine 14 Mg Patch.Td24) 14 mg TRANSDERMA DAILY [facility] Last Admin: 01/02/22 08:32 Dose: 14 mg Documented by: NGUYỄN Nystatin (Nystatin Powder 15 Gm Bottle) 1 appl TOPICAL TID [facility]; Protocol Last Admin: 01/02/22 08:33 Dose: 1 appl Documented by: NGUYỄN Pharmacy Consult (Consult Rx Perform Med Rec) 1 each MISCELLANE ONCE PRN PRN Reason: Consult order Senna (Sennosides 8.6 Mg Tablet) 17.2 mg PO BEDTIME PRN PRN Reason: Constipation Sodium Chloride (0.9 % Sodium Chloride Flush 3 Ml Syringe) 3 ml IVFLUSH QSHIFT [facility] Last Admin: 01/02/22 08:33 Dose: 3 ml Documented by: NGUYỄN Tamsulosin HCl (Tamsulosin Hcl 0.4 Mg Capsule) 0.4 mg PO DAILY [facility] Last Admin: 01/02/22 08:32 Dose: 0.4 mg Documented by: NGUYỄN Labs CBC & Chem 7: 01/02/22 07:03 01/02/22 07:03 Labs: Laboratory Results - last 24 hr 01/01/22 01/01/22 01/02/22 17:34 19:49 07:03 MCV 92.4 MCH 27.8 MCHC 30.1 L RDW 15.7 Plt Count 163 MPV 10.6 Absolute Nucleated RBC 0.000 Nucleated RBC % (auto) 0.0 Anion Gap Estim Creat Clear Calc Estimated GFR POC Glucose 151 H 193 H Random Glucose Calcium 01/02/22 01/02/22 07:03 11:37 MCV MCH MCHC RDW Plt Count MPV Absolute Nucleated RBC Nucleated RBC % (auto) Anion Gap 15 Estim Creat Clear Calc 42.2 Estimated GFR 40 POC Glucose 196 H Random Glucose 168 H Calcium 9.0 Assessment and Plan (1) Hypokalemia: Status: Acute (2) Acute on chronic respiratory failure with hypoxia and hypercapnia: Status: Acute (3) Acute congestive heart failure: Status: Acute (4) Acute renal failure superimposed on stage 3 chronic kidney disease: Status: Acute Plan An 81 years old male with PMH of diastolic CHF, CAD, COPD, CKD stage 3, AFib, dm among others who presented to the hospital with worsening shortness of breath found to be in respiratory failure requiring intubation and ventilatory support in ICU between December 27 and . Acute hypoxic hypercapnic respiratory failure Secondary to acute on chronic diastolic CHF exacerbation Wean down as tolerated Echo showed evidence of diastolic dysfunction Change Lasix to p.o. Monitor intake and output Goal of saturation 90-94% only not above Hypernatremia Sodium improved to 140 Secondary to diuresis monitor BMP Metabolic encephalopathy Secondary to CO2 narcosis, resolved now Paroxysmal atrial fibrillation Rate controlled continue anticoagulation Acute on chronic renal failure stage 3 Secondary to extra diuresis Improving seems back to baseline around 1.5-1.9 Monitor intake and output Physical deconditioning Likely secondary to intubation and prolonged stay to do physical therapy evaluation Hypokalemia Potassium of 3 Replacement given, follow BMP DVT PPX Eliquis Quality Stroke Does the patient have a stroke diagnosis?: No VTE Prior VTE?: No VTE Risk Level:: Medical - moderate - high VTE Device Contraindication: Treatment Not Indicated VTE Drug Contraindication: N/A - Med Ordered
--- NOTE | 2022-01-02 14:40 | MHC.CM.PN ---
IMM 01/02/22 Male 81 DX HF Discharged today to [facility] for STR. Transport via BLS booked for 5PM.
--- NOTE | 2022-01-02 14:55 | P.DS_ITS ---
DS: Providers Provider Date of Service: 01/02/22 Date of admission: 12/26/21 22:21 Primary care physician: Anton Perla PA-C Consults: 12/26/21 22:21 Consult to Cardiology Routine Consulting Provider: Raza Alatorre Reason for consultation: CHF Consult to Infectious Diseases Routine Consulting Provider: Ramonita Espinoza Reason for consultation: Cellulitis Consult to Nephrology Routine Consulting Provider: Herson Wilkinson Reason for consultation: CRISTY DS: Diagnosis Discharge Diagnosis (1) Hypokalemia: Status: Acute (2) Acute on chronic respiratory failure with hypoxia and hypercapnia: Status: Acute (3) Acute congestive heart failure: Status: Acute (4) Acute renal failure superimposed on stage 3 chronic kidney disease: Status: Acute (5) Acute metabolic encephalopathy: Status: Acute DS: Summary Hospital Course Hospital Course: Admission note HPI ?81-year-old male with a past medical history of hypertension, hyperlipidemia, diabetes, CAD, CHF, COPD, AFib on Eliquis, hypothyroidism, History of ESBL UTI; presented to the hospital today with a chief complaint of shortness of breath and generalized weakness.? Patient reported that he has been having shortness of breath over the past 2 months; worsened over the past 2 weeks; had severe dyspnea on exertion, also mentioned he has significantly decreased excised tolerance and final shortness of breath with minimal exertion.? Samy also complains of orthopnea.?Denies any cough or sputum production.?Complains of dysuria.?Denies any nausea vomiting or diarrhea.?Also mentioned that he has noticed his legs are more swollen than his baseline and increased redness noted on the right leg compared to his baseline.? Denies any falls or trauma.?Denies any numbness tingling or focal weakness.? ?patient mentioned that he recently went to his PCP's office about a week ago and he was given Macrobid-reports he has not taken the Macrobid.? Also mentioned that at the time he was noted to be low on oxygen and suggested to go to the ER he denied any went home to take care of some activities at home. Hospital course The patient was primarily admitted to the [facility] for treatment of CHF exacerbation patient with IV Lasix and oxygen supplement. Developed acute on chronic hypoxic hypercapnic respiratory failure secondary to hyper Oxy a requiring ICU admission, intubation between the and the 30 of December with improvement of his blood gases. He was extubated and weaned down the oxygen requirement to 2 L of oxygen maintaining his O2 sat between 90-94%. He was treated meanwhile with IV Lasix drip with fair response as he is BNP improved leading to hypernatremia which was corrected. He was evaluated by Cardiology team who recommended discontinuing carvedilol and decreasing the dose of Cardizem. Seen by Physical therapy who recommended short-term rehab placement. Discharge plan Discontinue carvedilol, decrease Cardizem dose to 240 daily Start Lasix 40 mg daily To repeat blood test in 1 week To follow up with Cardiology as outpatient Oxygen saturation goal between 90-94%, avoid any higher readings. Time Spent with Patient Time attestation: Total time spent providing and/or coordinating discharge services: Discharge coordination time: Greater than 30 minutes Quality: Stroke Does the patient have a stroke diagnosis?: No Physical Exam Vital Signs: Vital Signs: Last Vital Signs Temp 97.6 F 01/02/22 11:34 Pulse 82 01/02/22 11:34 Resp 18 01/02/22 11:34 BP 113/68 01/02/22 11:34 Pulse Ox 94 01/02/22 11:34 BMI result Body Mass Index 32.7 Const: Other: Constitutional : Alert, oriented, not in distress Neck : Normal inspection, Supple Cardiovascular : RRR, S1 S2, trace bilateral lower extremity edema Respiratory : Fares bilateral air entry, no crackles, no wheezes or rhonchi, on oxygen supplement Gastrointestinal: soft, lax, Normal bowel sounds, Non tender Skin : Warm, Dry, chronic stasis dermatitis Neurological : Alert & oriented x3, No focal deficit DS: Data Data Completed and Pending Completed studies during hospitalization [Text1]: Procedures Insertion of Infusion Device into Right Basilic Vein, Percutaneous Approach (05/17/21) Labs on day of discharge: Laboratory Results - last 24 hr 01/01/22 01/01/22 01/02/22 17:34 19:49 07:03 WBC 10.8 RBC 4.86 Hgb 13.5 L Hct 44.9 MCV 92.4 MCH 27.8 MCHC 30.1 L RDW 15.7 Plt Count 163 MPV 10.6 Absolute Nucleated RBC 0.000 Nucleated RBC % (auto) 0.0 Sodium Potassium Chloride Carbon Dioxide Anion Gap BUN Creatinine Estim Creat Clear Calc Estimated GFR POC Glucose 151 H 193 H Random Glucose Calcium 01/02/22 01/02/22 07:03 11:37 WBC RBC Hgb Hct MCV MCH MCHC RDW Plt Count MPV Absolute Nucleated RBC Nucleated RBC % (auto) Sodium 140 Potassium 4.0 D Chloride 92 L Carbon Dioxide 37 H Anion Gap 15 BUN 60 H Creatinine 1.65 H Estim Creat Clear Calc 42.2 Estimated GFR 40 POC Glucose 196 H Random Glucose 168 H Calcium 9.0 Discharge Plan Discharge Patient Disposition: Xfer [facility] Discharge Diagnosis: Heart failure exacerbation Respiratory failure Acute kidney injury Referrals: [facility] [Outside] - 1 Week Anton Perla PA-C [Primary Care Provider] - 1 Week Discharge Medications: New furosemide 40 mg Tablet 40 mg PO DAILY 40 Days Qty: 40 0RF Protocol: Hold for SBP< HOLD for SBP < : 90 nicotine 14 mg/24 hr Patch 24 Hour 14 mg transdermal DAILY 30 Days 0RF ammonium lactate 12 % Cream 1 appl topical DAILY 7 Days 0RF Protocol: Apply to: Apply to: lower legs nystatin 100,000 unit/gram Powder 1 appl topical TID 7 Days 0RF Protocol: Apply to: Apply to: groin and abdominal folds diltiazem HCl 240 mg capsule,extended release 24 hr 240 mg PO DAILY Qty: 30 0RF Continued alfuzosin 10 mg tablet extended release 24 hr 10 mg PO DAILY Qty: 90 1RF hydrochlorothiazide 25 mg tablet 25 mg PO QAM Qty: 90 1RF Eliquis 2.5 mg tablet 2.5 mg PO BID Qty: 60 2RF clopidogrel 75 mg tablet 1 tab PO DAILY 0RF albuterol sulfate 90 mcg/actuation HFA aerosol inhaler 2 puff inhalation Q6H 0RF Jardiance 25 mg tablet 25 mg PO DAILY 0RF Discontinued diltiazem HCl [Tiadylt ER] 420 mg capsule,extended release 24 hr 420 mg PO BEDTIME 0RF carvedilol 6.25 mg tablet 6.25 mg PO BID 0RF Discharge Orders: Discharge Order (Routine); Ordered 01/02/22 Ordered By: Parag Peralta Diet: advance to usual diet and low salt diet Activity on Discharge: As tolerated Stand Alone Forms: Patient Portal Discharge page Other Ambulatory Orders: Basic Metabolic Panel (Routine) Timeframe: 5 Days Facility: [facility] - Location: Laboratory Ordered By: Parag Peralta Care Plan Goals: Read below Health Concerns: Read below Plan of Treatment: Read below Assessment: You were admitted to the hospital for evaluation of difficulty breathing. Admitted to the hospital and treated for heart failure symptoms. Became more lethargic and less responsive requiring admission to intensive care unit and to be intubated on ventilator machine with fair response with treatment of diuretics. You were evaluated by Physical care team who recommended short-term rehab. Discontinue carvedilol, decrease Cardizem dose to 240 daily Start Lasix 40 mg daily To repeat blood test in 1 week To follow up with Cardiology as outpatient Oxygen saturation goal between 90-94%, avoid any higher readings.
[2022-01-02 15:03] VITALS: BP 121/70; PULSE 92; RESP 20; TEMP 36.4; O2SAT 90
[2022-01-02 16:11] LABS: COVID-19 Test Negative (Negative); IDNOW Serial# 9DD0AD1C
== END 2022-01-02 17:23 | disposition skilled nursing facility (03) | DRG 291 ==
LOC: HO.ED 20:52 → HO.EDOVER 22:30 → HO.ICU 12-27 18:04 → HO.IMC 12-31 12:10
PROVIDERS: Emergency Medicine; Hospitalist; Internal Medicine; Internal Medicine Cardiovascular Disease; Internal Medicine Pulmonary Disease; Nurse Practitioner Family; Physician Assistant; Admitting Provider Hospitalist; Emergency Provider Emergency Medicine Emergency Medical Services; PCP Physician Assistant; Visit Provider Student in an Organized Health Care Education/Training Program
DX: I13.0 Hypertensive heart and chronic kidney disease with heart failure and stage 1 through stage 4 chronic kidney disease, or unspecified chronic kidney disease (principal); I50.33 Acute on chronic diastolic (congestive) heart failure; J96.21 Acute and chronic respiratory failure with hypoxia; J96.22 Acute and chronic respiratory failure with hypercapnia; G93.41 Metabolic encephalopathy; N17.9 Acute kidney failure, unspecified; E87.3 Alkalosis; E03.9 Hypothyroidism, unspecified; E78.5 Hyperlipidemia, unspecified; H02.843 Edema of right eye, unspecified eyelid; I25.10 Atherosclerotic heart disease of native coronary artery without angina pectoris; J43.9 Emphysema, unspecified; Z20.822 Contact with and (suspected) exposure to COVID-19; Z87.440 Personal history of urinary (tract) infections; I48.91 Unspecified atrial fibrillation; N18.30 Chronic kidney disease, stage 3 unspecified; I71.4 Abdominal aortic aneurysm, without rupture; I48.0 Paroxysmal atrial fibrillation; E11.22 Type 2 diabetes mellitus with diabetic chronic kidney disease; E87.6 Hypokalemia; E66.01 Morbid (severe) obesity due to excess calories; Z68.34 Body mass index [BMI] 34.0-34.9, adult; I87.2 Venous insufficiency (chronic) (peripheral); Z85.46 Personal history of malignant neoplasm of prostate; Z87.891 Personal history of nicotine dependence; Z88.2 Allergy status to sulfonamides; Z86.711 Personal history of pulmonary embolism; Z79.01 Long term (current) use of anticoagulants; Z79.02 Long term (current) use of antithrombotics/antiplatelets; Z79.899 Other long term (current) drug therapy
CPT/HCPCS: 36415; 36600; 71045; 71046; 71250; 80048; 80076; 81001; 81003; 82040; 82310; 82803; 82947; 83605; 83735; 83880; 84100; 84443; 84484; 85025; 85027; 85610; 87040; 87086; 87635; 92526; 92610; 93005; 93306; 94002; 94003; 94640; 94799; 95816; 96374; 97162; 99285; J0330; J1335; J1940; J1953; J2185; J2250; J2270; J2920; J3010; J3475; P9047

== ENCOUNTER 2022-01-06 11:29 | Emergency (ER) | payer MEDICARE, SELFPAY ==
--- NOTE | ~2022-01-06 | XR_ITS ---
EXAMINATION: XR CHEST CLINICAL INFORMATION: Shortness of breath. Rule out pneumonia or CHF COMPARISON: Previous chest x-ray most recent 12/27/2020 TECHNIQUE: Frontal view of the chest was obtained. FINDINGS: The patient is rotated to the left. The cardiac and mediastinal contours are stable. There is increased density at the left lateral costophrenic angle. This is probably related to patient rotation and superimposition of soft tissues. The lungs are otherwise clear. There is no pneumothorax. There are degenerative changes of the spine. XR/XR chest 1V IMPRESSION: No evidence for acute disease in the chest. Increased attenuation at the left lateral costophrenic angle probably related to patient rotation and overlying soft tissues. This could be confirmed with repeat PA and lateral chest x-ray if clinically indicated.
[2022-01-06 11:35] VITALS: BP 161/59; PULSE 87; RESP 18; TEMP 36.6; O2SAT 96; BMI 30.9
--- NOTE | 2022-01-06 11:56 | ECG_ITS ---
Test Reason : low potassium Blood Pressure : / mmHG Vent. Rate : 075 BPM Atrial Rate : 075 BPM P-R Int : 190 ms QRS Dur : 144 ms QT Int : 410 ms P-R-T Axes : 037 -75 005 degrees QTc Int : 457 ms Sinus rhythm with Fusion complexes Left axis deviation Intra-ventricular conduction delay Abnormal ECG When compared with ECG of 26-DEC-2021 16:56, Normal sinus rhythm has replaced Junctional rhythm QT has lengthened Referred By: Jerry Gallardo Electronically Signed By:BEATA AJ MD
--- NOTE | 2022-01-06 11:58 | ED.RECABL ---
HPI - Recheck/Abnormal Lab/Rx General Chief Complaint: Recheck/Abnormal Lab/Rx Stated Complaint: ABNORMAL LAB RESULTS FROM SNF PER EMS Time Seen by Provider: 01/06/22 11:38 Source: patient Mode of arrival: EMS Limitations: no limitations History of Present Illness HPI narrative: 81-year-old male who presents emergency department from his nursing facility for evaluation of low potassium on routine laboratory testing. The potassium was reported to assist 2.6. The patient was recently hospitalized from 12/26/2021 until 01/02/2022 for congestive heart failure, fluid overload, of respiratory failure requiring intubation. Patient reports that he had 40 lb of fluid removed from his body. Patient was discharged home on Lasix and hydrochlorothiazide is not taking a potassium supplement. He states that he was feeling fine and was not ill in any way. However, upon arriving to the emergency department he states that the cold air made him feel short of breath his caused him to cough, he states this has happened to him before in the past. He denied chest pain, fever, chills, abdominal pain, nausea, vomiting, weakness, lightheadedness, dizziness, abdominal pain, change in his bowels. He states that he is urinating frequently but he attributes this to the medications that he is taking. Related Data Home Medications Medication Instructions Recorded Confirmed clopidogrel 75 mg tablet 1 tab PO DAILY 05/17/21 12/26/21 empagliflozin 25 mg tablet 25 mg PO DAILY 12/24/21 12/26/21 (Jardiance) albuterol sulfate 90 mcg/actuation 2 puff INHALATION Q6H 12/26/21 12/26/21 aerosol inhaler Previous Rx's Medication Instructions Recorded alfuzosin 10 mg tablet,extended 10 mg PO DAILY #90 tab 06/06/21 release 24 hr hydrochlorothiazide 25 mg tablet 25 mg PO QAM #90 tab 08/27/21 apixaban 2.5 mg tablet (Eliquis) 2.5 mg PO BID #60 tab 12/18/21 ammonium lactate 12 % topical cream 1 appl TOPICAL DAILY 7 Days g 01/02/22 diltiazem HCl 240 mg capsule,24 240 mg PO DAILY #30 cap 01/02/22 hr,extended release furosemide 40 mg tablet 40 mg PO DAILY 40 Days #40 tab 01/02/22 nicotine 14 mg/24 hr daily 14 mg TRANSDERMAL DAILY 30 Days ea 01/02/22 transdermal patch nystatin 100,000 unit/gram topical 1 appl TOPICAL TID 7 Days g 01/02/22 powder Allergies Allergy/AdvReac Type Severity Reaction Status Date / Time cephalexin [Keflex] Allergy Unknown diarrhea Verified 12/24/21 16:10 Sulfa (Sulfonamide Allergy Unknown Unknown Verified 12/24/21 16:10 Antibiotics) prednisone AdvReac Severe dementia Verified 12/24/21 16:10 Review of Systems Review of Systems: Yes all other systems are reviewed and are negative [facility] Past Medical History [facility] Narrative: Past medical history: Reviewed below, patient was recently admitted on 12/26/2021 until 01/02/2022 for congestive heart failure, fluid overload, respiratory failure requiring intubation. Social history: He states that he continues to smoke approximately 4 cigarettes per day and has smoked for many years, he denied alcohol and drug use. Medical History Abdominal aortic aneurysm Acquired hypothyroidism Diabetes mellitus Edema eyelid Essential (primary) hypertension Paroxysmal atrial fibrillation Presence of stent in coronary artery in patient with coronary artery disease Renal insufficiency Surgical History History of cardiac catheterization History of nasal surgery History of tonsillectomy Family History Family History Father Myocardial infarction Mother Alzheimers disease Social History Social History Household Members: Significant Other Housing: House Alcohol intake: current Alcohol intake frequency: does not drink Patient Tobacco Use Status: Former Tobacco user Tobacco use type: Cigarette Cigarettes Per Day: 4 Years Smoked: 60 e-Cigarette/Vaping Use: Never Used Advance Directives: Yes Advance Directives on File: Yes Advance Directives Date on File: 12/27/21 service: No Current occupational status: retired Physical Exam Vital Signs: Vital Signs: Last Vital Signs Temp 97.9 F 01/06/22 11:35 Pulse 80 01/06/22 14:12 Resp 18 01/06/22 14:12 BP 116/55 L 01/06/22 14:12 Pulse Ox 97 01/06/22 14:12 BMI result Body Mass Index 30.9 Const: Other: Awake, alert, male patient, he does have a productive sounding cough, does not appear to be in distress, he answers all questions appropriately. HENMT: Head: Yes normal to inspection, Yes normocephalic and Yes atraumatic Ears: external ears normal General nose exam: Normal external nose present Face and sinus: Yes normal facial exam Mouth: Normal oral and palatal mucosa present Throat: Yes posterior oropharynx normal Eyes: General: appearance normal, both eyes and all related structures Pupils: Equal, round and reactive pupils present Neck: Neck: Yes normal visual inspection, Yes no lymphadenopathy, Yes trachea midline and Yes supple Chest: Chest palpation & inspection: normal inspection of the chest and normal palpation of entire chest wall Resp: Effort & Inspection: normal respiratory effort and able to speak in complete sentences Auscultation: no crackles, no rales, no rhonchi and wheezes (Mild, diffuse) Cardio: Rate: regular rate Rhythm: regular rhythm Heart sounds: S1 normal heart sound present, S2 normal heart sound present and no murmurs GI: Inspection: Yes normal to inspection Palpation (GI): Soft to palpation, nontender and no guarding Auscultation: normal bowel sounds : General: Yes no CVA tenderness Back/Spine/Pelvis: Back: no CVA tenderness Skin: General skin exam: no rashes or lesions noted Neuro: Cranial nerves: Yes CN's II-XII intact bilaterally and Yes Equal, round and reactive pupils present Cognition (Neuro): normal cognition Motor exam (neuro): 5/5 motor strength present throughout Extrem: General: Yes normal to inspection and Yes edema (Trace to 1+ , symmetric bilaterally) Psych: Appearance: grossly normal Speech and movement: Normal speech and movement present Affect: normal affect Attitude: cooperative Thought process: Normal thought process present Thought content: Normal thought content present Course Course Course Narrative: 81-year-old male who was sent in from his nursing facility for evaluation of a low potassium of 2.6. The patient is asymptomatic. He had a recent admission where he was fluid overloaded, had congestive heart failure requiring intubation. He was aggressively diuresed and had a reported 40 lb weight loss. Patient is taking furosemide and hydrochlorothiazide is not taking a potassium supplement. Vital signs were normal except for an elevated blood pressure of 161/59. He did have a productive sounding cough and his lung examination did reveal diffuse wheezing. I ordered an albuterol nebulizer on the patient. We will repeat the patient's laboratory evaluation, obtain a chest x-ray, EKG and COVID-19 test. Patient was ordered to get potassium chloride 40 mEq orally. 1456: Laboratory evaluation revealed a potassium of 3.3, elevated BUN creatinine of 54 and 174With a GFR of 39 with similar values in the past. The wrist is laboratory evaluation was essentially unremarkable except for an elevated troponin which I believe is secondary to his high GFR, he has had similar elevations in the past. The patient did initially present with wheezing and this improved after receiving 1 albuterol nebulizer in the emergency department. The patient did receive potassium chloride 40 mEq orally prior to getting his blood drawn, there was a computer error and orders did not cross over and the patient's blood was drawn 2 hours after receiving his potassium chloride. I do suspect that the patient does have a low potassium secondary to the diuretics these on, given his high GFR however I think that he should be started on low dose of potassium and that should be determined by his outpatient providers. Patient will be discharged back to his care facility. MDM - Recheck/Abnormal Lab/Rx Lab Data Result diagrams: 01/06/22 14:09 01/06/22 14:09 Labs: Lab Results 01/06/22 01/06/22 01/06/22 Range/Units 14:09 14:09 14:09 WBC 8.7 (4.8-10.8) X10*3/uL RBC 4.37 L (4.60-5.80) X10*6/uL Hgb 12.1 L (14.0-18.0) g/dl Hct 39.5 L (42.0-52.0) % MCV 90.4 (80.0-98.0) fL MCH 27.7 (27.0-33.0) pg MCHC 30.6 L (31.0-36.0) g/dl RDW 15.6 (11.0-16.0) % Plt Count 203 (160-400) X10*3/uL MPV 10.7 (9.4-12.4) fL Immature Gran % (Auto) 0.5 H (0.0-0.4) % Neut % (Auto) 66.9 (45-73) % Lymph % (Auto) 20.3 (20-40) % [place] % (Auto) 8.9 (2-11) % Eos % (Auto) 2.9 (0-4) % Baso % (Auto) 0.5 (0-2) % Lymph # (Auto) 1.8 (1.2-4.9) X10*3/uL [place] # (Auto) 0.8 (0.1-1.2) X10*3/uL Eos # (Auto) 0.3 (0.0-0.4) X10*3/uL Baso # (Auto) 0.0 (0.0-0.2) X10*3/uL Abs Immat Gran (auto) 0.04 H (0.00-0.03) X10*3/uL Absolute Neuts (auto) 5.8 (2.0-8.3) x10*3/uL Absolute Nucleated RBC 0.000 (0.0-0.012) X10*3/uL Nucleated RBC % (auto) 0.0 (0.0-0.2) /100WBC Sodium 140 (135-145) mmol/L Potassium 3.3 (3.3-5.1) mmol/L Chloride 92 L (96-108) mmol/L Carbon Dioxide 35 H (22-29) mmol/L Anion Gap 16 (12-20) BUN 54 H (9-16) mg/dL Creatinine 1.74 H (0.5-1.4) mg/dL Estim Creat Clear Calc 39.0 Estimated GFR 38 Random Glucose 134 H (60-115) mg/dL Calcium 9.5 (8.4-10.2) mg/dL Total Bilirubin 0.9 (0.0-1.0) mg/dL AST 19 D (5-37) U/L ALT 17 (0-40) U/L Alkaline Phosphatase 68 D (39-117) U/L Troponin I High Sens 56.9 H (<3.5-35.0) ng/L B-Natriuretic Peptide 51 (<100) pg/mL Total Protein 6.9 D (6.5-8.0) g/dL Albumin 4.2 (3.5-5.0) g/dL COVID-19 ([facility]) (Negative) COVID-19 Clin Com 02/15/22 Range/Units 14:09 WBC (4.8-10.8) X10*3/uL RBC (4.60-5.80) X10*6/uL Hgb (14.0-18.0) g/dl Hct (42.0-52.0) % MCV (80.0-98.0) fL MCH (27.0-33.0) pg MCHC (31.0-36.0) g/dl RDW (11.0-16.0) % Plt Count (160-400) X10*3/uL MPV (9.4-12.4) fL Immature Gran % (Auto) (0.0-0.4) % Neut % (Auto) (45-73) % Lymph % (Auto) (20-40) % [place] % (Auto) (2-11) % Eos % (Auto) (0-4) % Baso % (Auto) (0-2) % Lymph # (Auto) (1.2-4.9) X10*3/uL [place] # (Auto) (0.1-1.2) X10*3/uL Eos # (Auto) (0.0-0.4) X10*3/uL Baso # (Auto) (0.0-0.2) X10*3/uL Abs Immat Gran (auto) (0.00-0.03) X10*3/uL Absolute Neuts (auto) (2.0-8.3) x10*3/uL Absolute Nucleated RBC (0.0-0.012) X10*3/uL Nucleated RBC % (auto) (0.0-0.2) /100WBC Sodium (135-145) mmol/L Potassium (3.3-5.1) mmol/L Chloride (96-108) mmol/L Carbon Dioxide (22-29) mmol/L Anion Gap (12-20) BUN (9-16) mg/dL Creatinine (0.5-1.4) mg/dL Estim Creat Clear Calc Estimated GFR Random Glucose (60-115) mg/dL Calcium (8.4-10.2) mg/dL Total Bilirubin (0.0-1.0) mg/dL AST (5-37) U/L ALT (0-40) U/L Alkaline Phosphatase (39-117) U/L Troponin I High Sens (<3.5-35.0) ng/L B-Natriuretic Peptide (<100) pg/mL Total Protein (6.5-8.0) g/dL Albumin (3.5-5.0) g/dL COVID-19 ([facility]) Negative (Negative) COVID-19 Clin Com See Note ECG Data Attestation: I personally reviewed and interpreted this ECG as follows: Interpretation: 1232: Normal sinus rhythm with a rate of 75, normal NE interval, prolonged QRS of 144 milliseconds, normal QTC of 457 milliseconds, Q-waves in leads V1 and V2, left bundle branch block, no ST segment elevation, no ST segment depression. Compared to EKG dated 12/26/2021, the Q-waves are old, the left bundle-branch block may be new. Discharge Plan Discharge Clinical Impression: Acute hypokalemia, Acute exacerbation of chronic obstructive pulmonary disease Patient Disposition: [facility] Additional Instructions: There was a delay in getting your blood work today and you received potassium chloride 40 mEq orally approximately 2 hours prior to checking your lab work. Your lab work in the emergency department revealed a normal potassium of 3.3 (range 3.3 to 5.1). I suspect that you did have a low potassium most likely caused by your Lasix (furosemide) and hydrochlorothiazide therapy. You do have chronic kidney disease with a low GFR of 38 and this was unchanged from your previous values that we have in our system during her previous admission. Sometimes people that have kidney disease can hold onto potassium and you can get a very high potassium which can also be dangerous just as a low potassium can be dangerous. I believe that you should be started on a low dose of potassium either 10 mEq once a day or 10 mEq every other day however this is a decision that should be made by the doctors/providers at your [facility] facility in conjunction with your primary care doctor. At this time, I believe the you are stable and we can discharged you back to the prison facility for further rehab. The nursing facility and your doctor should continue to follow your potassium and determine if you need to be started on potassium. Follow-up with your doctor in 2 days. Please return to the emergency department if your symptoms get worse or if you develop any symptoms that are concerning to you. Prescriptions: No Action alfuzosin 10 mg tablet extended release 24 hr 10 mg PO DAILY Qty: 90 1RF hydrochlorothiazide 25 mg tablet 25 mg PO QAM Qty: 90 1RF Eliquis 2.5 mg tablet 2.5 mg PO BID Qty: 60 2RF clopidogrel 75 mg tablet 1 tab PO DAILY 0RF albuterol sulfate 90 mcg/actuation HFA aerosol inhaler 2 puff inhalation Q6H 0RF furosemide 40 mg Tablet 40 mg PO DAILY 40 Days Qty: 40 0RF Protocol: Hold for SBP< HOLD for SBP < : 90 nicotine 14 mg/24 hr Patch 24 Hour 14 mg transdermal DAILY 30 Days 0RF ammonium lactate 12 % Cream 1 appl topical DAILY 7 Days 0RF Protocol: Apply to: Apply to: lower legs nystatin 100,000 unit/gram Powder 1 appl topical TID 7 Days 0RF Protocol: Apply to: Apply to: groin and abdominal folds diltiazem HCl 240 mg capsule,extended release 24 hr 240 mg PO DAILY Qty: 30 0RF Jardiance 25 mg tablet 25 mg PO DAILY 0RF
[2022-01-06] MEDS: Albuterol Sulfate (0.083%) 2.5 MG/3 ML VIAL.NEB 5 MG INHALE (12:09)
[2022-01-06 12:13] VITALS: PULSE 78; RESP 14; O2SAT 95
[2022-01-06] MEDS: Potassium Chloride Packet 20 MEQ PACKET 40 MEQ PO (12:27)
[2022-01-06 14:12] VITALS: BP 116/55; PULSE 80; RESP 18; O2SAT 97
[2022-01-06 14:13] LABS: MANUAL DIFF FLAG NO
[2022-01-06 14:16] LABS: Basophils Percent Auto 0.5 % (0-2); Eosinophils Absolute Auto 0.3 X10*3/uL (0.0-0.4); Eosinophils Percent Auto 2.9 % (0-4); Hematocrit 39.5 % (42.0-52.0); Hemoglobin 12.1 g/dl (14.0-18.0); Imm Gran Abs Auto 0.04 X10*3/uL (0.00-0.03); Imm Gran Pct Auto 0.5 % (0.0-0.4); Lymphocytes Absolute Auto 1.8 X10*3/uL (1.2-4.9); Lymphocytes Percent Auto 20.3 % (20-40); Mean Corpuscular HGB Conc 30.6 g/dl (31.0-36.0); Mean Corpuscular Hemoglobin 27.7 pg (27.0-33.0); Mean Corpuscular Volume 90.4 fL (80.0-98.0); Mean Platelet Volume 10.7 fL (9.4-12.4); Monocytes Absolute Auto 0.8 X10*3/uL (0.1-1.2); Monocytes Percent Auto 8.9 % (2-11); Neutrophils Absolute Auto 5.8 x10*3/uL (2.0-8.3); Neutrophils Percent Auto 66.9 % (45-73); Platelet Count 203 X10*3/uL (160-400); Red Blood Count 4.37 X10*6/uL (4.60-5.80); Red Cell Distribution Width 15.6 % (11.0-16.0); White Blood Count 8.7 X10*3/uL (4.8-10.8)
[2022-01-06 14:35] LABS: Alanine Aminotransferase 17 U/L (0-40); Albumin Level 4.2 g/dL (3.5-5.0); Alkaline Phosphatase 68 U/L (39-117); Anion Gap 16 (12-20); Aspartate Amino Transferase 19 U/L (5-37); B Type Natriuretic Peptide 51 pg/mL (<100); Bilirubin Total 0.9 mg/dL (0.0-1.0); Blood Urea Nitrogen 54 mg/dL (9-16); Calcium 9.5 mg/dL (8.4-10.2); Carbon Dioxide 35 mmol/L (22-29); Chloride 92 mmol/L (96-108); Estimated Glomerular Filt Rate 38; Glucose Random 134 mg/dL (60-115); Potassium 3.3 mmol/L (3.3-5.1); Sodium 140 mmol/L (135-145); Total Protein 6.9 g/dL (6.5-8.0); Troponin-I High Sensitivity 56.9 ng/L (<3.5-35.0)
[2022-01-06 14:42] LABS: COVID-19 Test Negative (Negative)
--- NOTE | 2022-01-06 15:12 | PC.NURSE ---
MULTIPLE ATTEMPTS MADE TO CONTACT NURSE AT FACILITY NO ANSWER
== END 2022-01-06 16:48 | disposition skilled nursing facility (03) ==
PROVIDERS: Emergency Provider Emergency Medicine Emergency Medical Services; PCP Physician Assistant
DX: J44.1 Chronic obstructive pulmonary disease with (acute) exacerbation (principal); R79.89 Other specified abnormal findings of blood chemistry; I50.9 Heart failure, unspecified; R06.02 Shortness of breath; R05.9 Cough, unspecified; E87.6 Hypokalemia; F17.210 Nicotine dependence, cigarettes, uncomplicated; Z71.6 Tobacco abuse counseling; Z20.822 Contact with and (suspected) exposure to COVID-19; Z79.899 Other long term (current) drug therapy
CPT/HCPCS: 71045; 80053; 83880; 84484; 85025; 87635; 93005; 94640; 94644; 99284

== ENCOUNTER 2022-01-28 09:45 | Outpatient (REF) | payer MEDICARE, SELFPAY ==
[2022-01-28 11:29] LABS: MANUAL DIFF FLAG NO
[2022-01-28 11:32] LABS: Appearance Urine HAZY; Color Urine YELLOW; Glucose Urine UA 500 MG/DL (NEG); Leukocyte Esterase Urine NEG (NEG); Nitrite Urine NEG (NEG); Specific Gravity - Urine 1.015 (1.005-1.025); Urine Blood NEG (NEG); Urine Ketones NEG (NEG); Urine Protein 1+ MG/DL (NEG-TRACE)
[2022-01-28 11:41] LABS: Basophils Percent Auto 0.6 % (0-2); Eosinophils Absolute Auto 0.3 X10*3/uL (0.0-0.4); Eosinophils Percent Auto 3.8 % (0-4); Hematocrit 40.6 % (42.0-52.0); Hemoglobin 12.3 g/dl (14.0-18.0); Imm Gran Abs Auto 0.03 X10*3/uL (0.00-0.03); Imm Gran Pct Auto 0.4 % (0.0-0.4); Lymphocytes Absolute Auto 1.7 X10*3/uL (1.2-4.9); Lymphocytes Percent Auto 23.3 % (20-40); Mean Corpuscular HGB Conc 30.3 g/dl (31.0-36.0); Mean Corpuscular Hemoglobin 27.8 pg (27.0-33.0); Mean Corpuscular Volume 91.9 fL (80.0-98.0); Mean Platelet Volume 9.8 fL (9.4-12.4); Monocytes Absolute Auto 0.5 X10*3/uL (0.1-1.2); Monocytes Percent Auto 7.6 % (2-11); Neutrophils Absolute Auto 4.6 x10*3/uL (2.0-8.3); Neutrophils Percent Auto 64.3 % (45-73); Platelet Count 194 X10*3/uL (160-400); Red Blood Count 4.42 X10*6/uL (4.60-5.80); Red Cell Distribution Width 17.5 % (11.0-16.0); White Blood Count 7.1 X10*3/uL (4.8-10.8)
[2022-01-28 11:41] LABS: Mucus Urine 1+ /LPF; RBC Urine 0 /HPF (0); Squamous Epithelial Cell Urine TRACE /LPF; WBC Urine 0 /HPF (0-4)
[2022-01-28 11:45] LABS: D Dimer High Sensitivity 1097 NG/ML
[2022-01-28 11:54] LABS: Estimated Average Glucose 148 mg/dL; Hemoglobin A1c % 6.8 %
[2022-01-28 11:55] LABS: Alanine Aminotransferase 13 U/L (0-40); Alkaline Phosphatase 64 U/L (39-117); Anion Gap 15 (12-20); Aspartate Amino Transferase 12 U/L (5-37); Bilirubin Total 0.8 mg/dL (0.0-1.0); Blood Urea Nitrogen 28 mg/dL (9-16); Calcium 9.6 mg/dL (8.4-10.2); Carbon Dioxide 34 mmol/L (22-29); Chloride 95 mmol/L (96-108); Cholesterol 234 mg/dL; Estimated Glomerular Filt Rate 37; Glucose Fasting 140 mg/dL (60-99); HDL Cholesterol 48 mg/dL; LDL Cholesterol Calculated 153 mg/dl; Potassium 3.6 mmol/L (3.3-5.1); Sodium 140 mmol/L (135-145); Total Protein 6.8 g/dL (6.5-8.0); Triglycerides 167 mg/dL
[2022-01-28 12:05] LABS: Creatinine Urine 77.71 mg/dL; Microalbum/Creatinine Ratio Ur 378.3 ug/mg cr; Protein/Creatinine Ratio, Ur 0.64 (<0.2); Total Protein Urine Random 50 mg/dL (<12)
[2022-01-28 12:15] LABS: B Type Natriuretic Peptide 80 pg/mL (<100)
[2022-01-28 12:16] LABS: Anion Gap 15 (12-20); Blood Urea Nitrogen 28 mg/dL (9-16); Calcium 9.5 mg/dL (8.4-10.2); Carbon Dioxide 33 mmol/L (22-29); Chloride 95 mmol/L (96-108); Estimated Glomerular Filt Rate 38; Iron 57 mcg/dL (45-160); Magnesium 1.7 mg/dL (1.6-2.6); Potassium 3.6 mmol/L (3.3-5.1); Sodium 139 mmol/L (135-145); Uric Acid 10.2 mg/dL (3.4-7.0)
[2022-01-28 12:20] LABS: Ferritin 68 ng/mL (20-250); Vitamin D 25-OH Total 24.8 ng/mL (>30)
[2022-01-28 12:27] LABS: Percent Iron Saturation 18 % (15-50); Prostate Specific Antigen Scr < 0.05 ng/mL (<0.05-4.0); TSH reflex Free T4 2.05 uIU/mL (0.32-4.0); Total Iron Binding Capacity 320 mcg/dL (228-428); Unsaturated Iron Binding 263 ug/dL
[2022-01-30 13:46] LABS: Calcium (PTHI) 9.7 mg/dL (8.6-10.3); PTHI 78 pg/mL (14-64)
== END 2022-01-28 09:46 | disposition home or self-care (01) ==
LOC: HO.HMGCLDS 09:45
PROVIDERS: Absent Provider Internal Medicine Nephrology; PCP Physician Assistant; Visit Provider Nurse Practitioner Acute Care
DX: R09.02 Hypoxemia (principal); I71.2 Thoracic aortic aneurysm, without rupture; I13.0 Hypertensive heart and chronic kidney disease with heart failure and stage 1 through stage 4 chronic kidney disease, or unspecified chronic kidney disease; I50.9 Heart failure, unspecified; N18.9 Chronic kidney disease, unspecified; E11.22 Type 2 diabetes mellitus with diabetic chronic kidney disease; Z12.5 Encounter for screening for malignant neoplasm of prostate; Z85.46 Personal history of malignant neoplasm of prostate
CPT/HCPCS: 36415; 80051; 80053; 80061; 81001; 82043; 82306; 82310; 82565; 82728; 83036; 83540; 83735; 83880; 83970; 84153; 84156; 84443; 84520; 84550; 85025; 85379

== ENCOUNTER → 2022-02-23 14:31 | Outpatient (BNVA) | payer MEDICARE, SELFPAY | PROVIDERS: PCP Physician Assistant; Referring Provider Physician Assistant; Visit Provider Internal Medicine | DX: I48.0 Paroxysmal atrial fibrillation (principal); I25.10 Atherosclerotic heart disease of native coronary artery without angina pectoris; I35.0 Nonrheumatic aortic (valve) stenosis; I71.4 Abdominal aortic aneurysm, without rupture | CPT/HCPCS: 99212 ==

== ENCOUNTER 2022-03-23 14:59 | Outpatient (REF) | payer MEDICARE, SELFPAY ==
--- NOTE | ~2022-03-23 | XR_ITS ---
EXAMINATION: XR CHEST CLINICAL INFORMATION: Emphysema COMPARISON: Previous chest x-ray December 2021 TECHNIQUE: 2 views of the chest were obtained. FINDINGS: The cardiac and mediastinal contours are stable. The lungs are clear. There is no pleural effusion or pneumothorax. There are degenerative changes of the spine. XR/XR chest 2V IMPRESSION: No evidence for acute disease in the chest.
[2022-03-23 16:19] LABS: Hematocrit 37.8 % (42.0-52.0); Hemoglobin 12.2 g/dl (14.0-18.0); Mean Corpuscular HGB Conc 32.3 g/dl (31.0-36.0); Mean Corpuscular Hemoglobin 30.7 pg (27.0-33.0); Mean Corpuscular Volume 95.2 fL (80.0-98.0); Mean Platelet Volume 10.3 fL (9.4-12.4); Platelet Count 198 X10*3/uL (160-400); Red Blood Count 3.97 X10*6/uL (4.60-5.80); Red Cell Distribution Width 16.3 % (11.0-16.0); White Blood Count 7.2 X10*3/uL (4.8-10.8)
[2022-03-23 16:41] LABS: Anion Gap 14 (12-20); Blood Urea Nitrogen 36 mg/dL (9-16); Calcium 9.8 mg/dL (8.4-10.2); Carbon Dioxide 33 mmol/L (22-29); Chloride 96 mmol/L (96-108); Estimated Glomerular Filt Rate 35; Glucose Random 160 mg/dL (60-115); Potassium 3.3 mmol/L (3.3-5.1); Sodium 140 mmol/L (135-145)
== END 2022-03-23 15:00 | disposition home or self-care (01) ==
LOC: HO.HMGCX 14:59
PROVIDERS: Absent Provider Physician Assistant; PCP Physician Assistant; Visit Provider Surgery Vascular Surgery
DX: I71.4 Abdominal aortic aneurysm, without rupture (principal); J43.9 Emphysema, unspecified; R09.02 Hypoxemia
CPT/HCPCS: 36415; 71046; 80048; 85027

== ENCOUNTER 2022-06-30 10:45 | Outpatient (REF) | payer MEDICARE, SELFPAY ==
[2022-06-30 13:49] LABS: Hematocrit 37.4 % (42.0-52.0); Hemoglobin 12.3 g/dl (14.0-18.0); Mean Corpuscular HGB Conc 32.9 g/dl (31.0-36.0); Mean Corpuscular Hemoglobin 31.5 pg (27.0-33.0); Mean Corpuscular Volume 95.9 fL (80.0-98.0); Mean Platelet Volume 9.9 fL (9.4-12.4); Platelet Count 251 X10*3/uL (160-400); White Blood Count 8.1 X10*3/uL (4.8-10.8)
[2022-06-30 14:05] LABS: Estimated Average Glucose 114 mg/dL; Hemoglobin A1c % 5.6 %
[2022-06-30 14:20] LABS: Alanine Aminotransferase 9 U/L (0-40); Albumin Level 4.2 g/dL (3.5-5.0); Alkaline Phosphatase 65 U/L (39-117); Anion Gap 17 (12-20); Aspartate Amino Transferase 11 U/L (5-37); Bilirubin Total 0.5 mg/dL (0.0-1.0); Blood Urea Nitrogen 57 mg/dL (9-16); Calcium 9.2 mg/dL (8.4-10.2); Carbon Dioxide 32 mmol/L (22-29); Chloride 94 mmol/L (96-108); Cholesterol 229 mg/dL; Estimated Glomerular Filt Rate 29; Glucose Fasting 122 mg/dL (60-99); HDL Cholesterol 42 mg/dL; LDL Cholesterol Calculated 153 mg/dl; Potassium 3.2 mmol/L (3.3-5.1); Sodium 140 mmol/L (135-145); Total Protein 7.2 g/dL (6.5-8.0); Triglycerides 173 mg/dL
[2022-06-30 14:31] LABS: TSH reflex Free T4 1.83 uIU/mL (0.32-4.0)
== END 2022-06-30 10:46 | disposition home or self-care (01) ==
LOC: HO.HMGCLDS 10:45
PROVIDERS: PCP Physician Assistant; Visit Provider Physician Assistant
DX: E11.9 Type 2 diabetes mellitus without complications (principal); I25.10 Atherosclerotic heart disease of native coronary artery without angina pectoris
CPT/HCPCS: 36415; 80053; 80061; 83036; 84443; 85027

== ENCOUNTER 2022-07-21 13:21 | Outpatient (REF) | payer MEDICARE, SELFPAY ==
[2022-07-21 14:51] LABS: Anion Gap 16 (12-20); Blood Urea Nitrogen 50 mg/dL (9-16); Calcium 9.6 mg/dL (8.4-10.2); Carbon Dioxide 34 mmol/L (22-29); Chloride 91 mmol/L (96-108); Estimated Glomerular Filt Rate 30; Glucose Random 104 mg/dL (60-115); Potassium 3.3 mmol/L (3.3-5.1); Sodium 138 mmol/L (135-145)
== END 2022-07-21 13:22 | disposition home or self-care (01) ==
LOC: HO.HMGCLDS 13:21
PROVIDERS: PCP Physician Assistant; Visit Provider Physician Assistant
DX: E87.6 Hypokalemia (principal); I10 Essential (primary) hypertension
CPT/HCPCS: 36415; 80048

== ENCOUNTER 2022-08-11 10:52 | Outpatient (REF) | payer MEDICARE, SELFPAY ==
[2022-08-11 14:25] LABS: Anion Gap 18 (12-20); Blood Urea Nitrogen 46 mg/dL (9-16); Calcium 9.3 mg/dL (8.4-10.2); Carbon Dioxide 30 mmol/L (22-29); Chloride 95 mmol/L (96-108); Estimated Glomerular Filt Rate 32; Glucose Random 149 mg/dL (60-115); Potassium 3.5 mmol/L (3.3-5.1); Sodium 139 mmol/L (135-145)
== END 2022-08-11 10:53 | disposition home or self-care (01) ==
LOC: HO.HMGCLDS 10:52
PROVIDERS: PCP Physician Assistant; Visit Provider Physician Assistant
DX: N18.31 Chronic kidney disease, stage 3a (principal)
CPT/HCPCS: 36415; 80048

== ENCOUNTER → 2022-09-02 14:24 | Outpatient (BNVA) | payer MEDICARE, SELFPAY | PROVIDERS: PCP Physician Assistant; Referring Provider Physician Assistant; Visit Provider Internal Medicine | DX: I50.32 Chronic diastolic (congestive) heart failure (principal); I25.10 Atherosclerotic heart disease of native coronary artery without angina pectoris; I48.0 Paroxysmal atrial fibrillation; I35.0 Nonrheumatic aortic (valve) stenosis; Z98.890 Other specified postprocedural states; Z86.79 Personal history of other diseases of the circulatory system | CPT/HCPCS: 99212 ==

== ENCOUNTER 2022-09-21 13:49 | Outpatient (REF) | payer MEDICARE, SELFPAY ==
[2022-09-21 16:33] LABS: Hematocrit 39.9 % (42.0-52.0); Mean Corpuscular HGB Conc 32.6 g/dl (31.0-36.0); Mean Corpuscular Hemoglobin 31.5 pg (27.0-33.0); Mean Corpuscular Volume 96.6 fL (80.0-98.0); Mean Platelet Volume 9.8 fL (9.4-12.4); Platelet Count 201 X10*3/uL (160-400); Red Blood Count 4.13 X10*6/uL (4.60-5.80); Red Cell Distribution Width 14.5 % (11.0-16.0); White Blood Count 7.3 X10*3/uL (4.8-10.8)
[2022-09-21 17:03] LABS: Anion Gap 16 (12-20); Blood Urea Nitrogen 47 mg/dL (9-16); Calcium 9.4 mg/dL (8.4-10.2); Carbon Dioxide 35 mmol/L (22-29); Chloride 93 mmol/L (96-108); Estimated Glomerular Filt Rate 32; Glucose Random 113 mg/dL (60-115); Potassium 3.3 mmol/L (3.3-5.1); Sodium 141 mmol/L (135-145)
[2022-09-23 11:41] LABS: NT-proBNP 688 pg/mL
== END 2022-09-21 13:50 | disposition home or self-care (01) ==
LOC: HO.HMGCLDS 13:49
PROVIDERS: PCP Physician Assistant; Visit Provider Physician Assistant
DX: E11.9 Type 2 diabetes mellitus without complications (principal); I50.32 Chronic diastolic (congestive) heart failure
CPT/HCPCS: 36415; 80048; 83880; 85027

== ENCOUNTER 2023-02-16 10:21 | Outpatient (REF) | payer MEDICARE, SELFPAY ==
[2023-02-16 12:07] LABS: Hematocrit 37.8 % (42.0-52.0); Hemoglobin 12.6 g/dl (14.0-18.0); Mean Corpuscular HGB Conc 33.3 g/dl (31.0-36.0); Mean Corpuscular Hemoglobin 33.5 pg (27.0-33.0); Mean Corpuscular Volume 100.5 fL (80.0-98.0); Platelet Count 191 X10*3/uL (160-400); Red Blood Count 3.76 X10*6/uL (4.60-5.80); Red Cell Distribution Width 13.5 % (11.0-16.0); White Blood Count 7.7 X10*3/uL (4.8-10.8)
[2023-02-16 12:15] LABS: Estimated Average Glucose 100 mg/dL; Hemoglobin A1c % 5.1 %
[2023-02-16 13:27] LABS: Alanine Aminotransferase 13 U/L (0-40); Albumin Level 4.2 g/dL (3.5-5.0); Alkaline Phosphatase 72 U/L (39-117); Anion Gap 13 (12-20); Aspartate Amino Transferase 14 U/L (5-37); Bilirubin Total 0.6 mg/dL (0.0-1.0); Blood Urea Nitrogen 47 mg/dL (9-16); Calcium 9.5 mg/dL (8.4-10.2); Carbon Dioxide 33 mmol/L (22-29); Chloride 99 mmol/L (96-108); Cholesterol 205 mg/dL; Estimated Glomerular Filt Rate 28; Glucose Fasting 103 mg/dL (60-99); HDL Cholesterol 49 mg/dL; LDL Cholesterol Calculated 127 mg/dl; Potassium 3.4 mmol/L (3.3-5.1); Sodium 142 mmol/L (135-145); Total Protein 6.8 g/dL (6.5-8.0); Triglycerides 147 mg/dL
[2023-02-16 13:50] LABS: Prostate Specific Antigen Scr < 0.10 ng/mL (<0.05-4.0)
[2023-02-16 15:30] LABS: Blood Urea Nitrogen 47 mg/dL (9-16); Estimated Glomerular Filt Rate 29
== END 2023-02-16 10:22 | disposition home or self-care (01) ==
LOC: HO.HMGCLDS 10:21
PROVIDERS: Absent Provider Surgery Vascular Surgery; PCP Physician Assistant; Visit Provider Physician Assistant
DX: Z12.5 Encounter for screening for malignant neoplasm of prostate (principal); E11.9 Type 2 diabetes mellitus without complications; I50.32 Chronic diastolic (congestive) heart failure
CPT/HCPCS: 36415; 80053; 80061; 82565; 83036; 84153; 84520; 85027

== ENCOUNTER → 2023-03-04 14:09 | Outpatient (BNVA) | payer MEDICARE, SELFPAY | PROVIDERS: PCP Physician Assistant; Referring Provider Physician Assistant; Visit Provider Internal Medicine | DX: I25.10 Atherosclerotic heart disease of native coronary artery without angina pectoris (principal); I50.32 Chronic diastolic (congestive) heart failure; I48.0 Paroxysmal atrial fibrillation; I35.0 Nonrheumatic aortic (valve) stenosis; Z86.79 Personal history of other diseases of the circulatory system; Z79.899 Other long term (current) drug therapy; Z98.890 Other specified postprocedural states | CPT/HCPCS: 93005; 99212 ==

== ENCOUNTER 2023-04-26 14:23 | Outpatient (REF) | payer MEDICARE, SELFPAY ==
[2023-04-26 14:50] LABS: MANUAL DIFF FLAG NO
[2023-04-26 15:30] LABS: Basophils Percent Auto 0.6 % (0-2); Eosinophils Absolute Auto 0.2 X10*3/uL (0.0-0.4); Eosinophils Percent Auto 3.4 % (0-4); Hematocrit 38.1 % (42.0-52.0); Hemoglobin 12.3 g/dl (14.0-18.0); Imm Gran Abs Auto 0.02 X10*3/uL (0.00-0.03); Imm Gran Pct Auto 0.3 % (0.0-0.4); Lymphocytes Absolute Auto 1.3 X10*3/uL (1.2-4.9); Lymphocytes Percent Auto 20.2 % (20-40); Mean Corpuscular HGB Conc 32.3 g/dl (31.0-36.0); Mean Corpuscular Hemoglobin 32.6 pg (27.0-33.0); Mean Corpuscular Volume 101.1 fL (80.0-98.0); Monocytes Absolute Auto 0.5 X10*3/uL (0.1-1.2); Monocytes Percent Auto 8.6 % (2-11); Neutrophils Absolute Auto 4.1 x10*3/uL (2.0-8.3); Neutrophils Percent Auto 66.9 % (45-73); Platelet Count 169 X10*3/uL (160-400); Red Blood Count 3.77 X10*6/uL (4.60-5.80); Red Cell Distribution Width 13.4 % (11.0-16.0); White Blood Count 6.2 X10*3/uL (4.8-10.8)
[2023-04-26 16:03] LABS: Alanine Aminotransferase 11 U/L (0-40); Albumin Level 3.8 g/dL (3.5-5.0); Alkaline Phosphatase 69 U/L (39-117); Anion Gap 15 (12-20); Aspartate Amino Transferase 11 U/L (5-37); Bilirubin Total 0.6 mg/dL (0.0-1.0); Blood Urea Nitrogen 37 mg/dL (9-16); Carbon Dioxide 30 mmol/L (22-29); Chloride 101 mmol/L (96-108); Estimated Glomerular Filt Rate 37; Glucose Random 143 mg/dL (60-115); Potassium 3.6 mmol/L (3.3-5.1); Sodium 142 mmol/L (135-145); Total Protein 6.4 g/dL (6.5-8.0)
== END 2023-04-26 14:24 | disposition home or self-care (01) ==
LOC: HO.LAB 14:23
PROVIDERS: Absent Provider Internal Medicine Nephrology; PCP Physician Assistant; Visit Provider Nurse Practitioner Family
DX: Z01.818 Encounter for other preprocedural examination (principal); Z13.0 Encounter for screening for diseases of the blood and blood-forming organs and certain disorders involving the immune mechanism
CPT/HCPCS: 36415; 80053; 85025

== ENCOUNTER 2023-05-28 13:59 | Outpatient (REF) | payer MEDICARE, SELFPAY | END 2023-05-28 14:00 | disposition home or self-care (01) | LOC: HO.LAB 13:59 | PROVIDERS: PCP Physician Assistant; Visit Provider Physician Assistant | DX: E11.65 Type 2 diabetes mellitus with hyperglycemia (principal); I11.0 Hypertensive heart disease with heart failure; I50.32 Chronic diastolic (congestive) heart failure | CPT/HCPCS: 36415; 80053; 80061; 83036; 84443; 85027 ==

== ENCOUNTER 2023-05-31 15:01 | Outpatient (AMB) | payer MEDICARE, SELFPAY ==
--- NOTE | 2023-05-31 15:08 | MHC.PC.OV ---
Vital Signs 05/31/23 15:09 Height 5 ft 10 in Weight 183 lb BMI 26.3 BP 122/58 L Blood Pressure Location Lt brachial Position Sitting Pulse 76 Pulse Source Pulse Oximeter Pulse Oximetry (%) 93 Oxygen Delivery Method Room Air Intake Visit Reasons: f/u DMII/ HTN/ CHF Bindery Machine Tender Required: No Allergies cephalexin [Keflex] Allergy (Unknown, Verified 05/31/23 15:22) diarrhea Sulfa (Sulfonamide Antibiotics) Allergy (Unknown, Verified 05/31/23 15:22) Unknown prednisone Adverse Reaction (Severe, Verified 05/31/23 15:22) dementia Medication List - Last Reconciled 05/31/23 by Anton Perla PA-C albuterol sulfate 90 mcg/actuation 2 puffs inhalation Q6H PRN alfuzosin ER 10 mg PO DAILY apixaban (Eliquis) 2.5 mg PO BID clopidogrel 75 mg PO DAILY [diabetic shoe inserts As directed] [diabetic shoes As directed] diltiazem HCl 240 mg PO DAILY 90 days empagliflozin (Jardiance) 25 mg PO DAILY furosemide 40 mg PO DAILY 30 days hydrochlorothiazide 25 mg PO DAILY 30 days hydroxyzine HCl 10 mg PO BEDTIME 30 days losartan 25 mg PO DAILY potassium chloride ER (Klor-Con M) 10 mEq PO DAILY 30 days Tobacco use date assessed: 05/31/23 Fall risk assessment: No Falls in past year Last assessed Fall Risk: 05/31/23 HPI f/u DMII/ HTN/ CHF HPI Details Patient is an 82-year-old male here today for a follow-up visit.? Patient has a past medical history significant for aortic stenosis, abdominal aortic aneurysm, coronary artery disease, type 2 diabetes, hypertension, paroxysmal AFib, CKD stage 3, COPD and Congestive heart failure.. No concerns today CHRONIC MEDICAL CONDITIONS .. CKD stage III- IS followed by a nephroloist in [place].? Has been started on losartan potassium due to hypokalemia. Most recent potassium at 3.6. He reports for last seeing them in September 2021 and getting labs though no documents of this at this time.? Most recent cr at 1.7. .. CAD/ CHF:? Now followed by [place] sign out clerk. Has been euvolemic now for many months. Denies any significant shortness of breath on exertion.. Noted weight loss since last office visit in.? Now has been managed with furosemide and hydrochlorothiazide.? Has been placed on potassium supplementation due to hypokalemia. .. AFIB:? Continues on renally dosed Eliquis and diltiazem for rate control.? Denies any overt signs of bleeding.? Continues to follow cardiology.? Has now recent episodes palpitations, shortness of breath the chest discomforts. .. AAA:? Is followed vascular surgeon at [facility] recently had his abdominal aorta endovascularly fixed. Due for repeat CTA to make sure aneurysm clearing fixed though there concerns over his GFR. ... ? COPD:? does have a history of COPD, has quite smoking.? Reports only using an albuterol inhaler on a p.r.n. basis. Denies any shortness of breath at rest though does have shortness of breath on exertion which is been a chronic issue. Reviewed labs with patient and noted a mild microcytic anemia which we will follow and check his B12/folate levels.. Laboratory Tests 04/26/23 05/28/23 05/28/23 14:45 14:10 14:10 RBC 3.93 L Hgb 12.6 L Potassium 3.6 3.6 Creatinine 1.78 H 1.77 H Cholesterol 200 TSH 0.76 PFSH Medical History (Updated 05/31/23 @ 15:32 by Anton Perla PA-C) Abdominal aortic aneurysm Acquired hypothyroidism Cellulitis CHF (congestive heart failure) CKD (chronic kidney disease) stage 3, GFR 30-59 ml/min COPD (chronic obstructive pulmonary disease) Diabetes mellitus Edema eyelid Essential (primary) hypertension Paroxysmal atrial fibrillation Presence of stent in coronary artery in patient with coronary artery disease Renal insufficiency Smoker UTI (urinary tract infection) Surgical History H/O neck surgery History of cardiac catheterization History of nasal surgery History of tonsillectomy Status post endovascular aneurysm repair (EVAR) Family History Father Myocardial infarction Mother Alzheimers disease Social History Household Members: Significant Other Housing: House Alcohol intake: current Alcohol intake frequency: a few times a month Patient Tobacco Use Status: Former Tobacco user Years Smoked: 60 e-Cigarette/Vaping Use: Never Used Advance Directives Date on File: 12/27/21 service: No Current occupational status: retired Cognitive needs: Yes (cane/walker) Hearing needs: No Vision needs: No Questionnaire Thrive Questionnaire Date Thrive assessed: 04/26/23 AUDIT C Alcohol Use Questionnaire (AUDIT-C) 1. How often do you have a drink containing alcohol?: Never 3. How often do you have six or more drinks on one occasion?: Never Total Score: 0 GABRIELLA-7 AMB Questionnaire GABRIELLA-7 Date GABRIELLA - 7 assessed: 04/26/23 Source: Developed by Drs. Rickey Hernandez, Genoveva Albright, Vinny Chris and colleagues, with an educational joseline from [employer]. Review of Systems Const Denies headache(s) Eyes Denies loss of vision ENT Denies vertigo, Denies dizziness, Denies headache(s) and Denies sore throat Card Denies chest pain, Denies leg edema and Denies lightheadedness Resp Denies cough, Denies hemoptysis and Denies wheezing GI Denies abdominal pain, Denies melena, Denies constipation, Denies diarrhea and Denies vomiting Denies dysuria, Denies urinary frequency and Denies urinary urgency Musc Denies arthralgias, Denies joint swelling, Denies numbness and Denies tingling Neuro Denies Abnormal speech present, Denies behavioral changes, Denies vertigo, Denies dizziness, Denies headache(s), Denies loss of vision, Denies memory loss, Denies numbness and Denies tingling Psych Denies anxiety, Denies behavioral changes, Denies depression, Denies memory loss and Denies panic attacks Cr/Lymph Denies easy bleeding and Denies easy bruising Aller/Immun Denies wheezing Physical exam (Primary Care) Vital Signs: Last Vital Signs Pulse 76 05/31/23 15:09 BP 122/58 L 05/31/23 15:09 Pulse Ox 93 05/31/23 15:09 Oxygen Delivery Method Room Air 05/31/23 15:09 BMI result Body Mass Index 26.3 Tobacco/Smoking Status: Tobacco use Status Tobacco use date assessed 05/31/23 05/31/23 15:13 Patient Tobacco Use Status Former Tobacco user 05/31/23 15:13 Tobacco use type 03/04/23 14:29 e-Cigarette/Vaping Use Never Used 05/31/23 15:13 Thrive Assessment: Date of Thrive Assessment Date Thrive assessed 04/26/23 05/31/23 15:13 Const General: healthy appearing, no acute distress, alert and awake Nutritional Appearance: well nourished Orientation/consciousness: oriented to person, oriented to place and oriented to time HENMT Ears: TM's normal bilaterally General nose exam: Normal nasal mucous membranes and turbinates present Eyes Conjunctivae: conjunctivae normal Sclerae: sclerae normal Pupils: Equal, round and reactive pupils present Neck Neck: Yes no lymphadenopathy and Yes no JVD Thyroid: Thyroid normal Carotids: no bruits Resp Effort & Inspection: normal respiratory effort and not tachypneic Auscultation: no crackles, no rales, no rhonchi and no wheezes Cardio Rate: regular rate Rhythm: regular rhythm Heart sounds: no murmurs and normal S1 and S2 GI Palpation (GI): Soft to palpation, nontender, no hepatomegaly and no splenomegaly Auscultation: normal bowel sounds Skin General skin exam: no rashes or lesions noted and dry skin Neuro General: oriented to person, oriented to place and oriented to time Cranial nerves: Yes Equal, round and reactive pupils present Speech: No Abnormal speech present Gait exam (Neuro): Normal gait present Motor exam (neuro): no tremor noted Extrem Right upper extremity: full ROM Left upper extremity: full ROM Right lower extremity: full ROM; no edema Left lower extremity: full ROM; no edema Psych Mental Status: mental status grossly normal Speech and movement: Normal speech and movement present Affect: normal affect Attitude: cooperative Thought process: Normal thought process present Assessment and Plan Assessment & Plan (1) Chronic diastolic (congestive) heart failure: Code(s): I50.32 - Chronic diastolic (congestive) heart failure Plan: Appears euvolemic on physical exam today. Has actually lost weight since last office visit. Does report recently having an illness with diarrhea. Will continue current dose furosemide at 40 mg and hydrochlorothiazide 25 mg and continue monitoring electrolytes. (2) Type II diabetes mellitus: Code(s): E11.9 - Type 2 diabetes mellitus without complications Qualifiers: Diabetes mellitus complication status: with hyperglycemia Diabetes mellitus fci insulin use: without instrument assembly supervisor use Qualified Code(s): E11.65 - Type 2 diabetes mellitus with hyperglycemia Plan: Most recent A1c at 4.9. Continues on Jardiance 25 mg. Denies any hypoglycemic events. Goal A1c to remain below 7.0. (3) CKD (chronic kidney disease) stage 3, GFR 30-59 ml/min: Code(s): N18.30 - Chronic kidney disease, stage 3 unspecified Qualifiers: Chronic kidney disease stage 3 subtype: stage 3a (GFR 45-59) Qualified Code(s): N18.31 - Chronic kidney disease, stage 3a Plan: Patient continues to follow Nephrology. Creatinine stable between 1.7-2.0. Has had issues with hypokalemia thus was started on losartan potassium. Most recent potassium at 3.6. Will continue to follow electrolyte panel. (4) Macrocytic anemia: Code(s): D53.9 - Nutritional anemia, unspecified Plan: Noted a mild macrocytic anemia. May be related to several chronic diseases including CKD, Congestive heart failure and type 2 diabetes. Will continue to follow 1 will check B12 folate levels. Orders: Orders Vitamin B12 and Folate 3 Months D53.9 - Nutritional anemia, unspecified, E53.8 - Deficiency of other specified B group vitamins Comprehensive [place]. Panel Fast 3 Months N18.31 - Chronic kidney disease, stage 3a Lipid Panel 3 Months E11.65 - Type 2 diabetes mellitus with hyperglycemia NT-proBNP 3 Months I50.32 - Chronic diastolic (congestive) heart failure Complete Blood Count no Diff 3 Months D53.9 - Nutritional anemia, unspecified Coding Level of Care Code Est Pt Level 4 (17104) Diagnoses Chronic diastolic (congestive) heart failure I50.32 Type II diabetes mellitus E11.65 Diabetes mellitus complication status: with hyperglycemia Diabetes mellitus instrument assembly supervisor insulin use: without fci use CKD (chronic kidney disease) stage 3, GFR 30-59 ml/min N18.31 Chronic kidney disease stage 3 subtype: stage 3a (GFR 45-59) Macrocytic anemia D53.9
[2023-05-31 15:09] VITALS: BP 122/58; PULSE 76; O2SAT 93; BMI 26.3
== END 2023-05-31 15:43 | disposition home or self-care (01) ==
PROVIDERS: Visit Provider Physician Assistant
DX: I50.32 Chronic diastolic (congestive) heart failure (principal); E11.65 Type 2 diabetes mellitus with hyperglycemia; N18.31 Chronic kidney disease, stage 3a; D53.9 Nutritional anemia, unspecified
CPT/HCPCS: 99214

== ENCOUNTER 2023-08-26 11:17 | Outpatient (REF) | payer MEDICARE, SELFPAY ==
[2023-08-26 13:56] LABS: Folate 5.8 ng/mL (> or = 4.0); Vitamin B12 528 pg/mL (200-900)
[2023-09-04 13:54] LABS: NT-proBNP 782 pg/mL (<450)
== END 2023-08-26 11:18 | disposition home or self-care (01) ==
LOC: HO.HMGCLDS 11:17
PROVIDERS: PCP Physician Assistant; Visit Provider Physician Assistant
DX: E11.65 Type 2 diabetes mellitus with hyperglycemia (principal); E53.8 Deficiency of other specified B group vitamins; D53.9 Nutritional anemia, unspecified; N18.31 Chronic kidney disease, stage 3a; I50.32 Chronic diastolic (congestive) heart failure
CPT/HCPCS: 36415; 80053; 80061; 82607; 82746; 83880; 85027

== ENCOUNTER 2023-08-31 14:32 | Outpatient (AMB) | payer MEDICARE, SELFPAY ==
[2023-08-31 14:35] VITALS: BP 140/62; PULSE 72; RESP 16; O2SAT 96; BMI 27.1
--- NOTE | 2023-08-31 14:35 | MHC.PC.OV ---
Vital Signs 08/31/23 14:35 Height 5 ft 10 in Weight 189 lb BMI 27.1 BP 140/62 H Blood Pressure Location Rt brachial Position Sitting Respiration 16 Pulse 72 Pulse Source Pulse Oximeter Pulse Oximetry (%) 96 Oxygen Delivery Method Room Air Intake Visit Reasons: f/u HTN/ CHF Middleware Administrator Required: No Accompanied by: Self / Same As Patient Allergies cephalexin [Keflex] Allergy (Unknown, Verified 08/31/23 14:51) diarrhea Sulfa (Sulfonamide Antibiotics) Allergy (Unknown, Verified 08/31/23 14:51) Unknown prednisone Adverse Reaction (Severe, Verified 08/31/23 14:51) dementia Medication List - Last Reconciled 08/31/23 by Anton Perla PA-C albuterol sulfate 90 mcg/actuation 2 puffs inhalation Q6H PRN alfuzosin ER 10 mg PO DAILY apixaban (Eliquis) 2.5 mg PO BID clopidogrel 75 mg PO DAILY [diabetic shoe inserts As directed] [diabetic shoes As directed] diltiazem HCl 240 mg PO DAILY 90 days empagliflozin (Jardiance) 25 mg PO DAILY furosemide 40 mg PO DAILY 30 days hydrochlorothiazide 25 mg PO DAILY 30 days hydroxyzine HCl 10 mg PO BEDTIME 30 days losartan 25 mg PO DAILY potassium chloride ER (Klor-Con M) 10 mEq PO DAILY 30 days Tobacco use date assessed: 05/31/23 Fall risk assessment: No Falls in past year Last assessed Fall Risk: 08/31/23 Dental Screening Dental Screen Date: 08/31/23 Did you have a dental visit in the last 12 months?: Yes Did you have a dental problem in the last 6 months where you did not have access to dental care?: No Was dental information given to patient?: Patient has dentist HPI f/u HTN/ CHF HPI Details Patient is an 82-year-old male here today for a follow-up visit.? Patient has a past medical history significant for aortic stenosis, abdominal aortic aneurysm, coronary artery disease, type 2 diabetes, hypertension, paroxysmal AFib, CKD stage 3, COPD and Congestive heart failure.. CHRONIC MEDICAL CONDITIONS .. CKD stage III- IS followed by a nephroloist in [place].? Has been started on losartan potassium due to hypokalemia. Most recent potassium at 3.6. He reports for last seeing them in September 2021 and getting labs though no documents of this at this time.? Most recent cr at 1.7. .. CAD/ CHF:? Now followed by [place] reed repairer. Has been euvolemic now for many months. Denies any significant shortness of breath on exertion. .? Now has been managed with furosemide and hydrochlorothiazide.? Has been placed on potassium supplementation due to hypokalemia. .. AFIB:? Continues on renally dosed Eliquis and diltiazem for rate control.? Denies any overt signs of bleeding.? Continues to follow cardiology.? Has now recent episodes palpitations, shortness of breath the chest discomforts. .. AAA:? Is followed vascular surgeon at [facility] recently had his abdominal aorta endovascularly fixed. Due for repeat CTA to make sure aneurysm clearing fixed though there concerns over his GFR. He awaits a follow-up with his vascular surgeon. ... ? COPD:? does have a history of COPD, has quite smoking.? Reports only using an albuterol inhaler on a p.r.n. basis. Denies any shortness of breath at rest though does have shortness of breath on exertion which is been a chronic issue. Reviewed labs with patient and noted a mild macrocytic anemia. B12 and folate levels are normal. ? Anemia chronic disease verses dual platelet and anticoagulation use. Laboratory Tests 08/26/23 11:23 Hgb 12.2 L Hct 37.9 L MCV 100.8 H Creatinine 1.78 H Fasting Glucose 111 H Cholesterol 190 LDL Cholesterol, C alc 119 H [facility] Medical History (Updated 09/01/23 @ 07:43 by Anton Perla PA-C) Insomnia Atherosclerotic cardiovascular disease Cellulitis CHF (congestive heart failure) CKD (chronic kidney disease) stage 3, GFR 30-59 ml/min Smoker COPD (chronic obstructive pulmonary disease) Presence of stent in coronary artery in patient with coronary artery disease Abdominal aortic aneurysm Paroxysmal atrial fibrillation Renal insufficiency UTI (urinary tract infection) Diabetes mellitus Acquired hypothyroidism Edema eyelid Essential (primary) hypertension Surgical History Status post endovascular aneurysm repair (EVAR) H/O neck surgery History of tonsillectomy History of cardiac catheterization History of nasal surgery Family History Father Myocardial infarction Mother Alzheimers disease Social History Household Members: Significant Other Housing: House Alcohol intake: current Alcohol intake frequency: a few times a month Patient Tobacco Use Status: Former Tobacco user Years Smoked: 60 e-Cigarette/Vaping Use: Never Used Advance Directives Date on File: 12/27/21 service: No Current occupational status: retired Cognitive needs: Yes (cane/walker) Hearing needs: No Vision needs: No Questionnaire Thrive Questionnaire Date Thrive assessed: 04/26/23 GABRIELLA-7 AMB Questionnaire GABRIELLA-7 Date GABRIELLA - 7 assessed: 04/26/23 Source: Developed by Drs. Rickey Hernandez, Genoveva Albright, Vinny Chris and colleagues, with an educational joseline from [employer]. Review of Systems Const Denies headache(s) Eyes Denies loss of vision ENT Denies vertigo, Denies dizziness, Denies headache(s) and Denies sore throat Card Denies chest pain, Denies leg edema and Denies lightheadedness Resp Denies cough, Denies hemoptysis and Denies wheezing GI Denies abdominal pain, Denies melena, Denies constipation, Denies diarrhea and Denies vomiting Denies dysuria, Denies urinary frequency and Denies urinary urgency Musc Denies arthralgias, Denies joint swelling, Denies numbness and Denies tingling Neuro Denies Abnormal speech present, Denies behavioral changes, Denies vertigo, Denies dizziness, Denies headache(s), Denies loss of vision, Denies memory loss, Denies numbness and Denies tingling Psych Denies anxiety, Denies behavioral changes, Denies depression, Denies memory loss and Denies panic attacks Cr/Lymph Denies easy bleeding and Denies easy bruising Aller/Immun Denies wheezing Physical exam (Primary Care) Vital Signs: Last Vital Signs Pulse 72 08/31/23 14:35 Resp 16 08/31/23 14:35 BP 140/62 H 08/31/23 14:35 Pulse Ox 96 08/31/23 14:35 Oxygen Delivery Method Room Air 08/31/23 14:35 BMI result Body Mass Index 27.1 Tobacco/Smoking Status: Tobacco use Status Tobacco use date assessed 05/31/23 08/31/23 14:38 Patient Tobacco Use Status Former Tobacco user 08/31/23 14:38 Tobacco use type 03/04/23 14:29 e-Cigarette/Vaping Use Never Used 08/31/23 14:38 Thrive Assessment: Date of Thrive Assessment Date Thrive assessed 04/26/23 08/31/23 14:38 Const General: healthy appearing, no acute distress, alert and awake Nutritional Appearance: well nourished Orientation/consciousness: oriented to person, oriented to place and oriented to time HENMT Ears: TM's normal bilaterally General nose exam: Normal nasal mucous membranes and turbinates present Eyes Conjunctivae: conjunctivae normal Sclerae: sclerae normal Pupils: Equal, round and reactive pupils present Neck Neck: Yes no lymphadenopathy and Yes no JVD Thyroid: Thyroid normal Carotids: no bruits Resp Effort & Inspection: normal respiratory effort and not tachypneic Auscultation: no crackles, no rales, no rhonchi and no wheezes Cardio Rate: regular rate Rhythm: regular rhythm Heart sounds: no murmurs and normal S1 and S2 GI Palpation (GI): Soft to palpation, nontender, no hepatomegaly and no splenomegaly Auscultation: normal bowel sounds Skin General skin exam: no rashes or lesions noted and dry skin Neuro General: oriented to person, oriented to place and oriented to time Cranial nerves: Yes Equal, round and reactive pupils present Speech: No Abnormal speech present Gait exam (Neuro): Normal gait present Motor exam (neuro): no tremor noted Extrem Right upper extremity: full ROM Left upper extremity: full ROM Right lower extremity: full ROM; no edema Left lower extremity: full ROM; no edema Psych Mental Status: mental status grossly normal Speech and movement: Normal speech and movement present Affect: normal affect Attitude: cooperative Thought process: Normal thought process present Office Procedures Flu Questionnaire Does the patient have a severe egg allergy?: No Does the patient have severe life threatening allergies?: No Does the patient have a fever or illness today?: No Has the patient ever had Guillain-Benedicta Syndrome?: No Has the patient ever had any past reaction to a flu shot?: No Immunizations flu vacc [id number] 6mos up(PF) 60 mcg(15 mcgx4)/0.5 mL IM syringe Performing Provider: Anton Perla PA-C Performing Location: [facility] by: ESTELLA Luis on 08/31/23 14:49 Dose Route Admin Location Dispensed Lot Number Expiration Date [employer] 0.5 mL IM Left Deltoid 0.5 mL [id number] 05/21/24 26236-552-47 Notifo VIS Given Date VIS Provided VIS Publication Date 08/31/23 Single Vaccine 21 Eligibility Eligibility Date Funding Source Not [facility] Eligible 08/31/23 Private Assessment and Plan Assessment & Plan (1) Chronic diastolic (congestive) heart failure: Code(s): I50.32 - Chronic diastolic (congestive) heart failure Plan: Appears euvolemic on physical exam today. Has actually lost weight since last office visit. Does report recently having an illness with diarrhea. Will continue current dose furosemide at 40 mg and hydrochlorothiazide 25 mg and continue monitoring electrolytes. Most recent potassium stable. (2) Type II diabetes mellitus: Code(s): E11.9 - Type 2 diabetes mellitus without complications Qualifiers: Diabetes mellitus complication status: with hyperglycemia Diabetes mellitus fdc insulin use: without fdc use Qualified Code(s): E11.65 - Type 2 diabetes mellitus with hyperglycemia Plan: Most recent A1c at 4.9. Continues on Jardiance 25 mg. Denies any hypoglycemic events. Goal A1c to remain below 7.0. (3) CKD (chronic kidney disease) stage 3, GFR 30-59 ml/min: Code(s): N18.30 - Chronic kidney disease, stage 3 unspecified Qualifiers: Chronic kidney disease stage 3 subtype: stage 3a (GFR 45-59) Qualified Code(s): N18.31 - Chronic kidney disease, stage 3a Plan: Patient continues to follow Nephrology. Creatinine stable between 1.7-2.0. Has had issues with hypokalemia thus was started on losartan potassium. Will continue to follow electrolyte panel. (4) Macrocytic anemia: Code(s): D53.9 - Nutritional anemia, unspecified Plan: Noted a mild macrocytic anemia. May be related to several chronic diseases including CKD, Congestive heart failure and type 2 diabetes. B12 and folate levels are normal. (5) Abdominal aortic aneurysm: Code(s): I71.4 - Abdominal aortic aneurysm, without rupture Qualifiers: Abdominal aorta location: infrarenal aorta Presence of rupture: without rupture Qualified Code(s): I71.43 - Infrarenal abdominal aortic aneurysm, without rupture Plan: Continues to follow [facility] vascular surgery. Had recent endovascular repair, now under surveillance. He will call for follow-up with his vascular surgery group. (6) Paroxysmal atrial fibrillation: Code(s): I48.0 - Paroxysmal atrial fibrillation Plan: Continues on diltiazem with good rate control. Also on renally dosed Eliquis without any overt signs of bleeding. Orders: Orders Comprehensive [place]. Panel Fast 08/31/23 E11.65 - Type 2 diabetes mellitus with hyperglycemia Influenza [id number] Immunization 08/31/23 Z23 - Encounter for immunization Complete Blood Count no Diff 08/31/23 D53.9 - Nutritional anemia, unspecified Lipid Panel 08/31/23 I25.10 - Atherosclerotic heart disease of [place] coronary artery without angina pectoris Coding Level of Care Code Est Pt Level 4 (26933) Diagnoses Chronic diastolic (congestive) heart failure I50.32 Type 2 diabetes mellitus with hyperglycemia, without long-term current use of insulin E11.65 Diabetes mellitus complication status: with hyperglycemia Diabetes mellitus parts counterman insulin use: without fdc use Stage 3a chronic kidney disease N18.31 Chronic kidney disease stage 3 subtype: stage 3a (GFR 45-59) Macrocytic anemia D53.9 Infrarenal abdominal aortic aneurysm (AAA) without rupture I71.43 Abdominal aorta location: infrarenal aorta Presence of rupture: without rupture Paroxysmal atrial fibrillation I48.0
== END 2023-08-31 15:13 | disposition home or self-care (01) ==
PROVIDERS: PCP Physician Assistant; Visit Provider Physician Assistant
DX: Z23 Encounter for immunization (principal)
CPT/HCPCS: 90471; 90686; 99214

== ENCOUNTER 2023-10-07 15:09 | Outpatient (AMB) | payer MEDICARE, SELFPAY ==
[2023-10-07 15:43] VITALS: BP 124/72; PULSE 77; BMI 26.6
--- NOTE | 2023-10-07 15:43 | MHC.OFFVIS ---
Intake Vital Signs 10/07/23 15:43 Height 5 ft 10 in Weight 185 lb 10.067 oz BMI 26.6 BP 124/72 Blood Pressure Location Lt brachial Position Sitting Pulse 77 Pulse Source Pulse Oximeter Intake Visit Reasons: 6 month follow up Pit Steward Required: No Allergies cephalexin [Keflex] Allergy (Unknown, Verified 10/07/23 15:47) diarrhea Sulfa (Sulfonamide Antibiotics) Allergy (Unknown, Verified 10/07/23 15:47) Unknown prednisone Adverse Reaction (Severe, Verified 10/07/23 15:47) dementia Medication List - Last Reconciled 10/07/23 by Jaz Herzog NP-C albuterol sulfate 90 mcg/actuation 2 puffs inhalation Q6H PRN alfuzosin ER 10 mg PO DAILY apixaban (Eliquis) 2.5 mg PO BID clopidogrel 75 mg PO DAILY [diabetic shoe inserts As directed] [diabetic shoes As directed] diltiazem HCl 240 mg PO DAILY 90 days empagliflozin (Jardiance) 25 mg PO DAILY furosemide 40 mg PO DAILY 30 days hydrochlorothiazide 25 mg PO DAILY 30 days hydroxyzine HCl 10 mg PO BEDTIME 30 days losartan 25 mg PO DAILY potassium chloride ER (Klor-Con M) 10 mEq PO DAILY 30 days HPI 6 month follow up HPI Details Felix is an 82-year-old male with past medical history of hypertension, diabetes, aortic stenosis, paroxysmal atrial fibrillation, chronic diastolic heart failure, CAD with circumflex stent 2018 who presents for follow-up. Today he reports he has been doing well since his last visit in February. He has not had any chest discomfort at rest or with activity. He does have some shortness of breath with exertion which is not new. No PND, orthopnea or edema. No palpitations, presyncope, syncope, falls. Ambulates with a walker. Takes his meds as directed. Tells me he has been missing his evening dose of Eliquis as he forgets. [facility] Medical History (Updated 09/01/23 @ 07:43 by Anton Perla PA-C) Insomnia Atherosclerotic cardiovascular disease Cellulitis CHF (congestive heart failure) CKD (chronic kidney disease) stage 3, GFR 30-59 ml/min Smoker COPD (chronic obstructive pulmonary disease) Presence of stent in coronary artery in patient with coronary artery disease Abdominal aortic aneurysm Paroxysmal atrial fibrillation Renal insufficiency UTI (urinary tract infection) Diabetes mellitus Acquired hypothyroidism Edema eyelid Essential (primary) hypertension Surgical History Status post endovascular aneurysm repair (EVAR) H/O neck surgery History of tonsillectomy History of cardiac catheterization History of nasal surgery Family History Father Myocardial infarction Mother Alzheimers disease Social History Household Members: Significant Other Housing: House Alcohol intake: current Alcohol intake frequency: a few times a month Patient Tobacco Use Status: Former Tobacco user Years Smoked: 60 e-Cigarette/Vaping Use: Never Used Advance Directives Date on File: 12/27/21 service: No Current occupational status: retired Cognitive needs: Yes (cane/walker) Hearing needs: No Vision needs: No Review of Systems Const All systems reviewed & are unremarkable except as noted in HPI and below Card Denies chest pain, Denies chest pain at rest, Denies chest pain with activity, Denies rapid heart rate, Denies pedal edema, Denies edema, Denies leg edema, Denies lightheadedness, Denies palpitations, Denies dyspnea, Denies dyspnea on exertion and Denies orthopnea Resp Denies cough, Denies dyspnea and Denies dyspnea on exertion GI Denies hematochezia and Denies change in stool character Musc Denies abnormal gait, Reports limited range of motion, Reports muscle cramps, Denies muscle weakness, Denies numbness, Denies radiating pain into limb, Denies stiffness and Denies tingling Neuro Denies abnormal gait, Denies numbness and Denies tingling Endo Denies palpitations Physical Exam Vital Signs: Last Vital Signs Pulse 77 10/07/23 15:43 BP 124/72 10/07/23 15:43 BMI result Body Mass Index 26.6 Const General: cooperative, healthy appearing, comfortable and no acute distress Orientation/consciousness: patient oriented x3 Neck Neck: Yes normal visual inspection Resp Effort & Inspection: normal respiratory effort Auscultation: clear to auscultation bilaterally, no crackles, no rales, no rhonchi and no wheezes Cardio Jugular venous distension: no JVD Rate: regular rate Rhythm: regular rhythm Heart sounds: S1 normal heart sound present, S2 normal heart sound present, no murmurs and no rubs Neuro General: patient oriented x3 Extrem General: Yes normal to inspection and No no pedal edema Psych Appearance: grossly normal Mental Status: mental status grossly normal Speech and movement: Normal speech and movement present Assessment & Plan Assessment & Plan (1) Atherosclerotic cardiovascular disease: Code(s): I25.10 - Atherosclerotic heart disease of [place] coronary artery without angina pectoris Plan: History of coronary artery disease. STEMI 10/31/2018 with cardiac catheterization showing occlusion of proximal circumflex, AVIVA placed. Last cardiac catheterization 04/2019 showed proximal LAD, distal 65% stenosis, patent circumflex stent, RCA mild diffuse disease. No reports of anginal sounding symptoms at this time. Continue meds for stable CAD. 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 He is on Eliquis for his PAF. He declines statins. At this time he is not interested in Repatha/Praluent. Signs and symptoms of angina reviewed. Emergency care if ever needed for symptoms. Cardiology follow-up in 6 months, sooner if needed (2) Chronic diastolic (congestive) heart failure: Code(s): I50.32 - Chronic diastolic (congestive) heart failure Plan: History of diastolic heart failure. Stable at this time. No signs of fluid overloaded on examination. Continue Lasix (3) Paroxysmal atrial fibrillation: Code(s): I48.0 - Paroxysmal atrial fibrillation Plan: History of paroxysmal atrial fibrillation. Currently suppressed. On diltiazem for heart rate control. On Eliquis for anticoagulation. No bleeding issues reported. Tells me he frequently misses his evening dose of Eliquis. The importance of strict med compliance reviewed. Stroke risk with atrial fibrillation discussed. He has not felt any recent heart palpitations. Pulse is regular on examination today. (4) Non-rheumatic aortic stenosis: Code(s): I35.0 - Nonrheumatic aortic (valve) stenosis Plan: Echocardiogram done 12/29/2021 showed mild aortic stenosis. Will plan for repeat echo 2 years from last, due December 2023 (5) Status post endovascular aneurysm repair (EVAR): Code(s): Z98.890 - Other specified postprocedural states; Z86.79 - Personal history of other diseases of the circulatory system Plan: s/p endovascular repair of abdominal aorta at [facility]. Orders: Orders CA echo transthoracic complete 3 Months I35.0 - Nonrheumatic aortic (valve) stenosis Coding Level of Care Code Est Pt Level 3 (30626) Diagnoses Atherosclerotic cardiovascular disease I25.10 Chronic diastolic (congestive) heart failure I50.32 Paroxysmal atrial fibrillation I48.0 Non-rheumatic aortic stenosis I35.0 Status post endovascular aneurysm repair (EVAR) Z98.890; Z86.79 Time Spent (min) 24
== END 2023-10-07 16:21 | disposition home or self-care (01) ==
PROVIDERS: PCP Physician Assistant; Visit Provider Nurse Practitioner Family
DX: I25.10 Atherosclerotic heart disease of native coronary artery without angina pectoris (principal); I50.32 Chronic diastolic (congestive) heart failure; I48.0 Paroxysmal atrial fibrillation; I35.0 Nonrheumatic aortic (valve) stenosis; Z98.890 Other specified postprocedural states; Z86.79 Personal history of other diseases of the circulatory system
CPT/HCPCS: 99213

== ENCOUNTER → 2023-10-07 15:09 | Outpatient (BNVA) | payer MEDICARE, SELFPAY | PROVIDERS: PCP Physician Assistant; Visit Provider Nurse Practitioner Family | DX: I25.10 Atherosclerotic heart disease of native coronary artery without angina pectoris (principal); I50.32 Chronic diastolic (congestive) heart failure; I48.0 Paroxysmal atrial fibrillation; I35.0 Nonrheumatic aortic (valve) stenosis; Z98.890 Other specified postprocedural states; Z86.79 Personal history of other diseases of the circulatory system | CPT/HCPCS: 99212 ==

== ENCOUNTER 2023-11-26 10:20 | Outpatient (REF) | payer MEDICARE, SELFPAY | END 2023-11-26 10:21 | disposition home or self-care (01) | LOC: HO.LAB 10:20 | PROVIDERS: PCP Physician Assistant; Visit Provider Physician Assistant | DX: E87.6 Hypokalemia (principal); D53.9 Nutritional anemia, unspecified; I25.10 Atherosclerotic heart disease of native coronary artery without angina pectoris; E11.65 Type 2 diabetes mellitus with hyperglycemia | CPT/HCPCS: 36415; 80048; 80053; 80061; 85027 ==

== ENCOUNTER 2023-12-01 14:06 | Outpatient (AMB) | payer MEDICARE, SELFPAY ==
--- NOTE | 2023-12-01 14:10 | MHC.PC.OV ---
Vital Signs 12/01/23 14:11 Height 5 ft 10 in Weight 187 lb 0.2 oz BMI 26.8 BP 120/68 Blood Pressure Location Lt brachial Position Sitting Pulse 84 Pulse Source Pulse Oximeter Pulse Oximetry (%) 93 Oxygen Delivery Method Room Air Intake Visit Reasons: f/u HTN/ CHF Allergies cephalexin [Keflex] Allergy (Unknown, Verified 12/01/23 14:49) diarrhea Sulfa (Sulfonamide Antibiotics) Allergy (Unknown, Verified 12/01/23 14:49) Unknown prednisone Adverse Reaction (Severe, Verified 12/01/23 14:49) dementia Medication List - Last Reconciled 12/01/23 by Anton Perla PA-C albuterol sulfate 90 mcg/actuation 2 puffs inhalation Q6H PRN alfuzosin ER 10 mg PO DAILY apixaban (Eliquis) 2.5 mg PO BID [diabetic shoe inserts As directed] [diabetic shoes As directed] diltiazem HCl 240 mg PO DAILY 90 days empagliflozin (Jardiance) 25 mg PO DAILY furosemide 40 mg PO DAILY 30 days hydrochlorothiazide 25 mg PO DAILY 30 days hydroxyzine HCl 10 mg PO BEDTIME 30 days losartan 25 mg PO DAILY potassium chloride ER (Klor-Con M) 20 mEq PO DAILY Tobacco use date assessed: 12/01/23 Fall risk assessment: No Falls in past year Last assessed Fall Risk: 12/01/23 Dental Screening Dental Screen Date: 12/01/23 HPI f/u HTN/ CHF HPI Details Patient is an 82-year-old male here today for a follow-up visit.? Patient has a past medical history significant for aortic stenosis, abdominal aortic aneurysm, coronary artery disease, type 2 diabetes, hypertension, paroxysmal AFib, CKD stage 3, COPD and Congestive heart failure.. CHRONIC MEDICAL CONDITIONS .. CKD stage III-patient's creatinine stable 1.6-1.8.. IS followed by a nephroloist in [place].? Has been started on losartan potassium due to hypokalemia. Most recent potassium at 3.6. He is now on potassium 20 mEq Recently underwent eyelid surgery which has been accessed Will. He reports his eyesight is much better. .. CAD/ CHF:? followed by [place] seed technician. Has been euvolemic now for many months. Denies any significant shortness of breath on exertion. .? Now has been managed with furosemide 40 minutes and hydrochlorothiazide.? .. AFIB:? Continues on renally dosed Eliquis and diltiazem for rate control.? Denies any overt signs of bleeding.? Continues to follow cardiology.? Has now recent episodes palpitations, shortness of breath the chest discomforts. .. AAA:? Is followed vascular surgeon at [facility] recently had his abdominal aorta endovascularly fixed. Due for repeat CTA to make sure aneurysm clearing fixed .. CT of abdomen without any enlarging abdominal aneurysm. He awaits a follow-up with his vascular surgeon. ... ? COPD:? does have a history of COPD, has quite smoking.? Reports only using an albuterol inhaler on a p.r.n. basis. Denies any shortness of breath at rest though does have shortness of breath on exertion which is been a chronic issue. . Laboratory Tests 08/26/23 11:23 Hgb 12.2 L Hct 37.9 L MCV 100.8 H Creatinine 1.78 H Fasting Glucose 111 H Cholesterol 190 LDL Cholesterol, C alc 119 H [facility] Medical History Insomnia Atherosclerotic cardiovascular disease Cellulitis CHF (congestive heart failure) CKD (chronic kidney disease) stage 3, GFR 30-59 ml/min Smoker COPD (chronic obstructive pulmonary disease) Presence of stent in coronary artery in patient with coronary artery disease Abdominal aortic aneurysm Paroxysmal atrial fibrillation Renal insufficiency UTI (urinary tract infection) Diabetes mellitus Acquired hypothyroidism Edema eyelid Essential (primary) hypertension Surgical History Status post endovascular aneurysm repair (EVAR) H/O neck surgery History of tonsillectomy History of cardiac catheterization History of nasal surgery Family History Father Myocardial infarction Mother Alzheimers disease Social History Household Members: Significant Other Housing: House Alcohol intake: current Alcohol intake frequency: a few times a month Comment: pt in recliner-camera on Patient Tobacco Use Status: Former Tobacco user Years Smoked: 60 e-Cigarette/Vaping Use: Never Used Advance Directives Date on File: 12/27/21 service: No Current occupational status: retired Cognitive needs: Yes (cane/walker) Hearing needs: No Vision needs: No Questionnaire Thrive Questionnaire Date Thrive assessed: 04/26/23 AUDIT C Alcohol Use Questionnaire (AUDIT-C) 1. How often do you have a drink containing alcohol?: Never 3. How often do you have six or more drinks on one occasion?: Never Total Score: 0 GABRIELLA-7 AMB Questionnaire GABRIELLA-7 Date GABRIELLA - 7 assessed: 04/26/23 Source: Developed by Drs. Rickey Hernandez, Genoveva Albright, Vinny Chris and colleagues, with an educational joseline from [employer]. Review of Systems Const Denies headache(s) Eyes Denies loss of vision ENT Denies vertigo, Denies dizziness, Denies headache(s) and Denies sore throat Card Denies chest pain, Denies leg edema and Denies lightheadedness Resp Denies cough, Denies hemoptysis and Denies wheezing GI Denies abdominal pain, Denies melena, Denies constipation, Denies diarrhea and Denies vomiting Denies dysuria, Denies urinary frequency and Denies urinary urgency Musc Denies arthralgias, Denies joint swelling, Denies numbness and Denies tingling Neuro Denies Abnormal speech present, Denies behavioral changes, Denies vertigo, Denies dizziness, Denies headache(s), Denies loss of vision, Denies memory loss, Denies numbness and Denies tingling Psych Denies anxiety, Denies behavioral changes, Denies depression, Denies memory loss and Denies panic attacks Cr/Lymph Denies easy bleeding and Denies easy bruising Aller/Immun Denies wheezing Physical exam (Primary Care) Vital Signs: Last Vital Signs Pulse 84 12/01/23 14:11 BP 120/68 12/01/23 14:11 Pulse Ox 93 12/01/23 14:11 Oxygen Delivery Method Room Air 12/01/23 14:11 BMI result Body Mass Index 26.8 Tobacco/Smoking Status: Tobacco use Status Tobacco use date assessed 12/01/23 12/01/23 14:16 Patient Tobacco Use Status Former Tobacco user 12/01/23 14:16 Tobacco use type 03/04/23 14:29 e-Cigarette/Vaping Use Never Used 01/10/24 14:16 Thrive Assessment: Date of Thrive Assessment Date Thrive assessed 04/26/23 12/01/23 14:16 Const General: healthy appearing, no acute distress, alert and awake Nutritional Appearance: well nourished Orientation/consciousness: oriented to person, oriented to place and oriented to time HENMT Ears: TM's normal bilaterally General nose exam: Normal nasal mucous membranes and turbinates present Eyes Conjunctivae: conjunctivae normal Sclerae: sclerae normal Pupils: Equal, round and reactive pupils present Neck Neck: Yes no lymphadenopathy and Yes no JVD Thyroid: Thyroid normal Carotids: no bruits Resp Effort & Inspection: normal respiratory effort and not tachypneic Auscultation: no crackles, no rales, no rhonchi and no wheezes Cardio Rate: regular rate Rhythm: regular rhythm Heart sounds: no murmurs and normal S1 and S2 GI Palpation (GI): Soft to palpation, nontender, no hepatomegaly and no splenomegaly Auscultation: normal bowel sounds Skin General skin exam: no rashes or lesions noted and dry skin Neuro General: oriented to person, oriented to place and oriented to time Cranial nerves: Yes Equal, round and reactive pupils present Speech: No Abnormal speech present Gait exam (Neuro): Normal gait present Motor exam (neuro): no tremor noted Extrem Right upper extremity: full ROM Left upper extremity: full ROM Right lower extremity: full ROM; no edema Left lower extremity: full ROM; no edema Psych Mental Status: mental status grossly normal Speech and movement: Normal speech and movement present Affect: normal affect Attitude: cooperative Thought process: Normal thought process present Results AMB Hemoglobin A1c AMB Hemoglobin A1c 5.4 % Last Edit by TONY Majano on 12/01/23 14:31 Results Reviewed Results Reviewed: Laboratory Last Values Hgb A1c (Clinic) 5.4 % (4.0-6.0) 12/01/23 12:37 Assessment and Plan Assessment & Plan (1) Chronic diastolic (congestive) heart failure: Code(s): I50.32 - Chronic diastolic (congestive) heart failure Plan: Appears euvolemic on physical exam today. Will continue current dose furosemide at 40 mg and hydrochlorothiazide 25 mg and will continue monitoring electrolytes. Most recent potassium stable. Continues on events of potassium. (2) Type II diabetes mellitus: Code(s): E11.9 - Type 2 diabetes mellitus without complications Qualifiers: Diabetes mellitus complication status: with hyperglycemia Diabetes mellitus half-way insulin use: without emt intermediate use Qualified Code(s): E11.65 - Type 2 diabetes mellitus with hyperglycemia Plan: Most recent A1c stable. Continues on Jardiance 25 mg. Denies any hypoglycemic events. Goal A1c to remain below 7.0. (3) CKD (chronic kidney disease) stage 3, GFR 30-59 ml/min: Code(s): N18.30 - Chronic kidney disease, stage 3 unspecified Qualifiers: Chronic kidney disease stage 3 subtype: stage 3a (GFR 45-59) Qualified Code(s): N18.31 - Chronic kidney disease, stage 3a Plan: Patient continues to follow Nephrology. Creatinine stable between 1.7-2.0. Has had issues with hypokalemia thus was started on losartan potassium. Will continue to follow electrolyte panel. (4) Macrocytic anemia: Code(s): D53.9 - Nutritional anemia, unspecified Plan: Noted a mild macrocytic anemia. May be related to several chronic diseases including CKD, Congestive heart failure and type 2 diabetes. B12 and folate levels are normal. (5) Abdominal aortic aneurysm: Code(s): I71.4 - Abdominal aortic aneurysm, without rupture Qualifiers: Abdominal aorta location: infrarenal aorta Presence of rupture: without rupture Qualified Code(s): I71.43 - Infrarenal abdominal aortic aneurysm, without rupture Plan: Continues to follow [facility] vascular surgery. Had recent endovascular repair, now under surveillance he aneurysm has not enlarged.. He has upcoming visit with vascular surgery as follow-up. (6) Paroxysmal atrial fibrillation: Code(s): I48.0 - Paroxysmal atrial fibrillation Plan: Continues on diltiazem with good rate control. Also on renally dosed Eliquis without any overt signs of bleeding. Otherwise denies any palpitations, chest pain or dizziness. (7) Pulmonary nodule less than 1 cm in diameter with moderate to high risk for malignant neoplasm: Code(s): R91.1 - Solitary pulmonary nodule; Z91.89 - Other specified personal risk factors, not elsewhere classified Plan: Does have a history of multiple small 2 mm pulmonary nodules found on CT in 2020 while hospitalized. He was a 30-35 pack year smoker. Currently out of the H requirement for lung cancer screening program. Will send for repeat CT to evaluate nodules. (8) COPD (chronic obstructive pulmonary disease): Code(s): J44.9 - Chronic obstructive pulmonary disease, unspecified Qualifiers: COPD type: emphysema Emphysema type: unspecified Qualified Code(s): J43.9 - Emphysema, unspecified Plan: He reports his breathing has been stable. Denies any exacerbations. Does use his albuterol inhaler on occasion Orders: Orders AMB Hemoglobin A1c 12/01/23 E11.9 - Type [address] complications [address] chest wo IV con 12/01/23 J44.9 - Chronic obstructive pulmonary disease, unspecified, R91.1 - Solitary pulmonary nodule, Z91.89 - Other specified personal risk factors, not elsewhere classified Microalbumin, Random (w Creat) 12/01/23 I10 - Essential (primary) hypertension Lipid Panel 12/01/23 I50.32 - Chronic diastolic (congestive) heart failure NT-proBNP 12/01/23 I50.32 - Chronic diastolic (congestive) heart failure Comprehensive Power. Panel Fast 12/01/23 N18.31 - Chronic kidney disease, stage 3a Prostate Specific Antigen Scr 12/01/23 I50.32 - Chronic diastolic (congestive) heart failure, Z12.5 - Encounter for screening for malignant neoplasm of prostate Medications: Changed From potassium chloride ER (Klor-Con M) 10 mEq PO DAILY 30 days 30 tabs 1RF I50.9 - Heart failure, unspecified To potassium chloride ER (Klor-Con M) 20 mEq PO DAILY I50.9 - Heart failure, unspecified Coding Level of Care Code Est Pt Level 4 (97791) Diagnoses Chronic diastolic (congestive) heart failure I50.32 Type 2 diabetes mellitus with hyperglycemia, without long-term current use of insulin E11.65 Diabetes mellitus complication status: with hyperglycemia Diabetes mellitus emt intermediate insulin use: without emt intermediate use Stage 3a chronic kidney disease N18.31 Chronic kidney disease stage 3 subtype: stage 3a (GFR 45-59) Macrocytic anemia D53.9 Infrarenal abdominal aortic aneurysm (AAA) without rupture I71.43 Abdominal aorta location: infrarenal aorta Presence of rupture: without rupture Paroxysmal atrial fibrillation I48.0 Pulmonary nodule less than 1 cm in diameter with moderate to high risk for malignant neoplasm R91.1; Z91.89 Pulmonary emphysema, unspecified emphysema type J43.9 COPD type: emphysema Emphysema type: unspecified
[2023-12-01 14:11] VITALS: BP 120/68; PULSE 84; O2SAT 93; BMI 26.8
== END 2023-12-01 15:10 | disposition home or self-care (01) ==
PROVIDERS: PCP Physician Assistant; Visit Provider Physician Assistant
DX: E11.9 Type 2 diabetes mellitus without complications (principal)
CPT/HCPCS: 83036; 99214

== ENCOUNTER → 2023-12-27 12:55 | Outpatient (REF) | payer MEDICARE, SELFPAY ==
--- NOTE | 2023-12-27 12:58 | CA_ITS ---
Transthoracic Echocardiogram Patient (Last, First, Middle): Felix Syed J Gender: Male Date of : 1940 Age: 83 Procedure Date: 12/27/2023 Procedure Type: Transthoracic Echocardiogram Location: OP Height: 177.8 cm Weight: 83.92 kg BSA: 2.02 m2 Heart Rate: bpm BP: 116 / 56 mmHg Wreath Machine Tender: LEN Referring MD: Jaz Herzog RECORDING STUDIO SET UP WORKERElvira Symptoms: I35.0 - Nonrheumatic aortic (valve) stenosis Study Quality: Adequate ECG Rhythm: Sinus Conclusions: - The left ventricular systolic function is normal. The calculated ejection fraction is 67% by biplane method. - The basal inferior and basal inferolateral segments are hypokinetic. - There is moderate calcification of the aortic valve. There is mild aortic valve stenosis. Findings Left Ventricle Normal left ventricular cavity size. There is mildly increased left ventricular wall thickness. The left ventricular systolic function is normal. The calculated ejection fraction is 67% by biplane method. There is no evidence of regional wall motion abnormalities. Evidence suggests grade I (mild) diastolic dysfunction. Wall Motion Rest Echo Findings The basal inferior and basal inferolateral segments are hypokinetic. Right Ventricle Normal right ventricular cavity size and systolic function. Atria Mild biatrial enlargement. Aortic Valve There is moderate calcification of the aortic valve. There is mild aortic valve stenosis. There is no aortic valve regurgitation. Mitral Valve The mitral valve appears normal. There is mild mitral annular calcification. There is no mitral valve stenosis. Pulmonic Valve The pulmonic valve is likely normal. Tricuspid Valve Normal tricuspid valve structure. There is mild tricuspid valve regurgitation. There is no evidence of pulmonary hypertension. Great Vessels The asc aorta is normal in size. Venous The inferior vena cava is normal in size and collapses greater than 50% with inspiration. Pericardium/Pleural There is no evidence of pericardial effusion. Prior Study Comparison No significant change compared to prior study dated: 12/29/2021. Images reviewed. Measurements 2D Linear Measurements IVSd: 1.22 0.6-0.9/0.6-1.0 cm LVIDd: 4.07 3.9-5.3/4.2-5.9 cm LVIDd Index: 2.01 2.4-3.2/2.2-3.1 cm/m2 LVIDs: 2.33 2.0-3.6 cm LVPWd: 1.23 0.7-1.1 cm Ao Root: 3.50 2.1-3.5 cm LA Diam: 3.30 2.7-3.8/3.0-4.0 cm LAIDs Index: 1.63 1.5-2.3 cm/m2 LV Mass: 218.14 67-162/88-224 g LV Mass Index: 107.99 43-95/49-115 g/m2 LVOT Diam: 2.00 3.0+(-)1.3 cm 2D Systolic Function EF 4C: 63.20 >55% EF 2C: 75.10 >55% EF BiP: 66.50 >55% Mitral Valve MV Pk E: 0.72 MV PK A: 1.07 MV Decel Time: 194.00 E/A: 0.70 E'Lateral: 7.51 E'Medial: 4.68 E/E' Med: 15.30 E/E' Lat: 9.50 PHT: 57.00 MVA PHT: 3.86 Decel [place]: 3.70 Aortic Valve AoV Pk Eugene: 1.90 AoV Mn Eugene: 1.28 AoV VTI: 0.40 AoV Pk Grad: 14.00 Aov Mn Grad: 8.00 KAMILLE Cont.VTI: 1.79 LVOT LVOT Pk Eugene: 1.10 LVOT Mn [place]: 0.73 LVOT VTI: 0.23 LVOT Pk Grad: 5.00 LVOT Mn Grad: 3.00 LVOT Diam: 2.00 LVOT Area: 3.14 Diastolic Function MV Pk E: 0.72 MV Pk A: 1.07 E/A: 0.70 E'Medial: 4.68 E/E' Med: 15.30 E' Laterial: 7.51 E/E' Lat: 9.50 Right Ventricle TAPSE (mm): 34.00 TVS' [place]: 15.00 Tricuspid Valve TR Pk Eugene: 2.73 TR Pk Grad: 30.00 RA Press: 3.00 RVSP: 33.00 Great Vessels Aorta Ao Root-2D: 3.50 2.0-3.7 cm Ao Asc: 3.70 2.1-3.4 cm Pulmonary Valve PV Pk [place]: 1.16 Peak PV Grad: 5.00 Updated in Other Vendor System with Status of Final Raza Alatorre MD electronically signed on 12/28/2023 8:30:07 AM with status of Final
== END ==
LOC: HO.CARD 12:55
PROVIDERS: PCP Physician Assistant; Visit Provider Nurse Practitioner Family
DX: I35.0 Nonrheumatic aortic (valve) stenosis (principal)
CPT/HCPCS: 93306

== ENCOUNTER → 2023-12-27 12:58 | Outpatient (BNV) | payer MEDICARE, SELFPAY | PROVIDERS: PCP Physician Assistant; Visit Provider Internal Medicine | DX: I35.0 Nonrheumatic aortic (valve) stenosis (principal); I36.1 Nonrheumatic tricuspid (valve) insufficiency | CPT/HCPCS: 93306 ==

== ENCOUNTER 2024-01-07 14:46 | Outpatient (REF) | payer MEDICARE, SELFPAY ==
--- NOTE | ~2024-01-07 | CT_ITS ---
EXAMINATION: CT CHEST WITHOUT CONTRAST CLINICAL INFORMATION: Solitary pulmonary nodule. COMPARISON: CT chest 12/28/2021 and 06/13/2020. TECHNIQUE: Multidetector volumetric CT imaging of the chest was done. Axial MIP volume rendering provided. Sagittal and coronal reformatted images were obtained. This CT examination was performed using dose optimization techniques as appropriate, variously including the following: *Automated exposure control *Adjustment of mA and/or kV according to patient size (this includes techniques or standardized protocols for targeted exams where dose is matched to indication/reason for exam; i.e. extremities or head) *Use of iterative reconstruction technique DLP: 236 mGy-cm FINDINGS: LUNGS: Emphysematous changes are present most marked at the lung apices. Multiple scattered pulmonary calcified granulomas are seen. A few small noncalcified micronodules are seen, none larger than 2 mm. Horn images of all have been saved. Previously seen 4 mm nodule at the left lung base on the 06/13/2020 study (prior 7:488), is no longer seen. The lungs are otherwise clear with no evidence of inflammation or worrisome nodules. MEDIASTINUM: The mediastinum is unremarkable. CORONARY ARTERY CALCIFICATION: Extensive. PLEURA: There is no pleural effusion. No pleural mass or thickening. AXILLA: No lymphadenopathy. UPPER ABDOMEN: Partial visualization of abdominal aorta stent graft. OSSEOUS STRUCTURES: Degenerative changes are present in the spine. No bony destructive lesions. CT/CT chest wo IV con IMPRESSION: 1. Emphysema. 2. Multiple calcified granulomas. 3. A few small noncalcified micronodules are seen, none larger than 2 mm. 4. Previously seen 4 mm nodule at the left lung base is no longer seen. 5. Other incidental findings as described above. Fleischner guidelines were followed.
== END 2024-01-07 14:47 | disposition home or self-care (01) ==
LOC: HO.CT 14:46
PROVIDERS: PCP Physician Assistant; Visit Provider Physician Assistant
DX: R91.1 Solitary pulmonary nodule (principal); J44.9 Chronic obstructive pulmonary disease, unspecified; Z91.89 Other specified personal risk factors, not elsewhere classified
CPT/HCPCS: 71250

== ENCOUNTER 2024-02-24 09:02 | Outpatient (REF) | payer MEDICARE, SELFPAY ==
[2024-02-24 11:00] LABS: Alanine Aminotransferase 13 U/L (0-40); Albumin Level 4.1 g/dL (3.5-5.0); Alkaline Phosphatase 60 U/L (39-117); Anion Gap 15 (12-20); Aspartate Amino Transferase 11 U/L (5-37); Bilirubin Total 0.7 mg/dL (0.0-1.0); Blood Urea Nitrogen 62 mg/dL (9-16); Calcium 9.4 mg/dL (8.4-10.2); Carbon Dioxide 31 mmol/L (22-29); Chloride 100 mmol/L (96-108); Cholesterol 175 mg/dL (<200); Estimated Glomerular Filt Rate 35; Glucose Fasting 113 mg/dL (60-99); HDL Cholesterol 44 mg/dL (>40); LDL Cholesterol Calculated 108 mg/dL (<100); Potassium 3.2 mmol/L (3.3-5.1); Sodium 143 mmol/L (135-145); Total Protein 7.2 g/dL (6.5-8.0); Triglycerides 115 mg/dL (<150)
[2024-02-24 11:12] LABS: Prostate Specific Antigen Scr < 0.10 ng/mL (<0.05-4.0)
[2024-02-24 11:27] LABS: Creatinine Urine 76.56 mg/dL
[2024-02-29 11:39] LABS: NT-proBNP 872 pg/mL (<450)
== END 2024-02-24 09:03 | disposition home or self-care (01) ==
LOC: HO.LAB 09:02
PROVIDERS: PCP Physician Assistant; Visit Provider Physician Assistant
DX: Z12.5 Encounter for screening for malignant neoplasm of prostate (principal); I13.0 Hypertensive heart and chronic kidney disease with heart failure and stage 1 through stage 4 chronic kidney disease, or unspecified chronic kidney disease; N18.31 Chronic kidney disease, stage 3a; I50.32 Chronic diastolic (congestive) heart failure
CPT/HCPCS: 36415; 80053; 80061; 82043; 82570; 83880; 84153

== ENCOUNTER 2024-03-01 14:14 | Outpatient (AMB) | payer MEDICARE, SELFPAY ==
[2024-03-01 14:31] VITALS: BP 126/62; PULSE 88; O2SAT 92; BMI 27.7
--- NOTE | 2024-03-01 14:31 | MHC.PC.OV ---
Vital Signs 03/01/24 14:31 Height 5 ft 10 in Weight 193 lb 2 oz BMI 27.7 BP 126/62 Blood Pressure Location Lt brachial Position Sitting Pulse 88 Pulse Source Pulse Oximeter Pulse Oximetry (%) 92 Oxygen Delivery Method Room Air Intake Visit Reasons: f/u CKD/ DMII/ CHF wax ear and UTI test Block Cleaner Required: No Accompanied by: Self / Same As Patient Allergies cephalexin [Keflex] Allergy (Unknown, Verified 03/01/24 14:55) diarrhea Sulfa (Sulfonamide Antibiotics) Allergy (Unknown, Verified 03/01/24 14:55) Unknown prednisone Adverse Reaction (Severe, Verified 03/01/24 14:55) dementia Medication List - Last Reconciled 03/01/24 by Anton Perla PA-C albuterol sulfate 90 mcg/actuation 2 puffs inhalation Q6H PRN alfuzosin ER 10 mg PO DAILY apixaban (Eliquis) 2.5 mg PO BID [diabetic shoe inserts As directed] [diabetic shoes As directed] diltiazem HCl CD 240 mg PO DAILY 90 days empagliflozin (Jardiance) 25 mg PO DAILY furosemide 40 mg PO DAILY 30 days hydrochlorothiazide 25 mg PO DAILY 30 days hydroxyzine HCl 10 mg PO BEDTIME 30 days losartan 25 mg PO DAILY potassium chloride ER (Klor-Con M) 20 mEq PO DAILY Tobacco use date assessed: 12/01/23 Fall risk assessment: No Falls in past year Dental Screening Dental Screen Date: 12/01/23 HPI f/u CKD/ DMII/ CHF wax ear and UTI test HPI Details Patient is an 82-year-old male here today for a follow-up visit.? Patient has a past medical history significant for aortic stenosis, abdominal aortic aneurysm, coronary artery disease, type 2 diabetes, hypertension, paroxysmal AFib, CKD stage 3, COPD and Congestive heart failure.. Concern--> reports he has noted a lump over the left anterior aspect of his neck. 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 PLAN: For now will watch and wait and if gets bigger he will call for an ultrasound. CHRONIC MEDICAL CONDITIONS .. CKD stage III-patient's creatinine stable 1.6-1.8.. IS followed by a nephroloist in [place].? Has been started on losartan potassium due to hypokalemia. Most recent potassium at 3.6. He is now on potassium 20 mEq Recently underwent eyelid surgery which has been accessed Will. He reports his eyesight is much better. .. CAD/ CHF:? 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 Has been euvolemic now for many months. Denies any significant shortness of breath on exertion. .? Now has been managed with furosemide 40 minutes and hydrochlorothiazide.? pBNP- have been fairly stable 600to 900s .. AFIB:? Continues on renally dosed Eliquis and diltiazem for rate control.? Denies any overt signs of bleeding.? Continues to follow cardiology.? Has now recent episodes palpitations, shortness of breath the chest discomforts. .. AAA:? Is followed vascular surgeon at [facility] recently had his abdominal aorta endovascularly fixed. Due for repeat CTA to make sure aneurysm clearing fixed .. CT of abdomen without any enlarging abdominal aneurysm. He awaits a follow-up with his vascular surgeon. ... ? COPD:? does have a history of COPD, has quite smoking.? Reports only using an albuterol inhaler on a p.r.n. basis. Denies any shortness of breath at rest though does have shortness of breath on exertion which is been a chronic issue. [facility] Medical History Insomnia Atherosclerotic cardiovascular disease Cellulitis CHF (congestive heart failure) CKD (chronic kidney disease) stage 3, GFR 30-59 ml/min Smoker COPD (chronic obstructive pulmonary disease) Presence of stent in coronary artery in patient with coronary artery disease Abdominal aortic aneurysm Paroxysmal atrial fibrillation Renal insufficiency UTI (urinary tract infection) Diabetes mellitus Acquired hypothyroidism Edema eyelid Essential (primary) hypertension Surgical History Status post endovascular aneurysm repair (EVAR) H/O neck surgery History of tonsillectomy History of cardiac catheterization History of nasal surgery Family History Father Myocardial infarction Mother Alzheimers disease Social History Household Members: Significant Other Housing: House Alcohol intake: current Alcohol intake frequency: a few times a month Comment: pt in recliner-camera on Patient Tobacco Use Status: Former Tobacco user Years Smoked: 60 e-Cigarette/Vaping Use: Never Used Advance Directives Date on File: 12/27/21 service: No Current occupational status: retired Cognitive needs: Yes (cane/walker) Hearing needs: No Vision needs: No Questionnaire PHQ-9 Over the last 2 weeks, how often have you been bothered by any of the following problems? 1. Little interest or pleasure in doing things: not at all 2. Feeling down, depressed, or hopeless: not at all 3. Trouble falling or staying asleep, or sleeping too much: not at all 4. Feeling tired or having little energy: not at all 5. Poor appetite or overeating: not at all 6. Feeling bad about yourself - or that you are a failure or have let yourself or your family down: not at all 7. Trouble concentrating on things, such as reading the newspaper or watching television: not at all 8. Moving or speaking so slowly that other people could have noticed. Or the opposite - being so fidgety or restless that you have been moving around a lot more than usual: not at all 9. Thoughts that you would be better off or of hurting yourself in some way: not at all Total score: 0 Depression Screening Interpretation: Negative Depression Screening Done: Yes 29672 - PHQ-9 Billing: Yes Source: Developed by Drs. Rickey Hernandez, Genoveva Albright, Vinny Chris and colleagues, with an educational joseline from [employer]. Thrive Questionnaire Date Thrive assessed: 03/01/24 I am a: Patient What is your living situation today?: I have a steady place to live Within the past 12 months, did the food you bought not last and you didn't have the money to get more?: Never true Within the past 12 months, did you worry whether your food would run out before you got money to buy more?: Never true Do you have trouble paying for medicines?: No Do you have trouble getting transportation to medical appointments?: No Do you have trouble paying your heating and electricity bill?: No Do you have trouble taking care of your child, family member or friend?: No Do you have trouble with day-to-day activities such as bathing, preparing meals, shopping, managing finances, etc.?: No Are you currently unemployed and looking for a job?: No Are you interested in more education?: No Please select the resources that you would like help with: None Currently or been in a relationship where the following occur: no concerns reported THRIVE Score: 0 AUDIT C Alcohol Use Questionnaire (AUDIT-C) 1. How often do you have a drink containing alcohol?: Never 3. How often do you have six or more drinks on one occasion?: Never Total Score: 0 GABRIELLA-7 AMB Questionnaire GABRIELLA-7 Date GABRIELLA - 7 assessed: 03/01/24 Feeling nervous, anxious, or on edge: 0 = Not at all Not being able to stop or control worryin = Not at all Worrying too much about different things: 0 = Not at all Trouble relaxin = Not at all Being so restless that it is hard to sit still: 0 = Not at all Becoming easily annoyed or irritable: 0 = Not at all Feeling afraid as if something awful might happen: 0 = Not at all Total GABRIELLA-7 score (0-4 normal; 5-9 mild; 10-14 moderate; 15-21 severe): 0 Source: Developed by Drs. Rickey Hernandez, Genoveva Albright, Vinny Chris and colleagues, with an educational joseline from [employer]. GABRIELLA-7 Assessment Billing GABRIELLA-7 Assessment Tool: GABRIELLA-7 Assessment 09472 Review of Systems Const Denies headache(s) Eyes Denies loss of vision ENT Denies vertigo, Denies dizziness, Denies headache(s) and Denies sore throat Card Denies chest pain, Denies leg edema and Denies lightheadedness Resp Denies cough, Denies hemoptysis and Denies wheezing GI Denies abdominal pain, Denies melena, Denies constipation, Denies diarrhea and Denies vomiting Denies dysuria, Denies urinary frequency and Denies urinary urgency Musc Denies arthralgias, Denies joint swelling, Denies numbness and Denies tingling Neuro Denies Abnormal speech present, Denies behavioral changes, Denies vertigo, Denies dizziness, Denies headache(s), Denies loss of vision, Denies memory loss, Denies numbness and Denies tingling Psych Denies anxiety, Denies behavioral changes, Denies depression, Denies memory loss and Denies panic attacks Cr/Lymph Denies easy bleeding and Denies easy bruising Aller/Immun Denies wheezing Physical exam (Primary Care) Vital Signs: Last Vital Signs Pulse 88 03/01/24 14:31 BP 126/62 03/01/24 14:31 Pulse Ox 92 03/01/24 14:31 Oxygen Delivery Method Room Air 03/01/24 14:31 BMI result Body Mass Index 27.7 Tobacco/Smoking Status: Tobacco use Status Tobacco use date assessed 12/01/23 03/01/24 14:31 Patient Tobacco Use Status Former Tobacco user 03/01/24 14:31 Tobacco use type 03/04/23 14:29 e-Cigarette/Vaping Use Never Used 03/01/24 14:31 PHQ-9: PHQ-9 Score PHQ-9: Total score 0 03/01/24 14:56 Depression Screening Interpretation: Negative Thrive Assessment: Date of Thrive Assessment Date Thrive assessed 03/01/24 03/01/24 14:43 Currently or been in a relationship where the following occur: no concerns reported Const General: healthy appearing, no acute distress, alert and awake Nutritional Appearance: well nourished Orientation/consciousness: oriented to person, oriented to place and oriented to time HENMT Ears: TM's normal bilaterally General nose exam: Normal nasal mucous membranes and turbinates present Eyes Conjunctivae: conjunctivae normal Sclerae: sclerae normal Pupils: Equal, round and reactive pupils present Neck Neck: Yes no lymphadenopathy and Yes no JVD Thyroid: Thyroid normal Carotids: no bruits Resp Effort & Inspection: normal respiratory effort and not tachypneic Auscultation: no crackles, no rales, no rhonchi and no wheezes Cardio Rate: regular rate Rhythm: regular rhythm Heart sounds: no murmurs and normal S1 and S2 GI Palpation (GI): Soft to palpation, nontender, no hepatomegaly and no splenomegaly Auscultation: normal bowel sounds Skin General skin exam: no rashes or lesions noted and dry skin Neuro General: oriented to person, oriented to place and oriented to time Cranial nerves: Yes Equal, round and reactive pupils present Speech: No Abnormal speech present Gait exam (Neuro): Normal gait present Motor exam (neuro): no tremor noted Extrem Right upper extremity: full ROM Left upper extremity: full ROM Right lower extremity: full ROM; no edema Left lower extremity: full ROM; no edema Psych Mental Status: mental status grossly normal Speech and movement: Normal speech and movement present Affect: normal affect Attitude: cooperative Thought process: Normal thought process present Results AMB Hemoglobin A1c AMB Hemoglobin A1c 5.0 % Last Edit by ESTELLA Luis on 03/01/24 14:44 Results Reviewed Results Reviewed: Laboratory Last Values Hgb A1c (Clinic) 5.0 % (4.0-6.0) 03/01/24 14:30 Assessment and Plan Assessment & Plan (1) Chronic diastolic (congestive) heart failure: Code(s): I50.32 - Chronic diastolic (congestive) heart failure Plan: Appears euvolemic on physical exam today. Will continue current dose furosemide at 40 mg and hydrochlorothiazide 25 mg and will continue monitoring electrolytes. Most recent potassium stable. Continues on potassium supplementation.. (2) Type II diabetes mellitus: Code(s): E11.9 - Type 2 diabetes mellitus without complications Qualifiers: Diabetes mellitus complication status: with hyperglycemia Diabetes mellitus intermediate insulin use: without condemnation engineer use Qualified Code(s): E11.65 - Type 2 diabetes mellitus with hyperglycemia Plan: Most recent A1c stable. Continues on Jardiance 25 mg. Denies any hypoglycemic events. Goal A1c to remain below 7.0. (3) CKD (chronic kidney disease) stage 3, GFR 30-59 ml/min: Code(s): N18.30 - Chronic kidney disease, stage 3 unspecified Qualifiers: Chronic kidney disease stage 3 subtype: stage 3a (GFR 45-59) Qualified Code(s): N18.31 - Chronic kidney disease, stage 3a Plan: Patient continues to follow Nephrology. Creatinine stable between 1.7-2.0. Has had issues with hypokalemia thus was started on losartan potassium. Will continue to follow electrolyte panel. (4) Abdominal aortic aneurysm: Code(s): I71.4 - Abdominal aortic aneurysm, without rupture Qualifiers: Abdominal aorta location: infrarenal aorta Presence of rupture: without rupture Qualified Code(s): I71.43 - Infrarenal abdominal aortic aneurysm, without rupture Plan: Continues to follow [facility] vascular surgery. Had recent endovascular repair, now under surveillance he aneurysm has not enlarged.. He has upcoming visit with vascular surgery as follow-up. (5) Paroxysmal atrial fibrillation: Code(s): I48.0 - Paroxysmal atrial fibrillation Plan: Continues on diltiazem with good rate control. Also on renally dosed Eliquis without any overt signs of bleeding. Otherwise denies any palpitations, chest pain or dizziness. (6) Pulmonary nodule less than 1 cm in diameter with moderate to high risk for malignant neoplasm: Code(s): R91.1 - Solitary pulmonary nodule; Z91.89 - Other specified personal risk factors, not elsewhere classified Plan: Does have a history of multiple small 2 mm pulmonary nodules found on CT in 2020 while hospitalized. He was a 30-35 pack year smoker. Most recent CT chest showing the disappearance of a 4 mm nodule. Continues to have micro nodule--> 2 mm (7) COPD (chronic obstructive pulmonary disease): Code(s): J44.9 - Chronic obstructive pulmonary disease, unspecified Qualifiers: COPD type: emphysema Emphysema type: unspecified Qualified Code(s): J43.9 - Emphysema, unspecified Plan: He reports his breathing has been stable. Denies any exacerbations. Does use his albuterol inhaler on occasion Orders: Orders Complete Blood Count no Diff 03/01/24 J43.9 - Emphysema, unspecified AMB Hemoglobin A1c 03/01/24 E11.65 - Type 2 diabetes mellitus with hyperglycemia Comprehensive [place]. Panel Fast 03/01/24 N18.31 - Chronic kidney disease, stage 3a Lipid Panel 03/01/24 I71.43 - Infrarenal abdominal aortic aneurysm, without rupture Coding Level of Care Code Est Pt Level 4 (81472) Diagnoses Chronic diastolic (congestive) heart failure I50.32 Type 2 diabetes mellitus with hyperglycemia, without long-term current use of insulin E11.65 Diabetes mellitus complication status: with hyperglycemia Diabetes mellitus condemnation engineer insulin use: without condemnation engineer use Stage 3a chronic kidney disease N18.31 Chronic kidney disease stage 3 subtype: stage 3a (GFR 45-59) Infrarenal abdominal aortic aneurysm (AAA) without rupture I71.43 Abdominal aorta location: infrarenal aorta Presence of rupture: without rupture Paroxysmal atrial fibrillation I48.0 Pulmonary nodule less than 1 cm in diameter with moderate to high risk for malignant neoplasm R91.1; Z91.89 Pulmonary emphysema, unspecified emphysema type J43.9 COPD type: emphysema Emphysema type: unspecified Additional Codes GABRIELLA-7 Assessment Billing - GABRIELLA-7 Assessment Tool: GABRIELLA-7 Assessment [id number] ([id number])
== END 2024-03-01 15:20 | disposition home or self-care (01) ==
PROVIDERS: PCP Physician Assistant; Visit Provider Physician Assistant
DX: E11.65 Type 2 diabetes mellitus with hyperglycemia (principal)
CPT/HCPCS: 83036; 99214

== ENCOUNTER 2024-05-29 09:56 | Outpatient (REF) | payer MEDICARE, SELFPAY ==
[2024-05-29 11:03] LABS: Hematocrit 42.7 % (42.0-52.0); Hemoglobin 13.5 g/dl (14.0-18.0); Mean Corpuscular HGB Conc 31.6 g/dl (31.0-36.0); Mean Corpuscular Hemoglobin 32.8 pg (27.0-33.0); Mean Corpuscular Volume 103.9 fL (80.0-98.0); Mean Platelet Volume 10.1 fL (9.4-12.4); Platelet Count 168 X10*3/uL (160-400); Red Blood Count 4.11 X10*6/uL (4.60-5.80); Red Cell Distribution Width 13.8 % (11.0-16.0); White Blood Count 6.7 X10*3/uL (4.8-10.8)
[2024-05-29 11:30] LABS: Alanine Aminotransferase 11 U/L (0-40); Albumin Level 4.4 g/dL (3.5-5.0); Alkaline Phosphatase 61 U/L (39-117); Anion Gap 14 (12-20); Aspartate Amino Transferase 11 U/L (5-37); Bilirubin Total 0.6 mg/dL (0.0-1.0); Blood Urea Nitrogen 45 mg/dL (9-16); Calcium 9.6 mg/dL (8.4-10.2); Carbon Dioxide 32 mmol/L (22-29); Chloride 100 mmol/L (96-108); Cholesterol 184 mg/dL (<200); Estimated Glomerular Filt Rate 37; Glucose Fasting 97 mg/dL (60-99); HDL Cholesterol 48 mg/dL (>40); LDL Cholesterol Calculated 111 mg/dL (<100); Potassium 3.8 mmol/L (3.3-5.1); Sodium 142 mmol/L (135-145); Total Protein 7.4 g/dL (6.5-8.0); Triglycerides 127 mg/dL (<150)
[2024-05-29 11:32] LABS: Anion Gap 13 (12-20); Blood Urea Nitrogen 44 mg/dL (9-16); Calcium 9.7 mg/dL (8.4-10.2); Carbon Dioxide 32 mmol/L (22-29); Chloride 101 mmol/L (96-108); Estimated Glomerular Filt Rate 37; Glucose Random 97 mg/dL (60-115); Potassium 3.8 mmol/L (3.3-5.1); Sodium 142 mmol/L (135-145)
== END 2024-05-29 09:57 | disposition home or self-care (01) ==
LOC: HO.LAB 09:56
PROVIDERS: Absent Provider Internal Medicine Nephrology; PCP Physician Assistant; Visit Provider Physician Assistant
DX: I71.43 Infrarenal abdominal aortic aneurysm, without rupture (principal); J43.9 Emphysema, unspecified; N18.30 Chronic kidney disease, stage 3 unspecified; E87.6 Hypokalemia
CPT/HCPCS: 36415; 80048; 80053; 80061; 85027

== ENCOUNTER 2024-06-07 14:12 | Outpatient (AMB) | payer MEDICARE, SELFPAY ==
--- NOTE | 2024-06-07 14:15 | A.OFFPC_ITS ---
Vital Signs 06/07/24 14:33 Height 5 ft 10 in Weight 190 lb 2 oz BMI 27.3 BP 110/62 Blood Pressure Location Lt brachial Position Sitting Pulse 72 Pulse Source Pulse Oximeter Pulse Oximetry (%) 89 L Oxygen Delivery Method Room Air Intake Visit Reasons: f/u HTN/ DMII [place] Required: No Accompanied by: Self / Same As Patient Allergies cephalexin [Keflex] Allergy (Unknown, Verified 06/07/24 14:35) diarrhea Sulfa (Sulfonamide Antibiotics) Allergy (Unknown, Verified 06/07/24 14:35) Unknown prednisone Adverse Reaction (Severe, Verified 06/07/24 14:35) dementia Medication List - Last Reconciled 06/07/24 by Anton Perla PA-C albuterol sulfate 90 mcg/actuation 2 puffs inhalation Q6H PRN alfuzosin ER 10 mg PO DAILY apixaban (Eliquis) 2.5 mg PO BID [diabetic shoe inserts As directed] [diabetic shoes As directed] diltiazem HCl CD 240 mg PO DAILY 90 days empagliflozin (Jardiance) 25 mg PO DAILY furosemide 40 mg PO DAILY 30 days hydrochlorothiazide 25 mg PO DAILY 30 days hydroxyzine HCl 10 mg PO BEDTIME 30 days losartan 25 mg PO DAILY potassium chloride ER (Klor-Con M) 20 mEq PO DAILY Tobacco use date assessed: 12/01/23 Fall risk assessment: No Falls in past year Last assessed Fall Risk: 06/07/24 Dental Screening Dental Screen Date: 12/01/23 HPI f/u HTN/ DMII HPI Details Patient is an 82-year-old male here today for a follow-up visit.? Patient has a past medical history significant for aortic stenosis, abdominal aortic aneurysm, coronary artery disease, type 2 diabetes, hypertension, paroxysmal AFib, CKD stage 3, COPD and Congestive heart failure.. Concern--> reports he has been having difficulty with sleeping for quite awhile now. Has had hydroxyzine in the past which was somewhat helpful at 20 mg. Will restart hydroxyzine 25 mg before bed. CHRONIC MEDICAL CONDITIONS .. CKD stage III-patient's creatinine stable 1.6-1.8.. IS followed by a nephroloist in [place].? Has been started on losartan potassium due to hypokalemia. Most recent potassium at 3.8 He is now on potassium 30 mEq .. CAD/ CHF:? 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 Has been euvolemic now for many months. Denies any significant shortness of breath on exertion. .? Now has been managed with furosemide 40 minutes and hydrochlorothiazide.? pBNP- have been fairly stable 600to 900s .. AFIB:? Continues on renally dosed Eliquis and diltiazem for rate control.? Denies any overt signs of bleeding.? Continues to follow cardiology.? Has now recent episodes palpitations, shortness of breath the chest discomforts. .. AAA:? Is followed vascular surgeon at [facility] recently had his abdominal aorta endovascularly fixed. Due for repeat CTA to make sure aneurysm clearing fixed .. CT of abdomen without any enlarging abdominal aneurysm. He awaits a follow-up with his vascular surgeon. ... ? COPD:? does have a history of COPD, has quite smoking.? Reports only using an albuterol inhaler on a p.r.n. basis. Denies any shortness of breath at rest though does have shortness of breath on exertion which is been a chronic issue. [facility] Medical History (Updated 06/07/24 @ 14:48 by Anton Perla PA-C) Insomnia Atherosclerotic cardiovascular disease Cellulitis CHF (congestive heart failure) CKD (chronic kidney disease) stage 3, GFR 30-59 ml/min Smoker COPD (chronic obstructive pulmonary disease) Presence of stent in coronary artery in patient with coronary artery disease Abdominal aortic aneurysm Paroxysmal atrial fibrillation Renal insufficiency UTI (urinary tract infection) Diabetes mellitus Acquired hypothyroidism Edema eyelid Essential (primary) hypertension Surgical History Status post endovascular aneurysm repair (EVAR) H/O neck surgery History of tonsillectomy History of cardiac catheterization History of nasal surgery Family History Father Myocardial infarction Mother Alzheimers disease Social History Household Members: Significant Other Housing: House Alcohol intake: current Alcohol intake frequency: a few times a month Comment: pt in recliner-camera on Patient Tobacco Use Status: Former Tobacco user Years Smoked: 60 e-Cigarette/Vaping Use: Never Used Advance Directives Date on File: 12/27/21 service: No Current occupational status: retired Cognitive needs: Yes (cane/walker) Hearing needs: No Vision needs: No Questionnaire Thrive Questionnaire Date Thrive assessed: 03/01/24 GABRIELLA-7 AMB Questionnaire GABRIELLA-7 Date GABRIELLA - 7 assessed: 03/01/24 Source: Developed by Drs. Rickey Hernandez, Genoveva Albright, Vinny Chris and colleagues, with an educational joseline from [employer]. Review of Systems Const Denies headache(s) Eyes Denies loss of vision ENT Denies vertigo, Denies dizziness, Denies headache(s) and Denies sore throat Card Denies chest pain, Denies leg edema and Denies lightheadedness Resp Denies cough, Denies hemoptysis and Denies wheezing GI Denies abdominal pain, Denies melena, Denies constipation, Denies diarrhea and Denies vomiting Denies dysuria, Denies urinary frequency and Denies urinary urgency Musc Denies arthralgias, Denies joint swelling, Denies numbness and Denies tingling Neuro Denies Abnormal speech present, Denies behavioral changes, Denies vertigo, Denies dizziness, Denies headache(s), Denies loss of vision, Denies memory loss, Denies numbness and Denies tingling Psych Denies anxiety, Denies behavioral changes, Denies depression, Denies memory loss and Denies panic attacks Cr/Lymph Denies easy bleeding and Denies easy bruising Aller/Immun Denies wheezing Physical exam (Primary Care) Vital Signs: Last Vital Signs Pulse 72 06/07/24 14:33 BP 110/62 06/07/24 14:33 Pulse Ox 89 L 06/07/24 14:33 Oxygen Delivery Method Room Air 06/07/24 14:33 BMI result Body Mass Index 27.3 Tobacco/Smoking Status: Tobacco use Status Tobacco use date assessed 12/01/23 06/07/24 14:16 Patient Tobacco Use Status Former Tobacco user 06/07/24 14:16 Tobacco use type 03/04/23 14:29 e-Cigarette/Vaping Use Never Used 06/07/24 14:16 Thrive Assessment: Date of Thrive Assessment Date Thrive assessed 03/01/24 06/07/24 14:16 Const General: healthy appearing, no acute distress, alert and awake Nutritional Appearance: well nourished Orientation/consciousness: oriented to person, oriented to place and oriented to time HENMT Ears: TM's normal bilaterally General nose exam: Normal nasal mucous membranes and turbinates present Eyes Conjunctivae: conjunctivae normal Sclerae: sclerae normal Pupils: Equal, round and reactive pupils present Neck Neck: Yes no lymphadenopathy and Yes no JVD Thyroid: Thyroid normal Carotids: no bruits Resp Effort & Inspection: normal respiratory effort and not tachypneic Auscultation: no crackles, no rales, no rhonchi and no wheezes Cardio Rate: regular rate Rhythm: regular rhythm Heart sounds: no murmurs and normal S1 and S2 GI Palpation (GI): Soft to palpation, nontender, no hepatomegaly and no splenomegaly Auscultation: normal bowel sounds Skin General skin exam: no rashes or lesions noted and dry skin Neuro General: oriented to person, oriented to place and oriented to time Cranial nerves: Yes Equal, round and reactive pupils present Speech: No Abnormal speech present Gait exam (Neuro): Normal gait present Motor exam (neuro): no tremor noted Extrem Right upper extremity: full ROM Left upper extremity: full ROM Right lower extremity: full ROM; no edema Left lower extremity: full ROM; no edema Psych Mental Status: mental status grossly normal Speech and movement: Normal speech and movement present Affect: normal affect Attitude: cooperative Thought process: Normal thought process present Assessment and Plan Assessment & Plan (1) Chronic diastolic (congestive) heart failure: Code(s): I50.32 - Chronic diastolic (congestive) heart failure Plan: Appears euvolemic on physical exam today. Will continue current dose furosemide at 40 mg and hydrochlorothiazide 25 mg and will continue monitoring electrolytes. Most recent potassium stable. Continues on potassium supplementation at 30 mEq.. (2) Type II diabetes mellitus: Code(s): E11.9 - Type 2 diabetes mellitus without complications Qualifiers: Diabetes mellitus complication status: with hyperglycemia Diabetes mellitus fdc insulin use: without fdc use Qualified Code(s): E11.65 - Type 2 diabetes mellitus with hyperglycemia Plan: Most recent A1c stable. Continues on Jardiance 25 mg. Denies any hypoglycemic events. Goal A1c to remain below 7.0. (3) CKD (chronic kidney disease) stage 3, GFR 30-59 ml/min: Code(s): N18.30 - Chronic kidney disease, stage 3 unspecified Qualifiers: Chronic kidney disease stage 3 subtype: stage 3a (GFR 45-59) Qualified Code(s): N18.31 - Chronic kidney disease, stage 3a Plan: Patient continues to follow Nephrology. Creatinine stable between 1.7-2.0. Has had issues with hypokalemia thus was started on losartan potassium. Will continue to follow electrolyte panel. (4) Abdominal aortic aneurysm: Code(s): I71.4 - Abdominal aortic aneurysm, without rupture Qualifiers: Abdominal aorta location: infrarenal aorta Presence of rupture: without rupture Qualified Code(s): I71.43 - Infrarenal abdominal aortic aneurysm, without rupture Plan: Continues to follow [facility] vascular surgery. Had recent endovascular repair, now under surveillance he aneurysm has not enlarged.. He has upcoming visit with vascular surgery as follow-up. (5) Paroxysmal atrial fibrillation: Code(s): I48.0 - Paroxysmal atrial fibrillation Plan: Continues on diltiazem with good rate control. Also on renally dosed Eliquis without any overt signs of bleeding. Otherwise denies any palpitations, chest pain or dizziness. (6) Pulmonary nodule less than 1 cm in diameter with moderate to high risk for malignant neoplasm: Code(s): R91.1 - Solitary pulmonary nodule; Z91.89 - Other specified personal risk factors, not elsewhere classified Plan: Does have a history of multiple small 2 mm pulmonary nodules found on CT in 2020 while hospitalized. He was a 30-35 pack year smoker. Most recent CT chest showing the disappearance of a 4 mm nodule. Continues to have micro nodule--> 2 mm (7) COPD (chronic obstructive pulmonary disease): Code(s): J44.9 - Chronic obstructive pulmonary disease, unspecified Qualifiers: COPD type: emphysema Emphysema type: unspecified Qualified Code(s): J43.9 - Emphysema, unspecified Plan: He reports his breathing has been stable. Denies any exacerbations. Does use his albuterol inhaler on occasion (8) Insomnia: Code(s): G47.00 - Insomnia, unspecified Qualifiers: Insomnia type: primary Qualified Code(s): F51.01 - Primary insomnia Plan: Will restart hydroxyzine 25 mg before bed for sleep. Orders: Orders Comprehensive [place]. Panel Fast 3 Months E11.65 - Type 2 diabetes mellitus with hyperglycemia UA CC w/rflx Micro + Cult Today R30.0 - Dysuria AMB Hemoglobin A1c 06/07/24 E11.65 - Type 2 diabetes mellitus with hyperglycemia Complete Blood Count no Diff 3 Months E11.65 - Type 2 diabetes mellitus with hyperglycemia NT-proBNP 3 Months I50.32 - Chronic diastolic (congestive) heart failure Medications: New hydroxyzine HCl 25 mg PO BEDTIME 30 tabs 2RF 30 days F51.01 - Primary insomnia losartan 25 mg PO DAILY 90 tabs 3RF E11.65 - Type 2 diabetes mellitus with hyperglycemia Changed From furosemide 40 mg PO DAILY 30 days 30 tabs 0RF I50.32 - Chronic diastolic (congestive) heart failure To furosemide 40 mg PO DAILY 90 tabs 3RF 90 days I50.32 - Chronic diastolic (congestive) heart failure From apixaban (Eliquis) 2.5 mg PO BID 60 tabs 3RF I48.0 - Paroxysmal atrial fibrillation To apixaban (Eliquis) 2.5 mg PO BID 180 tabs 3RF 90 days I48.0 - Paroxysmal atrial fibrillation From hydrochlorothiazide 25 mg PO DAILY 30 days 30 tabs 0RF I10 - Essential (primary) hypertension To hydrochlorothiazide 25 mg PO DAILY 90 tabs 3RF 90 days I10 - Essential (primary) hypertension Discontinued hydroxyzine HCl Discontinued Reason: Doctor's Order 10 mg PO BEDTIME 30 days 30 tabs 3RF F51.01 - Primary insomnia Patient Instructions: Goal: Blood pressure to be below 140/90, A1c to remain below 6.5 Barriers: Adherence to physical activity and healthy eating habits Coding Level of Care Code Est Pt Level 4 (81554) Diagnoses Chronic diastolic (congestive) heart failure I50.32 Type 2 diabetes mellitus with hyperglycemia, without long-term current use of insulin E11.65 Diabetes mellitus complication status: with hyperglycemia Diabetes mellitus fdc insulin use: without fdc use Stage 3a chronic kidney disease N18.31 Chronic kidney disease stage 3 subtype: stage 3a (GFR 45-59) Infrarenal abdominal aortic aneurysm (AAA) without rupture I71.43 Abdominal aorta location: infrarenal aorta Presence of rupture: without rupture Paroxysmal atrial fibrillation I48.0 Pulmonary nodule less than 1 cm in diameter with moderate to high risk for malignant neoplasm R91.1; Z91.89 Pulmonary emphysema, unspecified emphysema type J43.9 COPD type: emphysema Emphysema type: unspecified Primary insomnia F51.01 Insomnia type: primary
[2024-06-07 14:33] VITALS: BP 110/62; PULSE 72; O2SAT 89; BMI 27.3
== END 2024-06-07 15:02 | disposition home or self-care (01) ==
PROVIDERS: PCP Physician Assistant; Visit Provider Physician Assistant
DX: I50.32 Chronic diastolic (congestive) heart failure (principal); E11.65 Type 2 diabetes mellitus with hyperglycemia; N18.31 Chronic kidney disease, stage 3a; I71.43 Infrarenal abdominal aortic aneurysm, without rupture; I48.0 Paroxysmal atrial fibrillation; J43.9 Emphysema, unspecified; R91.1 Solitary pulmonary nodule; Z91.89 Other specified personal risk factors, not elsewhere classified; F51.01 Primary insomnia
CPT/HCPCS: 99214

== ENCOUNTER 2024-06-08 12:08 | Outpatient (REF) | payer MEDICARE, SELFPAY ==
[2024-06-08 17:12] LABS: Appearance Urine Clear; Color Urine Yellow; Glucose Urine UA 500 mg/dL (Negative); Leukocyte Esterase Urine Negative (Negative); Nitrite Urine Negative (Negative); PH 5.5 (5.0-9.0); Urine Blood Negative (Negative); Urine Ketones Negative (Negative); Urine Protein Negative (Neg-Trace)
== END 2024-06-08 12:09 | disposition home or self-care (01) ==
LOC: HO.LAB 12:08
PROVIDERS: PCP Physician Assistant; Visit Provider Physician Assistant
DX: R30.0 Dysuria (principal)
CPT/HCPCS: 81003

== ENCOUNTER 2024-06-16 13:48 | Outpatient (AMB) | payer MEDICARE, SELFPAY ==
[2024-06-16 13:50] VITALS: BP 118/52; PULSE 91; BMI 26.9
--- NOTE | 2024-06-16 13:50 | MHC.OFFVIS ---
Vital Signs 06/16/24 13:50 Height 5 ft 10 in Weight 187 lb 13.341 oz BMI 26.9 BP 118/52 L Blood Pressure Location Lt brachial Position Sitting Pulse 91 Pulse Source Monitor Intake Visit Reasons: Rs 6 month f/u Allergies cephalexin [Keflex] Allergy (Unknown, Verified 06/16/24 13:51) diarrhea Sulfa (Sulfonamide Antibiotics) Allergy (Unknown, Verified 06/16/24 13:51) Unknown prednisone Adverse Reaction (Severe, Verified 06/16/24 13:51) dementia Medication List - Last Reconciled 06/16/24 by Jaz Herzog, SMOKING TOBAC[employer] CUTTER OPERATOR-C albuterol sulfate 90 mcg/actuation 2 puffs inhalation Q6H PRN alfuzosin ER 10 mg PO DAILY apixaban (Eliquis) 2.5 mg PO BID 90 days [diabetic shoe inserts As directed] [diabetic shoes As directed] diltiazem HCl CD 240 mg PO DAILY 90 days empagliflozin (Jardiance) 25 mg PO DAILY furosemide 40 mg PO DAILY 90 days hydrochlorothiazide 25 mg PO DAILY 90 days hydroxyzine HCl 25 mg PO BEDTIME 30 days losartan 25 mg PO DAILY potassium chloride ER (Klor-Con M) 30 mEq PO DAILY HPI HPI Rs 6 month f/u: Details: Felix is an 82-year-old male with past medical history of hypertension, diabetes, aortic stenosis, paroxysmal atrial fibrillation, chronic diastolic heart failure, CAD with circumflex stent 2018 who presents for follow-up. Today he reports he has been doing well since his last visit in September. He has not had any chest discomfort at rest or with activity. He does have some mild shortness of breath with exertion which is not new. He has been spending a lot of times doing gardening which he says he tolerates well. No PND, orthopnea or edema. No palpitations, presyncope, syncope, falls. Ambulates with a walker for balance. Takes his meds as directed. No Bleeding issues reported. [facility] Medical History Insomnia Atherosclerotic cardiovascular disease Cellulitis CHF (congestive heart failure) CKD (chronic kidney disease) stage 3, GFR 30-59 ml/min Smoker COPD (chronic obstructive pulmonary disease) Presence of stent in coronary artery in patient with coronary artery disease Abdominal aortic aneurysm Paroxysmal atrial fibrillation Renal insufficiency UTI (urinary tract infection) Diabetes mellitus Acquired hypothyroidism Edema eyelid Essential (primary) hypertension Surgical History Status post endovascular aneurysm repair (EVAR) H/O neck surgery History of tonsillectomy History of cardiac catheterization History of nasal surgery Family History Father Myocardial infarction Mother Alzheimers disease Social History Household Members: Significant Other Housing: House Alcohol intake: current Alcohol intake frequency: a few times a month Comment: pt in recliner-camera on Patient Tobacco Use Status: Former Tobacco user Years Smoked: 60 e-Cigarette/Vaping Use: Never Used Advance Directives Date on File: 12/27/21 service: No Current occupational status: retired Cognitive needs: Yes (cane/walker) Hearing needs: No Vision needs: No Review of Systems Const All systems reviewed & are unremarkable except as noted in HPI and below Reports difficulty sleeping and Reports fatigue ENT Denies dizziness Card Denies chest pain, Denies chest pain at rest, Denies chest pain with activity, Denies rapid heart rate, Denies pedal edema, Denies edema, Denies leg edema, Denies lightheadedness, Denies palpitations, Denies dyspnea, Denies dyspnea on exertion and Denies orthopnea Resp Denies cough, Denies dyspnea and Denies dyspnea on exertion GI Denies hematochezia and Denies change in stool character Musc Denies abnormal gait, Denies limited range of motion, Denies muscle cramps, Denies muscle weakness, Denies numbness, Denies radiating pain into limb, Denies stiffness and Denies tingling Neuro Denies abnormal gait, Denies dizziness, Denies numbness and Denies tingling Endo Reports fatigue and Denies palpitations Physical Exam Vital Signs: BMI result Body Mass Index 26.9 Const General: cooperative, healthy appearing, comfortable and no acute distress Orientation/consciousness: patient oriented x3 Neck Neck: Yes normal visual inspection and Yes no JVD Resp Effort & Inspection: normal respiratory effort Auscultation: clear to auscultation bilaterally, no crackles, no rales, no rhonchi and no wheezes Cardio Jugular venous distension: no JVD Rate: regular rate Rhythm: regular rhythm Heart sounds: S1 normal heart sound present, S2 normal heart sound present, no murmurs and no rubs Neuro General: patient oriented x3 Extrem General: Yes normal to inspection and No no pedal edema Psych Appearance: grossly normal Mental Status: mental status grossly normal Speech and movement: Normal speech and movement present Office Procedures EKG Details: Today, read by me, normal sinus rhythm, left axis, nonspecific intraventricular conduction delay, can not rule out anterior infarct, ST and T-wave abnormality V6, unchanged from prior EKG, rate 91, QTC 457 millisecond [id number], Complete Assessment & Plan Assessment & Plan (1) Atherosclerotic cardiovascular disease: Code(s): I25.10 - Atherosclerotic heart disease of three affiliated coronary artery without angina pectoris Category: Medical Plan: History of coronary artery disease. STEMI 10/31/2018 with cardiac catheterization showing occlusion of proximal circumflex, AVIVA placed. Last cardiac catheterization 04/2019 showed proximal LAD, distal 65% stenosis, patent circumflex stent, RCA mild diffuse disease. His last echocardiogram done 12/27/2023 showed EF 67%, basal inferior and inferior lateral hypokinesis, mild , unchanged from prior. EKG done today showing normal sinus rhythm, left axis, nonspecific IVCD, can not exclude prior anterior infarct, no significant change from prior, rate 91. No reports of anginal sounding symptoms at this time. Continue meds for stable CAD. He is not on aspirin as he is on Eliquis for his PAF. He declines statins. He is not interested in Repatha/Praluent. Labs done 05/29/2024 showed LDL 111. The importance of good cholesterol control reviewed with him. Continue diltiazem. Signs and symptoms of angina reviewed. Emergency care if ever needed for symptoms. Cardiology follow-up in 6 months, sooner if needed (2) Chronic diastolic (congestive) heart failure: Code(s): I50.32 - Chronic diastolic (congestive) heart failure Category: Medical Plan: History of diastolic heart failure. Stable at this time. No signs of fluid overloaded on examination. Continue Lasix. He is also on hydrochlorothiazide 25 mg daily. He tells me that he tried stopping hydrochlorothiazide and developed fluid retention, swelling around his right eye. He says he is currently feeling very well on his current medications and does not want to switch them. Suggested that he could stop hydrochlorothiazide and increase Lasix dose. He does have chronic kidney disease and that will need to be monitored. He prefers to leave his meds as they are for now. (3) Paroxysmal atrial fibrillation: Code(s): I48.0 - Paroxysmal atrial fibrillation Category: Medical Plan: History of paroxysmal atrial fibrillation. Currently suppressed. On diltiazem for heart rate control. On Eliquis for anticoagulation. No bleeding issues reported. Stroke risk with atrial fibrillation discussed. He has not felt any recent heart palpitations. Pulse is regular on examination today. EKG confirms sinus rhythm. (4) Non-rheumatic aortic stenosis: Code(s): I35.0 - Nonrheumatic aortic (valve) stenosis Category: Medical Plan: Echocardiogram done 12/27/2023 showed mild aortic stenosis, which is unchanged from echocardiogram in 2021. Plan for repeat echo to re-evaluate in approximately 2 years. (5) Status post endovascular aneurysm repair (EVAR): Code(s): Z98.890 - Other specified postprocedural states; Z86.79 - Personal history of other diseases of the circulatory system Category: Surgical Plan: s/p endovascular repair of abdominal aorta [place] [facility] [place]. Coding Level of Care Code Est Pt Level 4 (31028) Diagnoses Atherosclerotic cardiovascular disease I25.10 Chronic diastolic (congestive) heart failure I50.32 Paroxysmal atrial fibrillation I48.0 Non-rheumatic aortic stenosis I35.0 Status post endovascular aneurysm repair (EVAR) Z98.890; Z86.79 CPT Codes EKG - CPT: [id number], Complete ([id number]) Time Spent (min) 30
== END 2024-06-16 14:29 | disposition home or self-care (01) ==
PROVIDERS: PCP Physician Assistant; Visit Provider Nurse Practitioner Family
DX: I25.10 Atherosclerotic heart disease of native coronary artery without angina pectoris (principal); I50.32 Chronic diastolic (congestive) heart failure; I48.0 Paroxysmal atrial fibrillation; I35.0 Nonrheumatic aortic (valve) stenosis; Z98.890 Other specified postprocedural states; Z86.79 Personal history of other diseases of the circulatory system
CPT/HCPCS: 93010; 99214

== ENCOUNTER → 2024-06-16 13:48 | Outpatient (BNVA) | payer MEDICARE, SELFPAY | PROVIDERS: PCP Physician Assistant; Visit Provider Nurse Practitioner Family | DX: I25.10 Atherosclerotic heart disease of native coronary artery without angina pectoris (principal); I48.0 Paroxysmal atrial fibrillation; I11.0 Hypertensive heart disease with heart failure; I50.32 Chronic diastolic (congestive) heart failure; I35.0 Nonrheumatic aortic (valve) stenosis; Z86.79 Personal history of other diseases of the circulatory system; Z95.5 Presence of coronary angioplasty implant and graft; Z98.890 Other specified postprocedural states | CPT/HCPCS: 93005; 99212 ==

== ENCOUNTER 2024-09-01 12:41 | Outpatient (REF) | payer MEDICARE, SELFPAY ==
[2024-09-01 13:36] LABS: Hemoglobin 13.3 g/dl (14.0-18.0); Mean Corpuscular HGB Conc 33.3 g/dl (31.0-36.0); Mean Corpuscular Hemoglobin 34.3 pg (27.0-33.0); Mean Corpuscular Volume 103.1 fL (80.0-98.0); Mean Platelet Volume 9.8 fL (9.4-12.4); Platelet Count 172 X10*3/uL (160-400); Red Blood Count 3.88 X10*6/uL (4.60-5.80); Red Cell Distribution Width 12.7 % (11.0-16.0); White Blood Count 7.7 X10*3/uL (4.8-10.8)
[2024-09-01 14:08] LABS: Alanine Aminotransferase 13 U/L (0-40); Albumin Level 4.2 g/dL (3.5-5.0); Alkaline Phosphatase 70 U/L (39-117); Anion Gap 14 (12-20); Aspartate Amino Transferase 11 U/L (5-37); Bilirubin Total 0.7 mg/dL (0.0-1.0); Blood Urea Nitrogen 46 mg/dL (9-16); Calcium 9.3 mg/dL (8.4-10.2); Carbon Dioxide 34 mmol/L (22-29); Chloride 97 mmol/L (96-108); Estimated Glomerular Filt Rate 31; Glucose Fasting 118 mg/dL (60-99); Potassium 3.7 mmol/L (3.3-5.1); Sodium 141 mmol/L (135-145)
[2024-09-06 22:18] LABS: NT-proBNP 1006 pg/mL (<450)
== END 2024-09-01 12:42 | disposition home or self-care (01) ==
LOC: HO.LAB 12:41
PROVIDERS: PCP Physician Assistant; Visit Provider Physician Assistant
DX: I50.32 Chronic diastolic (congestive) heart failure (principal); E11.65 Type 2 diabetes mellitus with hyperglycemia
CPT/HCPCS: 36415; 80053; 83880; 85027

== ENCOUNTER 2024-09-07 13:58 | Outpatient (AMB) | payer MEDICARE, SELFPAY ==
[2024-09-07 14:13] VITALS: BP 110/50; PULSE 78; O2SAT 95; BMI 27.0
--- NOTE | 2024-09-07 14:13 | A.OFFPC_ITS ---
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: No Accompanied by: Self / Same As Patient Allergies cephalexin [Keflex] Allergy (Unknown, Verified 09/07/24 14:16) diarrhea Sulfa (Sulfonamide Antibiotics) Allergy (Unknown, Verified 09/07/24 14:16) Unknown prednisone Adverse Reaction (Severe, Verified 09/07/24 14:16) dementia Medication List - Last Reconciled 09/07/24 by Anton Perla PA-C albuterol sulfate 90 mcg/actuation 2 puffs inhalation Q6H PRN alfuzosin ER 10 mg PO DAILY apixaban (Eliquis) 2.5 mg PO BID 90 days [diabetic shoe inserts As directed] [diabetic shoes As directed] diltiazem HCl CD 240 mg PO DAILY 90 days empagliflozin (Jardiance) 25 mg PO DAILY furosemide 40 mg PO DAILY 90 days hydrochlorothiazide 25 mg PO DAILY 90 days hydroxyzine HCl 25 mg PO BEDTIME 30 days losartan 25 mg PO DAILY potassium chloride ER (Klor-Con M) 30 mEq PO DAILY Tobacco use date assessed: 12/01/23 Fall risk assessment: No Falls in past year Last assessed Fall Risk: 09/07/24 Dental Screening Dental Screen Date: 12/01/23 HPI 3mth f/u HPI Details Patient is an 83-year-old male here today for a follow-up visit.? Patient has a past medical history significant for aortic stenosis, abdominal aortic aneurysm, coronary artery disease, type 2 diabetes, hypertension, paroxysmal AFib, CKD stage 3, COPD and Congestive heart failure.. CHRONIC MEDICAL CONDITIONS .. CKD stage III-most recent creatinine 2.0- patient's creatinine stable 1.6-1.8.. IS followed by a nephroloist in [place].? Has been started on losartan potassium due to hypokalemia. Most recent potassium at 3.7 He is now on potassium 30 mEq .. CAD/ CHF:? followed by [facility] manager product design. Has been euvolemic now for over a year now. Denies any significant shortness of breath on exertion. .? Now has been managed with furosemide 40 minutes and hydrochlorothiazide.? Most recent BNP just over a 1000. pBNP had been fairly stable 600to 900s .. AFIB:? Continues on renally dosed Eliquis and diltiazem for rate control.? Denies any overt signs of bleeding.? Continues to follow cardiology.? Has now recent episodes palpitations, shortness of breath the chest discomforts. .. AAA:? Is followed vascular surgeon at [facility] recently had his abdominal aorta endovascularly fixed. Due for repeat CTA to make sure aneurysm clearing fixed .. CT of abdomen without any enlarging abdominal aneurysm. He awaits a follow-up with his vascular surgeon. ... ? COPD:? does have a history of COPD, has quite smoking.? Reports only using an albuterol inhaler on a p.r.n. basis. Denies any shortness of breath at rest though does have shortness of breath on exertion which is been a chronic issue. Laboratory Tests 08/26/23 11/26/23 12/01/23 11:23 10:35 12:37 Hgb 13.4 L Hct MCV 100.8 H 99.7 H Sodium Potassium Creatinine Fasting Glucose 107 H Hgb A1c (Clinic) 5.4 NT-Pro-B Natriuret Pep 02/24/24 05/29/24 09/01/24 09:14 10:24 12:51 Hgb 13.5 L 13.3 L Hct 40.0 L MCV 103.9 H Sodium 141 Potassium 3.7 Creatinine 1.85 H 1.76 H 2.08 H Fasting Glucose 118 H Hgb A1c (Clinic) NT-Pro-B Natriuret Pep 872 H 1006 H PFSH Medical History Insomnia Atherosclerotic cardiovascular disease Cellulitis CHF (congestive heart failure) CKD (chronic kidney disease) stage 3, GFR 30-59 ml/min Smoker COPD (chronic obstructive pulmonary disease) Presence of stent in coronary artery in patient with coronary artery disease Abdominal aortic aneurysm Paroxysmal atrial fibrillation Renal insufficiency UTI (urinary tract infection) Diabetes mellitus Acquired hypothyroidism Edema eyelid Essential (primary) hypertension Surgical History Status post endovascular aneurysm repair (EVAR) H/O neck surgery History of tonsillectomy History of cardiac catheterization History of nasal surgery Family History Father Myocardial infarction Mother Alzheimers disease Social History Household Members: Significant Other Housing: House Alcohol intake: current Alcohol intake frequency: a few times a month Comment: pt in recliner-camera on Patient Tobacco Use Status: Former Tobacco user Years Smoked: 60 e-Cigarette/Vaping Use: Never Used Advance Directives Date on File: 12/27/21 service: No Current occupational status: retired Cognitive needs: Yes (cane/walker) Hearing needs: No Vision needs: No Questionnaire Thrive Questionnaire Date Thrive assessed: 03/01/24 Are you currently unemployed and looking for a job?: No AUDIT C Alcohol Use Questionnaire (AUDIT-C) 3. How often do you have six or more drinks on one occasion?: Never Total Score: 0 GABRIELLA-7 AMB Questionnaire GABRIELLA-7 Date GABRIELLA - 7 assessed: 03/01/24 Source: Developed by Drs. Rickey Hernandez, Genoveva Albright, Vinny Chris and colleagues, with an educational joseline from [employer]. Review of Systems Const Denies headache(s) Eyes Denies loss of vision ENT Denies vertigo, Denies dizziness, Denies headache(s) and Denies sore throat Card Denies chest pain, Denies leg edema and Denies lightheadedness Resp Denies cough, Denies hemoptysis and Denies wheezing GI Denies abdominal pain, Denies melena, Denies constipation, Denies diarrhea and Denies vomiting Denies dysuria, Denies urinary frequency and Denies urinary urgency Musc Denies arthralgias, Denies joint swelling, Denies numbness and Denies tingling Neuro Denies Abnormal speech present, Denies behavioral changes, Denies vertigo, Denies dizziness, Denies headache(s), Denies loss of vision, Denies memory loss, Denies numbness and Denies tingling Psych Denies anxiety, Denies behavioral changes, Denies depression, Denies memory loss and Denies panic attacks Cr/Lymph Denies easy bleeding and Denies easy bruising Aller/Immun Denies wheezing Physical exam (Primary Care) Vital Signs: Last Vital Signs Pulse 78 09/07/24 14:13 BP 110/50 L 09/07/24 14:13 Pulse Ox 95 09/07/24 14:13 Oxygen Delivery Method Room Air 09/07/24 14:13 BMI result Body Mass Index 27.0 Tobacco/Smoking Status: Tobacco use Status Tobacco use date assessed 12/01/23 09/07/24 14:14 Patient Tobacco Use Status Former Tobacco user 09/07/24 14:14 Tobacco use type 03/04/23 14:29 e-Cigarette/Vaping Use Never Used 09/07/24 14:14 Thrive Assessment: Date of Thrive Assessment Date Thrive assessed 03/01/24 09/07/24 14:14 Const General: healthy appearing, no acute distress, alert and awake Nutritional Appearance: well nourished Orientation/consciousness: oriented to person, oriented to place and oriented to time HENMT Ears: TM's normal bilaterally General nose exam: Normal nasal mucous membranes and turbinates present Eyes Conjunctivae: conjunctivae normal Sclerae: sclerae normal Pupils: Equal, round and reactive pupils present Neck Neck: Yes no lymphadenopathy and Yes no JVD Thyroid: Thyroid normal Carotids: no bruits Resp Effort & Inspection: normal respiratory effort and not tachypneic Auscultation: no crackles, no rales, no rhonchi and no wheezes Cardio Rate: regular rate Rhythm: regular rhythm Heart sounds: no murmurs and normal S1 and S2 GI Palpation (GI): Soft to palpation, nontender, no hepatomegaly and no splenomegaly Auscultation: normal bowel sounds Skin General skin exam: no rashes or lesions noted and dry skin Neuro General: oriented to person, oriented to place and oriented to time Cranial nerves: Yes Equal, round and reactive pupils present Speech: No Abnormal speech present Gait exam (Neuro): Normal gait present Motor exam (neuro): no tremor noted Extrem Right upper extremity: full ROM Left upper extremity: full ROM Right lower extremity: full ROM; no edema Left lower extremity: full ROM; no edema Psych Mental Status: mental status grossly normal Speech and movement: Normal speech and movement present Affect: normal affect Attitude: cooperative Thought process: Normal thought process present Office Procedures Flu Questionnaire Does the patient have a severe egg allergy?: No Does the patient have severe life threatening allergies?: No Does the patient have a fever or illness today?: No Has the patient ever had Guillain-Newfane Syndrome?: No Has the patient ever had any past reaction to a flu shot?: No Results AMB Hemoglobin A1c AMB Hemoglobin A1c 4.6 % Last Edit by ESTELLA Luis on 09/07/24 14:15 Immunizations Fluarix Triv [id number] (PF) 45 mcg (15 mcg x 3)/0.5 mL IM syringe Performing Provider: Anton Perla PA-C [facility] Administered by: ESTELLA Luis on 09/07/24 14:27 Dose Route Admin Location Dispensed Lot Number Expiration Date NDC Field Sales Representative 0.5 mL IM Left Deltoid 0.5 mL [id number] 05/21/25 [id number] [employer] VIS Given Date VIS Provided VIS Publication Date 09/07/24 Single Vaccine 21 Eligibility Eligibility Date Funding Source Not [facility] Eligible 09/07/24 Private Results Reviewed Results Reviewed: Laboratory Last Values Hgb A1c (Clinic) 4.6 % (4.0-6.0) 09/07/24 14:05 Coding Level of Care Code Est Pt Level 4 (37658) Diagnoses Essential (primary) hypertension I10 Type 2 diabetes mellitus with hyperglycemia, without long-term current use of insulin E11.65 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 He continues on hydrochlorothiazide, losartan and furosemide. 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 Goal blood pressures to remain below 140/90 and above 100/60 (2) Type II diabetes mellitus: Code(s): E11.9 - Type 2 diabetes mellitus without complications Category: Medical Qualifiers: Diabetes mellitus termite control service representative insulin use: without termite control service representative use Diabetes mellitus complication status: with hyperglycemia Qualified Code(s): E11.65 - Type 2 diabetes mellitus with hyperglycemia Plan: Patient's type 2 diabetes well controlled with current dose of Jardiance. Goal A1c is to remain below 7.0 (3) CKD (chronic kidney disease) stage 3, GFR 30-59 ml/min: Code(s): N18.30 - Chronic kidney disease, stage 3 unspecified Category: Medical Qualifiers: Chronic kidney disease stage 3 subtype: stage 3a (GFR 45-59) Qualified Code(s): N18.31 - Chronic kidney disease, stage 3a Plan: Patient's kidney function slightly worsened on most recent labs. Electrolytes are within normal range particular leave his potassium. He continues On potassium supplementation. Again we did discuss perhaps reducing his furosemide dose slightly as he has been euvolemic for quite some time now. (4) Chronic diastolic (congestive) heart failure: Code(s): I50.32 - Chronic diastolic (congestive) heart failure Category: Medical Plan: Patient's Congestive heart failure seems to be well compensated for quite some time now. Continues to follow [facility]. Has most recent Bnp slightly more elevated than usual. He seems to be euvolemic on physical exam today. Orders: Orders AMB Hemoglobin A1c 09/07/24 E11.65 - Type 2 diabetes mellitus with hyperglycemia Complete Blood Count no Diff 09/07/24 D53.9 - Nutritional anemia, unspecified Vitamin B12 and Folate 09/07/24 D53.9 - Nutritional anemia, unspecified, E53.8 - Deficiency of other specified B group vitamins Influenza [id number] Immunization 09/07/24 Z23 - Encounter for immunization Comprehensive [place]. Panel Fast 09/07/24 E11.65 - Type 2 diabetes mellitus with hyperglycemia Lipid Panel 09/07/24 N18.31 - Chronic kidney disease, stage 3a Patient Instructions: Goal: A1c to remain below 7.0. Blood pressure to remain below 140/90, LDL to be below 100 Barriers: Age, adherence to physical activity and healthy eating habits
== END 2024-09-07 14:44 | disposition home or self-care (01) ==
PROVIDERS: PCP Physician Assistant; Visit Provider Physician Assistant
DX: I11.0 Hypertensive heart disease with heart failure (principal); E11.65 Type 2 diabetes mellitus with hyperglycemia; N18.31 Chronic kidney disease, stage 3a; I50.32 Chronic diastolic (congestive) heart failure

== ENCOUNTER → 2024-09-07 13:58 | Outpatient (BNVA) | payer MEDICARE, SELFPAY | PROVIDERS: PCP Physician Assistant; Visit Provider Physician Assistant | DX: E11.65 Type 2 diabetes mellitus with hyperglycemia (principal); E11.22 Type 2 diabetes mellitus with diabetic chronic kidney disease; I13.0 Hypertensive heart and chronic kidney disease with heart failure and stage 1 through stage 4 chronic kidney disease, or unspecified chronic kidney disease; N18.31 Chronic kidney disease, stage 3a; I50.32 Chronic diastolic (congestive) heart failure; Z79.899 Other long term (current) drug therapy; Z23 Encounter for immunization | CPT/HCPCS: 83036; 90471; 90656; 99212 ==

== ENCOUNTER 2024-12-04 09:52 | Outpatient (REF) | payer MEDICARE, SELFPAY ==
[2024-12-04 10:43] LABS: Hematocrit 36.5 % (42.0-52.0); Hemoglobin 12.1 g/dl (14.0-18.0); Mean Corpuscular HGB Conc 33.2 g/dl (31.0-36.0); Mean Corpuscular Hemoglobin 34.4 pg (27.0-33.0); Mean Corpuscular Volume 103.7 fL (80.0-98.0); Mean Platelet Volume 9.5 fL (9.4-12.4); Platelet Count 160 X10*3/uL (160-400); Red Blood Count 3.52 X10*6/uL (4.60-5.80); Red Cell Distribution Width 13.6 % (11.0-16.0); White Blood Count 8.1 X10*3/uL (4.8-10.8)
[2024-12-04 12:00] LABS: Folate 2.5 ng/mL (> or = 4.0); Vitamin B12 498 pg/mL (200-900)
[2024-12-04 12:01] LABS: Alanine Aminotransferase 11 U/L (0-40); Albumin Level 4.3 g/dL (3.5-5.0); Alkaline Phosphatase 70 U/L (39-117); Anion Gap 14 (12-20); Aspartate Amino Transferase 14 U/L (5-37); Blood Urea Nitrogen 53 mg/dL (9-16); Calcium 9.1 mg/dL (8.4-10.2); Carbon Dioxide 33 mmol/L (22-29); Chloride 97 mmol/L (96-108); Cholesterol 173 mg/dL (<200); Estimated Glomerular Filt Rate 30; Glucose Fasting 102 mg/dL (60-99); HDL Cholesterol 51 mg/dL (>40); LDL Cholesterol Calculated 103 mg/dL (<100); Potassium 3.5 mmol/L (3.3-5.1); Sodium 140 mmol/L (135-145); Total Protein 7.3 g/dL (6.5-8.0); Triglycerides 97 mg/dL (<150)
== END 2024-12-04 09:53 | disposition home or self-care (01) ==
LOC: HO.LAB 09:52
PROVIDERS: PCP Physician Assistant; Visit Provider Physician Assistant
DX: D53.9 Nutritional anemia, unspecified (principal); N18.31 Chronic kidney disease, stage 3a; E53.8 Deficiency of other specified B group vitamins; E11.65 Type 2 diabetes mellitus with hyperglycemia
CPT/HCPCS: 36415; 80053; 80061; 82607; 82746; 85027

== ENCOUNTER 2024-12-14 13:24 | Outpatient (AMB) | payer MEDICARE, SELFPAY ==
[2024-12-14 13:33] VITALS: BP 122/52; PULSE 80; BMI 28.1
--- NOTE | 2024-12-14 13:33 | MHC.OFFVIS ---
Vital Signs 12/14/24 13:33 Height 5 ft 10 in Weight 195 lb 12.328 oz BMI 28.1 BP 122/52 L Blood Pressure Location Rt brachial Position Sitting Pulse 80 Pulse Source Monitor Intake Visit Reasons: 6m follow up Shank Stitcher Required: No Allergies cephalexin [Keflex] Allergy (Unknown, Verified 12/14/24 16:00) diarrhea Sulfa (Sulfonamide Antibiotics) Allergy (Unknown, Verified 12/14/24 16:00) Unknown prednisone Adverse Reaction (Severe, Verified 12/14/24 16:00) dementia Medication List - Last Reconciled 12/14/24 by Jaz Herzog NP-C albuterol sulfate 90 mcg/actuation 2 puffs inhalation Q6H PRN alfuzosin ER 10 mg PO DAILY apixaban (Eliquis) 2.5 mg PO BID 90 days [diabetic shoe inserts As directed] [diabetic shoes As directed] diltiazem HCl CD 240 mg PO DAILY 90 days empagliflozin (Jardiance) 25 mg PO DAILY furosemide 40 mg PO DAILY 90 days hydrochlorothiazide 25 mg PO DAILY 90 days hydroxyzine HCl 25 mg PO BEDTIME 30 days losartan 25 mg PO DAILY potassium chloride ER (Klor-Con M) 30 mEq PO DAILY HPI HPI 6m follow up: Details: Felix is an 83-year-old male with past medical history of hypertension, diabetes, aortic stenosis, paroxysmal atrial fibrillation, chronic diastolic heart failure, CAD with circumflex stent 2018 who presents for follow-up. Today he reports he has been doing well since his last visit in May. He has not had any chest discomfort at rest or with activity. He does have some mild shortness of breath with exertion which is not new. No PND, orthopnea or edema. No palpitations, presyncope, syncope, falls. He has chronic back issues and has to walk with a walker for balance. He has been mostly sedentary this winter and is anxious to start gardening again when the weather improves. Takes his meds as directed. No Bleeding issues reported. [facility] Medical History Insomnia Atherosclerotic cardiovascular disease Cellulitis CHF (congestive heart failure) CKD (chronic kidney disease) stage 3, GFR 30-59 ml/min Smoker COPD (chronic obstructive pulmonary disease) Presence of stent in coronary artery in patient with coronary artery disease Abdominal aortic aneurysm Paroxysmal atrial fibrillation Renal insufficiency UTI (urinary tract infection) Diabetes mellitus Acquired hypothyroidism Edema eyelid Essential (primary) hypertension Surgical History Status post endovascular aneurysm repair (EVAR) H/O neck surgery History of tonsillectomy History of cardiac catheterization History of nasal surgery Family History Father Myocardial infarction Mother Alzheimers disease Social History Household Members: Significant Other Housing: House Alcohol intake: current Alcohol intake frequency: a few times a month Comment: pt in recliner-camera on Patient Tobacco Use Status: Former Tobacco user Years Smoked: 60 e-Cigarette/Vaping Use: Never Used Advance Directives Date on File: 12/27/21 service: No Current occupational status: retired Cognitive needs: Yes (cane/walker) Hearing needs: No Vision needs: No Review of Systems Const All systems reviewed & are unremarkable except as noted in HPI and below ENT Denies dizziness Card Denies chest pain, Denies chest pain at rest, Denies chest pain with activity, Denies rapid heart rate, Denies pedal edema, Denies edema, Denies leg edema, Denies lightheadedness, Denies palpitations, Denies dyspnea, Denies dyspnea on exertion and Denies orthopnea Resp Denies cough, Denies dyspnea and Denies dyspnea on exertion GI Denies hematochezia and Denies change in stool character Musc Details: uses wheeling walker - chronic back pain Reports abnormal gait, Denies limited range of motion, Denies muscle cramps, Denies muscle weakness, Denies numbness, Denies radiating pain into limb, Denies stiffness and Denies tingling Neuro Reports abnormal gait, Denies dizziness, Denies numbness and Denies tingling Endo Denies palpitations Physical Exam Vital Signs: Last Vital Signs Pulse 80 12/14/24 13:33 BP 122/52 L 12/14/24 13:33 BMI result Body Mass Index 28.1 Const General: cooperative, healthy appearing, comfortable and no acute distress Orientation/consciousness: patient oriented x3 Neck Neck: Yes normal visual inspection and Yes no JVD Resp Effort & Inspection: normal respiratory effort Auscultation: clear to auscultation bilaterally, no crackles, no rales, no rhonchi and no wheezes Cardio Jugular venous distension: no JVD Rate: regular rate Rhythm: regular rhythm Heart sounds: S1 normal heart sound present, S2 normal heart sound present, no murmurs and no rubs Neuro General: patient oriented x3 Extrem General: Yes normal to inspection and No no pedal edema Psych Appearance: grossly normal Mental Status: mental status grossly normal Speech and movement: Normal speech and movement present Office Procedures EKG Details: Today, read by me SR, PACs, nonspecific IVCD, cant exclude prior anterior infarct, rate 80, Qtc 459ms [id number], Complete Assessment & Plan Assessment & Plan (1) Atherosclerotic cardiovascular disease: Code(s): I25.10 - Atherosclerotic heart disease of [place] coronary artery without angina pectoris Category: Medical Plan: History of coronary artery disease. STEMI 10/31/2018 with cardiac catheterization showing occlusion of proximal circumflex, AVIVA placed. Last cardiac catheterization 04/2019 showed proximal LAD, distal 65% stenosis, patent circumflex stent, RCA mild diffuse disease. His last echocardiogram done 12/27/2023 showed EF 67%, basal inferior and inferior lateral hypokinesis, mild , unchanged from prior. EKG done today showing normal sinus rhythm, left axis, nonspecific IVCD, can not exclude prior anterior infarct, PACs, no significant change from prior, rate 80. No reports of anginal sounding symptoms at this time. Continue meds for stable CAD. He is not on aspirin as he is on Eliquis for his PAF. He declines statins. He is not interested in Repatha/Praluent. Labs done 05/29/2024 showed LDL 111. The importance of good cholesterol control reviewed with him. Continue diltiazem. Signs and symptoms of angina reviewed. Emergency care if ever needed for symptoms. Cardiology follow-up in 6 months, sooner if needed (2) Chronic diastolic (congestive) heart failure: Code(s): I50.32 - Chronic diastolic (congestive) heart failure Category: Medical Plan: History of diastolic heart failure. Stable at this time. No signs of fluid overloaded on examination. Continue Lasix. He is also on hydrochlorothiazide 25 mg daily. He previously told me that he tried stopping hydrochlorothiazide in the past and developed fluid retention, swelling around his right eye. He says he is currently feeling very well on his current medications and does not want to switch them. Previously had suggested that he could stop hydrochlorothiazide and increase Lasix dose, which he did not want to do. He does have chronic kidney disease and that will need to be monitored. Labs done 12/04/2024 shows creatinine 2.10, no significant change from prior values. (3) Paroxysmal atrial fibrillation: Code(s): I48.0 - Paroxysmal atrial fibrillation Category: Medical Plan: History of paroxysmal atrial fibrillation. Currently suppressed. On diltiazem for heart rate control. On Eliquis 2.5 mg b.i.d. for anticoagulation. No bleeding issues reported. Stroke risk with atrial fibrillation discussed. He has not felt any recent heart palpitations. Pulse is regular on examination today. EKG confirms sinus rhythm. (4) Non-rheumatic aortic stenosis: Code(s): I35.0 - Nonrheumatic aortic (valve) stenosis Category: Medical Plan: Echocardiogram done 12/27/2023 showed mild aortic stenosis, which is unchanged from echocardiogram in 2021. Plan for repeat echo to re-evaluate in approximately 2 years. (5) Status post endovascular aneurysm repair (EVAR): Code(s): Z98.890 - Other specified postprocedural states; Z86.79 - Personal history of other diseases of the circulatory system Category: Surgical Plan[place] [facility] [place] Time spent on chart review, documentation, interview and assessment Coding Level of Care Code Est Pt Level 4 (42020) Complex EM visit Add On G2211 Diagnoses Atherosclerotic cardiovascular disease I25.10 Chronic diastolic (congestive) heart failure I50.32 Paroxysmal atrial fibrillation I48.0 Non-rheumatic aortic stenosis I35.0 Status post endovascular aneurysm repair (EVAR) Z98.890; Z86.79 CPT Codes EKG - CPT: [id number], Complete ([id number]) Time Spent (min) 36
== END 2024-12-14 13:58 | disposition home or self-care (01) ==
PROVIDERS: PCP Physician Assistant; Visit Provider Nurse Practitioner Family
DX: I25.10 Atherosclerotic heart disease of native coronary artery without angina pectoris (principal); I50.32 Chronic diastolic (congestive) heart failure; I48.0 Paroxysmal atrial fibrillation; I35.0 Nonrheumatic aortic (valve) stenosis; Z98.890 Other specified postprocedural states; Z86.79 Personal history of other diseases of the circulatory system
CPT/HCPCS: 93010; 99214; G2211

== ENCOUNTER → 2024-12-14 13:24 | Outpatient (BNVA) | payer MEDICARE, SELFPAY | PROVIDERS: PCP Physician Assistant; Visit Provider Nurse Practitioner Family | DX: I13.0 Hypertensive heart and chronic kidney disease with heart failure and stage 1 through stage 4 chronic kidney disease, or unspecified chronic kidney disease (principal); E11.22 Type 2 diabetes mellitus with diabetic chronic kidney disease; N18.31 Chronic kidney disease, stage 3a; I50.32 Chronic diastolic (congestive) heart failure; E11.65 Type 2 diabetes mellitus with hyperglycemia; K59.1 Functional diarrhea; I25.10 Atherosclerotic heart disease of native coronary artery without angina pectoris; I48.0 Paroxysmal atrial fibrillation; I35.0 Nonrheumatic aortic (valve) stenosis; Z86.79 Personal history of other diseases of the circulatory system; Z79.01 Long term (current) use of anticoagulants; Z79.899 Other long term (current) drug therapy; Z98.890 Other specified postprocedural states | CPT/HCPCS: 93005; 96127; 99212 ==

== ENCOUNTER 2024-12-14 15:51 | Outpatient (AMB) | payer MEDICARE, SELFPAY ==
--- NOTE | 2024-12-14 15:52 | MHC.PC.OV ---
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 Accompanied by: Self / Same As Patient Allergies cephalexin [Keflex] Allergy (Unknown, Verified 12/14/24 16:00) diarrhea Sulfa (Sulfonamide Antibiotics) Allergy (Unknown, Verified 12/14/24 16:00) Unknown prednisone Adverse Reaction (Severe, Verified 12/14/24 16:00) dementia Medication List - Last Reconciled 12/14/24 by Anton Perla PA-C albuterol sulfate 90 mcg/actuation 2 puffs inhalation Q6H PRN alfuzosin ER 10 mg PO DAILY apixaban (Eliquis) 2.5 mg PO BID 90 days [diabetic shoe inserts As directed] [diabetic shoes As directed] diltiazem HCl CD 240 mg PO DAILY 90 days empagliflozin (Jardiance) 25 mg PO DAILY furosemide 40 mg PO DAILY 90 days hydrochlorothiazide 25 mg PO DAILY 90 days hydroxyzine HCl 25 mg PO BEDTIME 30 days losartan 25 mg PO DAILY potassium chloride ER (Klor-Con M) 30 mEq PO DAILY Tobacco use date assessed: 12/14/24 Fall risk assessment: No Falls in past year Last assessed Fall Risk: 12/14/24 Dental Screening Dental Screen Date: 12/14/24 Did you have a dental visit in the last 12 months?: Yes Did you have a dental problem in the last 6 months where you did not have access to dental care?: No Was dental information given to patient?: Patient has dentist HPI f/u DMII/ CHF/ CKD-3 HPI Details Patient is an 83-year-old male here today for a follow-up visit.? Patient has a past medical history significant for aortic stenosis, abdominal aortic aneurysm, coronary artery disease, type 2 diabetes, hypertension, paroxysmal AFib, CKD stage 3, COPD and Congestive heart failure.. Concern--> Has been experiencing bowel irregularities. The patient has been experiencing low folate levels recently, as noted in prior lab evaluations, possibly linked to poor absorption affecting other existing conditions like aortic valve issues and chronic diarrhea. Over the past few weeks, the patient reports intermittent episodes of loose stools and diarrhea, occurring a few days a week, shortly after meals. The symptoms have been ongoing for a significant period, with no accompanying fevers or abdominal pain. The patient denies any recent changes to bowel function or diet that could exacerbate symptoms. CHRONIC MEDICAL CONDITIONS .. CKD stage III-most recent creatinine 2.0- patient's creatinine stable 1.6-2.0.. Is followed by a nephroloist in [place].? . Most recent potassium at 3.7 He is now on potassium 30 mEq Again noted low folat- advised on starting folate supplementation. .. CAD/ CHF:? 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 Has been euvolemic now for over a year now. Denies any significant shortness of breath on exertion. .? Now has been managed with furosemide 40 minutes and hydrochlorothiazide.? pBNP had been fairly stable 600to 900s .. AFIB:? Followed by [facility]. Continues on renally dosed Eliquis and diltiazem for rate control.? Denies any overt signs of bleeding.? Continues to follow cardiology.? Has now recent episodes palpitations, shortness of breath the chest discomforts. .. AAA:? Is followed vascular surgeon at [facility] recently had his abdominal aorta endovascularly fixed. CT of abdomen without any enlarging abdominal aneurysm. He awaits a follow-up with his vascular surgeon. ... ? COPD:? does have a history of COPD, has quite smoking.? Reports only using an albuterol inhaler on a p.r.n. basis. Denies any shortness of breath at rest though does have shortness of breath on exertion which is been a chronic issue. Laboratory Tests 05/29/24 09/01/24 12/04/24 10:24 12:51 10:10 Hgb 12.1 L MCV 103.7 H Creatinine 1.76 H 2.08 H 2.10 H Folate 2.5 L [facility] Medical History Insomnia Atherosclerotic cardiovascular disease Cellulitis CHF (congestive heart failure) CKD (chronic kidney disease) stage 3, GFR 30-59 ml/min Smoker COPD (chronic obstructive pulmonary disease) Presence of stent in coronary artery in patient with coronary artery disease Abdominal aortic aneurysm Paroxysmal atrial fibrillation Renal insufficiency UTI (urinary tract infection) Diabetes mellitus Acquired hypothyroidism Edema eyelid Essential (primary) hypertension Surgical History Status post endovascular aneurysm repair (EVAR) H/O neck surgery History of tonsillectomy History of cardiac catheterization History of nasal surgery Family History Father Myocardial infarction Mother Alzheimers disease Social History Household Members: Significant Other Housing: House Alcohol intake: current Alcohol intake frequency: a few times a month Comment: pt in recliner-camera on Patient Tobacco Use Status: Former Tobacco user Years Smoked: 60 e-Cigarette/Vaping Use: Never Used Advance Directives Date on File: 12/27/21 service: No Current occupational status: retired Cognitive needs: Yes (cane/walker) Hearing needs: No Vision needs: No Questionnaire PHQ-9 Over the last 2 weeks, how often have you been bothered by any of the following problems? 1. Little interest or pleasure in doing things: not at all 2. Feeling down, depressed, or hopeless: not at all 3. Trouble falling or staying asleep, or sleeping too much: not at all 4. Feeling tired or having little energy: not at all 5. Poor appetite or overeating: not at all 6. Feeling bad about yourself - or that you are a failure or have let yourself or your family down: not at all 7. Trouble concentrating on things, such as reading the newspaper or watching television: not at all 8. Moving or speaking so slowly that other people could have noticed. Or the opposite - being so fidgety or restless that you have been moving around a lot more than usual: not at all 9. Thoughts that you would be better off or of hurting yourself in some way: not at all Total score: 0 Depression Screening Interpretation: Negative Depression Screening Done: Yes 11669 - PHQ-9 Billing: Yes Source: Developed by Drs. Rickey Hernandez, Genoveva Albright, Vinny Chris and colleagues, with an educational joseline from [employer]. Thrive Questionnaire Date Thrive assessed: 12/14/24 I am a: Patient What is your living situation today?: I have a steady place to live Within the past 12 months, did the food you bought not last and you didn't have the money to get more?: Never true Within the past 12 months, did you worry whether your food would run out before you got money to buy more?: Never true Do you have trouble paying for medicines?: No Do you have trouble getting transportation to medical appointments?: No Do you have trouble paying your heating and electricity bill?: No Do you have trouble taking care of your child, family member or friend?: No Do you have trouble with day-to-day activities such as bathing, preparing meals, shopping, managing finances, etc.?: No Are you currently unemployed and looking for a job?: No Are you interested in more education?: No Please select the resources that you would like help with: None Currently or been in a relationship where the following occur: No concerns reported THRIVE Score: 0 AUDIT C Alcohol Use Questionnaire (AUDIT-C) 1. How often do you have a drink containing alcohol?: Never 3. How often do you have six or more drinks on one occasion?: Never Total Score: 0 GABRIELLA-7 AMB Questionnaire GABRIELLA-7 Date GABRIELLA - 7 assessed: 12/14/24 Feeling nervous, anxious, or on edge: 0 = Not at all Not being able to stop or control worryin = Not at all Worrying too much about different things: 0 = Not at all Trouble relaxin = Not at all Being so restless that it is hard to sit still: 0 = Not at all Becoming easily annoyed or irritable: 0 = Not at all Feeling afraid as if something awful might happen: 0 = Not at all Total GABRIELLA-7 score (0-4 normal; 5-9 mild; 10-14 moderate; 15-21 severe): 0 Source: Developed by Drs. Rickey Hernandez, Genoveva Albright, Vinny Chris and colleagues, with an educational joseline from [employer]. GABRIELLA-7 Assessment Billing GABRIELLA-7 Assessment Tool: GABRIELLA-7 Assessment 20495 Physical exam (Primary Care) Vital Signs: Last Vital Signs Temp 97.3 F 12/14/24 15:53 Pulse 93 12/14/24 15:53 BP 110/44 L 12/14/24 15:53 Pulse Ox 94 12/14/24 15:53 Oxygen Delivery Method Room Air 12/14/24 15:53 BMI result Body Mass Index 28.3 Tobacco/Smoking Status: Tobacco use Status Tobacco use date assessed 12/14/24 12/14/24 15:59 Patient Tobacco Use Status Former Tobacco user 12/14/24 15:52 Tobacco use type 03/04/23 14:29 e-Cigarette/Vaping Use Never Used 12/14/24 15:52 PHQ-9: PHQ-9 Score PHQ-9: Total score 0 12/14/24 16:01 Depression Screening Interpretation: Negative Thrive Assessment: Date of Thrive Assessment Date Thrive assessed 12/14/24 12/14/24 15:54 Currently or been in a relationship where the following occur: No concerns reported Coding Level of Care Code Est Pt Level 4 (25098) Diagnoses Essential (primary) hypertension I10 Type 2 diabetes mellitus with hyperglycemia, without long-term current use of insulin E11.65 Diabetes mellitus complication status: with hyperglycemia Diabetes mellitus jail insulin use: without medical terminologist use Stage 3a chronic kidney disease N18.31 Chronic kidney disease stage 3 subtype: stage 3a (GFR 45-59) Chronic diastolic (congestive) heart failure I50.32 Functional diarrhea K59.1 Diarrhea type: functional diarrhea Additional Codes GABRIELLA-7 Assessment Billing - GABRIELLA-7 Assessment Tool: GABRIELLA-7 Assessment 60012 ([id number]) PHQ-9 - 71803 - PHQ-9 Billing: Yes ([id number]) Assessment & Plan Assessment & Plan (1) Essential (primary) hypertension: Code(s): I10 - Essential (primary) hypertension Category: Medical Plan: Patient's blood pressure on low side today. He continues on hydrochlorothiazide, losartan and furosemide. We did discuss perhaps reducing his furosemide and/or his hydrochlorothiazide due to his lower blood pressures and his worsening kidney function though patient is apprehensive on this and will ask his clinical partner about this. Goal blood pressures to remain below 140/90 and above 100/60 (2) Type II diabetes mellitus: Code(s): E11.9 - Type 2 diabetes mellitus without complications Category: Medical Qualifiers: Diabetes mellitus complication status: with hyperglycemia Diabetes mellitus medical terminologist insulin use: without jail use Qualified Code(s): E11.65 - Type 2 diabetes mellitus with hyperglycemia Plan: Patient's type 2 diabetes well controlled with current dose of Jardiance. Goal A1c is to remain below 7.0 (3) CKD (chronic kidney disease) stage 3, GFR 30-59 ml/min: Code(s): N18.30 - Chronic kidney disease, stage 3 unspecified Category: Medical Qualifiers: Chronic kidney disease stage 3 subtype: stage 3a (GFR 45-59) Qualified Code(s): N18.31 - Chronic kidney disease, stage 3a Plan: Continues to follow Nephrology. Patient's kidney function slightly worsened on most recent labs. Electrolytes are within normal range particular leave his potassium. He continues On potassium supplementation. Again we did discuss perhaps reducing his furosemide dose slightly as he has been euvolemic for quite some time now. (4) Chronic diastolic (congestive) heart failure: Code(s): I50.32 - Chronic diastolic (congestive) heart failure Category: Medical Plan: Patient's Congestive heart failure seems to be well compensated for quite some time now. Continues to follow [facility]. He seems to be euvolemic on physical exam today. (5) Frequent loose stools: Code(s): R19.7 - Diarrhea, unspecified Category: Medical Qualifiers: Diarrhea type: functional diarrhea Qualified Code(s): K59.1 - Functional diarrhea Plan: I discussed with the patient the connection between his folate deficiency and gastrointestinal issues, stressing the role of absorption in folate levels, and suggested dietary interventions like probiotics and Metamucil Orders: Orders Vitamin B12 and Folate 12/14/24 D53.9 - Nutritional anemia, unspecified, E53.8 - Deficiency of other specified B group vitamins Comprehensive [place]. Panel Fast 12/14/24 N18.31 - Chronic kidney disease, stage 3a Hemoglobin A1c 12/14/24 E11.65 - Type 2 diabetes mellitus with hyperglycemia Complete Blood Count no Diff 12/14/24 D53.9 - Nutritional anemia, unspecified
[2024-12-14 15:53] VITALS: BP 110/44; PULSE 93; TEMP 36.3; O2SAT 94; BMI 28.3
== END 2024-12-14 16:16 | disposition home or self-care (01) ==
PROVIDERS: PCP Physician Assistant; Visit Provider Physician Assistant
DX: I10 Essential (primary) hypertension (principal); E11.65 Type 2 diabetes mellitus with hyperglycemia; N18.31 Chronic kidney disease, stage 3a; I50.32 Chronic diastolic (congestive) heart failure; K59.1 Functional diarrhea

== ENCOUNTER 2025-02-15 11:12 | Outpatient (REF) | payer MEDICARE, SELFPAY ==
[2025-02-15 11:38] LABS: Hemoglobin 13.3 g/dl (14.0-18.0); Mean Corpuscular HGB Conc 33.3 g/dl (31.0-36.0); Mean Corpuscular Hemoglobin 32.4 pg (27.0-33.0); Mean Corpuscular Volume 97.3 fL (80.0-98.0); Mean Platelet Volume 9.4 fL (9.4-12.4); Platelet Count 172 X10*3/uL (160-400); Red Blood Count 4.11 X10*6/uL (4.60-5.80); Red Cell Distribution Width 12.8 % (11.0-16.0); White Blood Count 8.5 X10*3/uL (4.8-10.8)
[2025-02-15 11:44] LABS: Estimated Average Glucose 117 mg/dL; Hemoglobin A1c % 5.7 % (<6.0); Total Hemoglobin (HGBA1C) 3510.8063 umol/L
[2025-02-15 12:14] LABS: Alanine Aminotransferase 13 U/L (0-40); Alkaline Phosphatase 70 U/L (39-117); Anion Gap 13 (12-20); Aspartate Amino Transferase 12 U/L (5-37); Bilirubin Total 0.5 mg/dL (0.0-1.0); Blood Urea Nitrogen 56 mg/dL (9-16); Calcium 9.5 mg/dL (8.4-10.2); Carbon Dioxide 30 mmol/L (22-29); Chloride 102 mmol/L (96-108); Estimated Glomerular Filt Rate 37; Glucose Fasting 114 mg/dL (60-99); Potassium 3.9 mmol/L (3.3-5.1); Sodium 141 mmol/L (135-145); Total Protein 7.1 g/dL (6.5-8.0)
[2025-02-15 12:32] LABS: Folate 3.2 ng/mL (> or = 4.0); Vitamin B12 550 pg/mL (200-900)
== END 2025-02-15 11:13 | disposition home or self-care (01) ==
LOC: HO.LAB 11:12
PROVIDERS: PCP Physician Assistant; Visit Provider Physician Assistant
DX: D53.9 Nutritional anemia, unspecified (principal); E53.8 Deficiency of other specified B group vitamins; N18.31 Chronic kidney disease, stage 3a; E11.65 Type 2 diabetes mellitus with hyperglycemia
CPT/HCPCS: 36415; 80053; 82607; 82746; 83036; 85027

== ENCOUNTER 2025-03-14 14:10 | Outpatient (AMB) | payer MEDICARE, SELFPAY ==
[2025-03-14 14:12] VITALS: BP 104/42; PULSE 85; TEMP 36.3; O2SAT 93; BMI 29.0
--- NOTE | 2025-03-14 14:12 | A.OFFPC_ITS ---
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 Accompanied by: Self / Same As Patient Allergies cephalexin [Keflex] Allergy (Unknown, Verified 03/14/25 14:18) diarrhea Sulfa (Sulfonamide Antibiotics) Allergy (Unknown, Verified 03/14/25 14:18) Unknown prednisone Adverse Reaction (Severe, Verified 03/14/25 14:18) dementia Medication List - Last Reconciled 03/14/25 by Anton Perla PA-C albuterol sulfate 90 mcg/actuation 2 puffs inhalation Q6H PRN alfuzosin ER 10 mg PO DAILY apixaban (Eliquis) 2.5 mg PO BID 90 days [diabetic shoe inserts As directed] [diabetic shoes As directed] diltiazem HCl CD 240 mg PO DAILY 90 days empagliflozin (Jardiance) 25 mg PO DAILY folic acid 1 mg PO DAILY 90 days furosemide 40 mg PO DAILY 90 days hydrochlorothiazide 25 mg PO DAILY 90 days hydroxyzine HCl 25 mg PO BEDTIME 30 days losartan 25 mg PO DAILY potassium chloride ER (Klor-Con M) 30 mEq PO DAILY Tobacco use date assessed: 03/14/25 Fall risk assessment: No Falls in past year Last assessed Fall Risk: 03/14/25 Dental Screening Dental Screen Date: 12/14/24 HPI f/u HTN/ DMII HPI Details Patient is an 84-year-old male here today for a follow-up visit.? Patient has a past medical history significant for aortic stenosis, abdominal aortic aneurysm, coronary artery disease, type 2 diabetes, hypertension, paroxysmal AFib, CKD stage 3, COPD and Congestive heart failure.. .. CKD stage III-most recent creatinine 2.0- patient's creatinine stable 1.6-2.0.. Is followed by a nephroloist in [place].? . Most recent potassium at 3.7 He is now on potassium 30 mEq Will wait level again noted to be low though improved from previous lab draw. .. CAD/ CHF:? He reports fatigue, weight gain of five pounds over three months, a contributing factor possibly linked to chronic heart failure history, as indicated by periorbital edema in the past week. Back pain prevents him from walking as exercise. 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 Denies any significant shortness of breath on exertion. .? Now has been managed with furosemide 40 minutes and hydrochlorothiazide.? pBNP had been fairly stable 600to 900s .. AFIB:? Followed by [facility]. Continues on renally dosed Eliquis and diltiazem for rate control.? Denies any overt signs of bleeding.? Continues to follow cardiology.? Has now recent episodes palpitations, shortness of breath the chest discomforts. .. AAA:? Is followed vascular surgeon at [facility] recently had his abdominal aorta endovascularly fixed. CT of abdomen without any enlarging abdominal aneurysm. He awaits a follow-up with his vascular surgeon. ... ? COPD:? does have a history of COPD, has quite smoking.? Reports only using an albuterol inhaler on a p.r.n. basis. Denies any shortness of breath at rest though does have shortness of breath on exertion which is been a chronic issue. \ Laboratory Tests 12/04/24 02/15/25 10:10 11:26 Hgb 12.1 L 13.3 L Creatinine 2.10 H 1.76 H Fasting Glucose 114 H Hemoglobin A1c % 5.7 Folate 2.5 L 3.2 L [facility] Medical History Insomnia Atherosclerotic cardiovascular disease Cellulitis CHF (congestive heart failure) CKD (chronic kidney disease) stage 3, GFR 30-59 ml/min Smoker COPD (chronic obstructive pulmonary disease) Presence of stent in coronary artery in patient with coronary artery disease Abdominal aortic aneurysm Paroxysmal atrial fibrillation Renal insufficiency UTI (urinary tract infection) Diabetes mellitus Acquired hypothyroidism Edema eyelid Essential (primary) hypertension Surgical History Status post endovascular aneurysm repair (EVAR) H/O neck surgery History of tonsillectomy History of cardiac catheterization History of nasal surgery Family History Father Myocardial infarction Mother Alzheimers disease Social History Household Members: Significant Other Housing: House Alcohol intake: current Alcohol intake frequency: a few times a month Comment: pt in recliner-camera on Patient Tobacco Use Status: Former Tobacco user Years Smoked: 60 e-Cigarette/Vaping Use: Never Used Advance Directives Date on File: 12/27/21 service: No Current occupational status: retired Cognitive needs: Yes (cane/walker) Hearing needs: No Vision needs: No Questionnaire Thrive Questionnaire Date Thrive assessed: 12/14/24 GABRIELLA-7 AMB Questionnaire GABRIELLA-7 Date GABRIELLA - 7 assessed: 12/14/24 Source: Developed by Drs. Rickey Hernandez, Genoveva Albright, Vinny Chris and colleagues, with an educational joseline from [employer]. Review of Systems Const Denies headache(s) Eyes Denies loss of vision ENT Denies vertigo, Denies dizziness, Denies headache(s) and Denies sore throat Card Denies chest pain, Denies leg edema and Denies lightheadedness Resp Denies cough, Denies hemoptysis and Denies wheezing GI Denies abdominal pain, Denies melena, Denies constipation, Denies diarrhea and Denies vomiting Denies dysuria, Denies urinary frequency and Denies urinary urgency Musc Denies arthralgias, Denies joint swelling, Denies numbness and Denies tingling Neuro Denies Abnormal speech present, Denies behavioral changes, Denies vertigo, Denies dizziness, Denies headache(s), Denies loss of vision, Denies memory loss, Denies numbness and Denies tingling Psych Denies anxiety, Denies behavioral changes, Denies depression, Denies memory loss and Denies panic attacks Cr/Lymph Denies easy bleeding and Denies easy bruising Aller/Immun Denies wheezing Physical exam (Primary Care) Vital Signs: Last Vital Signs Temp 97.3 F 03/14/25 14:12 Pulse 85 03/14/25 14:12 BP 104/42 L 03/14/25 14:12 Pulse Ox 93 03/14/25 14:12 Oxygen Delivery Method Room Air 03/14/25 14:12 BMI result Body Mass Index 29.0 Tobacco/Smoking Status: Tobacco use Status Tobacco use date assessed 03/14/25 03/14/25 14:17 Patient Tobacco Use Status Former Tobacco user 03/14/25 14:12 Tobacco use type 03/04/23 14:29 e-Cigarette/Vaping Use Never Used 03/14/25 14:12 Thrive Assessment: Date of Thrive Assessment Date Thrive assessed 12/14/24 03/14/25 14:12 Const General: healthy appearing, no acute distress, alert and awake Nutritional Appearance: well nourished Orientation/consciousness: oriented to person, oriented to place and oriented to time HENMT Ears: TM's normal bilaterally General nose exam: Normal nasal mucous membranes and turbinates present Eyes Other: MILD RIGHT-SIDED PERIORBITAL EDEMA Conjunctivae: conjunctivae normal Sclerae: sclerae normal Pupils: Equal, round and reactive pupils present Neck Neck: Yes no lymphadenopathy and Yes no JVD Thyroid: Thyroid normal Carotids: no bruits Resp Effort & Inspection: normal respiratory effort and not tachypneic Auscultation: no crackles, no rales, no rhonchi and no wheezes Cardio Rate: regular rate Rhythm: regular rhythm Heart sounds: no murmurs and normal S1 and S2 GI Palpation (GI): Soft to palpation, nontender, no hepatomegaly and no splenomegaly Auscultation: normal bowel sounds Skin General skin exam: no rashes or lesions noted and dry skin Neuro General: oriented to person, oriented to place and oriented to time Cranial nerves: Yes Equal, round and reactive pupils present Speech: No Abnormal speech present Gait exam (Neuro): Normal gait present Motor exam (neuro): no tremor noted Extrem Right upper extremity: full ROM Left upper extremity: full ROM Right lower extremity: full ROM; no edema Left lower extremity: full ROM; no edema Psych Mental Status: mental status grossly normal Speech and movement: Normal speech and movement present Affect: normal affect Attitude: cooperative Thought process: Normal thought process present Coding Level of Care Code Est Pt Level 4 (43833) Diagnoses Chronic diastolic (congestive) heart failure I50.32 Essential (primary) hypertension I10 Type 2 diabetes mellitus with hyperglycemia, without long-term current use of insulin E11.65 Diabetes mellitus fpc insulin use: without fpc use Diabetes mellitus complication status: with hyperglycemia Stage 3a chronic kidney disease N18.31 Chronic kidney disease stage 3 subtype: stage 3a (GFR 45-59) Assessment & Plan Assessment & Plan (1) Chronic diastolic (congestive) heart failure: Code(s): I50.32 - Chronic diastolic (congestive) heart failure Category: Medical Plan: Reevaluate BNP with new labs. Echocardiography scheduled to assess heart function. Low sodium diet discussed to prevent symptom exacerbation. (2) Essential (primary) hypertension: Code(s): I10 - Essential (primary) hypertension Category: Medical Plan: Patient's blood pressure on low side today. He continues on hydrochlorothiazide, losartan and furosemide. We did discuss perhaps reducing his furosemide and/or his hydrochlorothiazide though he is apprehensive on doing this. Due to his noted periorbital edema and weight gain over last few months we are concerned about worsening heart failure. Will send for pro BNP, echocardiogram and temporarily increase his Lasix to 60 mg. 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 Most recent A1c of 5.7. Goal A1c is to remain below 7.0 (4) CKD (chronic kidney disease) stage 3, GFR 30-59 ml/min: Code(s): N18.30 - Chronic kidney disease, stage 3 unspecified Category: Medical Qualifiers: Chronic kidney disease stage 3 subtype: stage 3a (GFR 45-59) Qualified Code(s): N18.31 - Chronic kidney disease, stage 3a Plan: Continues to follow Nephrology. Patient's kidney function slightly improved from previous. Electrolytes are within normal range particular leave his potassium. He continues On potassium supplementation. Again we did discuss perhaps reducing his furosemide dose slightly as he has been euvolemic for quite some time now. Orders: Orders CA echo transthoracic complete Today I50.32 - Chronic diastolic (congestive) heart failure Comprehensive [place]. Panel Fast 3 Months E11.65 - Type 2 diabetes mellitus with hyperglycemia Complete Blood Count no Diff 3 Months E11.65 - Type 2 diabetes mellitus with hyperglycemia NT-proBNP Today I50.32 - Chronic diastolic (congestive) heart failure Medications: New furosemide 20 mg PO DAILY 10 days 10 tabs 0RF I50.32 - Chronic diastolic (congestive) heart failure
[2025-03-14 14:25] VITALS: BP 101/55
--- OUTSIDE RECORDS SUMMARY | 2025-03-14 17:03 | XMS_ITS | Clinical Summary ---
Author Organization [facility] Address [address] [place] [address] Care Team Providers Care Journeyman Millwright Name Role Phone Provider, Not In System Primary Care Provider Un available Allergies Active Allergy Reactions Criticality Noted Date Comments Sulfa Antibiotics Anaphylaxis High 08/22/2015 Medications Medication Sig Dispensed Refills Start Date End Date Status losartan (COZAAR) 100 MG tablet daily. 0 06/10/2015 Active atenolol (TENORMIN) 25 MG tablet daily. 0 08/16/2015 Active hydrochlorothiazide (HYDRODIURIL) 25 MG tablet daily. 0 06/10/2015 Active diltiazem (TIAZAC) 300 MG 24 hr capsule daily. 0 08/05/2015 Active alfuzosin (UROXATRAL) 10 MG 24 hr tablet daily. 0 08/17/2015 Active aspirin 81 MG chewable tablet Chew 81 mg by mouth daily. 0 Active sitaGLIPtin (JANUVIA) 100 MG tablet Take 100 mg by mouth daily. 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 Stenosis of left carotid artery 12/23/2017 Thoracic aortic aneurysm without rupture 018 Prostate cancer 08/22/2015 Family History Medical History Relation Name Comments Heart disease Father Alzheimer's disease Mother Heart disease Sister Relation Name Status Comments Father (Age 72) Mother (Age 80s) Sister Alive Social History Tobacco Use Types Packs/Day Years Used Date Smoking Tobacco: Every Day Cigarettes 1.5 50 Smokeless Tobacco: Never Alcohol Use Standard Drinks/Week Comments No 0 (1 standard drink = 0.6 oz pur e alcohol) Sex and Gender Information Value Date Recorded Sex Assigned at Not on file Gender Identity Not on file Sexual Orientation Not on file Last Filed Vital Signs Vital Sign Reading Time Taken Comments Blood Pressure 128/67 09/14/2019 2:12 PM EDT Pulse 58 09/14/2019 2:12 PM EDT Temperature 37 ??C (98.6 ??F) 09/14/2019 2:12 PM EDT Respiratory Rate 18 09/14/2019 2:12 PM EDT Oxygen Saturation 92% 09/14/2019 2:12 PM EDT Inhaled Oxygen Concentration - - Weight 107.9 kg (237 lb 12.8 oz) 09/14/2019 2:12 PM EDT Height 175.3 cm (5' 9 ) 09/02/2017 1:49 PM EDT Body Mass Index 35.12 09/02/2017 1:49 PM EDT Plan of Treatment Health Maintenance Due Date Last Done Comments Lung Cancer Screening (Low D ose CT) 1940 COVID-19 Vaccine (#1) 1945 Pneumococcal Vaccine (1 of 2 - PCV) 1946 Depression Screening 1952 Preventative Health Evaluation 1958 DTap / Tdap / Td (1 - Tdap) 1959 Shingrix-Zoster Vaccine (1 of 2) 1959 Fall Risk Assessment 2005 RSV Adult > 60+ Yrs or Pregn ant (1 - 1-dose 75+ series) 2015 Influenza Vaccine (#1) 2024 Hepatitis B Vaccines Aged Out No long er eligible based on patient's age to complete this topic RSV Ped < 20 months Aged Out No longe r eligible based on patient's age to complete this topic Care Teams Journeyman Millwright Relationship Specialty Start Date End Date Provider, Not In System PCP - General 09/14/19
--- OUTSIDE RECORDS SUMMARY | 2025-03-14 17:03 | XMS_ITS | Clinical Summary ---
Author Organization [facility] it Address [address] [place] [address] Care Team Providers Care Air Moving Technician Name Role Phone Unavailable Primary Care Provider Unavailabl e Social History Tobacco Use Types Packs/Day Years Used Date Smoking Tobacco: Never Assessed Sex and Gender Information Value Date Recorded Sex Assigned at Not on file Legal Sex Male 8:48 PM EST Gender Identity Not on file Sexual Orientation Not on file Plan of Treatment Health Maintenance Due Date Last Done Comments DTaP,Tdap,and Td Vaccines (1 - Tdap) 1959 Pneumococcal Vaccine: 50+ Ye ars (1 of 1 - PCV) 1990 Zoster Vaccines (1 of 2) 1990 RSV Immunization Adult Patie nts (1 - 1-dose 75+ series) 2015 COVID-19 Vaccine ( - 2023-2 5 season) 2024 Influenza Vaccine (Season Ended) 2025 HIB Vaccines Aged Out No longer eligi ble based on patient's age to complete this topic HPV Vaccines Aged Out No longer eligi ble based on patient's age to complete this topic Hepatitis A Vaccines Aged Out No long er eligible based on patient's age to complete this topic Hepatitis B Vaccines Aged Out No long er eligible based on patient's age to complete this topic IPV Vaccines Aged Out No longer eligi ble based on patient's age to complete this topic MMR Vaccines Aged Out No longer eligi ble based on patient's age to complete this topic Meningococcal ACWY Vaccine Aged Out N o longer eligible based on patient's age to complete this topic Meningococcal B Vaccine Aged Out No l onger eligible based on patient's age to complete this topic RSV Immunization Patients Un lukas 20 months Aged Out No longer eligible b ased on patient's age to complete this topic Varicella Vaccines Aged Out No longer eligible based on patient's age to complete this topic
--- OUTSIDE RECORDS SUMMARY | 2025-03-14 17:03 | XMS_ITS | Clinical Summary ---
Author Organization [facility] Address [address] [place] [phone] Phone Care Team Providers Care Napper Tender Name Role Phone Anton Perla Primary Care Provider [phone] Allergies Active Allergy Reactions Criticality Noted Date Comments Cephalexin Diarrhea Medium 12/23/2017 Prednisone High 07/01/2021 Psychosis, dimensia Sulfa Antibiotics Other (see comments),Anaphylaxis High 03/27/2009 reaction to eyes Medications alfuzosin (UROXATRAL) 10 MG 24 hr tablet 1 (one) time each day 08/17/2015 Active apixaban (ELIQUIS) 2.5 MG tablet Take 2.5 mg by mouth 2 (two) times a day Active albuterol HFA (PROVENTIL HFA;VENTOLIN HFA) 108 (90 Base) MCG/ACT inhaler 06/17/2021 Active dilTIAZem XR (DILACOR XR) 240 MG 24 hr capsule Take 240 mg by mouth 1 (one) time each day Active furosemide (LASIX) 40 MG tablet Take 40 mg by mouth 1 (one) time each day Active Jardiance 25 MG tablet TAKE ONE TABLET BY MOUTH ONCE DAILY 90 tablet 11/28/2022 Active potassium chloride 10 MEQ CR tabletIndication s:Hypokalemia Take 1 tablet (10 mEq total) by mouth 1 (one) time each day Do not crush, chew, or split. 90 tablet 3 04/19/2024 5 Active losartan (Cozaar) 25 MG tabletIndication s:Stage 3b chronic kidney disease (HCC),Hypertensi on Take 1 tablet (25 mg total) by mouth 1 (one) time each day 90 tablet 3 04/19/2024 5 Active hydroCHLOROthiaz tyesha 25 MG tablet Take 25 mg by mouth 11/19/2022 Active potassium chloride (KLOR-CON M20) 20 MEQ CR tablet Take 1 tablet (20 mEq total) by mouth 1 (one) time each day Do not crush or chew. 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 [address] [facility] [address] [place] [address] Jaz Campbell from Last 3 Months Immunizations Immunization Administration Dates Next Due H1N1 All Forms 11/20/2009 Pfizer SARS-COV-2 01/22/2021,01/01/2021 Social History Tobacco Use Types Packs/Day Years Used Date Smoking Tobacco: Some Days Cigarettes Smokeless Tobacco: Never Tobacco Cessation:Ready to Q uit: Not Asked; Counseling Given: Not Answered Alcohol Use Standard Drinks/Week Comments Yes 0 (1 standard drink = 0.6 oz pur e alcohol) occasional social Sex and Gender Information Value Date Recorded Sex Assigned at Not on file Legal Sex Male 3:34 PM EDT Gender Identity Not on file Sexual Orientation Not on file Last Filed Vital Signs Vital Sign Reading Time Taken Comments Blood Pressure 128/68 10/16/2024 2:58 PM EST Pulse 60 10/16/2024 2:24 PM EST Temperature - - Respiratory Rate - - Oxygen Saturation 91% 10/16/2024 2:24 PM EST Inhaled Oxygen Concentration - - Weight 88.5 kg (195 lb) 10/16/2024 2:24 PM EST Height 177.8 cm (5' 10 ) 10/20/2023 2:02 PM EST Body Mass Index 27.98 10/20/2023 2:02 PM EST Plan of Treatment Upcoming Encounters Date Type Department Care Team (Late st Contact Info) Description 03/22/2025 Orders Only [facility] [address] [phone] Kait Angela ARNP [address] [phone] Stage 3b chronic kidney disease (HCC); Hypokalemia; Hypertension 04/18/2025 1:15 PM EDT Office Visit [facility] [address] [address] Kait Angela ARNP [address] [phone] Health Maintenance Due Date Last Done Comments Pneumococcal Vaccine: 50+ Ye ars (1 of 2 - PCV) 1959 Diabetes: Ophthalmology Exam 07/01/2021 Diabetes: Pedal Pulse Checked 07/01/2021 Diabetes: Sensory Foot Exam 07/01/2021 Diabetes: Visual Foot Exam 07/01/2021 Diabetes: Hemoglobin A1C 01/09/2022 10/09/2021 Influenza Vaccine (Season Ended) 2025 Hepatitis B Vaccine Aged Out No longe r eligible based on patient's age to complete this topic Procedures Procedure Name Priority Date/Time Associated Diagnosis Comments HEMOGLOBIN A1C Routine 10/09/2021 3:08 PM EST from Last 3 Months or Most Recently Relevant to Health Maintenance Results * (ABNORMAL) Hemoglobin A1c (10/09/2021 3:08 PM EST) Hemoglobin A1C 6.4(H) (4.0-5.6) % [facility] Comment: MONITORING: In known diabetic patients, hemoglobin A1c targets should be discussed with health care provider. DIAGNOSTIC USE: ??The [place] Diabetes Association (ADA) and the World Health Organization (WHO) recommend the use of HbA1c to diagnose diabetes using a threshold of 6.5%. Patients who have an HbA1c between 5.7% and 6.4% are considered at increased risk for developing diabetes in the future. CAUTION: Falsely low HbA1c results may be observed in patients with hemolytic anemia, homozygous forms of abnormal hemoglobin (e.g. SS, CC, SC), , recent blood loss or hemoglobin F greater than 7%. Fructosamine may be used as an alternate test in these cases. REFERENCE: ADA: Standards of Medical Care in Diabetes 2020, The Journal of Clinical and Applied Research and Education Volume 43, Supplement 1 Testing performed or reported by [facility], a Service of [facility], [address] [place] [id number] Hermes Butler MD, Head Scorer [facility]# [id number] 10/09/2021 3:08 PM EST 10/09/2021 3:12 PM EST us Caio De La Cruz MD LAB BLOOD ORDERABLES Final Re sult [facility] from Last 3 Months or Most Recently Relevant to Health Maintenance Insurance Medicare [facility] Medicare [facility] Care Teams Napper Tender Relationship Specialty Start Date End Date Anton Perla PA [address] [place] [address], [address] [place] [address] PCP - General Physician Distribution Engineer 09/29/22
--- OUTSIDE RECORDS SUMMARY | 2025-03-14 17:03 | XMS_ITS | Encounter Summary ---
Author Organization [facility] Address [address] [facility] [address] [place] [address] Phone Care Team Providers Care Precinct I Police Sergeant Name Role Phone Anton Perla Primary Care Provider [phone] Reason for Visit * Reason Comments Med Refill Encounter Details Date Type Department Care Team (Late Contact Info) Description 02/01/2024 Refill [facility] [address] [facility] [address] [place] [address] Caio De La Cruz MD [address] [place] [phone] Social History Tobacco Use Types Packs/Day Years Used Date Smoking Tobacco: Some Days Cigarettes Smokeless Tobacco: Never Alcohol Use Standard Drinks/Week Comments Yes 0 (1 standard drink = 0.6 oz pur e alcohol) occasional social Sex and Gender Information Value Date Recorded Sex Assigned at Not on file Legal Sex Male 3:34 PM EDT Gender Identity Not on file Sexual Orientation Not on file documented as of this encounter Plan of Treatment Upcoming Encounters Date Type Department Care Team (Late Contact Info) Description 03/22/2025 Orders Only [facility] [address] [phone] Kait Angela ARNP [address] [address] Stage 3b chronic kidney disease (HCC); Hypokalemia; Hypertension 04/18/2025 1:15 PM EDT Office Visit [facility] [address] [phone] Kait Angela ARNP [address] [phone] documented as of this encounter Visit Diagnoses Not on filedocumented in this encounter Care Teams Precinct I Police Sergeant Relationship Specialty Start Date End Date Anton Perla PA [address] [place] [address], [address] [place] [address] PCP - General Physician Supervisor [employer] 09/29/22 documented as of this encounter
== END 2025-03-14 14:39 | disposition home or self-care (01) ==
LOC: HO.HMCH 14:11
PROVIDERS: PCP Physician Assistant; Visit Provider Physician Assistant
DX: I50.32 Chronic diastolic (congestive) heart failure (principal); I10 Essential (primary) hypertension; E11.65 Type 2 diabetes mellitus with hyperglycemia; N18.31 Chronic kidney disease, stage 3a

== ENCOUNTER → 2025-03-14 14:10 | Outpatient (BNVA) | payer MEDICARE, SELFPAY | PROVIDERS: PCP Physician Assistant; Visit Provider Physician Assistant | DX: I13.0 Hypertensive heart and chronic kidney disease with heart failure and stage 1 through stage 4 chronic kidney disease, or unspecified chronic kidney disease (principal); E11.22 Type 2 diabetes mellitus with diabetic chronic kidney disease; N18.31 Chronic kidney disease, stage 3a; I50.32 Chronic diastolic (congestive) heart failure; E11.65 Type 2 diabetes mellitus with hyperglycemia | CPT/HCPCS: 99212 ==

== ENCOUNTER → 2025-04-13 15:05 | Outpatient (REF) | payer MEDICARE, SELFPAY ==
--- OUTSIDE RECORDS SUMMARY | 2025-04-13 15:07 | XMS_ITS | Clinical Summary ---
Author Organization [facility] it Address [address] [place] [address] Care Team Providers Care Six Pack Loader Operator Name Role Phone Unavailable Primary Care Provider [...]
--- NOTE | 2025-04-13 15:09 | CA_ITS ---
Transthoracic Echocardiogram Patient (Last, First, Middle): Felix Syed J Gender: Male Date of : 1940 Age: 84 Procedure Date: 04/13/2025 Procedure Type: Transthoracic Echocardiogram Location: OP Height: 177. cm Weight: 86.18 kg BSA: 2.04 m2 Heart Rate: 68 bpm BP: 140 / 65 mmHg Immunopathologist: GRANT Alcala MD: Anton Perla PA-C Symptoms: I50.32 - Chronic diastolic (congestive) heart failure Study Quality: Adequate ECG Rhythm: Sinus Conclusions: - Normal left ventricular size, thickness, and systolic function. The visually estimated ejection fraction is between 60-65%. - E/E prime ratio is >15, consistent with elevated filling pressures. - The basal inferior and basal inferolateral segments are akinetic. - There is mild aortic valve stenosis. Findings Left Ventricle Normal left ventricular size, thickness, and systolic function. The visually estimated ejection fraction is between 60-65%. There is evidence of regional wall motion abnormalities. Abnormal diastolic function is noted. Spectral Doppler is indicative of an impaired relaxation filling pattern. E/E prime ratio is >15, consistent with elevated filling pressures. Wall Motion Rest Echo Findings The basal inferior and basal inferolateral segments are akinetic. Right Ventricle Normal right ventricular cavity size and systolic function. Atria The left atrium is normal in size. The right atrium is severely dilated. Aortic Valve There is a normal trileaflet aortic valve. There is moderate calcification of the aortic valve. There is mild aortic valve stenosis. There is no aortic valve regurgitation. Mitral Valve The mitral valve appears normal. There is mild mitral annular calcification. There is no mitral valve regurgitation. There is no mitral valve stenosis. Pulmonic Valve The pulmonic valve is likely normal. Tricuspid Valve Normal tricuspid valve structure. There is no tricuspid valve regurgitation. Normal right atrial pressure. There is no evidence of pulmonary hypertension. Great Vessels All visible segments of the aorta are normal in size. The visualized portions of the pulmonary artery and branches are normal. Venous The inferior vena cava is normal in size and collapses greater than 50% with inspiration. Pericardium/Pleural There is no evidence of pericardial effusion. Prior Study Comparison No significant change compared to prior study dated: 12/27/2023. Measurements 2D Linear Measurements IVSd: 1.14 0.6-0.9/0.6-1.0 cm LVIDd: 3.63 3.9-5.3/4.2-5.9 cm LVIDd Index: 1.78 2.4-3.2/2.2-3.1 cm/m2 LVIDs: 2.68 2.0-3.6 cm LVPWd: 0.92 0.7-1.1 cm LA Diam: 3.20 2.7-3.8/3.0-4.0 cm LAIDs Index: 1.57 1.5-2.3 cm/m2 LV Mass: 141.44 67-162/88-224 g LV Mass Index: 69.33 43-95/49-115 g/m2 LVOT Diam: 2.20 3.0+(-)1.3 cm 2D Systolic Function EF 4C: 61.10 >55% EF 2C: 68.90 >55% EF BiP: 66.20 >55% Mitral Valve MV Pk E: 0.80 MV PK A: 1.12 MV Decel Time: 289.00 E/A: 0.70 E'Lateral: 6.42 E'Medial: 3.81 E/E' Med: 21.00 E/E' Lat: 12.40 PHT: 85.00 MVA PHT: 2.59 Decel [place]: 2.76 Aortic Valve AoV Pk Eugene: 1.93 AoV Mn Eugene: 1.31 AoV VTI: 0.42 AoV Pk Grad: 15.00 Aov Mn Grad: 8.00 KAMILLE Cont.VTI: 2.31 LVOT LVOT Pk Eugene: 1.24 LVOT Mn Eugene: 0.80 LVOT VTI: 0.25 LVOT Pk Grad: 6.00 LVOT Mn Grad: 3.00 LVOT Diam: 2.20 LVOT Area: 3.80 Diastolic Function MV Pk E: 0.80 MV Pk A: 1.12 E/A: 0.70 E'Medial: 3.81 E/E' Med: 21.00 E' Laterial: 6.42 E/E' Lat: 12.40 Right Ventricle TAPSE (mm): 27.20 TVS' Eugene: 10.70 Tricuspid Valve TR Pk Eugene: 2.18 TR Pk Grad: 19.00 RA Press: 3.00 RVSP: 22.00 Great Vessels Aorta Sinus of Valsalva: 3.80 2.0-3.5 cm Ao Asc: 3.50 2.1-3.4 cm Pulmonary Valve PV Pk Eugene: 0.92 Peak PV Grad: 3.00 Updated in Other Vendor System with Status of Final Guero Poe MD electronically signed on 04/17/2025 12:04:39 PM with status of Final
[2025-04-13 16:26] LABS: Appearance Urine Turbid; Color Urine Yellow; Glucose Urine UA 500 mg/dL (Negative); Leukocyte Esterase Urine Large (3+) (Negative); Nitrite Urine Negative (Negative); Specific Gravity - Urine 1.015 (1.005-1.025); UMIC TRIGGER UACC YES; Urine Blood Moderate (2+) (Negative); Urine Ketones Negative (Negative); Urine Protein 300 (3+) mg/dL (Neg-Trace)
[2025-04-13 16:30] LABS: Bacteria Urine None Seen (None Seen); Hyaline Casts Urine 0-2 /LPF (0-2); RBC Urine >20 /HPF (0-2); Squamous Epithelial Cell Urine 0-2 /HPF (0-2); UACC Culture Trigger YES; WBC Urine >50 /HPF (0-5)
== END ==
LOC: HO.CARD 15:05
PROVIDERS: PCP Physician Assistant; Visit Provider Physician Assistant
DX: I50.32 Chronic diastolic (congestive) heart failure (principal); R33.9 Retention of urine, unspecified
CPT/HCPCS: 81001; 87086; 93306

== ENCOUNTER → 2025-04-13 15:09 | Outpatient (BNV) | payer MEDICARE, SELFPAY | PROVIDERS: PCP Physician Assistant; Visit Provider Internal Medicine Cardiovascular Disease | DX: I50.32 Chronic diastolic (congestive) heart failure (principal); I35.0 Nonrheumatic aortic (valve) stenosis; I35.8 Other nonrheumatic aortic valve disorders; I34.81 Nonrheumatic mitral (valve) annulus calcification | CPT/HCPCS: 93306 ==

== ENCOUNTER 2025-06-13 10:59 | Outpatient (REF) | payer MEDICARE, SELFPAY ==
[2025-06-13 11:31] LABS: Hematocrit 39.2 % (42.0-52.0); Hemoglobin 12.9 g/dl (14.0-18.0); Mean Corpuscular HGB Conc 32.9 g/dl (31.0-36.0); Mean Corpuscular Hemoglobin 32.7 pg (27.0-33.0); Mean Corpuscular Volume 99.2 fL (80.0-98.0); NRBC Abs Auto 0.000 X10*3/uL (0.0-0.012); NRBC Pct Auto 0.0 /100WBC (0.0-0.2); Platelet Count 174 X10*3/uL (160-400); Red Blood Count 3.95 X10*6/uL (4.60-5.80); White Blood Count 6.9 X10*3/uL (4.8-10.8)
--- OUTSIDE RECORDS SUMMARY | 2025-06-13 11:59 | XMS_ITS | Clinical Summary ---
Author Organization [facility] Address [address] [place] [phone] Phone Care Team Providers Care Surgical Aides Teacher Name Role Phone Self-Referred, Patient Unavailable Unavailab Juan Velazquez MD Unavailable [phone] Colton Segura MD Primary Care Provid er Cali Corral MD Unavailable [phone] Allergies Active Allergy Reactions Criticality Noted Date Comments Cephalexin Diarrhea Medium 12/23/2017 Sulfa (Sulfonamide Antibiotics) Other (See Comments) 03/27/2009 reaction to eyes Medications alfuzosin (UROXATRAL) 10 mg 24 hr tabletIndication s:Metastasis to cervical lymph node daily. 08/17/2015 Active dilTIAZem (TIAZAC) 300 MG 24 hr capsuleIndicatio ns:Metastasis to cervical lymph node daily. 08/05/2015 Active hydroCHLOROthiaz tyesha (HYDRODIURIL) 25 MG tabletIndication s:Metastasis to cervical lymph node daily. 06/10/2015 Active losartan (COZAAR) 50 MG tabletIndication s:Metastasis to cervical lymph node daily. 06/10/2015 Active nicotine (NICODERM CQ) 21 mg/[address] 1 patch onto the skin daily. 21 patch 1 03/03/2018 Active polyvinyl alcohol (AKWA TEARS) 1.4 % ophthalmic solution Place 1 drop into each eye every hour as needed. 15 mL 03/03/2018 Active clopidogrel (PLAVIX) 75 mg tablet Take 75 mg by mouth daily. Active apixaban (ELIQUIS) 5 mg tablet Take 5 mg by mouth 2 (two) times a day. Active Active Problems Patient Care Coordination No te Formatting of this note migh t be different from the original. Pt received #1:2 Pfizer Covid vaccine Lot # [id number] on 01/01/21 and #2:2 Lot # [id number] on 01/22/21 at [facility]. 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 12/23/2017 Prostate cancer 12/23/2017 Stenosis of left carotid artery 12/23/2017 Thoracic aortic aneurysm without rupture 018 Immunizations Immunization Administration Dates Next Due [id number] FORMULATION 11/20/2009 Family History Medical History Relation Comments Heart attack Father Alzheimer's disease Mother Aortic dissection Sister autoimmune dis order Relation Status Comments Father Mother Sister Social History Tobacco Use Types Packs/Day Years Used Date Smoking Tobacco: Every Day Cigarettes 1 60 Smokeless Tobacco: Never Alcohol Use Standard Drinks/Week Comments Yes 0 (1 standard drink = 0.6 oz pur e alcohol) mothly Education Answer Date Recorded Are you interested in more education? Not on erickson e 03/19/2023 Are you concerned about learning? Not on file 03/19/2023 No 03/19/2023 No 03/19/2023 Digital Access Answer Date Recorded No 04/17/2023 No 04/17/2023 No 04/17/2023 Reliable internet access at home? Not on file 04/17/2023 Device with a working camera? 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 Not on file Not on file Not on file Last Filed Vital Signs Vital Sign Reading Time Taken Comments Blood Pressure 109/55 07/06/2024 10:46 AM EDT Pulse 81 07/06/2024 10:46 AM EDT Temperature 37 C (98.6 F) 07/06/2024 10:45 AM EDT Respiratory Rate 18 07/06/2024 10:4 2 AM EDT Oxygen Saturation 94% 07/06/2024 10: 46 AM EDT Inhaled Oxygen Concentration 40% 03/01/2018 5 :00 PM EDT Weight 83.3 kg (183 lb 10.3 oz) 024 10:42 AM EDT Height 174.6 cm (5' 8.74 ) 07/06/2024 1 0:42 AM EDT Body Mass Index 27.32 07/06/2024 10:42 AM EDT Plan of Treatment Upcoming Encounters Date Type Department Care Team (Late st Contact Info) Description 07/05/2025 11:30 AM EDT [facility] Visit [facility] [address] [place] [address], [address] [place] [address] Jona Bonilla MD, DMD [address] [place] [phone] [email or web address] Health Maintenance Due Date Last Done Comments Adult Td,Tdap Booster 1940 DEPRESSION SCREENING 1952 LIPID PANEL 1958 ZOSTER VACCINES (1 of 2) 1959 RSV VACCINE (1 - 1-dose 75+ series) 2015 CREATININE LEVEL 03/03/2019 03/03/2018, 09/2018, 03/01/2018, Additional history exists POTASSIUM LEVEL 03/03/2019 03/03/2018, 02/20, 03/01/2018, Additional history exists COVID-19 VACCINE ( season) 2024 01/22/2021, 01/01/2021 BLOOD PRESSURE 01/06/2025 07/06/2024 PNEUMOCOCCAL VACCINES (50+ years) Completed 07/07/2022, 01/18/2020 HEPATITIS A VACCINES Aged Out No long er eligible based on patient's age to complete this topic HIB VACCINES Aged Out No longer eligi ble based on patient's age to complete this topic MENINGOCOCCAL VACCINES (ACWY) Aged Out No longer eligible based on patient's age to complete this topic MENINGOCOCCAL VACCINES (B) Aged Out N o longer eligible based on patient's age to complete this topic Medical Devices Not on file Procedures Procedure Name Priority Date/Time Associated Diagnosis Comments BASIC METABOLIC PANEL Routine 03/03/2018 6:38 AM EDT from Last 3 Months or Most Recently Relevant to Health Maintenance Results * (ABNORMAL) Basic metabolic panel (03/03/2018 6:38 AM EDT) SODIUM 142 136 - 145 mmol/L [facility] POTASSIUM 3.8 3.4 - 5.0 mmol/L [facility] CHLORIDE 100 98 - 107 mmol/L [facility] CO2 28 22 - 31 mmol/L [facility] BUN 27(H) 6 - 23 mg/dL [facility] CREATININE 1.15 0.50 - 1.20 mg/dL [facility] GLUCOSE 172(H) 70 - 100 mg/dL [facility] CALCIUM 9.2 8.8 - 10.7 mg/dL [facility] EGFR 61 >59 mL/min/1.7 3m2 [facility] Comment:If patient is black, multiply result by 1.159. Estimated glomerular filtration rate calculated using the CKD-EPI equation. ANION GAP 14 5 - 17 mmol/L [facility] Blood 03/03/2018 6:38 AM EDT 03/03/2018 7:12 AM EDT us Jona Bonilla MD, DMD LAB BLOOD ORDERABLES Fin al Result Performing Organization Address City/State/[facility] de Phone Number [facility] [address] [place] [phone] from Last 3 Months or Most Recently Relevant to Health Maintenance Insurance BLUE [employer] MEDEX SUPPLEMENT MEDICARE PART A & B [place] MED[employer] SUPPLEMENT MEDICARE PART A & B [employer] [employer] SUPPLEMENT MEDICARE PART A & B [place] MED[employer] SUPPLEMENT MEDICARE PART A & B [place] MED[employer] SUPPLEMENT MEDICARE PART A & [place] [address] [address] CROSS MEDEX SUPPLEMENT MEDICARE PART A & B [employer] SUPPLEMENT MEDICARE PART A & B [employer] SUPPLEMENT MEDICARE PART A & B [employer] [place] SUPPLEMENT MEDICARE PART A & B MEDICARE PART A & B [employer] MED[employer] SUPPLEMENT MEDICARE PART A & B [place] MED[employer] SUPPLEMENT MEDICARE PART A & B [place] MED[employer] SUPPLEMENT MEDICARE PART A & B [employer] CROSS MEDEX SUPPLEMENT MEDICARE PART A & B [employer] SUPPLEMENT MEDICARE PART A & B [employer] CROSS MEDEX SUPPLEMENT MEDICARE PART A & B [employer] SUPPLEMENT MEDICARE PART A & B [employer] MED[employer] SUPPLEMENT MEDICARE PART A & B [employer] MED[employer] SUPPLEMENT Advance Directives For more information, please contact: [phone] (9AM - 5PM [facility], Wednesday-Wednesday) Documents on File Type Date Recorded Patient Enrobing Machine Corder Expl anation Healthcare Proxy 12/23/2017 1:08 PM * Full Code (Presumed) (Latest Code Status on File) Date Activated Date Inactivated Comments 03/01/2018 6:39 PM 03/03/2018 2:28 PM * Full Code (Presumed) Date Activated Date Inactivated Comments 02/28/2018 5:49 PM 03/01/2018 6:39 PM Care Teams Surgical Aides Teacher Relationship Specialty Start Date End Date Juan Pappas MD [address] [place] [address] [address] [place] [id number] PCP - Gastroenterology Internal Medicine 07/14/18 Colton Segura MD [address] [place] [address] [place] [id number] PCP - General Internal Medicine 03/24/19 Self-Referred, Patient 12/10/17 Cali Corral MD [address] [place] [id number] [email or web address] Cardiology 03/24/19 Additional Source Comments The information contained in this document represents components of the legal health record. It is not the complete legal health record.[facility]
--- OUTSIDE RECORDS SUMMARY | 2025-06-13 11:59 | XMS_ITS | Encounter Summary ---
Author Organization [facility] Address [address] [facility] [address] [facility] [address] [place] [address] Phone Care Team Providers Care Head Teller Name Role Phone Anton Perla Primary Care Provider [phone] Reason for Visit * Reason Comments Med Refill Encounter Details Date Type Department Care Team (Late Contact Info) Description 02/01/2024 Refill [facility] [address] [facility] [address] [place] [address] Caoi De La Cruz MD [address] [place] [address] [address] [place] [address] Social History Tobacco Use Types Packs/Day Years [...] Department Care Team (Late Contact Info) Description 10/16/2025 2:00 PM EST Office Visit [facility] [address] [address] Kait Angela ARNP [address] [address] documented as of this encounter Visit Diagnoses Not on filedocumented in this encounter Care Teams Head Teller Relationship Specialty Start Date End Date Anton Perla PA [address] [place] [address], [address] [place] [address] PCP - General Physician Contact Lens Flashing Puncher 09/29/22 documented as of this encounter
--- OUTSIDE RECORDS SUMMARY | 2025-06-13 11:59 | XMS_ITS | Clinical Summary ---
Author Organization [facility] Address [address] [place] [address] Care Team Providers Care Medical Operations Supervisor Name Role Phone Unavailable Primary Care Provider [...] - 1-dose 75+ series) 2015 COVID-19 Vaccine (1 - 2023-2 5 season) 2024 Depression Screening 11/22/2024 Influenza Vaccine (#1) 2025 HIB Vaccines Aged Out No longer [...]
--- OUTSIDE RECORDS SUMMARY | 2025-06-13 11:59 | XMS_ITS | Clinical Summary ---
Author Organization [facility] Address [address] [place] [address] Care Team Providers Care Flanging Machine Operator Name Role Phone Provider, Not In System [...] 58 09/14/2019 2:12 PM EDT Temperature 37 C (98.6 F) 09/14/2019 2:12 PM EDT Respiratory Rate 18 [...] 1-dose 75+ series) 2015 Influenza Vaccine (#1) 2025 Hepatitis B Vaccines Aged Out No long er eligible based on patient's age to complete this topic RSV Ped < 20 months Aged Out No longe r eligible based on patient's age to complete this topic Care Teams Flanging Machine Operator Relationship Specialty Start Date End Date Provider, Not In System PCP - General 09/14/19
--- OUTSIDE RECORDS SUMMARY | 2025-06-13 11:59 | XMS_ITS | Patient Health Record ---
Author Organization [facility] Address [address] [place] [phone] Care Team Providers Care Gas Line Installer Name Role Phone Adrianne(inactive) Bonilla LEWIS Primary Care Provider U Juan Carrera Jr Unavailable [phone] Allergies Allergen (clinical drug ingredient) Drug/Non Drug Allergy documented on EMR Reaction Allergy Type Onset Date Status Sulfa Unknown Drug Allergy Active Reason For Referral No Information Medications Medication SIG (Take, Route, Frequency, Duration) Notes Start Date End Date Status Losartan Potassium 100 MG 1 tablet Orall y Once a day Active Tiazac 300 MG 1 capsule Orally Onc e a day Active Januvia 100 MG 1 tablet Orally Once a day Active Uroxatral 10 MG 1 tablet immediately after the same meal Orally Once a day Active Metoprolol Tartrate 25 MG 1 tablet with food Orally once a day Active Aspir-81 81 MG 1 tablet Orally Once a day Active Omeprazole 20 MG 1 capsule Orally Onc e a day for 30 day(s) Active hydroCHLOROthiazide 25 MG 1 tablet in th e morning Orally Once a day Active Golytely 236 GM as directed before colonoscopy Orally every 15 minutes for 1 day(s) Active Wellbutrin XL 150 MG 1 tablet in the morning Orally twice a day Not-Taking Immunizations Vaccine Route Administration Date Status Comme nts Flu vaccine no Preserv 3 and > Unknown 08/23/2017 Admin istered Social History Tobacco Use: Social History Observation Description Date Details (start date - stop date) Current Smoker NA - NA Tobacco Use/Smoking Question Answer Notes Patient is a current smoker How often do you smoke cigarettes? every day How many cigarettes a day do you smoke? 21-30 How soon after you wake up d o you smoke your first cigarette? within 5 minutes Are you interested in quitting? Thinking about q uitting Alcohol Screen Question Answer Notes Did you have a drink contain ing alcohol in the past year? Yes How often did you have a dri nk containing alcohol in the past year? 2 to 4 times a month (2 points) How many drinks did you have on a typical day when you were drinking in the past year? 1 or 2 drinks (0 point) How often did you have 6 or more drinks on one occasion in the past year? Never (0 point) Points 2 Interpretation Negative Problems No Known Problems Plan Of Treatment Pending Test Test Name Order Date BUN 08/02/2018 CREATININE 08/02/2018 Future Test Test Name Order Date COLONOSCOPY 04/29/2018 Insurance Providers Payer Name Payer Address Payer Phone Subscriber Number Group Number Insured Name Patient Relationship to Insured Coverage Start Date Coverage End Date MEDICARE OF [place] [address] [place] [id number] BILLIE LUNA Self - patient is the insured MEDEX ATTN CLAIMS [address] [place] [address] [id number] BILLIE LUNA Self - patient is the insured Medical (General) History Medical History History ICD Code COPD diabetes mellitus umbilical hernia prostate cancer cyber knife radiation hypertension hypertriglyceridemia nephrolithiasis atrial fibrillation Surgical History Surgery Date(Month/Year) 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
[2025-06-13 12:13] LABS: Alanine Aminotransferase 12 U/L (0-40); Albumin Level 4.2 g/dL (3.5-5.0); Alkaline Phosphatase 75 U/L (39-117); Anion Gap 14 (12-20); Aspartate Amino Transferase 18 U/L (5-37); Blood Urea Nitrogen 46 mg/dL (9-16); Calcium 9.3 mg/dL (8.4-10.2); Carbon Dioxide 31 mmol/L (22-29); Chloride 99 mmol/L (96-108); Estimated Glomerular Filt Rate 33; Iron 67 mcg/dL (45-160); Percent Iron Saturation 28 % (15-50); Potassium 4.1 mmol/L (3.3-5.1); Sodium 140 mmol/L (135-145); Total Iron Binding Capacity 242 mcg/dL (228-428); Total Protein 7.6 g/dL (6.5-8.0); Unsaturated Iron Binding 175 ug/dL
[2025-06-13 12:38] LABS: Folate > 20.0 ng/mL (> or = 4.0); Vitamin B12 572 pg/mL (200-900)
[2025-06-13 12:44] LABS: Appearance Urine Clear; Glucose Urine UA 500 mg/dL (Negative); PH 7.5 (5.0-9.0); Specific Gravity - Urine 1.015 (1.005-1.025)
[2025-06-17 16:43] LABS: Testosterone, Free 61.7 pg/mL (30.0-135.0)
== END 2025-06-13 11:00 | disposition home or self-care (01) ==
LOC: HO.LAB 10:59
PROVIDERS: Visit Provider Physician Assistant
DX: E11.65 Type 2 diabetes mellitus with hyperglycemia (principal); E53.8 Deficiency of other specified B group vitamins; I50.32 Chronic diastolic (congestive) heart failure; D50.9 Iron deficiency anemia, unspecified; R30.0 Dysuria; Z85.46 Personal history of malignant neoplasm of prostate
CPT/HCPCS: 36415; 80053; 81003; 82607; 82746; 83540; 83880; 84402; 84403; 85027; 87086

== ENCOUNTER 2025-06-14 13:44 | Outpatient (AMB) | payer MEDICARE, SELFPAY ==
[2025-06-14 13:46] VITALS: BP 114/62; PULSE 90; BMI 28.9
--- NOTE | 2025-06-14 13:46 | MHC.OFFVIS ---
Vital Signs 06/14/25 13:46 Height 5 ft 10 in Weight 201 lb 8.04 oz BMI 28.9 BP 114/62 Blood Pressure Location Lt brachial Position Sitting Pulse 90 Pulse Source Pulse Oximeter Intake Visit Reasons: 6m follow up Lead Java Developer Architect Required: No Allergies cephalexin (Keflex) Allergy (Unknown, Verified 06/14/25 13:48) diarrhea Sulfa (Sulfonamide Antibiotics) Allergy (Unknown, Verified 06/14/25 13:48) Unknown prednisone Adverse Reaction (Severe, Verified 06/14/25 13:48) dementia Medication List - Last Reconciled 06/14/25 by Jaz Herzog, FIELD SALES MANAGER-C albuterol sulfate 90 mcg/actuation 2 puffs inhalation Q6H PRN alfuzosin ER 10 mg PO DAILY apixaban (Eliquis) 2.5 mg PO BID 90 days [diabetic shoe inserts As directed] [diabetic shoes As directed] diltiazem HCl CD 240 mg PO DAILY 90 days empagliflozin (Jardiance) 25 mg PO DAILY folic acid 1 mg PO DAILY 90 days furosemide 40 mg PO DAILY 90 days hydrochlorothiazide 25 mg PO DAILY 90 days hydroxyzine HCl 25 mg PO BEDTIME 30 days losartan 25 mg PO DAILY potassium chloride ER (Klor-Con M) 30 mEq PO DAILY HPI HPI 6m follow up: Details: Felix is an 84-year-old male with past medical history of hypertension, diabetes, aortic stenosis, paroxysmal atrial fibrillation, chronic diastolic heart failure, CAD with circumflex stent 2018 who presents for follow-up. Today he reports he has been doing well since his last visit in November. He has not had any chest discomfort at rest or with activity. He does have some mild shortness of breath with exertion which is not new. No PND, orthopnea or edema. No palpitations, presyncope, syncope, falls. He has chronic back issues and has to walk with a walker for balance. He gets swelling around his right eye which he says is his Congestive heart failure. Takes his meds as directed. No Bleeding issues reported. [facility] Medical History Insomnia Atherosclerotic cardiovascular disease Cellulitis CHF (congestive heart failure) CKD (chronic kidney disease) stage 3, GFR 30-59 ml/min Smoker COPD (chronic obstructive pulmonary disease) Presence of stent in coronary artery in patient with coronary artery disease Abdominal aortic aneurysm Paroxysmal atrial fibrillation Renal insufficiency UTI (urinary tract infection) Diabetes mellitus Acquired hypothyroidism Edema eyelid Essential (primary) hypertension Surgical History Status post endovascular aneurysm repair (EVAR) H/O neck surgery History of tonsillectomy History of cardiac catheterization History of nasal surgery Family History Father Myocardial infarction Mother Alzheimers disease Social History Household Members: Significant Other Housing: House Alcohol intake: current Alcohol intake frequency: a few times a month Comment: pt in recliner-camera on Patient Tobacco Use Status: Former Tobacco user Years Smoked: 60 e-Cigarette/Vaping Use: Never Used Advance Directives Date on File: 12/27/21 service: No Current occupational status: retired Cognitive needs: Yes (cane/walker) Hearing needs: No Vision needs: No Review of Systems Const All systems reviewed & are unremarkable except as noted in HPI and below ENT Denies dizziness Card Denies chest pain, Denies chest pain at rest, Denies chest pain with activity, Denies rapid heart rate, Denies pedal edema, Denies edema, Denies leg edema, Denies lightheadedness, Denies palpitations, Denies dyspnea, Denies dyspnea on exertion and Denies orthopnea Resp Denies cough, Denies dyspnea and Denies dyspnea on exertion GI Denies hematochezia and Denies change in stool character Musc Details: uses wheeling walker - chronic back pain Reports abnormal gait, Denies limited range of motion, Denies muscle cramps, Denies muscle weakness, Denies numbness, Denies radiating pain into limb, Denies stiffness and Denies tingling Neuro Reports abnormal gait, Denies dizziness, Denies numbness and Denies tingling Endo Denies palpitations Physical Exam Vital Signs: Last Vital Signs Pulse 90 06/14/25 13:46 BP 114/62 06/14/25 13:46 BMI result Body Mass Index 28.9 Const General: cooperative, healthy appearing, comfortable and no acute distress Orientation/consciousness: patient oriented x3 Neck Neck: Yes normal visual inspection and Yes no JVD Resp Effort & Inspection: normal respiratory effort Auscultation: clear to auscultation bilaterally, no crackles, no rales, no rhonchi and no wheezes Cardio Jugular venous distension: no JVD Rate: regular rate Rhythm: regular rhythm Heart sounds: S1 normal heart sound present, S2 normal heart sound present, no murmurs and no rubs Neuro General: patient oriented x3 Extrem General: Yes normal to inspection and No no pedal edema Psych Appearance: grossly normal Mental Status: mental status grossly normal Speech and movement: Normal speech and movement present Assessment & Plan Assessment & Plan (1) Atherosclerotic cardiovascular disease: Code(s): I25.10 - Atherosclerotic heart disease of [place] coronary artery without angina pectoris Category: Medical Plan: History of coronary artery disease. STEMI 10/31/2018 with cardiac catheterization showing occlusion of proximal circumflex, AVIVA placed. Last cardiac catheterization 04/2019 showed proximal LAD, distal 65% stenosis, patent circumflex stent, RCA mild diffuse disease. His last echocardiogram done 04/13/2025 showed EF 60-65%, basal inferior and inferior lateral akinetic, mild , unchanged from prior. EKG done last visit showed normal sinus rhythm, left axis, nonspecific IVCD, can not exclude prior anterior infarct, PACs, no significant change from prior, rate 80. Currently no anginal symptoms. He is not on aspirin as he is on Eliquis for his PAF. He declines statins. He is not interested in Repatha/Praluent. Labs done 12/04/2024 showed LDL 103. Continue diltiazem, losartan. Signs and symptoms of angina reviewed. Cardiology follow-up in 6 months, sooner if needed (2) Chronic diastolic (congestive) heart failure: Code(s): I50.32 - Chronic diastolic (congestive) heart failure Category: Medical Plan: History of diastolic heart failure which has been stable with no recent hospitalizations. He is not fluid overloaded on examination. Continue Lasix. He is also on hydrochlorothiazide 25 mg daily. He previously told me that he tried stopping hydrochlorothiazide in the past and developed fluid retention and swelling around his right eye. He continues to feel well on his current medications and does not want to switch them. He does have chronic kidney disease and that will need to be monitored. Labs done 06/13/2025 shows creatinine 1.97, no significant change from prior values. (3) Paroxysmal atrial fibrillation: Code(s): I48.0 - Paroxysmal atrial fibrillation Category: Medical Plan: History of paroxysmal atrial fibrillation. Currently suppressed. On diltiazem for heart rate control. On Eliquis 2.5 mg b.i.d. for anticoagulation which is the appropriate dose for his age and creatinine. No bleeding issues reported. Stroke risk with atrial fibrillation discussed. Pulse is regular on examination today. No changes made. (4) Non-rheumatic aortic stenosis: Code(s): I35.0 - Nonrheumatic aortic (valve) stenosis Category: Medical Plan: Echocardiogram done 04/13/2025 shows mild aortic stenosis which is unchanged from last prior echo. Plan for repeat echo to re-evaluate in approximately 2 years. (5) Status post endovascular aneurysm repair (EVAR): Code(s): Z98.890 - Other specified postprocedural states; Z86.79 - Personal history of other diseases of the circulatory system Category: Surgical Plan: s/p endovascular repair of abdominal aorta at [facility]. Plan Time spent on chart review, documentation, interview and assessment Coding Level of Care Code Est Pt Level 4 (29174) Complex EM visit Add On G2211 Diagnoses Atherosclerotic cardiovascular disease I25.10 Chronic diastolic (congestive) heart failure I50.32 Paroxysmal atrial fibrillation I48.0 Non-rheumatic aortic stenosis I35.0 Status post endovascular aneurysm repair (EVAR) Z98.890; Z86.79 Time Spent (min) 32
--- OUTSIDE RECORDS SUMMARY | 2025-06-14 13:47 | XMS_ITS | Clinical Summary ---
Author Organization [facility] Address [address] [place] [id number] Phone Care Team Providers Care Vessel Scrapper Name Role Phone Self-Referred, Patient Unavailable Unavailab Juan Velazquez MD Unavailable Colton Segura MD Primary Care Provid er Cali Corral MD Unavailable [phone] Allergies Active Allergy Reactions Criticality Noted Date [...] received #1:2 Pfizer Covid vaccine Lot # [id number] on 01/01/21 and #2:2 Lot # [id number] on 01/22/21 at [facility]. 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 Not on file Not on file [...] for Head and Neck Oncology, [facility] [place] [address] [place] [address], [address] [place] [address] Jona Bonilla MD, DMD [address] [place] [phone] [email or web address] Health Maintenance Due Date Last Done [...] EDT) SODIUM 142 136 - 145 mmol/L [facility] POTASSIUM 3.8 3.4 - 5.0 mmol/L [facility] CHLORIDE 100 98 - 107 mmol/L [facility] CO2 28 22 - 31 mmol/L [facility] BUN 27(H) 6 - 23 mg/dL [facility] CREATININE 1.15 0.50 - 1.20 mg/dL [facility] GLUCOSE 172(H) 70 - 100 mg/dL [facility] CALCIUM 9.2 8.8 - 10.7 mg/dL [facility] EGFR 61 >59 mL/min/1.7 3m2 [facility] Comment:If patient is black, multiply result by 1.159. Estimated glomerular filtration rate calculated using the CKD-EPI equation. ANION GAP 14 5 - 17 mmol/L [facility] Blood 03/03/2018 6:38 AM EDT 03/03/2018 7:12 AM EDT us Jona Bonilla MD, DMD LAB BLOOD ORDERABLES Fin al Result Performing Organization Address City/State/[facility] de Phone Number [facility] [address] [place] [phone] from Last 3 Months or Most Recently Relevant to Health Maintenance Insurance BLUE [employer]OSS MEDEX SUPPLEMENT MEDICARE PART A & B [employer] MEDEX SUPPLEMENT MEDICARE PART A & B [employer] MEDEX SUPPLEMENT MEDICARE PART A & B [employer] MEDEX SUPPLEMENT MEDICARE PART A & B [employer] MEDEX SUPPLEMENT MEDICARE PART A & [place] [address] CROSS MEDEX SUPPLEMENT MEDICARE PART A & B [employer] MEDEX SUPPLEMENT MEDICARE PART A & B [employer] MEDEX SUPPLEMENT MEDICARE PART A & B [employer] MED[employer] SUPPLEMENT MEDICARE PART A & B MEDICARE PART A & B [employer] MED[employer] SUPPLEMENT MEDICARE PART A & B [employer] MEDEX SUPPLEMENT MEDICARE PART A & B [employer] MEDEX SUPPLEMENT MEDICARE PART A & B [employer] CROSS MEDEX SUPPLEMENT MEDICARE PART A & B [employer] MEDEX SUPPLEMENT MEDICARE PART A & B [employer] CROSS MEDEX SUPPLEMENT MEDICARE PART A & B [employer] MEDEX SUPPLEMENT MEDICARE PART A & B [employer] MEDEX SUPPLEMENT MEDICARE PART A & B [employer] MEDEX SUPPLEMENT Advance Directives For more information, please contact: [phone] (9AM - 5PM [facility], Wednesday-Wednesday) Documents on File Type Date Recorded 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 Pool 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 Expl anation Healthcare Proxy 12/23/2017 1:08 PM * Full Code (Presumed) (Latest Code Status on File) Date Activated Date Inactivated Comments 03/01/2018 6:39 PM 03/03/2018 2:28 PM * Full Code (Presumed) Date Activated Date Inactivated Comments 02/28/2018 5:49 PM 03/01/2018 6:39 PM Care Teams Vessel Scrapper Relationship Specialty Start Date End Date Juan Pappas MD [address] [place] [address] Dr [address] [place] [id number] PCP - Gastroenterology Internal Medicine 07/14/18 Colton Segura MD [address] [place] [address] [address] [place] [id number] PCP - General Internal Medicine 03/24/19 Self-Referred, Patient 12/10/17 Cali Corral MD [address] [place] [id number] [email or web address] Cardiology 03/24/19 Additional Source Comments The information contained in this document represents components of the legal health record. It is not the complete legal health record.[facility]
--- OUTSIDE RECORDS SUMMARY | 2025-06-14 13:47 | XMS_ITS | Encounter Summary ---
Author Organization [facility] Address [address] [facility] [address] [place] [address] Phone Care Team Providers Care General Ii Farmworker Name Role Phone Anton Perla Primary Care Provider [phone] Reason for Visit * Reason Comments Med Refill Encounter Details Date Type Department Care Team (Late Contact Info) Description 02/01/2024 Refill [facility] [address] [place] [address] Caio De La Cruz MD [address] [place] [address] 4 [place] [address] Social History Tobacco Use Types Packs/Day Years [...] Visit [facility] [address] [address] Kait Angela ARNP [address] [address] documented as of this encounter Visit Diagnoses Not on filedocumented in this encounter Care Teams General Ii Farmworker Relationship Specialty Start Date End Date Anton Perla PA [address] [place] [address], [address] [place] [address] PCP - General Physician Requirements Analyst 09/29/22 documented as of this encounter
--- OUTSIDE RECORDS SUMMARY | 2025-06-14 13:47 | XMS_ITS | Clinical Summary ---
Author Organization [facility] Address [address] [place] [address] Care Team Providers Care Maple Products Maker Name Role Phone Unavailable Primary Care Provider [...]
--- OUTSIDE RECORDS SUMMARY | 2025-06-14 13:47 | XMS_ITS | Clinical Summary ---
Author Organization [facility] Address [address] [place] [address] Care Team Providers Care Embryology Teacher Name Role Phone Provider, Not In System [...] age to complete this topic Care Teams Embryology Teacher Relationship Specialty Start Date End Date Provider, Not In System PCP - General 09/14/19
== END 2025-06-14 14:14 | disposition home or self-care (01) ==
LOC: HO.HCS 13:45
PROVIDERS: PCP Physician Assistant; Visit Provider Nurse Practitioner Family
DX: I25.10 Atherosclerotic heart disease of native coronary artery without angina pectoris (principal); I50.32 Chronic diastolic (congestive) heart failure; I48.0 Paroxysmal atrial fibrillation; I35.0 Nonrheumatic aortic (valve) stenosis; Z98.890 Other specified postprocedural states; Z86.79 Personal history of other diseases of the circulatory system
CPT/HCPCS: 99214; G2211

== ENCOUNTER → 2025-06-14 13:44 | Outpatient (BNVA) | payer MEDICARE, SELFPAY | PROVIDERS: PCP Physician Assistant; Visit Provider Nurse Practitioner Family | DX: I50.32 Chronic diastolic (congestive) heart failure (principal); I25.10 Atherosclerotic heart disease of native coronary artery without angina pectoris; I48.0 Paroxysmal atrial fibrillation; I35.0 Nonrheumatic aortic (valve) stenosis; I25.2 Old myocardial infarction; Z86.79 Personal history of other diseases of the circulatory system; Z79.01 Long term (current) use of anticoagulants; Z98.890 Other specified postprocedural states; Z95.5 Presence of coronary angioplasty implant and graft | CPT/HCPCS: 99212 ==

== ENCOUNTER 2025-06-20 14:18 | Outpatient (AMB) | payer MEDICARE, SELFPAY ==
--- NOTE | 2025-06-20 14:25 | A.OFFPC_ITS ---
Vital Signs 06/20/25 14:26 Height 5 ft 10 in Weight 199 lb BMI 28.6 BP 120/78 Blood Pressure Location Lt brachial Position Sitting Pulse 90 Pulse Source Pulse Oximeter Pulse Oximetry (%) 90 L Oxygen Delivery Method Room Air Intake Visit Reasons: 3 month f/u Airworthiness Safety Inspector Required: No Scenic Arts Supervisor: Not Required per policy Accompanied by: Self / Same As Patient Allergies cephalexin (Keflex) Allergy (Unknown, Verified 06/20/25 14:27) diarrhea Sulfa (Sulfonamide Antibiotics) Allergy (Unknown, Verified 06/20/25 14:27) Unknown prednisone Adverse Reaction (Severe, Verified 06/20/25 14:27) dementia Tobacco use date assessed: 06/20/25 Fall risk assessment: No Falls in past year Last assessed Fall Risk: 06/20/25 Dental Screening Dental Screen Date: 06/20/25 Did you have a dental visit in the last 12 months?: Yes Did you have a dental problem in the last 6 months where you did not have access to dental care?: No Was dental information given to patient?: Patient has dentist HPI 3 month f/u HPI Details Patient is an 84-year-old male here today for a follow-up visit.? Patient has a past medical history significant for aortic stenosis, abdominal aortic aneurysm, coronary artery disease, type 2 diabetes, hypertension, paroxysmal AFib, CKD stage 3, COPD and Congestive heart failure.. .. CKD stage III-most recent creatinine 2.0- patient's creatinine stable 1.6-2.0.. Is followed by a nephroloist in [place].? . Most recent potassium at 3.7 He is now on potassium 30 mEq Will wait level again noted to be low though improved from previous lab draw. .. CAD/ CHF:? He reports fatigue, weight gain of five pounds over three months, a contributing factor possibly linked to chronic heart failure history, as indicated by periorbital edema . His recent echocardiogram appear stable without any significant change. Back pain prevents him from walking as exercise. followed by [facility]. Denies any significant shortness of breath on exertion. .? Now has been managed with furosemide 40 minutes and hydrochlorothiazide.? pBNP little higher than usual at 1100 .. AFIB:? Followed by [facility]. Continues on renally dosed Eliquis and diltiazem for rate control.? Denies any overt signs of bleeding.? Continues to follow cardiology.? Has now recent episodes palpitations, shortness of breath the chest discomforts. .. AAA:? Is followed vascular surgeon at [facility] recently had his abdominal aorta endovascularly fixed. CT of abdomen without any enlarging abdominal aneurysm. He awaits a follow-up with his vascular surgeon. ... ? COPD:? does have a history of COPD, has quite smoking.? Reports only using an albuterol inhaler on a p.r.n. basis. Denies any shortness of breath at rest though does have shortness of breath on exertion which is been a chronic issue. Laboratory Tests 09/01/24 02/15/25 06/13/25 12:51 11:26 11:16 Hgb 13.3 L 12.9 L MCV 99.2 H Creatinine 1.76 H 1.97 H Fasting Glucose 114 H NT-Pro-B Natriuret Pep 1006 H 1142 H Total Testosterone 339 PFSH Medical History Insomnia Atherosclerotic cardiovascular disease Cellulitis CHF (congestive heart failure) CKD (chronic kidney disease) stage 3, GFR 30-59 ml/min Smoker COPD (chronic obstructive pulmonary disease) Presence of stent in coronary artery in patient with coronary artery disease Abdominal aortic aneurysm Paroxysmal atrial fibrillation Renal insufficiency UTI (urinary tract infection) Diabetes mellitus Acquired hypothyroidism Edema eyelid Essential (primary) hypertension Surgical History Status post endovascular aneurysm repair (EVAR) H/O neck surgery History of tonsillectomy History of cardiac catheterization History of nasal surgery Family History Father Myocardial infarction Mother Alzheimers disease Social History Household Members: Significant Other Housing: House Alcohol intake: current Alcohol intake frequency: a few times a month Comment: pt in recliner-camera on Patient Tobacco Use Status: Former Tobacco user Years Smoked: 60 e-Cigarette/Vaping Use: Never Used Advance Directives Date on File: 12/27/21 service: No Current occupational status: retired Current occupational exposures/hazards: No Cognitive needs: Yes (cane/walker) Hearing needs: No Vision needs: No Questionnaire PHQ-9 Over the last 2 weeks, how often have you been bothered by any of the following problems? 1. Little interest or pleasure in doing things: not at all 2. Feeling down, depressed, or hopeless: not at all 3. Trouble falling or staying asleep, or sleeping too much: not at all 4. Feeling tired or having little energy: not at all 5. Poor appetite or overeating: not at all 6. Feeling bad about yourself - or that you are a failure or have let yourself or your family down: not at all 7. Trouble concentrating on things, such as reading the newspaper or watching television: not at all 8. Moving or speaking so slowly that other people could have noticed. Or the opposite - being so fidgety or restless that you have been moving around a lot more than usual: not at all 9. Thoughts that you would be better off or of hurting yourself in some way: not at all Total score: 0 Depression Screening Interpretation: Negative Depression Screening Done: Yes 89277 - PHQ-9 Billing: Yes Source: Developed by Drs. Rickey Hernandez, Genoveva Albright, Vinny Chris and colleagues, with an educational joseline from [employer]. Thrive Questionnaire Date Thrive assessed: 12/14/24 I am a: Patient What is your living situation today?: I have a steady place to live Within the past 12 months, did the food you bought not last and you didn't have the money to get more?: Never true Within the past 12 months, did you worry whether your food would run out before you got money to buy more?: Never true Do you have trouble paying for medicines?: No Do you have trouble getting transportation to medical appointments?: No Do you have trouble paying your heating and electricity bill?: No Do you have trouble taking care of your child, family member or friend?: No Do you have trouble with day-to-day activities such as bathing, preparing meals, shopping, managing finances, etc.?: No Are you currently unemployed and looking for a job?: No Are you interested in more education?: No Please select the resources that you would like help with: None Currently or been in a relationship where the following occur: No concerns reported THRIVE Score: 0 AUDIT C Alcohol Use Questionnaire (AUDIT-C) 1. How often do you have a drink containing alcohol?: 2-4 times a month 3. How often do you have six or more drinks on one occasion?: Never Total Score: 2 GABRIELLA-7 AMB Questionnaire GABRIELLA-7 Date GABRIELLA - 7 assessed: 06/20/25 Feeling nervous, anxious, or on edge: 0 = Not at all Not being able to stop or control worryin = Not at all Worrying too much about different things: 0 = Not at all Trouble relaxin = Not at all Being so restless that it is hard to sit still: 0 = Not at all Becoming easily annoyed or irritable: 0 = Not at all Feeling afraid as if something awful might happen: 0 = Not at all Total GABRIELLA-7 score (0-4 normal; 5-9 mild; 10-14 moderate; 15-21 severe): 0 Source: Developed by Drs. Rickey Hernandez, Genoveva Albright, Vinny Chris and colleagues, with an educational joseline from [employer]. Review of Systems Const Denies headache(s) Eyes Denies loss of vision ENT Denies vertigo, Denies dizziness, Denies headache(s) and Denies sore throat Card Denies chest pain, Denies leg edema and Denies lightheadedness Resp Denies cough, Denies hemoptysis and Denies wheezing GI Denies abdominal pain, Denies melena, Denies constipation, Denies diarrhea and Denies vomiting Denies dysuria, Denies urinary frequency and Denies urinary urgency Musc Denies arthralgias, Denies joint swelling, Denies numbness and Denies tingling Neuro Denies Abnormal speech present, Denies behavioral changes, Denies vertigo, Denies dizziness, Denies headache(s), Denies loss of vision, Denies memory loss, Denies numbness and Denies tingling Psych Denies anxiety, Denies behavioral changes, Denies depression, Denies memory loss and Denies panic attacks Cr/Lymph Denies easy bleeding and Denies easy bruising Aller/Immun Denies wheezing Physical exam (Primary Care) Vital Signs: Last Vital Signs Pulse 90 06/20/25 14:26 BP 120/78 06/20/25 14:26 Pulse Ox 90 L 06/20/25 14:26 Oxygen Delivery Method Room Air 06/20/25 14:26 BMI result Body Mass Index 28.6 Tobacco/Smoking Status: Tobacco use Status Tobacco use date assessed 06/20/25 06/20/25 14:33 Patient Tobacco Use Status Former Tobacco user 06/20/25 14:27 Tobacco use type 03/04/23 14:29 e-Cigarette/Vaping Use Never Used 06/20/25 14:27 PHQ-9: PHQ-9 Score PHQ-9: Total score 0 06/20/25 15:02 Depression Screening Interpretation: Negative Thrive Assessment: Date of Thrive Assessment Date Thrive assessed 12/14/24 06/20/25 14:27 Currently or been in a relationship where the following occur: No concerns reported Const General: healthy appearing, no acute distress, alert and awake Nutritional Appearance: well nourished Orientation/consciousness: oriented to person, oriented to place and oriented to time HENMT Ears: TM's normal bilaterally General nose exam: Normal nasal mucous membranes and turbinates present Eyes Conjunctivae: conjunctivae normal Sclerae: sclerae normal Pupils: Equal, round and reactive pupils present Neck Neck: Yes no lymphadenopathy and Yes no JVD Thyroid: Thyroid normal Carotids: no bruits Resp Effort & Inspection: normal respiratory effort and not tachypneic Auscultation: no crackles, no rales, no rhonchi and no wheezes Cardio Rate: regular rate Rhythm: regular rhythm Heart sounds: no murmurs and normal S1 and S2 GI Palpation (GI): Soft to palpation, nontender, no hepatomegaly and no splenomegaly Auscultation: normal bowel sounds Skin General skin exam: no rashes or lesions noted and dry skin Neuro General: oriented to person, oriented to place and oriented to time Cranial nerves: Yes Equal, round and reactive pupils present Speech: No Abnormal speech present Gait exam (Neuro): Normal gait present Motor exam (neuro): no tremor noted Extrem Right upper extremity: full ROM Left upper extremity: full ROM Right lower extremity: full ROM; no edema Left lower extremity: full ROM; no edema Psych Mental Status: mental status grossly normal Speech and movement: Normal speech and movement present Affect: normal affect Attitude: cooperative Thought process: Normal thought process present Results AMB Hemoglobin A1c AMB Hemoglobin A1c 5.8 % Last Edit by TONY Estrella on 06/20/25 15:03 Results Reviewed Results Reviewed: Laboratory Last Values Hgb A1c (Clinic) 5.8 % (4.0-6.0) 06/20/25 14:25 Coding Diagnoses Chronic diastolic (congestive) heart failure I50.32 Essential (primary) hypertension I10 Type 2 diabetes mellitus with hyperglycemia, without long-term current use of insulin E11.65 Diabetes mellitus complication status: with hyperglycemia Diabetes mellitus long line teamster insulin use: without long line teamster use Stage 3a chronic kidney disease N18.31 Chronic kidney disease stage 3 subtype: stage 3a (GFR 45-59) Chronic fatigue R53.82 Fatigue type: chronic, unspecified Abdominal distension R14.0 Spinal stenosis of lumbar region, unspecified whether neurogenic claudication present M48.061 Neurogenic claudication status: unspecified Additional Codes PHQ-9 - 49387 - PHQ-9 Billing: Yes ([id number]) Assessment & Plan Assessment & Plan (1) Chronic diastolic (congestive) heart failure: Code(s): I50.32 - Chronic diastolic (congestive) heart failure Category: Medical Plan: Reevaluate BNP with new labs. Echocardiography appear stable. Low sodium diet discussed to prevent symptom exacerbation. (2) Essential (primary) hypertension: Code(s): I10 - Essential (primary) hypertension Category: Medical Plan: Patient's blood pressure acceptable today in office. . He continues on hydrochlorothiazide, losartan and furosemide. Due to his noted periorbital edema and weight gain over last few months we are concerned about worsening heart failure. Goal blood pressures to remain below 140/90 and above 100/60 (3) Type II diabetes mellitus: Code(s): E11.9 - Type 2 diabetes mellitus without complications Category: Medical Qualifiers: Diabetes mellitus complication status: with hyperglycemia Diabetes mellitus long line teamster insulin use: without fci use Qualified Code(s): E11.65 - Type 2 diabetes mellitus with hyperglycemia Plan: Patient's type 2 diabetes well controlled with current dose of Jardiance. Most recent A1c of 5.7. Goal A1c is to remain below 7.0 (4) CKD (chronic kidney disease) stage 3, GFR 30-59 ml/min: Code(s): N18.30 - Chronic kidney disease, stage 3 unspecified Category: Medical Qualifiers: Chronic kidney disease stage 3 subtype: stage 3a (GFR 45-59) Qualified Code(s): N18.31 - Chronic kidney disease, stage 3a Plan: Continues to follow Nephrology. Creatinine stable Electrolytes are within normal range particular leave his potassium. He continues On potassium supplementation. Again we did discuss perhaps reducing his furosemide dose slightly as he has been euvolemic for quite some time now. (5) Fatigue: Code(s): R53.83 - Other fatigue Category: Medical Qualifiers: Fatigue type: chronic, unspecified Qualified Code(s): R53.82 - Chronic fatigue, unspecified Plan: Fatigue is likely multifactorial, related to heart failure and sleep disturbance; addressing sleep hygiene may help alleviate symptoms. (6) Abdominal distension: Code(s): R14.0 - Abdominal distension (gaseous) Category: Medical Plan: Noted abdominal distention on physical exam today. He denies any fevers, constipation or diarrhea. Will try for CT of abdomen evaluate for any notable intra-abdominal fluid (7) Lumbar stenosis: Code(s): M48.061 - Spinal stenosis, lumbar region without neurogenic claudication Category: Medical Qualifiers: Neurogenic claudication status: unspecified Qualified Code(s): M48.061 - Spinal stenosis, lumbar region without neurogenic claudication Plan: The patient finds relief from back pain using a topical cream with frankincense and DMSO, and should continue this regimen. Orders: Orders CT lumbar spine wo IV con 06/20/25 M48.061 - Spinal stenosis, lumbar region without neurogenic claudication Comprehensive [place]. Panel Fast 06/20/25 I50.32 - Chronic diastolic (congestive) heart failure TSH reflex Free T4 06/20/25 E11.65 - Type 2 diabetes mellitus with hyperglycemia AMB Hemoglobin A1c 06/20/25 E11.65 - Type 2 diabetes mellitus with hyperglycemia CT abdomen pelvis wo IV con 06/20/25 R14.0 - Abdominal distension (gaseous) Complete Blood Count no Diff 06/20/25 R53.82 - Chronic fatigue, unspecified Lipid Panel 06/20/25 E11.65 - Type 2 diabetes mellitus with hyperglycemia Medications: Discontinued hydroxyzine HCl Discontinued Reason: Doctor's Order 25 mg PO BEDTIME 30 days 30 tabs 2RF F51.01 - Primary insomnia
[2025-06-20 14:26] VITALS: BP 120/78; PULSE 90; O2SAT 90; BMI 28.6
--- OUTSIDE RECORDS SUMMARY | 2025-06-20 15:02 | XMS_ITS | Clinical Summary ---
Author Organization [facility]y Address [address] [place] [address] Care Team Providers Care Escapement Maker Name Role Phone Unavailable Primary Care [...]
--- OUTSIDE RECORDS SUMMARY | 2025-06-20 15:02 | XMS_ITS | Encounter Summary ---
Author Organization [facility] Address [address] [facility] [address] [address] [place] [address] Phone Care Team Providers Care Glassine Machine Tender Name Role Phone Anton Perla Primary Care Provider [phone] Reason for Visit * Reason Comments Med Refill Encounter Details Date Type Department Care Team (Late Contact Info) Description 02/01/2024 Refill [facility] [address] [facility] [address] [address] [place] [address] Caio De La Cruz MD [address] [place] [address] 4 [place] [address] Social History Tobacco Use Types Packs/Day Years [...] Visit [facility] [address] [address] Kait Angela ARNP [address] [address] documented as of this encounter Visit Diagnoses Not on filedocumented in this encounter Care Teams Glassine Machine Tender Relationship Specialty Start Date End Date Anton Perla PA [address] [place] [address], [address] [place] [address] PCP - General Physician Transition Teacher 09/29/22 documented as of this encounter
--- OUTSIDE RECORDS SUMMARY | 2025-06-20 15:02 | XMS_ITS | Clinical Summary ---
Author Organization [facility] Address [address] [place] [address] Phone Care Team Providers Care Keyseater Operator Name Role Phone Self-Referred, Patient Unavailable Unavailab Juan Velazquez MD Unavailable Colton Segura MD Primary Care Provid er Cali Corral MD Unavailable Allergies Active Allergy Reactions Criticality Noted Date [...] received #1:2 Pfizer Covid vaccine Lot # [id number] on 01/01/21 and #2:2 Lot # [id number] on 01/22/21 at [facility]. 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 Not on file [...] for Head and Neck Oncology, [facility] [place] [address] [place] [address], 11th [place] [address] Jona Bonilla MD, DMD [address] [place] [id number] [email or web address] Health Maintenance Due Date Last Done [...] EDT) SODIUM 142 136 - 145 mmol/L [facility] POTASSIUM 3.8 3.4 - 5.0 mmol/L [facility] CHLORIDE 100 98 - 107 mmol/L [facility] CO2 28 22 - 31 mmol/L [facility] BUN 27(H) 6 - 23 mg/dL [facility] CREATININE 1.15 0.50 - 1.20 mg/dL [facility] GLUCOSE 172(H) 70 - 100 mg/dL [facility] CALCIUM 9.2 8.8 - 10.7 mg/dL [facility] EGFR 61 >59 mL/min/1.7 3m2 [facility] Comment:If patient is black, multiply result by 1.159. Estimated glomerular filtration rate calculated using the CKD-EPI equation. ANION GAP 14 5 - 17 mmol/L [facility] Blood 03/03/2018 6:38 AM EDT 03/03/2018 7:12 AM EDT us Jona Bonilla MD, DMD LAB BLOOD ORDERABLES Fin al Result Performing Organization Address City/State/[facility] de Phone Number [facility] [address] [place] [address] from Last 3 Months or Most Recently Relevant to Health Maintenance Insurance BLUE [employer]OSS MEDEX SUPPLEMENT MEDICARE PART A & B Rx [employer] MEDEX SUPPLEMENT MEDICARE PART A & B Rx Network MEDEX SUPPLEMENT MEDICARE PART A & B Rx Network MEDEX SUPPLEMENT MEDICARE PART A & B Rx Network MEDEX SUPPLEMENT MEDICARE PART A & [place] [address] [place] [address] CROSS MEDEX SUPPLEMENT MEDICARE PART A & B [place] MEDEX SUPPLEMENT MEDICARE PART A & B [place] MEDEX SUPPLEMENT MEDICARE PART A & B [place] [place] MEDEX SUPPLEMENT MEDICARE PART A & B MEDICARE PART A & B [place] MEDEX SUPPLEMENT MEDICARE PART A & B Rx Network MEDEX SUPPLEMENT MEDICARE PART A & B Rx Network MEDEX SUPPLEMENT MEDICARE PART A & B [place] CROSS MEDEX SUPPLEMENT MEDICARE PART A & B [place] [employer] MEDEX SUPPLEMENT MEDICARE PART A & B [place] CROSS MEDEX SUPPLEMENT MEDICARE PART A & B [place] MEDEX SUPPLEMENT MEDICARE PART A & B [place] MEDEX SUPPLEMENT MEDICARE PART A & B Rx Network MEDEX SUPPLEMENT Advance Directives For more information, please contact: [phone] (9AM - 5PM [facility], Wednesday-Wednesday) Documents on File Type Date Recorded Patient Career Development Manager Expl anation Healthcare Proxy 12/23/2017 1:08 PM * Full Code (Presumed) (Latest Code Status on File) Date Activated Date Inactivated Comments 03/01/2018 6:39 PM 03/03/2018 2:28 PM * Full Code (Presumed) Date Activated Date Inactivated Comments 02/28/2018 5:49 PM 03/01/2018 6:39 PM Care Teams Keyseater Operator Relationship Specialty Start Date End Date Juan Pappas MD [address] [place] [address] [address] [place] [phone] PCP - Gastroenterology Internal Medicine 07/14/18 Colton Segura MD [address] [place] [address] [place] [phone] PCP - General Internal Medicine 03/24/19 Self-Referred, Patient 12/10/17 Cali Corral MD [address] [place] [address] [email or web address] Cardiology 03/24/19 Additional Source Comments The information contained in this document represents components of the legal health record. It is not the complete legal health record.[facility]
--- OUTSIDE RECORDS SUMMARY | 2025-06-20 15:03 | XMS_ITS | Clinical Summary ---
Author Organization [facility] Address [address] [place] [address] Care Team Providers Care Body And Fender Worker Name Role Phone Provider, Not In System [...] age to complete this topic Care Teams Body And Fender Worker Relationship Specialty Start Date End Date Provider, Not In System PCP - General 09/14/19
--- OUTSIDE RECORDS SUMMARY | 2025-06-20 15:03 | XMS_ITS | Patient Health Record ---
Author Organization [facility] Address [address] [place] [address] Care Team Providers Care Warehouse Associate Driver Name Role Phone Adrianne(inactive) Bonilla LEWIS Primary Care Provider U Juan Carrera Jr Unavailable Allergies Allergen (clinical drug ingredient) Drug/Non Drug [...] OF [place] [address] [place] [address] [phone] [id number] BILLIE LUNA Self - patient is the insured MEDEX ATTN CLAIMS [address] [place] [address] [phone] [id number] BILLIE LUNA Self - patient is the insured Medical (General) History Medical History History ICD Code COPD diabetes mellitus umbilical hernia prostate cancer cyber knife radiation hypertension hypertriglyceridemia nephrolithiasis atrial fibrillation Surgical History Surgery Date(Month/Year) 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
== END 2025-06-20 15:09 | disposition home or self-care (01) ==
LOC: HO.HMCH 14:19
PROVIDERS: PCP Physician Assistant; Visit Provider Physician Assistant
DX: E11.65 Type 2 diabetes mellitus with hyperglycemia (principal)

== ENCOUNTER → 2025-06-20 14:18 | Outpatient (BNVA) | payer MEDICARE, SELFPAY | PROVIDERS: PCP Physician Assistant; Visit Provider Physician Assistant | DX: E11.65 Type 2 diabetes mellitus with hyperglycemia (principal); I13.0 Hypertensive heart and chronic kidney disease with heart failure and stage 1 through stage 4 chronic kidney disease, or unspecified chronic kidney disease; E11.22 Type 2 diabetes mellitus with diabetic chronic kidney disease; N18.31 Chronic kidney disease, stage 3a; I50.32 Chronic diastolic (congestive) heart failure; R53.82 Chronic fatigue, unspecified; R14.0 Abdominal distension (gaseous); M48.061 Spinal stenosis, lumbar region without neurogenic claudication | CPT/HCPCS: 83036; 96127; 99212 ==

== ENCOUNTER 2025-09-11 13:07 | Outpatient (REF) | payer MEDICARE, SELFPAY ==
[2025-09-11 13:54] LABS: MANUAL DIFF FLAG NO
[2025-09-11 14:56] LABS: Hematocrit 35.4 % (42.0-52.0); Hemoglobin 11.5 g/dl (14.0-18.0); Imm Gran Abs Auto 0.03 X10*3/uL (0.00-0.03); Imm Gran Pct Auto 0.4 % (0.0-0.4); Lymphocytes Absolute Auto 1.4 X10*3/uL (1.2-4.9); Mean Corpuscular HGB Conc 32.5 g/dl (31.0-36.0); Mean Corpuscular Hemoglobin 33.7 pg (27.0-33.0); Mean Corpuscular Volume 103.8 fL (80.0-98.0); NRBC Abs Auto 0.000 X10*3/uL (0.0-0.012); NRBC Pct Auto 0.0 /100WBC (0.0-0.2); Platelet Count 184 X10*3/uL (160-400); Red Blood Count 3.41 X10*6/uL (4.60-5.80); White Blood Count 6.8 X10*3/uL (4.8-10.8)
[2025-09-11 15:06] LABS: Appearance Urine Clear; Glucose Urine UA 250 mg/dL (Negative); PH 5.5 (5.0-9.0); Specific Gravity - Urine 1.015 (1.005-1.025)
[2025-09-11 15:29] LABS: Microalbum/Creatinine Ratio Ur 19.7 ug/mg cr (<30); Total Protein Urine Random < 7 mg/dL (<12)
[2025-09-11 15:36] LABS: Parathyroid Hormone Intact 164.6 pg/mL (8.7-77.1)
--- OUTSIDE RECORDS SUMMARY | 2025-09-11 16:59 | XMS_ITS | Encounter Summary ---
Author Organization [facility] Address [address] [place] [address] Phone Care Team Providers Care Inspector Grain Mill Products Name Role Phone Bonilla Silver DO Primary Care Provider [phone] Self-Referred, Patient Unavailable Unavailab Cali Beyer MD Unavailable [phone] Encounter Details Date Type Department Care Team (Late st Contact Info) Description 12/23/2017 Procedure Pass [facility] OUTSIDE IMG [address] [place] [address] Social History Tobacco Use Types Packs/Day Years Used Date Smoking Tobacco: Never Assessed Sex and Gender Information Value Date Recorded Sex Assigned at Not on file Legal Sex Male 2:47 PM EST Gender Identity Not on file Sexual Orientation Not on file documented as of this encounter Plan of Treatment Upcoming Encounters Date Type Department Care Team (Late st Contact Info) Description 07/08/2026 11:30 AM EDT Office Visit [facility], [facility] [place] [address] [facility], 11th [place] [address] Jona Bonilla MD, DMD [address] [place] [address] [email or web address] documented as of this encounter Visit Diagnoses Not on filedocumented in this encounter Care Teams Inspector Grain Mill Products Relationship Specialty Start Date End Date Bonilla Silver DO [address] [place] [address] PCP - General Internal Medicine 12/10/17 03/23/19 Self-Referred, Patient 12/10/17 Cali Corral MD [email or web address] Cardiology 03/24/19 documented as of this encounter Additional Source Comments The information contained in this document represents components of the legal health record. It is not the complete legal health record.[facility]
--- OUTSIDE RECORDS SUMMARY | 2025-09-11 16:59 | XMS_ITS | Encounter Summary ---
Author Organization [facility] Address [address] [place] [address] Phone Care Team Providers Care Supervisor Stripping Name Role Phone Bonilla Silver DO Primary Care Provider [phone] Self-Referred, Patient Unavailable Unavailab Cali Beyer MD Unavailable [phone] Encounter Details Date Type Department Care Team (Late st Contact Info) Description 03/11/2018 Procedure Pass [facility] OUTSIDE IMG [address] [place] [address] Social History Tobacco Use Types Packs/Day Years Used Date Smoking Tobacco: Every Day Cigarettes 1 60 Smokeless Tobacco: Never Alcohol Use Standard Drinks/Week Comments Yes 1 (1 standard drink = 0.6 oz pur e alcohol) Sex and Gender Information Value Date Recorded Sex Assigned at Not on file Legal Sex Male 2:47 PM EST Gender Identity Not on file Sexual Orientation Not on file 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 Not on file Not on file documented as of this encounter Plan of Treatment Upcoming Encounters Date Type Department Care Team (Late st Contact Info) Description 07/08/2026 11:30 AM EDT Office Visit [facility], [facility] [place] [address] [facility], 11th [place] [address] Jona Bonilla MD, DMD [address] [place] [address] [email or web address] documented as of this encounter Visit Diagnoses Not on filedocumented in this encounter Care Teams Supervisor Stripping Relationship Specialty Start Date End Date Bonilla Silver DO [address] [place] [address] PCP - General Internal Medicine 12/10/17 03/23/19 Self-Referred, Patient 12/10/17 Cali Corral MD [email or web address] Cardiology 03/24/19 documented as of this encounter Additional Source Comments The information contained in this document represents components of the legal health record. It is not the complete legal health record.[facility]
--- OUTSIDE RECORDS SUMMARY | 2025-09-11 16:59 | XMS_ITS | Patient Health Record ---
Author Organization [facility] Address [address] [place] [phone] Care Team Providers Care Finger Buffs Assembler Name Role Phone Adrianne(inactive) Bonilla LEWIS Primary [...] MG 1 capsule Orally Onc e a day; Duration: 30 day(s) Active hydroCHLOROthiazide 25 MG 1 tablet in th e morning Orally Once a day Active Golytely 236 GM as directed before colonoscopy Orally every 15 minutes; Duration: 1 day(s) Active Wellbutrin XL 150 MG [...] Date MEDICARE OF [place] [address] [place] [address] [id number] BILLIE LUNA Self - patient is the insured MEDEX ATTN CLAIMS [address] [place] [address] [id number] BILLIE LUNA Self - patient is the insured Medical (General) History Medical History History ICD Code COPD diabetes mellitus umbilical hernia prostate cancer cyber knife radiation hypertension hypertriglyceridemia nephrolithiasis atrial fibrillation Surgical History Surgery Date(Month/Year) 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
--- OUTSIDE RECORDS SUMMARY | 2025-09-11 16:59 | XMS_ITS | Encounter Summary ---
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 documented as of this encounter Visit Diagnoses Not on filedocumented in this encounter Care Teams Manager Integrated Relationship Specialty Start Date End Date Bonilla Silver DO [address] [place] [address] PCP - General Internal Medicine 12/10/17 03/23/19 Self-Referred, Patient 12/10/17 Cali Corral MD [email or web address] Cardiology 03/24/19 documented as of this encounter Additional Source Comments The information contained in this document represents components of the legal health record. It is not the complete legal health record.[facility]
--- OUTSIDE RECORDS SUMMARY | 2025-09-11 16:59 | XMS_ITS | Clinical Summary ---
Author Organization [facility] Address [address] [place] [address] Care Team Providers Care Compounding Assistant Name Role Phone Provider, Not In System [...] age to complete this topic Care Teams Compounding Assistant Relationship Specialty Start Date End Date Provider, Not In System PCP - General 09/14/19
--- OUTSIDE RECORDS SUMMARY | 2025-09-11 16:59 | XMS_ITS | Clinical Summary ---
Author Organization [facility] Address [address] [place] [address] Care Team Providers Care Tennis Player Name Role Phone Unavailable Primary Care Provider [...] nts (1 - 1-dose 75+ series) 2015 Depression Screening 11/22/2024 COVID-19 Vaccine (1 - 2023-2 5 season) 2025 Influenza Vaccine (#1) 2025 HIB Vaccines Aged [...]
--- OUTSIDE RECORDS SUMMARY | 2025-09-11 16:59 | XMS_ITS | Encounter Summary ---
Author Organization [facility] Address [address] [place] [address] Phone Care Team Providers Care Correctional Treatment Specialist Name Role Phone Bonilla Silver DO Primary Care Provider [phone] Self-Referred, Patient Unavailable Unavailab Cali Beyer MD Unavailable [phone] Encounter Details Date Type Department Care Team (Late st Contact Info) Description 03/01/2018 Procedure Pass [facility] Periop [address] [place] [address] Social History Tobacco Use Types Packs/Day Years Used Date Smoking Tobacco: Every Day Cigarettes 1 60 Smokeless Tobacco: Never Alcohol Use Standard Drinks/Week Comments Yes 0 (1 standard drink = 0.6 oz pur e alcohol) mothly Sex and Gender Information Value Date Recorded Sex Assigned at Not on file Legal Sex Male 2:47 PM EST Gender Identity Not on file Sexual Orientation Not on file 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 documented as of this encounter Visit Diagnoses Not on filedocumented in this encounter Care Teams Correctional Treatment Specialist Relationship Specialty Start Date End Date Bonilla Silver DO [address] [place] [address] PCP - General Internal Medicine 12/10/17 03/23/19 Self-Referred, Patient 12/10/17 Cali Corral MD [email or web address] Cardiology 03/24/19 documented as of this encounter Additional Source Comments The information contained in this document represents components of the legal health record. It is not the complete legal health record.[facility]
--- OUTSIDE RECORDS SUMMARY | 2025-09-11 16:59 | XMS_ITS | Encounter Summary ---
Author Organization [facility] Address [address] [facility] [address] [place] [address] Phone Care Team Providers Care Graphics Intern Name Role Phone Anton Perla Primary Care Provider [phone] Reason for Visit * Reason Comments Med Refill Encounter Details Date Type Department Care Team (Late Contact Info) Description 02/01/2024 Refill [facility] [address] [place] [address] Caio De La Cruz MD [address] [place] [phone] Social History Tobacco Use Types Packs/Day Years [...] Department Care Team (Late Contact Info) Description 09/22/2025 Orders Only [facility] [address] [phone] Kait Angela ARNP [address] [phone] Stage 3b chronic kidney disease (HCC); Hypokalemia; Hypertension; Microalbuminuria 10/16/2025 2:00 PM EST Office Visit [facility] [address] [phone] Kait Angela ARNP [address] [phone] documented as of this encounter Visit Diagnoses Not on filedocumented in this encounter Care Teams Graphics Intern Relationship Specialty Start Date End Date Anton Perla PA [address] [place] [address], [address] [place], [place] [phone] PCP - General Physician Freelance Makeup Artist 09/29/22 documented as of this encounter
--- OUTSIDE RECORDS SUMMARY | 2025-09-11 16:59 | XMS_ITS | Encounter Summary ---
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 documented as of this encounter Visit Diagnoses Not on filedocumented in this encounter Care Teams Director Selection And Administration Relationship Specialty Start Date End Date Bonilla Silver DO [address] [place] [address] PCP - General Internal Medicine 12/10/17 03/23/19 Self-Referred, Patient 12/10/17 Cali Corral MD [email or web address] Cardiology 03/24/19 documented as of this encounter Additional Source Comments The information contained in this document represents components of the legal health record. It is not the complete legal health record.[facility]
--- OUTSIDE RECORDS SUMMARY | 2025-09-11 16:59 | XMS_ITS | Clinical Summary ---
Author Organization [facility] Address [address] [place] [address] Phone Care Team Providers Care Economic Research Analyst Name Role Phone Self-Referred, Patient Unavailable Unavailab Cali Beyer MD Unavailable [phone] Allergies Active Allergy Reactions Criticality Noted Date [...] different from the original. Pt received #1:2 BareedEEid vaccine Lot # [id number] on 01/01/21 and #2:2 Lot # [id number] on 01/22/21 at [facility]. 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 12/23/2017 Prostate cancer 12/23/2017 Stenosis of left carotid artery 12/23/2017 Thoracic aortic aneurysm without rupture 018 Encounters Date Type Department Care Team Description 07/05/2025 11:30 AM EDT [facility] [place] [address] [place] [address], [address] [place] [address] Jona Bonilla MD, DMD Malignant neoplasm of tonsil (Primary Dx); Metastasis to cervical lymph node from Last 3 Months Immunizations Immunization Administration Dates Next Due [id number] FORMULATION 11/20/2009 Family History Medical History Relation [...] 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 Not on file Not on file Last Filed Vital Signs Vital Sign Reading Time Taken Comments Blood Pressure 127/58 07/05/2025 11:22 AM EDT Pulse 76 07/05/2025 11:22 AM EDT Temperature 36.9 C (98.4 F) 07/05/2025 11:22 AM EDT Respiratory Rate 17 07/05/2025 11:22 AM EDT Oxygen Saturation 93% 07/05/2025 11:22 AM EDT Inhaled Oxygen Concentration 40% 03/01/2018 5 :00 PM EDT Weight 90.4 kg (199 lb 4.7 oz) 07/05/2025 11:22 AM EDT Height 173.3 cm (5' 8.23 ) 07/05/2025 11:22 AM E DT Body Mass Index 30.1 07/05/2025 11:22 AM EDT Plan of Treatment Upcoming Encounters Date Type Department Care Team (Late st Contact Info) Description 07/08/2026 11:30 AM EDT [facility] [place] [address] [place] [address], [address] [place] [address] Jona Bonilla MD, DMD [address] [place] [address] [email or web address] Health Maintenance Due Date Last Done Comments Adult Td,Tdap Booster 1940 DEPRESSION SCREENING 1952 LIPID PANEL 1958 ZOSTER VACCINES (1 of 2) 1959 RSV VACCINE (1 - 1-dose 75+ series) 2015 CREATININE LEVEL 03/03/2019 03/03/2018, 09/2018, 03/01/2018, Additional history exists POTASSIUM LEVEL 03/03/2019 03/03/2018, 02/20, 03/01/2018, Additional history exists INFLUENZA VACCINE (#1) 2025 , 08/31/2023, 09/23/2022, Additional history exists COVID-19 VACCINE ( - season) 2025 01/22/2021, 01/01/2021 BLOOD PRESSURE 01/05/2026 07/05/2025 PNEUMOCOCCAL VACCINES (50+ years) Completed 07/07/2022, 01/18/2020 [...] EDT) SODIUM 142 136 - 145 mmol/L [facility] POTASSIUM 3.8 3.4 - 5.0 mmol/L [facility] CHLORIDE 100 98 - 107 mmol/L [facility] CO2 28 22 - 31 mmol/L [facility] BUN 27(H) 6 - 23 mg/dL [facility] CREATININE 1.15 0.50 - 1.20 mg/dL [facility] GLUCOSE 172(H) 70 - 100 mg/dL [facility] CALCIUM 9.2 8.8 - 10.7 mg/dL [facility] EGFR 61 >59 mL/min/1.7 3m2 [facility] Comment:If patient is black, multiply result by 1.159. Estimated glomerular filtration rate calculated using the CKD-EPI equation. ANION GAP 14 5 - 17 mmol/L [facility] Blood 03/03/2018 6:38 AM EDT 03/03/2018 7:12 AM EDT us Jona Bonilla MD, DMD LAB BLOOD ORDERABLES Fin al Result [facility] [address] [place] [phone] from Last 3 Months or Most Recently Relevant to Health Maintenance Insurance BLUE CROSS MEDEX SUPPLEMENT MEDICARE PART A & B [employer] CROSS MEDEX SUPPLEMENT MEDICARE PART A & B [employer] CROSS MEDEX SUPPLEMENT MEDICARE PART A & B [employer] CROSS MEDEX SUPPLEMENT MEDICARE PART A & B [employer] SUPPLEMENT MEDICARE PART A & B [employer] CROSS MEDEX SUPPLEMENT MEDICARE PART A & B [employer] CROSS MEDEX SUPPLEMENT MEDICARE PART A & B [employer] MED[employer] SUPPLEMENT MEDICARE PART A & B [employer] MEDEX SUPPLEMENT MEDICARE PART A & B MEDICARE PART A & B [employer] CROSS MEDEX SUPPLEMENT MEDICARE PART A & B [employer] CROSS MEDEX SUPPLEMENT MEDICARE PART A & B [employer] CROSS MEDEX SUPPLEMENT MEDICARE PART A & B [employer] CROSS MEDEX SUPPLEMENT MEDICARE PART A & B [employer] CROSS MEDEX SUPPLEMENT MEDICARE PART A & B [employer]UE [employer] MEDEX SUPPLEMENT MEDICARE PART A & B [employer] MED[employer] SUPPLEMENT MEDICARE PART A & B [employer] MED[employer] SUPPLEMENT MEDICARE PART A & B Member Subscriber Plan / Payer (Ef fective 2005-Present) Name:Feilx Syed Member ID:[id number] Relation to Subscriber:Self Name:Felix Syed Subscriber ID:[id number] Payer ID:[id number] Group ID:Not on file Type:Medicare Address: [place] [address] [address] [employer] [place] MED[place] SUPPLEMENT Advance Directives For more information, please contact: [phone] (9AM - 5PM [facility], Wednesday-Wednesday) Documents on File Type Date Recorded Patient Petrologist Expl anation Healthcare Proxy 12/23/2017 1:08 PM * Full Code (Presumed) (Latest Code Status on File) Date Activated Date Inactivated Comments 03/01/2018 6:39 PM 03/03/2018 2:28 PM * Full Code (Presumed) Date Activated Date Inactivated Comments 02/28/2018 5:49 PM 03/01/2018 6:39 PM Care Teams Economic Research Analyst Relationship Specialty Start Date End Date Self-Referred, Patient 12/10/17 Cali Corral MD [email or web address] Card[facility] 03/24/19 Additional Source Comments The information contained in this document represents components of the legal health record. It is not the complete legal health record.[facility]
--- OUTSIDE RECORDS SUMMARY | 2025-09-11 16:59 | XMS_ITS | Encounter Summary ---
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 Not on file Not on file documented as of this encounter Plan of Treatment Upcoming Encounters Date Type Department Care Team (Late st Contact Info) Description 07/08/2026 11:30 AM EDT [facility] [place] [address], [address] [place] [address] Jona Bonilla MD, DMD [address] [place] [address] [email or web address] documented as of this encounter Visit Diagnoses Not on filedocumented in this encounter Care Teams Rehab Trainer Relationship Specialty Start Date End Date Bonilla Silver DO [address] [place] [address] PCP - General Internal Medicine 12/10/17 03/23/19 Self-Referred, Patient 12/10/17 Cali Corral MD [email or web address] Cardiology 03/24/19 documented as of this encounter Additional Source Comments The information contained in this document represents components of the legal health record. It is not the complete legal health record.[facility]
--- OUTSIDE RECORDS SUMMARY | 2025-09-11 16:59 | XMS_ITS | Encounter Summary ---
Author Organization 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 Not on file Not on file documented as of this encounter Plan of Treatment Upcoming Encounters Date Type Department Care Team (Late st Contact Info) Description 07/08/2026 11:30 AM EDT Office [facility] [place] [address] [place] [address], [address] [place] [address] Jona Bonilla MD, DMD [address] [place] [address] [email or web address] documented as of this encounter Visit Diagnoses Not on filedocumented in this encounter Care Teams Wearing Apparel Shaker Relationship Specialty Start Date End Date Bonilla Silver DO [address] [place] [address] PCP - General Internal Medicine 12/10/17 03/23/19 Self-Referred, Patient 12/10/17 Clai Corral MD [email or web address] Cardiology 03/24/19 documented as of this encounter Additional Source Comments The information contained in this document represents components of the legal health record. It is not the complete legal health record.[facility]
--- OUTSIDE RECORDS SUMMARY | 2025-09-11 17:00 | XMS_ITS | Clinical Summary ---
Author Organization [facility] Address [address] [place] [phone] Phone Care Team Providers Care Follow Up Specialist Name Role Phone Anton Perla Primary Care Provider [phone] Allergies Active Allergy Reactions Criticality Noted Date [...] MOUTH ONCE DAILY 90 tablet 11/28/2022 Active losartan (Cozaar) 25 MG tabletIndication s:Stage 3b chronic kidney disease (HCC),Hypertensi on Take 1 tablet (25 mg total) by mouth 1 (one) time each day 90 tablet 3 04/19/2024 Active hydroCHLOROthiaz tyesha 25 MG tablet Take 25 mg by mouth 11/19/2022 Active potassium chloride (KLOR-CON M20) 20 MEQ CR tablet Take 1 tablet (20 mEq total) by mouth 1 (one) time each day Do not crush or chew. 90 tablet 3 01/10/2025 Active potassium chloride 10 MEQ CR tabletIndication s:Hypokalemia Take 1 tablet (10 mEq total) by mouth 1 (one) time each day Do not crush, chew, or split. 90 tablet 3 04/18/2025 Active Active Problems Problem Noted Date Diagnosed Date Microalbuminuria 04/18/2025 Stage 3b chronic kidney disease 04/20/2024 Hypokalemia [...] rupture 018 Malignant neoplasm of prostate 08/22/2015 Immunizations Immunization Administration Dates Next Due H1N1 All Forms 11/20/2009 Pfizer SARS-COV-2 01/22/2021,01/01/2021 Family History Medical History Relation Comments Hypertension Mother Heart disease Sister Relation Status Comments Mother Sister Social History Tobacco Use Types [...] Sign Reading Time Taken Comments Blood Pressure 126/58 04/18/2025 1:26 PM EDT Pulse 84 04/18/2025 1:26 PM EDT Temperature - - Respiratory Rate - - Oxygen Saturation 91% 10/16/2024 2:24 PM EST Inhaled Oxygen Concentration - - Weight 92.4 kg (203 lb 12.8 oz) 04/18/2025 1:26 PM EDT Height 177.8 cm (5' 10 ) 10/20/2023 2:02 PM EST Body Mass Index 29.24 10/20/2023 2:02 PM EST Plan of Treatment Upcoming Encounters Date Type Department Care Team (Late st Contact Info) Description 09/22/2025 Orders Only [facility]. [address] [address] Kait Angela ARNP [address] [address] Stage 3b chronic kidney disease (HCC); Hypokalemia; Hypertension; Microalbuminuria 10/16/2025 2:00 PM EST Office Visit [facility] [address] [address] Kait Angela ARNP [address] [address] Health Maintenance Due Date Last Done Comments Pneumococcal Vaccine: 50+ Ye ars (1 of 2 - PCV) 1959 Diabetes: Ophthalmology Exam 07/01/2021 Diabetes: Pedal Pulse Checked 07/01/2021 Diabetes: Sensory Foot Exam 07/01/2021 Diabetes: Visual Foot Exam 07/01/2021 Diabetes: Hemoglobin A1C 01/09/2022 10/09/2021 Influenza Vaccine (#1) 2025 08/23/2017 Hepatitis B Vaccine Aged Out No longe r eligible based on patient's age to complete this topic Procedures Procedure Name Priority Date/Time Associated Diagnosis Comments ALBUMIN, URINE, RANDOM Routine 09/11/2025 2:53 PM EDT PROTEIN / CREATININE RATIO, URINE Routine 09/11/2025 2:53 PM EDT Stage 3b chronic kidney disease (HCC) Hypokalemia Hypertension Microalbuminuria PTH, INTACT (HC) Routine 09/11/2025 1:51 PM EDT CBC AND DIFFERENTIAL Routine 09/11/2025 1:51 PM EDT HEMOGLOBIN A1C Routine 10/09/2021 3:08 PM EST from Last 3 Months or Most Recently Relevant to Health Maintenance Results * Urine Protein / creatinine ratio (09/11/2025 2:53 PM EDT) Protein Urine Random <7 <12 mg/dL See order comments Protein/Creatin ine Ratio, Urine TNP <0.2 See order comments Comment: Unable to calculate urine protein creatinine ratio due to low creatinine or protein result. Unable to calculate urine protein creatinine ratio due to low creatinine or protein result. Urine Urine specimen obtained by clean catch procedure / Unknown 09/11/2025 2:53 PM EDT 09/11/2025 2:53 PM EDT Result [facility] [email or web address] [facility] LAB URINE ORDERABLES Final Result Performing Organization Address [facility] de Phone Number [place] See order comments [place] [address] * Albumin, urine, random (09/11/2025 2:53 PM EDT) Creatinine, Urine 65.98 mg/dL Se e order comments Urine Microalbumin 13.0 mg/L See order comments Microalbumin/Crea tinine Ratio 19.7 <30 ug/mg cr See order comments Comment: Albumin/Creatinine Ratio Reference Ranges: Normal: < 30 ug/mg creatinine Microalbuminuria: 30 - 300 ug/mg creatinine Clinical Albuminuria: > 300 ug/mg creatinine 09/11/2025 2:53 PM EDT 09/11/2025 2:53 PM EDT [email or web address] [facility] LAB URINE ORDERABLES Final Result Performing Organization Address [facility] de Phone Number [place] See order comments [place] [address] * (ABNORMAL) PTH, Intact (09/11/2025 1:51 PM EDT) Parathyroid Hormone, Intact 164.6(H) 8.7 - 77.1 pg/mL See order comments 09/11/2025 1:51 PM EDT 09/11/2025 1:51 PM EDT Kait Angela [facility] LAB HISTORICAL-CONVERSIONS- UNSOLICITED RESULTS Final Result [place] See order comments [place] [address] * (ABNORMAL) CBC and Differential (09/11/2025 1:51 PM EDT) WBC 6.8 4.8 - 10.8 X10*3/uL See order comments RBC 3.41(L) 4.60 - 5.80 X10*6/uL See order comments Hgb 11.5(L) 14.0 - 18.0 g/dl See order comments Hematocrit 35.4(L) 42.0 - 52.0 % See order comments MCV 103.8(H) 80.0 - 98.0 fL See order comments MCH 33.7(H) 27.0 - 33.0 pg See order comments MCHC 32.5 31.0 - 36.0 g/dl See order comments RDW 13.8 11.0 - 16.0 % See order comments Platelets 184 160 - 400 X10*3/uL See order comments MPV 9.8 9.4 - 12.4 fL See order comments Neutrophils % Auto 68.7 45 - 73 % See order comments Immature Granulocytes 0.4 0.0 - 0.4 % See order comments Lymphocytes Relative 20.1 20 - 40 % See order comments Monocytes 7.5 2 - 11 % See order comments Eosinophils Relative 2.3 0 - 4 % See order comments Basophils Relative 1.0 0 - 2 % See order comments nRBC Count 0.0 0.0 - 0.2 /100WBC See order comments Neutrophils Absolute 4.7 2.0 - 8.3 x10*3/uL See order comments Immature Grans (Absolute) 0.03 0.00 - 0.03 X10*3/uL See order comments Lymphocytes Absolute 1.4 1.2 - 4.9 X10*3/uL See order comments Monocytes Absolute 0.5 0.1 - 1.2 X10*3/uL See order comments Eosinophils Absolute 0.2 0.0 - 0.4 X10*3/uL See order comments Basophils Absolute 0.1 0.0 - 0.2 X10*3/uL See order comments NRBC Absolute 0.000 0.0 - 0.012 X10*3/uL See order comments 09/11/2025 1:51 PM EDT 09/11/2025 1:51 PM EDT us Kait GAGE LAB BLOOD ORDERABLES Final Result Performing Organization Address City/[facility]/ZIP Co de Phone Number [place] See order comments [place] [address] * (ABNORMAL) Hemoglobin A1c (10/09/2021 3:08 PM EST) Hemoglobin A1C 6.4(H) (4.0-5.6) % [facility] Comment: MONITORING: In known diabetic patients, hemoglobin A1c targets should be discussed with health care provider. DIAGNOSTIC USE: The [place] [employer] (ADA) and the World Health [...] Supplement 1 Testing performed or reported by [facility], a Service of [facility], [address] [place] [address] Hermes Butler MD, Process Technician [facility]# [id number] 10/09/2021 3:08 PM EST 10/09/2021 3:12 PM EST us Caio De La Cruz MD LAB BLOOD ORDERABLES Final Re sult [facility] from Last 3 Months or Most Recently Relevant to Health Maintenance Insurance Medicare [facility] Medicare [facility] Care Teams Follow Up Specialist Relationship Specialty Start Date End Date Anton Perla PA [address] [place] [address], [address] [place] [address] PCP - General Physician Sales Market Leader 09/29/22
[2025-09-11 17:44] LABS: Alanine Aminotransferase 10 U/L (0-40); Albumin Level 4.2 g/dL (3.5-5.0); Alkaline Phosphatase 72 U/L (39-117); Anion Gap 14 (12-20); Aspartate Amino Transferase 17 U/L (5-37); Blood Urea Nitrogen 53 mg/dL (9-16); Calcium 9.4 mg/dL (8.4-10.2); Carbon Dioxide 29 mmol/L (22-29); Chloride 101 mmol/L (96-108); Cholesterol 168 mg/dL (<200); Estimated Glomerular Filt Rate 30; HDL Cholesterol 42 mg/dL (>40); Magnesium 1.8 mg/dL (1.6-2.6); Potassium 4.0 mmol/L (3.3-5.1); Sodium 140 mmol/L (135-145); Total Protein 7.2 g/dL (6.5-8.0); Triglycerides 121 mg/dL (<150)
== END 2025-09-11 13:08 | disposition home or self-care (01) ==
LOC: HO.LAB 13:07
PROVIDERS: Absent Provider Physician Assistant; PCP Physician Assistant; Visit Provider Internal Medicine Nephrology
DX: E11.22 Type 2 diabetes mellitus with diabetic chronic kidney disease (principal); I13.0 Hypertensive heart and chronic kidney disease with heart failure and stage 1 through stage 4 chronic kidney disease, or unspecified chronic kidney disease; N18.32 Chronic kidney disease, stage 3b; I50.32 Chronic diastolic (congestive) heart failure; E11.65 Type 2 diabetes mellitus with hyperglycemia; E87.6 Hypokalemia; R39.9 Unspecified symptoms and signs involving the genitourinary system; R80.9 Proteinuria, unspecified
CPT/HCPCS: 36415; 80053; 80061; 81003; 82043; 82570; 83735; 83970; 84156; 84443; 85025

== ENCOUNTER 2025-09-20 14:13 | Outpatient (AMB) | payer MEDICARE, SELFPAY ==
[2025-09-20 14:14] VITALS: BP 124/60; PULSE 82; O2SAT 93; BMI 29.6
--- NOTE | 2025-09-20 14:14 | A.OFFPC_ITS ---
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 Cleaner Required: No Accompanied by: Self / Same As Patient Allergies cephalexin (Keflex) Allergy (Unknown, Verified 09/20/25 14:26) diarrhea Sulfa (Sulfonamide Antibiotics) Allergy (Unknown, Verified 09/20/25 14:26) Unknown prednisone Adverse Reaction (Severe, Verified 09/20/25 14:26) dementia Medication List - Last Reconciled 09/20/25 by Anton Perla PA-C albuterol sulfate 90 mcg/actuation 2 puffs inhalation Q6H PRN alfuzosin ER 10 mg PO DAILY apixaban (Eliquis) 2.5 mg PO BID 90 days [diabetic shoe inserts As directed] [diabetic shoes As directed] diltiazem HCl CD 240 mg PO DAILY 90 days empagliflozin (Jardiance) 25 mg PO DAILY folic acid 1 mg PO DAILY 90 days furosemide 40 mg PO DAILY 90 days hydrochlorothiazide 25 mg PO DAILY 90 days losartan 25 mg PO DAILY potassium chloride ER (Klor-Con M) 30 mEq PO DAILY Tobacco use date assessed: 09/20/25 Fall risk assessment: No Falls in past year Last assessed Fall Risk: 09/20/25 Dental Screening Dental Screen Date: 09/20/25 Did you have a dental visit in the last 12 months?: Yes Did you have a dental problem in the last 6 months where you did not have access to dental care?: No Was dental information given to patient?: Patient has dentist HPI f/u DMII 2 HPI0 Details Patient is an 84-year-old male here today for a follow-up visit.? Patient has a past medical history significant for aortic stenosis, abdominal aortic aneurysm, coronary artery disease, type 2 diabetes, hypertension, paroxysmal AFib, CKD stage 3, COPD and Congestive heart failure.. Loose stools: Patient has a several month history of loose stools. Has upcoming CT of the abdomen for evaluation. Has tried probiotics [id number] though have not been effective Will send for stool studies. PLAN: Will trial Metamucil stool bulking agent and loperamide .. Lumbar stenosis: His back pain has worsened and is now his most significant problem, limiting his mobility and quality of life. He believes the pain is from lumbar stenosis due to arthritis. Past treatments, including cortisone injections [facility] and nerve ablation procedures, have failed to provide relief. .. CKD stage III-most recent creatinine 2.0- recent creatinine at 2 Is followed by a nephroloist in [place].? Does have hyperparathyroidism as well though calcium normal Will wait level again noted to be low though improved from previous lab draw. .. CAD/ CHF:? He reports fatigue, weight gain of five pounds over three months, a contributing factor possibly linked to chronic heart failure history, as indicated by periorbital edema . His recent echocardiogram appear stable without any significant change. Back pain prevents him from walking as exercise. followed by [facility] [place] [facility]. Denies any significant shortness of breath on exertion. PLAN : Will increase his Lasix temporarily to 60 mg for the next week. .. AFIB:? Followed by [facility]. Continues on renally dosed Eliquis and diltiazem for rate control.? Denies any overt signs of bleeding.? Continues to follow cardiology.? Has now recent episodes palpitations, shortness of breath the chest discomforts. .. AAA:? Is followed vascular surgeon at [facility] recently had his abdominal aorta endovascularly fixed. CT of abdomen without any enlarging abdominal aneurysm. He awaits a follow-up with his vascular surgeon. ... ? COPD:? does have a history of COPD, has quite smoking.? Reports only using an albuterol inhaler on a p.r.n. basis. Denies any shortness of breath at rest though does have shortness of breath on exertion which is been a chronic issue. Laboratory Tests 01/28/22 02/15/25 06/13/25 10:15 11:26 11:16 Hgb BUN Creatinine 1.76 H 1.97 H Estimated GFR 37 33 Fasting Glucose Cholesterol LDL Cholesterol, C alc TSH PTH Intact 78 H Urine Glucose (UA) 09/11/25 09/11/25 13:37 13:51 Hgb 11.5 L BUN 53 H Creatinine 2.10 H Estimated GFR 30 Fasting Glucose 132 H Cholesterol 168 LDL Cholesterol, C alc 102 H TSH 0.92 PTH Intact 164.6 H Urine Glucose (UA) 250 H [facility] Medical History Insomnia Atherosclerotic cardiovascular disease Cellulitis CHF (congestive heart failure) CKD (chronic kidney disease) stage 3, GFR 30-59 ml/min Smoker COPD (chronic obstructive pulmonary disease) Presence of stent in coronary artery in patient with coronary artery disease Abdominal aortic aneurysm Paroxysmal atrial fibrillation Renal insufficiency UTI (urinary tract infection) Diabetes mellitus Acquired hypothyroidism Edema eyelid Essential (primary) hypertension Surgical History Status post endovascular aneurysm repair (EVAR) H/O neck surgery History of tonsillectomy History of cardiac catheterization History of nasal surgery Family History Father Myocardial infarction Mother Alzheimers disease Social History Household Members: Significant Other Housing: House Alcohol intake: current Alcohol intake frequency: a few times a month Comment: pt in recliner-camera on Patient Tobacco Use Status: Former Tobacco user Years Smoked: 60 e-Cigarette/Vaping Use: Never Used Advance Directives Date on File: 12/27/21 service: No Current occupational status: retired Current occupational exposures/hazards: No Cognitive needs: Yes (cane/walker) Hearing needs: No Vision needs: No Questionnaire Thrive Questionnaire Date Thrive assessed: 06/20/25 I am a: Patient What is your living situation today?: I have a steady place to live Within the past 12 months, did the food you bought not last and you didn't have the money to get more?: Never true Within the past 12 months, did you worry whether your food would run out before you got money to buy more?: Never true Do you have trouble paying for medicines?: No Do you have trouble getting transportation to medical appointments?: No Do you have trouble paying your heating and electricity bill?: No Do you have trouble taking care of your child, family member or friend?: No Do you have trouble with day-to-day activities such as bathing, preparing meals, shopping, managing finances, etc.?: No Are you currently unemployed and looking for a job?: No Are you interested in more education?: No Please select the resources that you would like help with: None Currently or been in a relationship where the following occur: No concerns reported THRIVE Score: 0 AUDIT C Alcohol Use Questionnaire (AUDIT-C) 1. How often do you have a drink containing alcohol?: 2-4 times a month 2. How many drinks containing alcohol do you have on a typical day when you are drinking?: 1 or 2 3. How often do you have six or more drinks on one occasion?: Never Total Score: 2 GABRIELLA-7 AMB Questionnaire GABRIELLA-7 Date GABRIELLA - 7 assessed: 06/20/25 Source: Developed by Drs. Rickey Hernandez, Genoveva Albright, Vinny Chris and colleagues, with an educational joseline from [employer]. Review of Systems Const Denies headache(s) Eyes Denies loss of vision ENT Denies vertigo, Denies dizziness, Denies headache(s) and Denies sore throat Card Denies chest pain, Denies leg edema and Denies lightheadedness Resp Denies cough, Denies hemoptysis and Denies wheezing GI Denies abdominal pain, Denies melena, Denies constipation, Denies diarrhea and Denies vomiting Denies dysuria, Denies urinary frequency and Denies urinary urgency Musc Denies arthralgias, Denies joint swelling, Denies numbness and Denies tingling Neuro Denies Abnormal speech present, Denies behavioral changes, Denies vertigo, Denies dizziness, Denies headache(s), Denies loss of vision, Denies memory loss, Denies numbness and Denies tingling Psych Denies anxiety, Denies behavioral changes, Denies depression, Denies memory loss and Denies panic attacks Cr/Lymph Denies easy bleeding and Denies easy bruising Aller/Immun Denies wheezing Physical exam (Primary Care) Vital Signs: Last Vital Signs Pulse 82 09/20/25 14:14 BP 124/60 09/20/25 14:14 Pulse Ox 93 09/20/25 14:14 Oxygen Delivery Method Room Air 09/20/25 14:14 BMI result Body Mass Index 29.6 Tobacco/Smoking Status: Tobacco use Status Tobacco use date assessed 09/20/25 09/20/25 14:21 Patient Tobacco Use Status Former Tobacco user 09/20/25 14:21 Tobacco use type 03/04/23 14:29 e-Cigarette/Vaping Use Never Used 09/20/25 14:21 Thrive Assessment: Date of Thrive Assessment Date Thrive assessed 06/20/25 09/20/25 14:21 Currently or been in a relationship where the following occur: No concerns reported Const General: healthy appearing, no acute distress, alert and awake Nutritional Appearance: well nourished Orientation/consciousness: oriented to person, oriented to place and oriented to time HENMT Ears: TM's normal bilaterally General nose exam: Normal nasal mucous membranes and turbinates present Face images: 2 1. RIGHT PERIORBITAL EDEMA NOTED Eyes Conjunctivae: conjunctivae normal Sclerae: sclerae normal Pupils: Equal, round and reactive pupils present Neck Neck: Yes no lymphadenopathy and Yes no JVD Thyroid: Thyroid normal Carotids: no bruits Resp Effort & Inspection: normal respiratory effort and not tachypneic Auscultation: no crackles, no rales, no rhonchi and no wheezes Cardio Rate: regular rate Rhythm: regular rhythm Heart sounds: no murmurs and normal S1 and S2 GI Palpation (GI): Soft to palpation, nontender, no hepatomegaly and no splenomegaly Auscultation: normal bowel sounds Skin General skin exam: no rashes or lesions noted and dry skin Neuro General: oriented to person, oriented to place and oriented to time Cranial nerves: Yes Equal, round and reactive pupils present Speech: No Abnormal speech present Gait exam (Neuro): Normal gait present Motor exam (neuro): no tremor noted Extrem Right upper extremity: full ROM Left upper extremity: full ROM Right lower extremity: full ROM; no edema Left lower extremity: full ROM; no edema Psych Mental Status: mental status grossly normal Speech and movement: Normal speech and movement present Affect: normal affect Attitude: cooperative Thought process: Normal thought process present Office Procedures Flu Questionnaire Does the patient have a severe egg allergy?: No Does the patient have severe life threatening allergies?: No Does the patient have a fever or illness today?: No Has the patient ever had Guillain-[place] Syndrome?: No Has the patient ever had any past reaction to a flu shot?: No Immunizations Fluarix [id number] (PF) 45 mcg (15 mcg x 3)/0.5 mL IM syringe Performing Provider: Anton Perla PA-C Performing Location: [facility] Administered by: Kori Mak CMA on 09/20/25 15:06 2 Dose Route Admin Location Dispensed Lot Number Expiration Date NDC Recovery Operator Helper 0.5 mL IM Right Deltoid 0.5 mL [id number] 05/21/26 [id number] [id number] 2 VIS Given Date VIS Provided VIS Publication Date 09/20/25 Single Vaccine 24 Eligibility Eligibility Date Funding Source Not [facility] Eligible 09/20/25 Private Coding Level of Care Code Est Pt Level 4 (46137) Diagnoses Chronic diastolic (congestive) heart failure I50.32 Essential (primary) hypertension I10 Type 2 diabetes mellitus with hyperglycemia, without long-term current use of insulin E11.65 Diabetes mellitus complication status: with hyperglycemia Diabetes mellitus director of partner marketing insulin use: without director of partner marketing use Stage 3a chronic kidney disease N18.31 Chronic kidney disease stage 3 subtype: stage 3a (GFR 45-59) Chronic fatigue R53.82 Fatigue type: chronic, unspecified Loose stools R19.5 Spinal stenosis of lumbar region, unspecified whether neurogenic claudication present M48.061 Neurogenic claudication status: unspecified Assessment & Plan Assessment & Plan (1) Chronic diastolic (congestive) heart failure: Code(s): I50.32 - Chronic diastolic (congestive) heart failure Category: Medical Plan: Patient's chronic diastolic heart failure seems to be a bit decompensates with a bit more abdominal bloating and periorbital edema. Will increase his Lasix to 60 mg for 1 week and evaluate his weight. (2) Essential (primary) hypertension: Code(s): I10 - Essential (primary) hypertension Category: Medical Plan: Patient's blood pressure acceptable today in office. . He continues on hydrochlorothiazide, losartan and furosemide. Due to his noted periorbital edema and weight gain over last few months we are concerned about worsening heart failure. Goal blood pressures to remain below 140/90 and above 100/60 (3) Type II diabetes mellitus: Code(s): E11.9 - Type 2 diabetes mellitus without complications Category: Medical Qualifiers: Diabetes mellitus complication status: with hyperglycemia Diabetes mellitus alf insulin use: without director of partner marketing use Qualified Code(s): E11.65 - Type 2 diabetes mellitus with hyperglycemia Plan: Patient's type 2 diabetes well controlled with current dose of Jardiance. Most recent A1c of 5.7. Goal A1c is to remain below 7.0 (4) CKD (chronic kidney disease) stage 3, GFR 30-59 ml/min: Code(s): N18.30 - Chronic kidney disease, stage 3 unspecified Category: Medical Qualifiers: Chronic kidney disease stage 3 subtype: stage 3a (GFR 45-59) Qualified Code(s): N18.31 - Chronic kidney disease, stage 3a Plan: Continues to follow Nephrology. Creatinine slightly elevated most recent labs at 2.1 Electrolytes are within normal range particular leave his potassium. He continues On potassium supplementation. Again we did discuss perhaps reducing his furosemide dose slightly as he has been euvolemic for quite some time now. (5) Fatigue: Code(s): R53.83 - Other fatigue Category: Medical Qualifiers: Fatigue type: chronic, unspecified Qualified Code(s): R53.82 - Chronic fatigue, unspecified Plan: Fatigue is likely multifactorial, related to heart failure, chronic kidney disease and sleep disturbance; addressing sleep hygiene may help alleviate symptoms. (6) Loose stools: Code(s): R19.5 - Other fecal abnormalities Category: Medical Plan: Regarding the chronic diarrhea, stool studies will be ordered to check for C. difficile and other pathogens. The patient has a CT of the abdomen and pelvis scheduled for October 05, which may provide further insight. Recommended trying Metamucil to bulk the stool and reassured the patient that regular use of loperamide (Imodium) every two days is safe for symptom management. (7) Lumbar stenosis: Code(s): M48.061 - Spinal stenosis, lumbar region without neurogenic claudication Category: Medical Qualifiers: Neurogenic claudication status: unspecified Qualified Code(s): M48.061 - Spinal stenosis, lumbar region without neurogenic claudication Plan: For the worsening back pain, we will await the results of the upcoming spine CT scan scheduled for October 05. The patient is exploring the use of CBD cream for pain relief. A trial of tramadol was offered for use as needed for severe pain, with a discussion of the associated risks such as sedation. A potential consult with a neurosurgeon was discussed, though the high risks of surgery given his comorbidities were acknowledged. Orders: Orders 2 GI Panel Today R19.5 - Other fecal abnormalities H pylori Ag Stool Today R19.5 - Other fecal abnormalities Leukocytes Stool Qualitative Today R19.5 - Other fecal abnormalities Routine Culture w Gram Stain Today R19.5 - Other fecal abnormalities Influenza [id number] Immunization Today Z23 - Encounter for immunization Giardia Ag Stool EIA Today R19.5 - Other fecal abnormalities
--- OUTSIDE RECORDS SUMMARY | 2025-09-20 17:15 | XMS_ITS | Patient Health Record ---
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
--- OUTSIDE RECORDS SUMMARY | 2025-09-20 17:15 | XMS_ITS ---
Author Name Maximo Haskins Address Unknown Organization [facility] Care Team Providers Care Trailer Rental Clerk Name Role Phone Unavailable Primary Care Physician Unavailab le History Of Present Illness This is an 84 year old male who is following up for rule-out basal cell carcinoma on the right proximal pretibial region. He was seen on July 17, 2025, at which time Biopsy by Shave Method was performed. 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 Allergies, Adverse Reactions, Alerts Substance RxNorm Reaction(s) Severity Status Start Da te Sulfa (Sulfonamide Antibiotics) unspecif ied active prednisone Other: severe active Medications Medication Generic Name RxNorm Strength Strength Unit Route Dose Dose Form Frequency Date Started Date Ended Status Indication Sig betamethaso ne dipropionat e betameth asone dipropio eklly 619266 0.05 % Topica l apply BID topic ally to affec terence areas lotio n 04/29/20 23 active dermatology Appl y twic e gildardo y to affe cted area s on scal p for 1-2 week s PRN. albuterol sulfate 9699613 90 mcg/actua tion Inhala tion HFA Aeros ol Inhal er active as alfuzosin 703417 10 mg Oral QD Table t, Exten ded Relea se 24 hr active cardiac Cephalexin cephalex in NULL oral 11/11/20 17 suspend ed diltiazem HCl diltiaze m HCl 240 mg Oral QD capsu le,ex tende d relea se 24hr active cardiac Eliquis apixaban 2.5 mg Oral QD table t active afib furosemide furosemi de 40 mg Oral QD table t active CHF hydrochloro thiazide hydrochl orothiaz tyesha 25 mg Oral QD table t active HTN Jardiance 6214828 25 mg Oral QD table t active DM Klor-Con M20 6813086 20 mEq Oral QD Table t, Exten ded Relea se Parti cles/ Cryst als active HTN losartan 680765 25 mg Oral QD table t active HTN Plavix clopidog rel 75 mg Oral table t suspend ed potassium chloride potassiu m chloride 10 mEq Oral QD capsu le, exten ded relea se active wellness Amoxicillin -Pot Clavulanate NULL 03/23 02/08 14 active Ciprofloxac in HCl NULL 04/13/20 14 active Combivent NULL 04/13/20 14 active Diltiazem HCl ER Beads NULL 04/13/20 14 active Finasteride NULL 04/13/20 14 active Hydrochloro thiazide NULL 0 14 active Hydrochloro thiazide NULL 0 14 active Januvia NULL 04/13/20 14 active Levaquin NULL 04/13/20 14 active LevoFLOXaci n NULL 07/20/20 17 active LORazepam NULL 07/20/20 17 active LORazepam NULL 04/13/20 14 active LOSARTAN POTASSIUM 100 MG TAB NULL 12/01 11 active PredniSONE NULL 07/20/20 17 active Tamsulosin HCl NULL 04/13/20 14 active Taztia XT NULL 04/13/20 14 active Triamcinolo ne Acetonide triamcin olone acetonid e NULL 12/01/19 11 suspend ed Uroxatral NULL 04/13/20 14 active Problems Problem Code Type Status Date of Diagnosis Da te of Resolution Basal cell carcinoma of lower extremity (disorder) 197571152(SN OMED) Diagnosis active 09/17/2025 Scar conditions and fibrosis of skin (disorder) 720569915(SN OMED) Diagnosis active 07/17/2025 Neoplasm of uncertain behavior of skin (disorder) 28190661(SNO MED) Diagnosis active 07/17/2025 Disorder of skin (disorder) 91248062(SNO MED) Diagnosis active 07/17/2025 Disorder of capillaries (disorder) 70863766(SNO MED) Diagnosis active 07/17/2025 Melanocytic nevus of trunk (disorder) 919720823(SN OMED) Diagnosis active 07/17/2025 Scar conditions and fibrosis of skin (disorder) 776507100(SN OMED) Diagnosis active 12/26/2024 Disorder of pigmentation (disorder) 445735166(SN OMED) Diagnosis active 12/26/2024 Melanocytic nevus of trunk (disorder) 475284590(SN OMED) Diagnosis active 12/26/2024 Disorder of pigmentation (disorder) 650203857(SN OMED) Diagnosis active 12/26/2024 History of neoplasm (situation) 997970926(SN OMED) Diagnosis active 06/08/2024 History of malignant neoplasm of skin (situation) 975379843(SN OMED) Diagnosis active 06/08/2024 Seborrheic dermatitis (disorder) 68879040(SNO MED) Diagnosis active 06/08/2024 Disorder of pigmentation (disorder) 209045403(SN OMED) Diagnosis active 06/08/2024 Wound of left forearm due to nonvenomous insect bite (disorder) 398445859178 64535(SNOMED ) Diagnosis active 06/08/2024 Inflamed seborrheic keratosis (disorder) 241707973(SN OMED) Diagnosis active 06/08/2024 History of neoplasm (situation) 493874118(SN OMED) Diagnosis active 11/23/2023 History of malignant neoplasm of skin (situation) 264478879(SN OMED) Diagnosis active 11/23/2023 Seborrheic dermatitis (disorder) 35997399(SNO MED) Diagnosis active 11/23/2023 Disorder of pigmentation (disorder) 138502620(SN OMED) Diagnosis active 11/23/2023 Wound of left forearm due to nonvenomous insect bite (disorder) 605103902224 44954(SNOMED ) Diagnosis active 11/23/2023 Basal cell carcinoma of face (disorder) 600215097(SN OMED) Diagnosis active 09/22/2023 Inflamed seborrheic keratosis (disorder) 788258516(SN OMED) Diagnosis active 09/22/2023 Seborrheic keratosis (disorder) 298098580(SN OMED) Diagnosis active 09/22/2023 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 (disorder) 28088078(SNO MED) Diagnosis active 05/20/2023 Scar conditions and fibrosis of skin (disorder) 966471722(SN OMED) Diagnosis active 04/29/2023 Basal cell carcinoma of nose (disorder) 006648568(SN OMED) Diagnosis active 04/29/2023 Inflamed seborrheic keratosis (disorder) 128265480(SN OMED) Diagnosis active 04/29/2023 Seborrheic dermatitis (disorder) 04206133(SNO MED) Diagnosis active 04/29/2023 Other specified health status Z78.9(ICD-10 ) Diagnosis active 04/05/2018 History of malignant neoplasm of skin (situation) 413095330(SN OMED) Diagnosis active 04/05/2018 Surgical follow-up (finding) 720448535(SN OMED) Diagnosis active 11/19/2017 Basal cell carcinoma of nose (disorder) 094097601(SN OMED) Diagnosis active 11/11/2017 Senile hyperkeratosis (disorder) 342430590(SN OMED) Diagnosis active 09/21/2017 Basal cell carcinoma of nose (disorder) 117480021(SN OMED) Diagnosis active 08/26/2017 Personal history of other drug therapy Z92.29(ICD-1 0) Diagnosis active 07/20/2017 Inflamed seborrheic keratosis (disorder) 522408104(SN OMED) Diagnosis active 07/09/2016 Chronic kidney disease stage 3 (disorder) 106981541(SN OMED) Problem active Congestive heart failure (disorder) 63264936(SNO MED) Problem active Malignant tumor of tonsil (disorder) 437965652(SN OMED) Problem active Basal cell carcinoma of skin (disorder) 206363585(SN OMED) Problem active Diabetes mellitus (disorder) 06043680(SNO MED) Problem active Squamous cell carcinoma (disorder) 701825485(SN OMED) Problem active Results No data Encounters Service provided at [facility], [address] [place] [address], [address], [place], [place] [id number]. Office phonenumber is [phone]. Office fax number is [phone]. Encounter Diagnosis Location Date / Time Type Superficial Basal Cell Carcinoma (C44.712) [facility] 09/17/2025 19:30:00 UTC NI Reason For Referral No data Procedures Procedure Date Tumor destruction (procedure) 09/17/2025 12:00 am UTC Shave biopsy (procedure) 07/17/2025 12:0 0 am UTC Shave biopsy (procedure) 06/08/2024 12:0 0 am UTC Shave biopsy (procedure) 09/22/2023 12:0 0 am UTC Cryotherapy of skin lesion with liquid n itrogen (procedure) 09/22/2023 12:00 am UTC Tumor destruction (procedure) 09/22/2023 12:00 am [facility] Tumor destruction (procedure) 05/20/2023 12:00 am [facility] Cryotherapy of skin lesion with liquid n itrogen (procedure) 04/29/2023 12:00 am [facility] Shave biopsy (procedure) 04/29/2023 12:0 0 am [facility] Documentation of past medical history (p rocedure) Documentation of past medical history (p rocedure) Documentation of past medical history (p rocedure) Documentation of past medical history (p rocedure) Documentation of past medical history (p rocedure) Documentation of past medical history (p rocedure) Documentation of past medical history (p rocedure) Documentation of past medical history (p rocedure) Documentation of past medical history (p rocedure) null Review Of Systems Provider reviewed on Sep 17, 2025.A focused review of systems was performed including Integumentary.No Problems With Healing And No Problems With Scarring (hypertrophic Or Keloid). Assessment 1.Superficial Basal Cell CarcinomaCounselingCurettage and Destruction: right proximal pretibial region; Number of Curettages - 2; Size of lesion after curettage - 1; Cautery type - electrodesiccation. Plan of Care Future visit for 09/17/2025 - Follow up - (as previously scheduled) Code Detail Instructions 216935 betamethasone dipropionate 0.05 % lotion APPLY TWICE DAILY TO THE AFFECTED AREAS ON THE SCALP FOR 1-2 WEEKS NEEDED 004419 betamethasone dipropionate 0.05 % lotion APPLY TWICE DAILY TO THE AFFECTED AREAS ON THE SCALP FOR 1-2 WEEKS NEEDED 866696 betamethasone dipropionate 0.05 % lotion APPLY TWICE DAILY TO THE AFFECTED AREAS ON THE SCALP FOR 1-2 WEEKS NEEDED 298579 betamethasone dipropionate 0.05 % lotion Apply twice daily to affected areas on scalp for 1-2 weeks PRN. 707473 betamethasone dipropionate 0.05 % lotion Apply twice daily to affected areas on scalp for 1-2 weeks PRN. Instructions * I counseled the patient regarding the following:Instructions: Superficial Basal Cell Carcinoma can be removed via surgical excision, eletrodessication and curettage, Mohs, imiquimod, cryotherapy, or PDT with red light.Expectations: Superficial Basal Cell Carcinoma has a very high cure rate and prognosis with removal is excellent.Contact Office if: patient develops any new lesions that fail to heal, ulcerate or bleed. Social History Code Activity Start Date End Date 8234222 (SNOMED) Former smoker Sex male Sexual orientation Unspecified Gender identity Unspecified Vital Signs No data
--- OUTSIDE RECORDS SUMMARY | 2025-09-20 17:15 | XMS_ITS | Clinical Summary ---
Author Organization [facility] Address [address] [place] [address] Care Team Providers Care Shampoo Technician Name Role Phone Provider, Not In System [...] age to complete this topic Care Teams Shampoo Technician Relationship Specialty Start Date End Date Provider, Not In System PCP - General 09/14/19
--- OUTSIDE RECORDS SUMMARY | 2025-09-20 17:16 | XMS_ITS | Encounter Summary ---
Author Organization 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 documented as of this encounter Visit Diagnoses Not on filedocumented in this encounter Care Teams Policy Value Calculator Relationship Specialty Start Date End Date Bonilla Silver DO [address] [place] [address] PCP - General Internal Medicine 12/10/17 03/23/19 Self-Referred, Patient 12/10/17 Cali Corral MD [email or web address] Cardiology 03/24/19 documented as of this encounter Additional Source Comments The information contained in this document represents components of the legal health record. It is not the complete legal health record.[facility]
--- OUTSIDE RECORDS SUMMARY | 2025-09-20 17:16 | XMS_ITS | Encounter Summary ---
Author Organization [facility] Address [address] [facility] [address] [address] [place] [address] Phone Care Team Providers Care Light Air Defense Artillery Crewmember Name Role Phone Anton Perla Primary Care Provider Reason for Visit * Reason Comments Med Refill Encounter Details Date Type Department Care Team (Late Contact Info) Description 02/01/2024 Refill [facility] [address] [facility] [address] [place] [address] Caio De La Cruz MD [address] [place] [phone] Social History Tobacco Use Types Packs/Day Years [...] Orders Only [facility] [address] [phone] Kait Angela ARNP [address] [phone] Stage 3b chronic kidney disease (HCC); Hypokalemia; Hypertension; Microalbuminuria 10/16/2025 2:00 PM EST Office Visit [facility] [address] [phone] Kait Angela ARNP [address] [phone] documented as of this encounter Visit Diagnoses Not on filedocumented in this encounter Care Teams Light Air Defense Artillery Crewmember Relationship Specialty Start Date End Date Anton Perla PA [address] [place] [address], [address] [place], [place] [phone] PCP - General Physician Movers 09/29/22 documented as of this encounter
--- OUTSIDE RECORDS SUMMARY | 2025-09-20 17:16 | XMS_ITS | Encounter Summary ---
Author Organization [facility] Address [address] [place] [address] Phone Care Team Providers Care Primary School Principal Name Role Phone Bonilla Silver DO Primary Care Provider [phone] Self-Referred, Patient Unavailable Unavailab Cali Beyer MD Unavailable [phone] Encounter Details Date Type Department Care Team (Late st Contact Info) Description 12/23/2017 Procedure Pass [facility] [address] [place] [address] Social History Tobacco Use Types Packs/Day Years [...] Visit [facility] [place] [address] [facility], 11th [place] [address] Jona Bonilla MD, DMD [address] [place] [address] [email or web address] documented as of this encounter Visit Diagnoses Not on filedocumented in this encounter Care Teams Primary School Principal Relationship Specialty Start Date End Date Bonilla Silver DO [address] [place] [address] PCP - General Internal Medicine 12/10/17 03/23/19 Self-Referred, Patient 12/10/17 Cali Corral MD [email or web address] Cardiology 03/24/19 documented as of this encounter Additional Source Comments The information contained in this document represents components of the legal health record. It is not the complete legal health record.[facility]
--- OUTSIDE RECORDS SUMMARY | 2025-09-20 17:16 | XMS_ITS | Clinical Summary ---
Author Organization [facility] Address [address] [place] [address] Phone Care Team Providers Care Drywaller Name Role Phone Self-Referred, Patient Unavailable Unavailab Cali Beyer MD Unavailable [phone] Allergies Active Allergy Reactions Criticality Noted Date [...] different from the original. Pt received #1:2 Dental Corpid vaccine Lot # [id number] on 01/01/21 and #2:2 Lot # [id number] on 01/22/21 at [facility]. 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 Health Maintenance Due Date Last Done [...] EDT) SODIUM 142 136 - 145 mmol/L [facility] POTASSIUM 3.8 3.4 - 5.0 mmol/L [facility] CHLORIDE 100 98 - 107 mmol/L [facility] CO2 28 22 - 31 mmol/L [facility] BUN 27(H) 6 - 23 mg/dL [facility] CREATININE 1.15 0.50 - 1.20 mg/dL [facility] GLUCOSE 172(H) 70 - 100 mg/dL [facility] CALCIUM 9.2 8.8 - 10.7 mg/dL [facility] EGFR 61 >59 mL/min/1.7 3m2 [facility] Comment:If patient is black, multiply result by 1.159. Estimated glomerular filtration rate calculated using the CKD-EPI equation. ANION GAP 14 5 - 17 mmol/L [facility] Blood 03/03/2018 6:38 AM EDT 03/03/2018 7:12 AM EDT us Jona Bonilla MD, DMD LAB BLOOD ORDERABLES Fin al Result [facility] [address] [place] [address] from Last 3 Months or Most Recently Relevant to Health Maintenance Insurance BLUE [employer]OSS MEDEX SUPPLEMENT MEDICARE PART A & B [employer] CROSS MEDEX SUPPLEMENT MEDICARE PART A & B [employer] CROSS MEDEX SUPPLEMENT MEDICARE PART A & B [employer] CROSS MEDEX SUPPLEMENT MEDICARE PART A & B [employer] MEDEX SUPPLEMENT MEDICARE PART A & B [employer] CROSS MEDEX SUPPLEMENT MEDICARE PART A & B [employer] CROSS MEDEX SUPPLEMENT MEDICARE PART A & B [employer] MEDEX SUPPLEMENT MEDICARE PART A & B [employer] MEDEX SUPPLEMENT MEDICARE PART A & B MEDICARE PART A & B [employer] CROSS MEDEX SUPPLEMENT MEDICARE PART A & B [employer] CROSS MEDEX SUPPLEMENT MEDICARE PART A & B [employer] CROSS MEDEX SUPPLEMENT MEDICARE PART A & B [employer] CROSS MEDEX SUPPLEMENT MEDICARE PART A & B [employer] CROSS MEDEX SUPPLEMENT MEDICARE PART A & B [employer] MEDEX SUPPLEMENT MEDICARE PART A & B [employer] MEDEX SUPPLEMENT MEDICARE PART A & B [employer] MEDEX SUPPLEMENT MEDICARE PART A & B Member Subscriber Plan / Payer (Ef fective 2005-Present) Name:Felix Syed Member ID:[id number] Relation to Subscriber:Self Name:Felix Syed Subscriber ID:[id number] Payer ID:[id number] Group ID:Not on file Type:Medicare Address: [employer] [address] [address] [employer] JONANCY MEDEX SUPPLEMENT Advance Directives For more information, please contact: [phone] (9AM - 5PM [facility], Wednesday-Wednesday) Documents on File Type Date Recorded Patient Compliance Manager Expl anation Healthcare Proxy 12/23/2017 1:08 PM * Full Code (Presumed) (Latest Code Status on File) Date Activated Date Inactivated Comments 03/01/2018 6:39 PM 03/03/2018 2:28 PM * Full Code (Presumed) Date Activated Date Inactivated Comments 02/28/2018 5:49 PM 03/01/2018 6:39 PM Care Teams Drywaller Relationship Specialty Start Date End Date Self-Referred, Patient 12/10/17 Cali Corral MD [email or web address] Cardiology 03/24/19 Additional Source Comments The information contained in this document represents components of the legal health record. It is not the complete legal health record.[facility]
--- OUTSIDE RECORDS SUMMARY | 2025-09-20 17:16 | XMS_ITS | Encounter Summary ---
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 documented as of this encounter Visit Diagnoses Not on filedocumented in this encounter Care Teams Organizational Psychologist Relationship Specialty Start Date End Date Bonilla Silver DO [address] [place] [address] PCP - General Internal Medicine 12/10/17 03/23/19 Self-Referred, Patient 12/10/17 Cali Corral MD [email or web address] Cardiology 03/24/19 documented as of this encounter Additional Source Comments The information contained in this document represents components of the legal health record. It is not the complete legal health record.[facility]
--- OUTSIDE RECORDS SUMMARY | 2025-09-20 17:16 | XMS_ITS | Clinical Summary ---
Author Organization [facility] Address [address] [place] [id number] Phone Care Team Providers Care Production Potter Name Role Phone Anton Perla Primary Care Provider [phone] Allergies Active Allergy Reactions Criticality Noted Date [...] Orders Only [facility]. [address] [address] Julio César KaitMERARI avelar [address] [address] Stage 3b chronic kidney disease (HCC); Hypokalemia; Hypertension; Microalbuminuria 10/16/2025 2:00 PM EST Office Visit [facility] [address] [address] Kait Angela ARNP [address] [address] Health Maintenance Due Date Last [...] Associated Diagnosis Comments ALBUMIN, URINE, RANDOM Routine 2:53 PM EDT PROTEIN / CREATININE RATIO, URINE Routine 09/11/2025 2:53 PM EDT Stage 3b chronic kidney disease (HCC) Hypokalemia Hypertension Microalbuminuria LIPID PANEL Routine 09/11/2025 1:51 PM EDT COMPREHENSIVE METABOLIC PANEL (HC) Routine 09/11/2025 1:51 PM EDT PTH, INTACT (HC) Routine 09/11/2025 1:51 PM EDT CBC AND DIFFERENTIAL Routine 09/11/2025 1:51 PM EDT MAGNESIUM Routine 09/11/2025 1:51 PM EDT Stage 3b chronic kidney disease (HCC) Hypokalemia Hypertension Microalbuminuria HEMOGLOBIN A1C Routine 10/09/2021 3:08 PM EST [...] 2:53 PM EDT 09/11/2025 2:53 PM EDT us Mas Con Movil [facility] URINE ORDERABLES Final Result [facility] See order comments [place] [address] * Albumin, urine, random (09/11/2025 2:53 PM EDT) Creatinine, Urine 65.98 mg/dL Se e order comments Urine Microalbumin 13.0 mg/L See order comments Microalbumin/Crea tinine Ratio 19.7 <30 ug/mg cr See order comments Comment: Albumin/Creatinine Ratio Reference Ranges: Normal: < 30 ug/mg creatinine Microalbuminuria: 30 - 300 ug/mg creatinine Clinical Albuminuria: > 300 ug/mg creatinine 09/11/2025 2:53 PM EDT 09/11/2025 2:53 PM EDT us Mas Con Movil [facility] URINE ORDERABLES Final Result [place] See order comments [place] [address] * (ABNORMAL) PTH, Intact (09/11/2025 1:51 PM EDT) Parathyroid Hormone, Intact 164.6(H) 8.7 - 77.1 pg/mL See order comments 09/11/2025 1:51 PM EDT 09/11/2025 1:51 PM EDT Kait Angela [facility] HISTORICAL-CONVERSIONS- UNSOLICITED RESULTS Final Result [place] See order comments [place] [address] * (ABNORMAL) Comprehensive metabolic panel (09/11/2025 1:51 PM EDT) Sodium 140 135 - 145 mmol/L See order comments Potassium 4.0 3.3 - 5.1 mmol/L See order comments Chloride 101 96 - 108 mmol/L See order comments Bicarbonate (CO2) 29 22 - 29 mmol/L See order comments Anion Gap 14 12 - 20 See order comments BUN 53(H) 9 - 16 mg/dL See order comments Creatinine Serum 2.10(H) 0.5 - 1.4 mg/dL See order comments eGFR (Calc) 30 See orde r comments Comment: Chronic Kidney Disease: Estimated GFR < 60 mL/min/1.73m2 Severe Kidney Disease: Estimated GFR < 15 mL/min/1.73m2 Glucose - Fasting 132(H) 60 - 99 mg/dL See order comments Comment: A fasting glucose of 126 mg/dl or greater on more than one occasion is considered diagnostic of diabetes. Calcium 9.4 8.4 - 10.2 mg/dL See order comments Total Bilirubin 0.5 0.0 - 1.0 mg/dL See order comments AST (SGOT) 17 5 - 37 U/L See orde r comments ALT (SGPT) 10 0 - 40 U/L See orde r comments Total Protein 7.2 6.5 - 8.0 g/dL See order comments Albumin 4.2 3.5 - 5.0 g/dL See order comments Alkaline phosphatase 72 39 - 117 U/L See order comments 09/11/2025 1:51 PM EDT 09/11/2025 1:51 PM EDT Kait Angela [facility] HISTORICAL-CONVERSIONS- UNSOLICITED RESULTS Final Result [place] See order comments [place] [address] * (ABNORMAL) CBC and Differential (09/11/2025 1:51 [...] 1:51 PM EDT 09/11/2025 1:51 PM EDT [facility] LAB BLOOD ORDERABLES Final Result Performing Organization Address [facility] de Phone Number [place] See order comments [place] [address] * Magnesium (09/11/2025 1:51 PM EDT) Magnesium 1.8 1.6 - 2.6 mg/dL See order comments Blood Venous blood / Unknown 09/11/2025 1:51 PM EDT 09/11/2025 1:51 PM EDT [facility] LAB BLOOD ORDERABLES Final Result Performing Organization Address [facility] de Phone Number [place] See order comments [place] [address] * (ABNORMAL) Lipid panel (09/11/2025 1:51 PM EDT) Triglycerides 121 <150 mg/dL See o rder comments Comment: Desirable Triglyceride: less than 150 mg/dL Borderline High Triglyceride 150-199 mg/dL High Triglyceride: 200-499 mg/dL Very High Triglyceride: greater than or equal to 5OO mg/dL Cholesterol 168 <200 mg/dL See ord er comments Comment: Desirable Cholesterol: less than 200 mg/dL Borderline High Cholesterol: 200-239 mg/dL High Cholesterol: greater than 239 mg/dL LDL Calculated 102(H) <100 mg/dL See order comments Comment: Desirable LDL: less than 100 mg/dL Near Optimal/Above Optimal LDL: 110-129 mg/dL Borderline High LDL: 130-159 mg/dL High LDL: 160-189 mg/dL Very High LDL: greater than or equal to 190 mg/dL HDL 42 >40 mg/dL See order comments Comment: Desirable HDL: greater than 40 mg/dL Note: This HDL assay may give artificially low results in patients with liver disease. 09/11/2025 1:51 PM EDT 09/11/2025 1:51 PM EDT us Kait Angela [facility] LAB BLOOD ORDERABLES Final Result Performing Organization Address City/[facility]/ZIP Co de Phone Number [place] See order comments [place] [address] * (ABNORMAL) Hemoglobin A1c (10/09/2021 3:08 PM EST) Hemoglobin A1C 6.4(H) (4.0-5.6) % [facility] Comment: MONITORING: In known diabetic patients, hemoglobin A1c targets should be discussed with health care provider. DIAGNOSTIC USE: The [place] [employer] Association (ADA) and the World Health [...] Supplement 1 Testing performed or reported by [facility], a Service of [facility], [address] [place] [address] Hermes Butler MD, Real Estate Leasing Manager [facility]# [id number] 10/09/2021 3:08 PM EST 10/09/2021 3:12 PM EST us Caio De La Cruz MD LAB BLOOD ORDERABLES Final Re sult [facility] from Last 3 Months or Most Recently Relevant to Health Maintenance Insurance Medicare [facility] Medicare [facility] Care Teams Production Potter Relationship Specialty Start Date End Date Anton Perla PA [address] [place] [address], [address] [place] [address] PCP - General Physician Pin Or Clip Fastener 09/29/22
--- OUTSIDE RECORDS SUMMARY | 2025-09-20 17:16 | XMS_ITS | Encounter Summary ---
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 documented as of this encounter Visit Diagnoses Not on filedocumented in this encounter Care Teams Clinical Writer Relationship Specialty Start Date End Date Bonilla Silver DO [address] [place] [address] PCP - General Internal Medicine 12/10/17 03/23/19 Self-Referred, Patient 12/10/17 Cali Corral MD [email or web address] Cardiology 03/24/19 documented as of this encounter Additional Source Comments The information contained in this document represents components of the legal health record. It is not the complete legal health record.[facility]
--- OUTSIDE RECORDS SUMMARY | 2025-09-20 17:16 | XMS_ITS | Encounter Summary ---
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 documented as of this encounter Visit Diagnoses Not on filedocumented in this encounter Care Teams Color Artist Relationship Specialty Start Date End Date Bonilla Silver DO [address] [place] [address] PCP - General Internal Medicine 12/10/17 03/23/19 Self-Referred, Patient 12/10/17 Cali Corral MD [email or web address] Cardiology 03/24/19 documented as of this encounter Additional Source Comments The information contained in this document represents components of the legal health record. It is not the complete legal health record.[facility]
--- OUTSIDE RECORDS SUMMARY | 2025-09-20 17:16 | XMS_ITS | Clinical Summary ---
Author Organization [facility] Address [address] [place] [address] Care Team Providers Care Software Licensing Analyst Name Role Phone Unavailable Primary Care Provider [...]
--- OUTSIDE RECORDS SUMMARY | 2025-09-20 17:16 | XMS_ITS | Encounter Summary ---
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 documented as of this encounter Visit Diagnoses Not on filedocumented in this encounter Care Teams Bobbin Cleaner Relationship Specialty Start Date End Date Bonilla Silver DO [address] [place] [address] PCP - General Internal Medicine 12/10/17 03/23/19 Self-Referred, Patient 12/10/17 Cali Corral MD [email or web address] Cardiology 03/24/19 documented as of this encounter Additional Source Comments The information contained in this document represents components of the legal health record. It is not the complete legal health record.[facility]
--- OUTSIDE RECORDS SUMMARY | 2025-09-20 17:16 | XMS_ITS | Encounter Summary ---
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 Not on file Not on file documented as of this encounter Plan of Treatment Upcoming Encounters Date Type Department Care Team (Late st Contact Info) Description 07/08/2026 11:30 AM EDT Office [facility] [place] [address] [facility], [address]th [place] [address] Jona Bonilla MD, DMD [address] [place] [address] [email or web address] documented as of this encounter Visit Diagnoses Not on filedocumented in this encounter Care Teams Cut Off Machine Helper Relationship Specialty Start Date End Date Bonilla Silver DO [address] [place] [address] PCP - General Internal Medicine 12/10/17 03/23/19 Self-Referred, Patient 12/10/17 Cali Corral MD [email or web address] Cardiology 03/24/19 documented as of this encounter Additional Source Comments The information contained in this document represents components of the legal health record. It is not the complete legal health record.[facility]
== END 2025-09-20 15:09 | disposition home or self-care (01) ==
LOC: HO.HMCH 14:14
PROVIDERS: PCP Physician Assistant; Visit Provider Physician Assistant
DX: I50.32 Chronic diastolic (congestive) heart failure (principal); I10 Essential (primary) hypertension; E11.65 Type 2 diabetes mellitus with hyperglycemia; N18.31 Chronic kidney disease, stage 3a; R53.82 Chronic fatigue, unspecified; R19.5 Other fecal abnormalities; M48.061 Spinal stenosis, lumbar region without neurogenic claudication; Z23 Encounter for immunization

== ENCOUNTER → 2025-09-20 14:13 | Outpatient (BNVA) | payer MEDICARE, SELFPAY | PROVIDERS: PCP Physician Assistant; Visit Provider Physician Assistant | DX: I50.32 Chronic diastolic (congestive) heart failure (principal); E11.65 Type 2 diabetes mellitus with hyperglycemia; I10 Essential (primary) hypertension; N18.31 Chronic kidney disease, stage 3a; R53.82 Chronic fatigue, unspecified; R19.5 Other fecal abnormalities; M48.061 Spinal stenosis, lumbar region without neurogenic claudication; Z23 Encounter for immunization | CPT/HCPCS: 90471; 90656; 99212 ==

== ENCOUNTER 2025-10-05 16:11 | Outpatient (REF) | payer MEDICARE, SELFPAY ==
--- NOTE | ~2025-10-05 | CT_ITS ---
EXAMINATION: CT ABDOMEN AND PELVIS WITHOUT CONTRAST CLINICAL INFORMATION: R14.0 - Abdominal distension (gaseous) COMPARISON: June 13, 2020 TECHNIQUE: Multidetector volumetric imaging was performed from the superior aspect of the liver through the pubic symphysis. Sagittal and coronal reformatted images were obtained on the technologist's workstation. This CT examination was performed using dose optimization techniques as appropriate, variously including the following: *Automated exposure control *Adjustment of mA and/or kV according to patient size (this includes techniques or standardized protocols for targeted exams where dose is matched to indication/reason for exam; i.e. extremities or head) *Use of iterative reconstruction technique FINDINGS: LUNG BASES: The visualized lung bases are unremarkable. LIVER, GALLBLADDER, AND BILIARY TREE: The liver is normal in size, shape, and attenuation. No focal hepatic lesion or biliary ductal dilatation is present. The gallbladder is unremarkable with no evidence of radiopaque gallstones, gallbladder wall thickening, or obvious pericholecystic inflammatory changes. PANCREAS: Unremarkable. SPLEEN: Unremarkable. ADRENAL GLANDS: Unremarkable. KIDNEYS AND URETERS: There are simple renal cysts bilaterally. There is a 11 x 13 mm hyperdense lesion involving the anterior superior pole right kidney. No lesion was present in this region on the prior. There is bilateral renal cortical thinning, [id number]. No stones are identified. BLADDER: Unremarkable. GASTROINTESTINAL TRACT: Pseudodiverticula are present in the descending and sigmoid colon without inflammatory changes. Appendix is not clearly demonstrated. ABDOMINAL WALL: 3 cm umbilical hernia containing adipose tissue is unchanged. LYMPH NODES: Normal. VASCULAR: The lowest renal artery is on the left. A stent graft extends from the ostia of the left renal artery into bilateral common iliac arteries. The infrarenal fusiform aneurysmal sac measures 5.6 x 5.8 cm (AP by transverse). Previously it measured 5.1 x 5.0 cm appearing AP by transverse). there is focal metal located anterior to the central area of the aneurysmal sac that is likely vascular related such as a coil. Otherwise, there is moderate vascular calcification. PELVIC VISCERA: Metallic beads in the prostate are probably related to treatment of prostate cancer. OSSEOUS STRUCTURES: Moderate degenerative changes are evident in the lumbar spine with degenerative disc disease and facet osteophytes. There is stable grade 1 anterolisthesis at L4-5. There is moderate degenerative change in the hips, right greater than left. There is also chondrocalcinosis. There are marginal osteophytes. There is mild axial joint space narrowing. CT/CT abdomen pelvis wo IV con IMPRESSION: Stent graft is seen in the infrarenal abdominal aorta extending into the common iliac arteries. Aneurysmal sac has increased since the prior study from 2019, but its stability is unknown otherwise and so an endoleak is not entirely ruled out. There is 11 x 13 mm hyperdense lesion involving the anterior superior pole right kidney. While this could represent hemorrhagic, no cyst was evident on the prior study from 5 years ago. Follow up MRI abdomen without and with IV contrast to determine if the lesion is solid are not. Bilateral renal cortical thinning suggests underlying chronic kidney disease. Diverticulosis without evidence of infection. 3 cm umbilical hernia containing adipose tissue is stable. There is ample intraperitoneal adipose tissue that could account for the patient's abdominal distention. Fleischner guidelines were followed. Electronically signed by: Sam Mistry MD 10/05/2025 06:11 PM [facility]
--- NOTE | ~2025-10-05 | CT_ITS ---
EXAMINATION: CT LUMBAR SPINE WITHOUT CONTRAST CLINICAL INFORMATION: Low back pain. Neurogenic claudication. COMPARISON: None available. TECHNIQUE: Axial 2 mm thin and reformatted 2 mm thin sagittal and coronal images of lumbar spine were obtained. This CT examination was performed using dose optimization techniques as appropriate, variously including the following: *Automated exposure control *Adjustment of mA and/or kV according to patient size (this includes techniques or standardized protocols for targeted exams where dose is matched to indication/reason for exam; i.e. extremities or head) *Use of iterative reconstruction technique DLP: [id number] FINDINGS: On sagittal reconstructed images there is maintained lumbar lordosis. There is grade 1 anterolisthesis L4 over L5. of the vertebral alignment is normal. There is loss of disc height from L2-3 through L5-S1 disc levels with mild ventral spondylosis. The T12-L1, L1-2 disc levels are unremarkable. At L2-3 disc level there is minimal bulge with mild AP canal stenosis. The neural foramina are patent bilaterally. At L3-4 disc levels there is disc bulge/osteophyte complex resulting in moderate AP canal stenosis. There is moderate bilateral facet joint arthropathy and hypertrophy resulting in bilateral narrowing of neural foramina. At L4-5 disc level is anterolisthesis resulting in diffuse pseudo disc bulge and moderate AP canal stenosis. There is significant right and moderate left facet joint arthropathy narrowing bilateral neural foramina. At L5-S1 disc level there is no significant disc bulge, herniation or spinal canal stenosis. The neural foramina are patent. There is no aggressive lytic or sclerotic process seen. There is an infrarenal abdominal aortic aneurysm with vascular aortic/iliac graft stent in place. There are small 2 cm cyst upper mid pole right kidney medially. CT/CT lumbar spine wo IV con IMPRESSION: Grade 1 anterolisthesis L4 over L5. There are degenerative disc changes from L2-3 through L5-S1 disc level. Moderate AP canal stenosis at L4-5, L3-4 and mild stenosis at L2-3 disc levels from underlying diffuse bulge and facet joint arthropathy and hypertrophy as described above. Electronically signed by: Hugo Flores MD 10/08/2025 07:23 AM [facility]
== END 2025-10-05 16:12 | disposition home or self-care (01) ==
LOC: HO.CT 16:11
PROVIDERS: PCP Physician Assistant; Visit Provider Physician Assistant
DX: M48.061 Spinal stenosis, lumbar region without neurogenic claudication (principal); R14.0 Abdominal distension (gaseous)
CPT/HCPCS: 72131; 74176

== ENCOUNTER → 2025-10-05 16:13 | Outpatient (BNV) | payer MEDICARE, SELFPAY | PROVIDERS: PCP Physician Assistant; Visit Provider Radiology Diagnostic Radiology | DX: M48.061 Spinal stenosis, lumbar region without neurogenic claudication (principal); M51.360 Other intervertebral disc degeneration, lumbar region with discogenic back pain only | CPT/HCPCS: 72131 ==